=== PATIENT | male | born 1940 | race Caucasian/White ===

== ENCOUNTER 2016-07-08 08:55 | Inpatient (IN) | payer MEDICARE, OTHER ==
[~2016-07-08] VITALS: Ht 149.9 cm; Wt 46.2 kg
[2016-07-08] VITALS (24 sets, daily range): BP systolic 101–121; BP diastolic 67–80; PULSE 91–113; RESP 13–30; TEMP 98.9
[~2016-07-08 08:55] MED LIST: ALBU8.5H3 INH; BACL10TA PO; BUDE6HFA INHALATION; EPINEPHrine 0.1 MG/ML SYG ONE; FER325 PO; HYDR-906 PO; MEGE400O PO; MIRT15TA5 PO; NA BICARBONATE 8.4% 50 ML SYG ONE; ONDA4TAB95 PO; PANT40TA4 PO; TAMS0.4C2 PO; TRAM-40 PO
[2016-07-08] MEDS ORDERED: AZTREONAM 1 GM/NS (PMX) 50 ML IVPB STA (08:59)
[2016-07-08] MEDS ORDERED: SOD CHLORIDE 0.9% 1,000 ML IV STA ×2 (08:59)
--- NOTE | 2016-07-08 09:32 | RADRPT ---
PROCEDURE: XR Chest. CLINICAL INDICATION: Chest pain, sepsis TECHNIQUE: Single frontal view of the chest was obtained. COMPARISON: 06/06/16 FINDINGS: The heart is within normal limits. The thoracic aorta is calcified. There is right mid lung scarring with a staple line. There are surgical clips at the GE junction. There is no focal infiltrate. There is no pleural effusion or pneumothorax. RPTAT: AA IMPRESSION: Postsurgical changes of the right mid lung. No focal infiltrate. Calcified aorta consistent with atherosclerotic disease. .Jai Cordero MD, MD Date Time Electronically viewed and signed by .Jai Cordero MD, on 07/08/2016 09:32 .S/
[2016-07-08] MEDS ORDERED: ACETAMINOPHEN 325 MG TAB PO PRN (10:00)
[2016-07-08] MEDS ORDERED: ONDANSETRON 4 MG INJ IV PRN ×2 (10:00→13:30)
[2016-07-08 10:14] LABS: BASOPHIL # 0.1 10^3/ul (0.0-0.1); BASOPHILS % 0.6 % (0.0-2.0); EOSINOPHILS # 1.6 10^3/ul (0.0-0.5); EOSINOPHILS % 7.8 % (0.0-7.0); HEMATOCRIT 28.5 % (42.0-52.0); HEMOGLOBIN 9.4 g/dl (14.0-18.0); LYMPHOCYTES # 2.2 10^3/ul (0.8-2.9); LYMPHOCYTES % 10.4 % (15.0-51.0); MEAN CORPUSCULAR HEMOGLOBIN 28.6 pg (29.0-33.0); MEAN CORPUSCULAR HGB CONC 32.9 g/dl (32.0-37.0); MEAN CORPUSCULAR VOLUME 86.7 fl (82.0-101.0); MEAN PLATELET VOLUME 8.2 fl (7.4-10.4); MONOCYTES % 4.8 % (0.0-11.0); NEUTROPHIL # 16.2 10^3/ul (1.6-7.5); NEUTROPHILS % 76.4 % (39.0-77.0); PLATELET COUNT 451 10^3/UL (140-440); RED BLOOD COUNT 3.29 10^6/ul (4.70-6.10); RED CELL DISTRIBUTION WIDTH 18.6 % (11.5-14.5); UNCORRECTED WBC 21.2 10^3/ul (4.8-10.8); WHITE BLOOD COUNT 21.2 10^3/ul (4.8-10.8)
[2016-07-08 10:17] LABS: INR 1.05; PROTIME 13.7 Sec (12.2-14.2); PT RATIO 1.1
[2016-07-08 10:18] LABS: PARTIAL THROMBOPLASTIN TIME 29.4 Sec (25.0-35.0)
[2016-07-08 10:19] LABS: CONDITION 1; LH ANALYZER COMMENTS 1
[2016-07-08 10:20] LABS: ALBUMIN 3.1 g/dl (3.3-4.9); CHLORIDE 110 mmol/L (97-110); POTASSIUM 5.1 mmol/L (3.5-5.1); SODIUM 142 mmol/L (135-144)
[2016-07-08 10:22] LABS: CREATININE 1.71 mg/dl (0.61-1.24)
[2016-07-08 10:23] LABS: ALANINE AMINOTRANSFERASE 28 IU/L (13-69); ALBUMIN/GLOBULIN RATIO 0.83; ALKALINE PHOSPHATASE 123 IU/L (42-121); ANION GAP 21 (8-16); ASPARTATE AMINO TRANSFERASE 23 IU/L (15-46); BILIRUBIN,INDIRECT 0.1 mg/dl (0-1.1); BILIRUBIN,TOTAL 0.1 mg/dl (0.2-1.3); BLOOD UREA NITROGEN 33 mg/dl (7-20); CARBON DIOXIDE 16 mmol/L (21-31); GLUCOSE 103 mg/dl (70-220); TOTAL PROTEIN 6.8 g/dl (6.1-8.1)
[2016-07-08 10:24] LABS: CALCIUM 8.9 mg/dl (8.4-10.2)
--- NOTE | 2016-07-08 10:25 | RADRPT ---
PROCEDURE: CT Brain without contrast. CLINICAL INDICATION: Acute neurologic deficit TECHNIQUE: A CT of the brain was performed on multidetector high-resolution CT scanner utilizing a xial sections from the skull base through the vertex without contrast. DOSE: CTDI = 40 mGy and the DLP = 634 mGy-cm. COMPARISON: CT brain 06/04/2016 FINDINGS: No acute intracranial hemorrhage, significant mass effect or midline shift. Confluent hypoattenuatio n of the cerebral white matter is most consistent with severe chronic microvascular ischemic changes . Chronic bilateral basal ganglia lacunar infarcts. Atherosclerotic calcifications of the cavernous segments of the internal carotid arteries are seen. The ventricles are prominent but stable size. Diffuse volume loss.. No significant opacification of the visualized paranasal sinuses or mastoids. IMPRESSION: No significant interval change since 06/04/2016. No acute intracranial hemorrhage or significant mass effect. Severe chronic microvascular disease and chronic bilateral basal ganglia lacunar infarcts. RPTAT: AA .Melvin Fischer MD, MD Date Time Electronically viewed and signed by .Melvin Fischer MD, on 07/08/2016 10:24 .T/
[2016-07-08 10:43] LABS: TROPONIN-I < 0.012 ng/ml (0.00-0.12)
[2016-07-08] MEDS: VANCOMYCIN 1 GM (PMX) 250 ML IVPB ONE ×2 (10:43→11:30)
[2016-07-08] MEDS ORDERED: EPINEPHrine 0.1 MG/ML SYG ONE (12:35)
[2016-07-08] MEDS ORDERED: PROPOFOL 100 ML IV STA (12:51)
[2016-07-08] MEDS ORDERED: MIDAZOLAM 50 MG in DEXTROSE 5% 40 ML IV STA (12:58)
[2016-07-08] MEDS ORDERED: MIDAZOLAM 1 MG/ML 5 ML INJ IV ONE (13:00)
--- NOTE | 2016-07-08 13:03 | RADRPT ---
PROCEDURE: XR Chest. CLINICAL INDICATION: Status post intubation TECHNIQUE: Single portable view of the chest was obtained COMPARISON: Same Day FINDINGS: Limited study due to patient positioning. There is a new endotracheal tube 3.1 cm above the caterina. The heart is normal in size. There is no pleural effusion or pneumothorax. There is increased right paratracheal density which may be secondary to patient contraction. There are surgical clips in the right mid lung. There is a venous line in the right neck with air in the subcutaneous soft tissues. There is swelli ng in the right neck. RPTAT: AA IMPRESSION: New endotracheal tube in appropriate position. Increased soft tissue density in the right paratracheal region and in the base of the right neck, shafer spicious for a hematoma. Further evaluation with CT neck and chest is recommended. A call report was made and the findings discussed with Jax Mendez at 07/08/2016 12:59:59 PM. .Jai Cordero MD, MD Date Time Electronically viewed and signed by .Jai Cordero MD, on 07/08/2016 13:03 .S/
[2016-07-08 13:21] LABS: AADO2 Arterial 105.8 mmHg (7.0-24.0); Arterial Base Excess -19.4 mmol/L (-3.0-3); Arterial COHb 0.2 % (0.0-3.0); Arterial Fraction of Oxyhgb 98.4 % (93.0-99.0); Arterial HCO3 10.5 mmol/L (22.0-26.0); Arterial MetHb 0.5 % (0.0-1.5); Arterial Total Hemglobin 8.6 g/dl (12.0-18.0); MODE VENT - AC
[2016-07-08] MEDS ORDERED: ALBUTEROL 0.5% (NEB) 2.5 MG/0.5 ML AMP NEB PRN (13:30)
[2016-07-08] MEDS ORDERED: NORepinephrine 8MG/250 ML (PMX 250 ML IV SCH (13:30)
[2016-07-08] MEDS ORDERED: ACETAMINOPHEN 650MG/20.3ML CUP PO PRN (13:30)
[2016-07-08] MEDS ORDERED: MIDAZOLAM 1 MG/ML 2 ML INJ IV ONE (13:30)
[2016-07-08] MEDS ORDERED: IPRATROPIUM (NEB) 0.5 MG/2.5 ML AMP NEB PRN (13:30)
[2016-07-08] MEDS ORDERED: VANCOMYCIN IV PER PHARMACY XX SCH (13:30)
[2016-07-08] MEDS ORDERED: NORepinephrine 8MG/250 ML (PMX 250 ML ONE (13:42)
[2016-07-08 14:04] LABS: HEMATOCRIT 23.5 % (42.0-52.0); HEMOGLOBIN 7.6 g/dl (14.0-18.0); MEAN CORPUSCULAR HEMOGLOBIN 28.6 pg (29.0-33.0); MEAN CORPUSCULAR HGB CONC 32.5 g/dl (32.0-37.0); MEAN CORPUSCULAR VOLUME 87.9 fl (82.0-101.0); MEAN PLATELET VOLUME 7.4 fl (7.4-10.4); PLATELET COUNT 351 10^3/UL (140-440); RED BLOOD COUNT 2.67 10^6/ul (4.70-6.10); RED CELL DISTRIBUTION WIDTH 18.9 % (11.5-14.5); UNCORRECTED WBC 28.9 10^3/ul (4.8-10.8); WHITE BLOOD COUNT 28.9 10^3/ul (4.8-10.8)
[2016-07-08 14:07] LABS: CONDITION 1; LH ANALYZER COMMENTS 1; SUSPECT 1
[2016-07-08 14:13] LABS: INR 1.43; PROTIME 17.5 Sec (12.2-14.2); PT RATIO 1.4
[2016-07-08 14:14] LABS: ALBUMIN 2.6 g/dl (3.3-4.9)
[2016-07-08 14:15] LABS: POTASSIUM 4.6 mmol/L (3.5-5.1)
[2016-07-08 14:17] LABS: ALBUMIN/GLOBULIN RATIO 0.83; CREATININE 1.71 mg/dl (0.61-1.24); TOTAL PROTEIN 5.7 g/dl (6.1-8.1)
[2016-07-08] MEDS ORDERED: SOD CHLORIDE 0.9% 250 ML IV ONE (14:21)
--- NOTE | 2016-07-08 14:21 | ERA ---
ER Documentation Chief Complaint Date/Time DATE: 07/08/16 TIME: 14:15 Chief Complaint ALOC x this AM HPI Patient is a 75-year-old male with bladder cancer who presents altered. Please note the history and physical exam is limited secondary to the patient's altered mental status at this time. The patient was brought in by ambulance. He was seen normal last night. It is difficult to obtain history otherwise. Upon review of old medical records this is the patient's fifth visit to the ER since November 2015. The patient's primary doctor is Dr. Felder. ROS All systems reviewed and are negative except as per history of present illness. Medications Home Meds Active Scripts Megestrol Acetate* (Megace*) 400 Mg/10 Ml Oral.susp, 400 MG PO BID for 30 Days, ML Prov:JEREMIAS FELDER MD 07/04/16 Albuterol Sulfate* (Proair HFA*) 8.5 Gm Hfa.aer.ad, 2 PUFF INH Q4H Y for WHEEZING AND SOB, #1 INHALER Prov:JEREMIAS FELDER MD 06/10/16 Ferrous Sulfate* (Ferrous Sulfate*) 325 Mg Tabec, 325 MG PO DAILY, #30 TAB Prov:JEREMIAS FELDER MD 06/10/16 Reported Medications Budesonide-Formoterol Fumarate* (Symbicort*) 160-4.5 Hfa.aer.ad, 2 PUFF INHALATION BID, #1 EACH 06/04/16 Ondansetron Hcl* (Ondansetron Hcl*) 4 Mg Tablet, 4 MG PO Q6H Y for NAUSEA AND/ OR VOMITING, TAB 06/04/16 Mirtazapine* (Mirtazapine*) 15 Mg Tablet, 15 MG PO HS, TAB 06/04/16 Tamsulosin Hcl* (Tamsulosin Hcl*) 0.4 Mg Cap.er.24h, 0.4 MG PO DAILY, CAP 06/04/16 Tramadol Hcl* (Ultram*) 50 Mg Tablet, 50 MG PO Q6H Y for PAIN, TAB 06/04/16 Baclofen* (Baclofen*) 10 Mg Tablet, 10 MG PO BID, TAB 06/04/16 Hydrocodone/Acetaminophen ([place] 5-325 Tablet) 1 Each Tablet, 1 EACH PO Q8 Y for PRN, TAB 06/04/16 Pantoprazole* (Pantoprazole*) 40 Mg Tablet.dr, 40 MG PO DAILY, TAB 06/04/16 Discontinued Scripts Sulfamethoxazole-Trimethoprim* (Bactrim* DS) 800-160 Mg Tab, 1 TAB PO BID for 10 Days, #20 TAB Prov:JEREMIAS FELDER MD 06/10/16 Allergies Allergies: Coded Allergies: penicillin (Verified Allergy, Unknown, 07/08/16) PMhx/Soc History of Surgery: Yes (Bilat AKA, ELBOW SURGERY) Anesthesia Reaction: No Hx Neurological Disorder: No Hx Respiratory Disorders: Yes (RESPIRATORY FAILURE) Hx Cardiac Disorders: Yes (HYPOTENSION) Hx Psychiatric Problems: Yes (DEPRESSION) Hx Miscellaneous Medical Probl: Yes (HYPOXIA, HEAVY SMOKER, LIVER CA) Hx Alcohol Use: No Hx Substance Use: No Hx Tobacco Use: Yes (FORMER SMOKER) Smoking Status: Former smoker FmHx Unable to obtain Physical Exam Vitals Vital Signs Date Time Temp Pulse Resp B/P Pulse Ox O2 Delivery O2 Flow Rate FiO2 07/08/16 14:09 110 18 77/47 100 Mechanical Ventilator 07/08/16 13:38 114 18 65/49 100 Mechanical Ventilator 07/08/16 13:26 121 18 92/58 100 Mechanical Ventilator 07/08/16 13:01 132 18 87/58 100 Mechanical Ventilator 07/08/16 10:00 Nasal Cannula 2 07/08/16 09:37 98.9 124 17 100/53 97 Room Air 07/08/16 09:28 98.9 124 17 100/53 97 Physical Exam Const: Chronically ill Head: Atraumatic Eyes: Normal Conjunctiva ENT: Normal External Ears, Nose and Mouth. Neck: Full range of motion..~ No meningismus. Resp: Clear to auscultation bilaterally Cardio: Regular rate and rhythm, no murmurs Abd: Soft, non tender, non distended. Normal bowel sounds Skin: Pale Back: No midline or flank tenderness Ext: No cyanosis, or edema Neur: Awake but confused Result Diagram: 07/08/16 1350 07/08/16 1000 Results 24 hrs Laboratory Tests Test 07/08/16 10:00 07/08/16 12:28 07/08/16 12:51 07/08/16 13:50 Activated Partial Thromboplast Time 29.4Sec Alanine Aminotransferase (ALT/SGPT) 28IU/L Albumin 3.1g/dl Albumin/Globulin Ratio 0.83 Alkaline Phosphatase 123IU/L Anion Gap 21 Aspartate Amino Transf (AST/SGOT) 23IU/L Basophils # 0.110^3/ul Pending Basophils % 0.6% Pending Blood Morphology Comment Blood Urea Nitrogen 33mg/dl Calcium Level 8.9mg/dl Carbon Dioxide Level 16mmol/L Chloride Level 110mmol/L Creatinine 1.71mg/dl Direct Bilirubin 0.00mg/dl Eosinophils # 1.610^3/ul Pending Eosinophils % 7.8% Pending Globulin 3.70g/dl Glucose Level 103mg/dl Hematocrit 28.5% 23.5% Hemoglobin 9.4g/dl 7.6g/dl INR International Normalized Ratio 1.05 1.43 Indirect Bilirubin 0.1mg/dl Lactic Acid Level 1.7mmol/L Lymphocytes # 2.210^3/ul Pending Lymphocytes % 10.4% Pending Mean Corpuscular Hemoglobin 28.6pg 28.6pg Mean Corpuscular Hemoglobin Concent 32.9g/dl 32.5g/dl Mean Corpuscular Volume 86.7fl 87.9fl Mean Platelet Volume 8.2fl 7.4fl Monocytes # 1.010^3/ul Pending Monocytes % 4.8% Pending Neutrophils # 16.210^3/ul Pending Neutrophils % 76.4% Pending Nucleated Red Blood Cells # 0.010^3/ul Pending Nucleated Red Blood Cells % 0.0/100WBC Pending Platelet Count 82374^3/UL 60839^3/UL Potassium Level 5.1mmol/L Prothrombin Time 13.7Sec 17.5Sec Prothrombin Time Ratio 1.1 1.4 Red Blood Count 3.2910^6/ul 2.6710^6/ul Red Cell Distribution Width 18.6% 18.9% Sodium Level 142mmol/L Total Bilirubin 0.1mg/dl Total Protein 6.8g/dl Troponin I < 0.012ng/ml White Blood Count 21.210^3/ul 28.910^3/ul Bedside Glucose 90mg/dL Arterial Blood HCO3 10.5mmol/L Arterial Blood Base Excess -19.4mmol/L Arterial Blood Oxygen Saturation 99.1mmHG Kendrick Test N/A Arterial Blood Gas Puncture Site Right Brachial Arterial Blood Carboxyhemoglobin 0.2% Arterial Blood Date Drawn 07/08/2016 1:03:41 PM Arterial Blood Methemoglobin 0.5% Arterial Blood pCO2 (Temp correct) 42.5mmhg Arterial Blood pH (Temp corrected) 7.011 Arterial Blood pO2 (Temp corrected) 564.7mmHG Blood Gas A-a O2 Differential 105.8mmHg Blood Gas Actual Respiration Rate 18 Blood Gas Critical Value Read Back DR. HENRI NAVARRETE Blood Gas Low PEEP Setting 5.0cmH2O Blood Gas Modality VENT - AC Blood Gas Notified Time 07/08/2016 1:20:48 PM Blood Gas Notified Whom LILY RT Blood Gas Respiration Rate 18.0 Blood Gas Specimen Source Blood arterial Blood Gas Temperature 37.0C Blood Gas Tidal Volume 450.0mL FiO2 100.0% Oxyhemoglobin Percent 98.4% Total Hemoglobin 8.6g/dl Current Medications Medications (Trade) Dose Ordered Sig/Juliana Route PRN Reason Start Time Stop Time Status Last Admin Dose Admin Vancomycin HCl 250 ml @ 125 mls/hr ONCE ONCE IVPB 07/08/16 09:00 07/08/16 10:59 DC 07/08/16 11:30 Aztreonam 50 ml @ 100 mls/hr ONCE STAT IVPB 07/08/16 08:59 07/08/16 09:28 DC 07/08/16 11:00 Sodium Chloride 1,000 ml @ 1,000 mls/hr Q1H STAT IV 07/08/16 08:59 07/08/16 09:58 DC 07/08/16 10:42 Sodium Chloride (NS) 1,000 ml @ 1,000 mls/hr Q1H STAT IV 07/08/16 08:59 07/08/16 09:58 DC 07/08/16 11:52 Ondansetron HCl (Zofran Inj) 4 mg BRIDGE ORDER PRN IV NAUSEA AND/OR VOMITING 07/08/16 10:00 07/08/16 13:43 DC 07/08/16 10:43 Acetaminophen (Tylenol Tab) 650 mg ER BRIDGE PRN PO MILD PAIN/FEVER 07/08/16 10:00 07/08/16 13:43 DC 07/08/16 10:43 Epinephrine 1 mg 1 mg STK-MED ONCE .ROUTE 07/08/16 12:35 07/08/16 12:36 DC Propofol (Diprivan) 100 ml @ 1.5 mls/hr ONCE STAT IV 07/08/16 12:51 07/08/16 12:59 DC Midazolam HCl 5 mg 5 mg ONCE ONCE IV 07/08/16 13:00 07/08/16 13:01 DC Midazolam HCl/ Dextrose (Versed/D5W) 50 ml @ 3 mls/hr [id number] STAT IV 07/08/16 12:58 07/09/16 05:37 07/08/16 13:18 Midazolam HCl 5 mg 5 mg ONCE ONCE IV 07/08/16 13:30 07/08/16 13:31 DC 07/08/16 13:12 Sodium Chloride (NS) 1,000 ml @ 80 mls/hr [id number] IV 07/08/16 13:24 Ondansetron HCl (Zofran Inj) 4 mg Q6H PRN IV NAUSEA AND/OR VOMITING 07/08/16 13:30 Albuterol (Proventil 0.5% (Neb)) 2.5 mg Q4H RESP THERAPY NEB 07/08/16 17:00 Ipratropium [place] (Atrovent 0.02% (Neb)) 0.5 mg Q4H RESP THERAPY NEB 07/08/16 17:00 Albuterol (Proventil 0.5% (Neb)) 2.5 mg Q2H RESP THERAPY PRN NEB SHORTNESS OF BREATH 07/08/16 13:30 Ipratropium [place] (Atrovent 0.02% (Neb)) 0.5 mg Q2H RESP THERAPY PRN NEB SHORTNESS OF BREATH 07/08/16 13:30 Acetaminophen (Tylenol Liquid) 650 mg Q6H PRN PO PAIN LEVEL 1-3 OR FEVER 07/08/16 13:30 Morphine Sulfate (morphine) 2 mg Q2 PRN IV PAIN LEVEL 7-10 07/08/16 13:30 Pantoprazole (Protonix Iv) 40 mg DAILY@06 IV 07/09/16 06:00 Heparin Sodium (Porcine) (Heparin (5000 Units/0.5 ml)) 5,000 unit Q12 SC 07/08/16 21:00 Vancomycin HCl VANCOMYCIN PER PHARMACY PER PROTOCOL XX 07/08/16 13:30 UNV Imipenem/ Cilastatin Sodium 100 ml @ 100 mls/hr Q8 IVPB 07/08/16 14:00 UNV Norepinephrine 250 ml @ 1.875 mls/ hr TITRATE IV 07/08/16 13:30 07/08/16 13:50 Norepinephrine (Levophed) 250 ml @ STK-MED ONCE .ROUTE 07/08/16 13:42 07/08/16 13:43 DC Procedures/MDM EKG read by me: Rate/Rhythm: Sinus tachycardia Intervals: Normal Impression: Sinus tachycardia without evidence of ischemia Chest x-ray shows no pneumonia per radiology. Admit MDM: Patient's infectious symptoms have not stabilized and the patient is at risk of rapid decompensation. The patient will be admitted for careful hydration, antibiotic therapy, and infectious source control. Severe Sepsis criteria: Infectious source: Cystitis End organ damage indicated by: Hypertension Sepsis Management: Time of recognition of sepsis: 10:00 Within 3 hours of recognition: Blood cultures x 2 before broad-spectrum antibiotics: Yes 30 ml/kg NS bolus Completed Initial lactate 1.7 Repeat lactate 9.2 Time of recognition of septic shock: 12:30 Septic Shock Assessment: Any lactic acid > 4.0 No Persistent hypotension (SBP < 90 or 40 mmHg drop, MAP < 65) despite 30 mL/kg IV fluid bolus yes Volume Re-assessment for Septic Shock (post 30 ml/kg bolus): Temp 98.9, BP 77/47, HR 110, RR 18, Pox 100% Heart tachycardia Lungs decreased breath sounds bilaterally Skin pale Cap Refill Less than 2 seconds Peripheral pulses Radially present Persistent Hypotension Treatment: Comfort care No Central line left subclavian central line placed Vasopressor started Levophed started I considered further perfusion assessment with CVP measurement, SCVO2, bedside ultrasound volume assessment, passive leg raise, trial of further fluid bolus. And proceeded with 30 ml/kg fluid bolus of NSS, broad spectrum antibiotics, and admission. The patient had a cardiac arrest while in the emergency department and needed to be intubated and was given multiple doses of epinephrine. He did have return of spontaneous circulation. He was placed on a Versed drip. He was upgraded to the intensive care unit for admission. The family wants full care given. The patient has a repeat hemoglobin of 7.6 and will require transfusion. 2 units of packed red blood cells are ordered. Accepting Care Team Current data and ongoing care discussed. Admitting Physician: Dr. Felder Cinnamon Grinder(s): None Outstanding Data: Culture results Critical Care: Critical care time 55 minutes excluding all billable procedures Emergent fluid management while maintaining close respiratory support. Provision of immediate and broad-spectrum antibiotic therapy. Simultaneous assessment for possible sources in order to direct targeted therapy. Consideration for invasive and chemical support to prevent cardiopulmonary collapse. Central Line Placement by me: Patient consented, sterilely draped, full prep, gown, glove, mask, time out performed. Anesthesia: 1% lidocaine locally Location: Left subclavian Device: Multiple lumen Technique: Seldinger technique. Secured with suture. Results: Venous return from all ports with easy saline flush. No complications. Guide wire retrieved and disposed of. Chest X-ray 1V Interpreted by me: Central line in SVC, Normal soft tissue, No evidence of pneumothorax. Limited transthoracic echo performed by me Indication: Cardiac arrest Pericardium: No effusion Cardiac: Normal contraction Image archived in the medical record. Departure Diagnosis: Primary Impression: Septic shock Additional Impressions: Altered level of consciousness Cardiac arrest Sepsis Qualified Code: A41.9 - Sepsis, due to unspecified organism Condition: Critical HENRI NAVARRETE MD Jul 08, 2016 14:21
--- NOTE | 2016-07-08 14:22 | RADRPT ---
PROCEDURE: Chest Radiograph. CLINICAL INDICATION: Line placement TECHNIQUE: Single frontal chest radiograph. COMPARISON: Chest radiograph 07/08/2016 at 12:47 p.m. FINDINGS: An endotracheal tube remains in stable and radiographically appropriate position. There has been in terval placement of a left subclavian venous catheter with distal tip overlying the cavoatrial junct ion. There is no pneumothorax. Heart size remains within normal limits. Again seen is increased so ft tissue density in the right paratracheal region which may be related to tortuous vasculature. En larged thyroid, hematoma, or mass could also have this appearance. This finding was already reporte d to the ER physician on prior report. No infiltrate or effusion is seen The bones are intact. IMPRESSION: 1. Interval placement of left subclavian line. No pneumothorax. 2. Otherwise stable radiographic appearance of chest compared to 12:47 p.m. RPTAT: GG .Kemar Magallanes MD, MD Date Time Electronically viewed and signed by .Kemar Magallanes MD, on 07/08/2016 14:22 .B/
[2016-07-08] MEDS ORDERED: SOD CHLORIDE 0.9% 1,000 ML IV ONE (14:30)
[2016-07-08 14:42] LABS: TROPONIN-I 1.07 ng/ml (0.00-0.12)
[2016-07-08 14:43] LABS: ANISOCYTOSIS 2+; EOSINOPHILS # 1.2 10^3/ul (0.0-0.5); HYPOCHROMASIA 2+; MONOCYTE # 0.3 10^3/ul (0.3-0.9); NEUTROPHIL # 22.3 10^3/ul (1.6-7.5)
[2016-07-08 14:44] LABS: BURR CELLS FEW
[2016-07-08] MEDS ORDERED: ASPIRIN 300 MG SUPP PR ONE (15:00)
--- NOTE | 2016-07-08 15:10 | HP ---
DATE OF ADMISSION: 07/08/2016 REASON FOR ADMISSION: Encephalopathy, rule out sepsis. Now status post cardiac arrest. HISTORY OF PRESENT ILLNESS: The patient is a 75-year-old, very sick male, very well known to me. 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 The patient was seen previous ly by the urologist, Dr. Villarreal, by the radiation oncologist, Dr. Lan. It was felt that the p atient is not a candidate for bladder resection surgery and regarding radiation therapy, this may be just palliative in nature. The patient's prognosis has been very poor and family could not make a decision regarding code status or palliative care as they were more optimistic, especially the patie nt's daughter, despite me explaining to them that the patient's condition is not good. The patient was just discharged from [facility] under my care on 07/04/2016. He presented at that time with severe constipation and generalized debilitated state. I did offer the family to sen d the patient to a [facility] facility. We will place him under hospice care due. They do alr diego have care at home, home health, etc. They wanted still to pursue radiation therapy and hold fo r the best. The patient now returned to the hospital, as he was noted to be more lethargic. Septic workup was initiated as he was found to have a white count of 21,000. Lactic acid was normal at 1. 7. VITAL SIGNS: Initial vital signs showed a temperature of 98.9, pulse 124, respirations 17, blood pr essure 100/53, saturation 97%. The patient was started on antibiotics. A right IJ line was placed, but he was noted to be apneic and the patient coded. The patient was started on CPR and was perlita t back. Case discussed in detail with Dr. Martinez. I have spoken to Miesha, the patient's , and she is aware of patient's guarded condition. Also, I spoke at bedside with the daughter and told he r about patient's condition which is not good. The right IJ was removed during the CPR as they note d slight hematoma in the area. The patient now ventilated. He will be admitted to the intensive ca re unit in guarded condition. LABORATORY DATA: After intubation, and the ABG showed the following: pH of 7.30, pCO2 of 43, pO2 o f 565, bicarbonate of 10. Saturation is 99% on current settings: AC mode 18, tidal volume 450, PEE P of 5 and FIO2 100%. Again, the patient is admitted in critical condition to the intensive care un it. PAST MEDICAL HISTORY: Includes hypertension, dyslipidemia, depression, chronic anemia, chronic krystal k pain, gastroesophageal reflux disease, advanced COPD, chronic fracture of the left finger status p ost right lung decortication surgery, left AKA Cachexia stage IV, bladder cancer with mets to the li alem. SURGICAL HISTORY: Left AKA. FAMILY HISTORY: Unknown. 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 ALLERGIES: PENICILLIN. Recent pathology report from the bladder did show grade IV urothelial carcinoma, high grade extensiv sharan with focal glandular and squamous differentiation with invasion into the muscularis propria. Re cent CAT scan shows likely mets in the liver. The patient recent medications include the following; 1. Megace 400 b.i.d. 2. ProAir HFA 2 puffs q.4h. p.r.n. 3. Baclofen 10 mg b.i.d. 4. Flomax 0.4 daily. 5. daily. 6. [place] 5/325 q.8h. p.r.n. 7. Mirtazapine 50 mg at bedtime. 8. Ultram p.r.n. 9. Symbicort 2 puffs b.i.d. 19. Zofran. 11. Protonix 40 mg daily. REVIEW OF SYSTEMS: See HPI. PHYSICAL EXAMINATION: VITAL SIGNS: Temperature 98.9 earlier, heart rate 114, respirations 18, blood pressure went down to 65, but when I saw him it was in the 90s. Saturation was adequate at 100% on 100% FIO2 full ventil atory support. GENERAL: The patient is nonresponsive, off sedation. HEENT: Pupils are slightly dilated. CARDIOVASCULAR: S1, S2. Distant heart sounds. LUNGS: Decreased breath sounds on the left lung. There is some evidence of likely rib fractures in the anterior chest from the chest compressions. ABDOMEN: Soft, nontender. EXTREMITIES: Left AKA, right leg flexed at the knee. Multiple lesions in the right foot. Previous ly had unstageable sacral wound as well. The patient is mostly all bones, very cachectic and very s ick. LABORATORIES: White count is 21.2, hemoglobin 9.4, hematocrit 29, platelets 451, neutrophils 76%, l ymphocytes 10%. Chemistry: Sodium 142, potassium 5.1, chloride 110, bicarbonate 16, BUN is 33, cre atinine 0.71, glucose 103. AST 23, ALT 28, alkaline phosphatase 123. INR 1.05. ABG as above. Chest x-ray on admission prior to intubation shows post-surgical changes of the right mid lung. No focal infiltrate. There is calcified aorta consistent with atherosclerotic disease. Brain CT shows no significant interval change from 06/04/2016, no acute intracranial hemorrhage or s ignificant mass effect. There is severe chronic microvascular disease and chronic bilateral basal g anglia lacunar infarct. Chest x-ray: New endotracheal tube in appropriate position. There was increased soft tissue densit y in the right paratracheal region of the base of the right adnexa suspicious for hematoma. Further evaluation with CT of the neck and chest is recommended. Previous urine culture dated 07/02/2016 just showed an E. coli less than 10 to the fourth sensitive to cefotaxime, gentamicin, nitrofurantoin, tobramycin. EKG: I will follow with results. ASSESSMENT AND PLAN: This is a very unfortunate 75-year-old male, overall very sick with history of COPD, metastatic stage IV bladder cancer, severe cachexia, anemia, recurrent UTI may be r elated to his bladder malignancy, who presents encephalopathic, unfortunately, status post cardiac a rrest. 1. Respiratory. Continue vent support per utilization review coordinator for repeat ABG, further vent settings per pulmonology. 2. Cardiovascular IV fluid hydration will be provided with as needed pressors with Levophed to keep systolic blood pressure greater than 90. The patient will be placed on heparin for DVT prophylaxis . Followup EKG and troponin. 3. Sepsis may be UTI. The patient was empirically started on broad-spectrum antibiotics with imipenem and vancomycin. Follow up all cultures. 4. Renal insufficiency, slightly prerenal azotemia and dehydration. The patient again is very cach ectic, very difficult for him to eat in general, because of his medical condition. In the meantime, fluid hydration will be provided. 5. Neurologically, concerning for possible anoxic brain injury. The patient already has some form of vascular dementia, microinfarct on the CAT scan in the past. Condition is guarded. 6. Peripheral vascular disease, left AKA. Continue supportive care. 7. Right foot wound, sacral wound. Air mattress bed, vitamins and client renewal specialist consult will be provided. 8. Prognosis is poor as prognosis was poor before what happened. The family did not want to make a ny decisions regarding end of life care. Unfortunately, now he is ventilated. Consider palliative consult with Dr. Hassan. 9. Anemia. Monitor H and H, p.r.n. transfusion will be given. Again, the patient will be placed o n gastrointestinal prophylaxis with Protonix. 10. Prognosis is poor. Dictated By: JEREMIAS BELTRAN/LEISA Conf#: [id number] DID#: [id number]
[2016-07-08 15:15] LABS: AADO2 Arterial 126.9 mmHg (7.0-24.0); Allen Test ACCEPTAB; Arterial Base Excess -14.7 mmol/L (-3.0-3); Arterial COHb 0.3 % (0.0-3.0); Arterial Fraction of Oxyhgb 98.2 % (93.0-99.0); Arterial HCO3 9.9 mmol/L (22.0-26.0); Arterial MetHb 0.4 % (0.0-1.5); Arterial Total Hemglobin 8.2 g/dl (12.0-18.0); MODE VENT - AC
--- NOTE | 2016-07-08 15:35 | RADRPT ---
Echocardiogram Report Patient Name: BABITA HERRING Gender: Male Date: 1940 Study Date: 08-Jul-2016 Jalousies Installer: Miriam Ramos RDCS Location: Ref. Physician: JEREMIAS NAIK Quality: Limited Procedures: Transthoracic echocardiogram with complete 2D, M-Mode, and doppler examination. Indications: Cardiac Arrest. 2D/M Mode Doppler Measurement Value Normal Ranges Measurement Value Normal Ranges TR Peak Yassine 2.2 m/sec TR Peak PG 19.2 mmHg RVSP 22.0 mmHg Findings Left Ventricle: Normal left ventricular systolic function. Normal left ventricular cavity size. Ejection fraction is visually estimated at 65 %. Right Ventricle: Normal right ventricular size. Normal right ventricular systolic function. Left Atrium: The left atrium is normal in size. Right Atrium: The right atrium is normal in size. Mitral Valve: Normal appearance and function of the mitral valve with trace physiologic regurgitation. Aortic Valve: Normal appearance of the aortic valve. No significant aortic stenosis or insufficiency. Tricuspid Valve: Estimated peak PA systolic pressure 22 mmHg. There is mild to moderate tricuspid regurgitation. Pulmonic Valve: Normal pulmonic valve appearance. Pericardium: Normal pericardium with no significant pericardial effusion. Aorta: Normal aortic root. IVC: Normal size and normal respiratory collapse consistent with normal right atrial pressure. Pulmonary Artery: Normal pulmonary artery size. Conclusions 1.Normal left ventricular systolic function. Normal left ventricular cavity size. Ejection fraction is visually estimated at 65 %. 2.Normal appearance and function of the mitral valve with trace physiologic regurgitation. 3.Normal appearance of the aortic valve. No significant aortic stenosis or insufficiency. 4.Estimated peak PA systolic pressure 22 mmHg. There is mild to moderate tricuspid regurgitation. 5.SUBOPTIMAL STUDY. Electronically Signed By: Alek Noriega 08-Jul-2016 15:35:27 -0800 Patient Name: BABITA HERRING Study Date: 08-[id number]-[id number]
[2016-07-08] MEDS: IMIPENEM-CILAST 500MG IV (PMX) 100 ML IVPB SCH ×2 (16:01→22:24)
--- NOTE | 2016-07-08 16:40 | RADRPT ---
PROCEDURE: CT Chest without contrast. CLINICAL INDICATION: Right neck swelling. Hematoma. Pain. Status post cardiac arrest with chest compressions. TECHNIQUE: CT scan of the chest without contrast was performed on a multidetector high-resolution CT scanner. Coronal and sagittal reformatted images were obtained from the axial source images. The total exam CTDI equals 6.25 mGy and the total exam DLP equals 248.40 mGy-cm. One or more of the following dose reduction techniques were used: - Automated exposure control. - Adjustment of the mA and/or kV according to patient size. - Use of iterative reconstruction technique. COMPARISON: Chest x-ray dated 07/08/2016; chest CT scan dated 04/30/2016 FINDINGS: Advanced severe bullous emphysematous COPD changes are seen scattered throughout the lungs. Dense c onsolidation is seen within the posterior right lower lung consistent with pneumonia. Mild patchy i nflammatory bronchiolitis is seen in the posterolateral periphery of the right upper lung, and the p osterior left lower lung, likely related to pneumonia as well. Diffuse bronchiectasis is identified . Significant mucous debris seen layering within the main central trachea and right mainstem bronch us. Architectural distortion and scarring is seen scattered throughout the lungs. There is a small left basilar layering pleural effusion. Minimal sliver of fluid and dense pleural thickening is se en in the posterior right lung base. Surgical microstaple line is seen along the medial margin of t he right upper lung. No mass lesion is seen to indicate neoplasm. Endotracheal tube is in place wi thin the trachea above the caterina, in good location. Soft tissue infiltration is seen in the right superior mediastinum, possibly representing infiltrati ve hemorrhage. Small shoddy reactive nodes are seen scattered throughout the mediastinum, not enlar ged by size criteria. The vascular structures of the mediastinum are normal in course and caliber. Aortic vascular calcifications and coronary artery calcifications are present. The heart size is n ormal without evidence for pericardial thickening or effusion. Left-sided central line is seen in pl miguel with the tip in the superior vena cava. The axillary regions, subpectoral regions, and supraclavicular regions are all unremarkable. The shafer rrounding chest wall is unremarkable. Imaging obtained through the upper abdomen is remarkable for a small 2.1 cm hypodense nodule in the central right lobe of the liver. This is poorly evaluated on this current noncontrast study. Of note, this was seen previously and is slightly larger in the int erim since the prior scan. Numerous surgical clips are seen scattered around the region of the dista l gastroesophageal junction. Tiny punctate calcifications are seen within the pancreas, typical of c hronic recurrent pancreatitis. Severe infiltration and edema of the right anterior upper chest wall extending to the right neck. T his may be secondary to hemorrhage. Tiny gas bubbles are seen within the right lower anterior neck and right upper mediastinum and right thoracic inlet. Query recent previous procedure, possibly fro m previous line placement.. The surrounding osseous structures are remarkable for degenerative spondylosis of the spine. No ost eolytic or osteoblastic lesion is detected. On the lateral view, there is severe step-off of the yokasta rnum. This may represent an acute fracture. However, on the axial source images, this appears to be artifact related to patient breathing motion. Given the patient's history of chest compressions fr om cardiac arrest, the possibility of an acute fracture is considered highly suspect. Several subtle IMPRESSION: 1. No significant mucous debris within the main trachea and right mainstem bronchus. There is cons olidation the right lower lung. Aspiration pneumonia from recent cardiac arrest is most likely. 2. Mild additional areas of multifocal low grade inflammatory bronchiolitis and bronchopneumonia se en in the right middle lobe and left lower lobe. 3. Severe COPD changes seen scattered throughout the lungs. 4. Small left basilar layering pleural effusion with a tiny sliver of fluid in the right lung base. 5. Possible compression fracture of the anterior sternum. 6. Infiltration/hemorrhage in the right anterior chest wall, right neck region, and right superior mediastinum. Small gas bubbles are seen in this region as well and thus the possibility of aborted line placement during cardiac arrest should be considered. 7. Endotracheal tube in place in the trachea above the caterina, in good location. 8. Enlarging nodule in the central right lobe of the liver. Further evaluation is warranted to exc lude the possibility of enlarging neoplasm. Call report was made and findings discussed with Dr. Gupta at 4:20 p.m. on 07/08/2016. RPTAT: HMJB .Jozef Davenport MD, Date Time Electronically viewed and signed by .Jozef Davenport MD, MD on 07/08/2016 16:39 .B/
--- NOTE | 2016-07-08 16:45 | RADRPT ---
PROCEDURE: CT scan of the neck without contrast. CLINICAL INDICATION: Neck swelling. Evaluate for hematoma. TECHNIQUE: CT scan of the neck was performed on the [employer] volumetric 64-slice scanner . Contiguous ax ial images were obtained throughout the neck with coronal and sagittal reformatted images. No IV co ntrast was administered. The exam CTDI = 10.28 and the DLP equals 269.24 mGy-cm. COMPARISON: None available FINDINGS: There are multiple pockets of subcutaneous gas in the right supraclavicular fossa. There is indurat ion of the skin and subcutaneous fat of the right anterior lower neck. There is no discrete hyperde nse loculated fluid collection to suggest an hematoma. There is extensive retro pharyngeal edema. Edema is also seen in the deep facial planes of the neck . No soft tissue gas is seen. ET tube is in place. There is obliteration of the right vallecula wh ich could be secretions. Dense calcifications are seen at both carotid bulbs. A subclavian line is partially visualized. Paraseptal emphysema is noted. No mass is identified. The parotid glands, s ubmandibular glands, and thyroid gland are all normal. Imaging obtained through the lung apices rev ealed no acute abnormality. Normal size lymph nodes are seen within the typical kisha bearing stati ons of the neck bilaterally. No adenopathy is detected. No mass or fluid collection or other abnor mality is seen. The surrounding soft tissues and muscles are unremarkable as well. IMPRESSION: 1. Multiple small pockets of subcutaneous gas in the right supraclavicular fossa and the right lower neck. No loculated hyperdense fluid collection is seen to suggest hematoma. Significant induratio n of the skin and subcutaneous fat in this region which could represent infection. Correlate with p hysical exam. 2. Extensive retropharyngeal edema. No soft tissue gas is seen in the deep facial planes of the ne ck. 3. Paraseptal emphysema. No pneumothorax. RPTAT: BB .Etienne Kathleen MD, Date Time Electronically viewed and signed by .Etienne Kathleen MD, on 07/08/2016 16:45 .O/
[2016-07-08] MEDS ORDERED: IPRATROPIUM (NEB) 0.5 MG/2.5 ML AMP NEB SCH (17:00)
[2016-07-08] MEDS ORDERED: ALBUTEROL 0.5% (NEB) 2.5 MG/0.5 ML AMP NEB SCH (17:00)
--- NOTE | 2016-07-08 18:00 | CONS ---
DATE OF ADMISSION: 07/08/2016 DATE OF CONSULTATION: 07/08/2016 TYPE OF CONSULTATION: Infectious Disease. REASON FOR CONSULTATION: Antibiotic management. HISTORY OF PRESENT ILLNESS: Manav Goodrich is a 75-year-old male with a history of bladder cancer, who comes in with altered levels of consciousness. His past problems include: 1. Severe peripheral vascular disease. 2. Bilateral above-knee amputations. 3. History of elbow surgery. 4. Respiratory failure. 5. Hypertension. 6. Depression. 7. Hypoxia. 8. Liver cancer. 9. History of heavy smoking in the past. 10. ALLERGY TO PENICILLIN. On admission, his white count was 28.9, H and H of 7.6 and 23.5, platelet count 351,000. BUN and cr eatinine 33/1.71, glucose 103, CO2 of 16, a chest x-ray from today shows post-surgical changes of th e right middle lung, no focal infiltrates, and surgical chips clips at the GE junction, calcified ao rta consistent with ____ atherosclerotic cardiovascular disease. A CT scan of the brain shows no ac tonto apache intracranial hemorrhage, severe chronic microvascular disease and chronic bilateral basal gangli on lacunar infarcts. A repeat chest x-ray shows new endotracheal tube in position, increased soft t issue density in the right paratracheal region at the base of the neck, suspicious for hematoma. An other repeat chest x-ray shows interval placement of a left subclavian line, so the patient has an E T tube, he has a left subclavian, he has a right peritracheal probable hematoma. PAST MEDICAL HISTORY: Operations as outlined. FAMILY HISTORY: Noncontributory. SOCIAL HISTORY: He does not smoke, drink or abuse drugs. ALLERGIES: NONE TO PENICILLIN, SULFA OR FOODS. MEDICATIONS: Per chart. REVIEW OF SYSTEMS: Noncontributory. PHYSICAL EXAMINATION: GENERAL: The patient is intubated on a respirator. He has altered levels of consciousness, confuse d. SKIN: Without generalized rash. HEENT: Within normal limits. NECK: Supple. LYMPH NODES: None palpable. CHEST: Decreased breath sounds at the bases. HEART: Without murmur or gallop. ABDOMEN: Soft, nontender, without organosplenomegaly or masses. EXTREMITIES: Without cyanosis, clubbing, or edema. RECTAL AND GENITAL: Exams deferred. NEUROLOGIC: As noted, the patient is confused, able to move his extremities. IMPRESSION AND PLAN: As noted, the patient has an elevated white count to 28.9. He was started on imipenem and vancomycin. A CT scan of the cervical spine was ordered and cancelled. A CT chest wit h and without contrast is ordered. Blood cultures were done. Lactic acid was ordered. Urinalysis and culture was ordered. Patient received a dose of aztreonam as well, but is currently on vancomyc in and imipenem. We will continue him on this medication regimen. I will dictate my findings to [facility] hospitalist. Dictated By: EARNESTINE DUKE MD, JD/LEISA Conf#: [id number] DID#: [id number]
[2016-07-08] MEDS: SOD CHLORIDE 0.9% 1,000 ML IV SCH (18:51)
[2016-07-08] MEDS: HEPARIN 5,000 UNIT/0.5 ML SYG SC SCH (21:00)
[2016-07-08] MEDS: ALBUTEROL HFA 8 GM INHALER INH SCH (21:39)
[2016-07-08] MEDS: IPRATROPIUM (HFA) 12.9 GM INHALER INH SCH (21:39)
--- NOTE | 2016-07-08 22:31 | RADRPT ---
PROCEDURE: XR Chest. CLINICAL INDICATION: Shortness of breath. TECHNIQUE: Single frontal view. COMPARISON: 07/08/2016. 1359 hours. FINDINGS: The endotracheal tube and left subclavian vein catheter remain in satisfactory position. There is a new nasogastric tube with the tip in the stomach. Surgical clips are present in the epigastric region. The lungs are clear. The heart size is normal . There is no pleural effusion. There is no pneumothorax. IMPRESSION: 1. Nasogastric tube tip in the stomach. 2. No other change from the prior study done earlier the same day. RPTAT: QQ .Rell Rogers MD, MD Date Time Electronically viewed and signed by .Rell Rogers MD, MD on 07/08/2016 22:30 .R/
[2016-07-09] VITALS (95 sets, daily range): BP systolic 97–136; BP diastolic 57–80; PULSE 84–124; RESP 12–29
[2016-07-09] MEDS: ALBUTEROL HFA 8 GM INHALER INH SCH ×6 (01:08→21:09)
[2016-07-09] MEDS: IPRATROPIUM (HFA) 12.9 GM INHALER INH SCH ×6 (01:08→21:09)
[2016-07-09] MEDS ORDERED: COLLAGENASE 30 GM TUBE TOP PRN (01:30)
[2016-07-09] MEDS: MIDAZOLAM 50 MG in DEXTROSE 5% 40 ML IV SCH ×3 (02:48→22:02)
[2016-07-09 05:00] LABS: BASOPHILS % 0.1 % (0.0-2.0); EOSINOPHILS % 0.2 % (0.0-7.0); HEMATOCRIT 30.3 % (42.0-52.0); HEMOGLOBIN 10.1 g/dl (14.0-18.0); LYMPHOCYTES # 1.1 10^3/ul (0.8-2.9); LYMPHOCYTES % 5.6 % (15.0-51.0); MEAN CORPUSCULAR HEMOGLOBIN 29.3 pg (29.0-33.0); MEAN CORPUSCULAR HGB CONC 33.4 g/dl (32.0-37.0); MEAN CORPUSCULAR VOLUME 87.6 fl (82.0-101.0); MEAN PLATELET VOLUME 7.9 fl (7.4-10.4); MONOCYTE # 0.8 10^3/ul (0.3-0.9); NEUTROPHIL # 17.8 10^3/ul (1.6-7.5); NEUTROPHILS % 90.1 % (39.0-77.0); PLATELET COUNT 258 10^3/UL (140-440); RED BLOOD COUNT 3.46 10^6/ul (4.70-6.10); UNCORRECTED WBC 19.7 10^3/ul (4.8-10.8); WHITE BLOOD COUNT 19.7 10^3/ul (4.8-10.8)
[2016-07-09 05:06] LABS: CONDITION 1; LH ANALYZER COMMENTS 1; SUSPECT 1
[2016-07-09 05:07] LABS: POTASSIUM 4.2 mmol/L (3.5-5.1)
[2016-07-09 05:09] LABS: CREATININE 1.4 mg/dl (0.61-1.24)
[2016-07-09 05:10] LABS: CALCIUM 7.7 mg/dl (8.4-10.2); MAGNESIUM 1.9 mg/dl (1.7-2.5)
[2016-07-09] MEDS: PANTOPRAZOLE 40 MG INJ IV SCH (05:27)
[2016-07-09] MEDS: SOD CHLORIDE 0.9% 1,000 ML IV SCH ×2 (05:27→16:00)
[2016-07-09] MEDS: IMIPENEM-CILAST 500MG IV (PMX) 100 ML IVPB SCH ×2 (08:34→20:42)
[2016-07-09] MEDS: COLLAGENASE 30 GM TUBE TOP SCH (09:00)
[2016-07-09] MEDS: HEPARIN 5,000 UNIT/0.5 ML SYG SC SCH ×2 (09:00→20:54)
--- NOTE | 2016-07-09 12:09 | RADRPT ---
PROCEDURE: XR Abdomen. CLINICAL INDICATION: Check nasogastric tube position. TECHNIQUE: AP supine abdomen x-ray. COMPARISON: Chest x-ray dated 07/08/2016. FINDINGS: The prior chest x-ray demonstrated the nasogastric tube tip in the stomach. The current study does not demonstrate any nasogastric tube. The bowel gas pattern is normal with no evidence of obstruction. Surgical clips are present in the u pper abdomen. There are no abnormal calcifications overlying the urinary tracts. Vascular calcifications are present consistent with atherosclerosis. There is a Uriarte catheter in t he bladder. Vascular stents are present overlying the iliac regions bilaterally. There are degener ative changes of the spine. IMPRESSION: 1. No nasogastric tube is visualized anywhere on the image. 2. Prior upper abdomen surgery. 3. Iliac region stent. 4. Uriarte catheter in the bladder. RPTAT: QQ .Rell Rogers MD, Date Time Electronically viewed and signed by .Rell Rogers MD, on 07/09/2016 12:09 .R/
--- NOTE | 2016-07-09 13:36 | CONS ---
DATE OF ADMISSION: 07/08/2016 DATE OF CONSULTATION: 07/09/2016 TYPE OF CONSULTATION: Pulmonary. REASON FOR CONSULTATION: Shortness of breath, ventilator management. HISTORY OF PRESENT ILLNESS: This is an unfortunate 75-year-old gentleman with history of peripheral vascular disease, amputation, COPD, metastatic bladder cancer, severe malnutrition came in with sig nificant encephalopathy, hypotension and subsequent cardiopulmonary arrest requiring intubation and mechanical ventilation and initiation of vasopressor support. The patient now on mechanical ventila tion, unresponsive, initially was being evaluated for possible hospice per primary cares' chart. No w family wanting to continue all aggressive measures. PAST MEDICAL HISTORY: As above. MEDICATIONS: Per chart. ALLERGIES: NONE. SOCIAL HISTORY: Ex-smoker, no alcohol, no history of drug use. FAMILY HISTORY: Noncontributory. SYSTEMS REVIEW: A 12-point review of systems unable to perform. PHYSICAL EXAMINATION: GENERAL: Chronically ill appearing gentleman, intubated on mechanical ventilation. Pupils are mini eligio responsive. VITAL SIGNS: Temperature 98, pulse is 90, blood pressure 126/60, O2 saturation 96%, FIO2 of 30%, or ally intubated. HEENT: Dry mucous membranes. Pupils equal and reactive to light. CARDIAC: S1, S2, no added sounds or murmurs. CHEST: Diminished air entry bilaterally. ABDOMEN: Soft, nontender. No guarding or rebound. EXTREMITIES: No cyanosis, clubbing, edema. NEUROLOGIC: Unable to assess. LABORATORY DATA: White count 19.7, hemoglobin 10.1, platelets 258, BUN 35, creatinine 1.4. INR 1.4 3. Arterial blood gas pH 7.31, pCO2 of 20, PaO2 of 207. Bicarbonate was 9.9. IMPRESSION AND PLAN: 1. Septic shock. 2. Cardiopulmonary arrest. 3. Metastatic bladder cancer. 4. Peripheral vascular disease with amputation. 5. Significant deconditioning and malnutrition. 6. Severe metabolic acidosis. The patient will require: 1. Continued mechanical ventilation. 2. Vasopressor support. 3. Broad-spectrum antibiotic coverage. 4. I had an extensive discussion with the patient's family at bedside, explaining his critical cond ition and severely debilitated underlying health. At this point, they wish to continue all aggressi ve measures including CPR. Overall prognosis is very poor. Dictated By: YOGESH ADDISON MD SV/LEISA Conf#: [id number] [facility]#: [id number]
--- NOTE | 2016-07-09 14:26 | PN ---
DATE: 07/09/2016 SUBJECTIVE: Patient is intubated, lying comfortably in bed, pressors were turned off just now. No fevers. VITAL SIGNS: Temperature 98.2, pulse 90, respirations 25, blood pressure 126/64, saturation 130. LABORATORY: WBC 19.7, H and H 10.1 and 30.3, platelets 258, neutrophils 90.1, no bands. BUN 35, cr eatinine 1.40. MICROBIOLOGY: Blood culture growing gram-positive cocci in pairs and clusters. DIAGNOSTICS: CT of the chest revealed right lower lung consolidation, mild additional areas of mult ifocal low grade inflammatory bronchiolitis and bronchopneumonia in the right middle lobe and left l ower lobe, severe COPD, enlarging nodule in the center right lobe of the liver, questionable enlargi ng neoplasm. INDWELLINGS: Endotracheal tube, NG tube, left subclavian triple lumen catheter, Uriarte catheter. ANTIMICROBIALS: 1. Vancomycin. 2. Imipenem. ALLERGIES: PENICILLIN. PHYSICAL EXAMINATION: GENERAL: This is a fragile, chronically ill-appearing, cachectic elderly man who is lying comfortab ly in bed. HEENT: Head atraumatic, normocephalic. Sclerae anicteric. Buccal mucosa dry. NECK: Supple, trachea midline. CHEST: Rise symmetrical. Breath sounds diminished at the bases. HEART: S1, S2. ABDOMEN: Distended, soft. Bowel tones hypoactive. EXTREMITIES: Without cyanosis. SKIN: The patient has diffuse maculopapular rash as well as unstageable decubitus. ASSESSMENT: 1. Severe sepsis with shock. 2. Septicemia, possibly secondary to underlying pneumonia, possibly secondary to decubitus, rule ou t SBE. 3. Multiple unstageable decubitus. 4. Healthcare-associated pneumonia with possibility of aspiration component. 5. History of metastatic bladder cancer. 6. Skin rash. Rule out allergic reaction. Rule out scabies. 7. Acute renal failure. PLAN: We are going to order sputum and urine cultures if it has not been done yet. We will order w ound cultures. Give him empiric Elimite treatment tonight, start him on oral Claritin for possibili ty of allergic reaction. Await for final cultures and follow recommendations of consultants. Tali frias, prognosis poor. Dictated By: NALINI SHARP COMPUTER HARDWARE DEVELOPER for EARNESTINE DUKE MD NI/NTS Conf#: [id number] DID#: [id number]
--- NOTE | 2016-07-09 14:40 | CONS ---
DATE OF ADMISSION: 07/08/2016 DATE OF CONSULTATION: 07/09/2016 TYPE OF CONSULTATION: Palliative care. HISTORY OF PRESENT ILLNESS: The entire information has been taken from the chart from Dr. Felder. Ex tensive review of the patient's current and past medical history. Summarized, this gentleman presen ita to the emergency room cachectic, septic and coded, required intubation, developed cardiac arrest in the emergency room and needed to be intubated. Given multiple doses of epinephrine, returned to spontaneous circulation. In the intensive care unit now receiving aggressive intervention with broad spectrum IV antibiotic coverage. He is on Versed and Levophed, intubated. PAST MEDICAL HISTORY: Significant for history of COPD and metastatic stage IV bladder cancer. He h as been declining prior to this hospitalization. In the past prior to hospitalization, he has been s een by Dr. Villarreal and Dr. Lan. The patient is no longer a candidate for aggressive interventio n. There is one family member that is insistent that patient have aggressive intervention. I am as ked to speak to family members to assist in speaking with them about goals of care. MEDICATIONS: Please refer to reconciliation sheets. ALLERGIES: PENICILLIN. MAJOR MEDICAL PROBLEMS IN THE PAST: Extensive. Please refer to history of present illness. SOCIAL HISTORY: Former smoker, however, chart does not reference alcohol or drug history. FAMILY HISTORY: Unknown. REVIEW OF SYSTEMS: Unable to obtain. PHYSICAL EXAMINATION: GENERAL: Shows an emaciated appearing elderly gentleman who appears ashen on examination. VITAL SIGNS: Blood pressure 126/64, pulse 84 and regular, respirations of 12, 100% saturations on 3 0% FIO2. HEENT: He is normocephalic and atraumatic. Anicteric, acyanotic. CHEST: Shows bilateral inspiratory and expiratory rhonchi and popping throughout right lung field. Left inspiratory and expiratory rhonchi and wet rales. COR: S1, S2. Difficult to hear heart sounds without S3, S4, murmur, gallop, rub. ABDOMEN: Grossly benign. NEUROLOGICAL: Sedated. LABORATORIES: Have been reviewed. ASSESSMENT AND PLAN: This is an elderly gentleman with multiple major medical problems admitted to [facility] status post cardiac arrest in the emergency room. He has multiple r isk factors for mortality during this hospitalization including respiratory, on a vent at this time with a history of COPD and metastatic stage IV bladder cancer, sepsis, renal insufficiency the major risk factors, and minor risk factors are anemia, peripheral vascular disease some evidence of dementia. I have asked case management to contact family members today, 07/09/2016 instead of fami ly appointment as soon as possible. The patient is FULL CODE. Dictated By: LIZ SIERRA MD LP/LEISA Conf#: [id number] DID#: [id number]
--- NOTE | 2016-07-09 15:22 | RADRPT ---
PROCEDURE: XR Abdomen 1 View. CLINICAL INDICATION: Status post nasogastric tube placed TECHNIQUE: AP abdomen x-ray. COMPARISON: July 09, 2016 11:54 a.m. FINDINGS: Nasogastric tube has its distal end in the expected location of the stomach. Multiple air-filled, n ondilated loops of small bowel are identified in the abdomen. No dilated loops of small bowel are s een. No organomegaly is identified. Surgical clips are identified in the gastroesophageal region. Degenerative changes are seen in the spine. IMPRESSION: Nasogastric tube with its distal end in the expected location of the stomach. Nonspecific bowel gas pattern. RPTAT: AA .Liam Canela MD, MD Date Time Electronically viewed and signed by .Liam Canela MD, on 07/09/2016 15:21 .P/
[2016-07-09] MEDS: morphine 2 MG INJ IV PRN ×2 (16:40→23:08)
--- NOTE | 2016-07-09 17:36 | PN ---
DATE: 07/09/2016 SUBJECTIVE: The patient remains in the intensive care unit in critical condition on low dose versed, 5 mcg. The patient is nonresponsive. Noted positive blood cultures. I appreciate ID, pulmonary, and palliative care consults. PHYSICAL EXAMINATION: VITAL SIGNS: The patient is afebrile. Temperature 98.4, pulse 95, respirations 16, blood pressure 112/57, saturation is 100%. Current vent setting on AC mode 18, PEEP of 5, tidal volume 450, FiO2 of 30%. GENERAL: The patient is cachectic, pale. CARDIOVASCULAR: S1 and S2. LUNGS: Decreased bilaterally. ABDOMEN: Soft, nontender. EXTREMITIES: Left AKA. Multiple extensive wounds in the right lower extremity. Very debilitated and cachectic. LABORATORY DATA: White count is 19.7, hemoglobin 10.1, hematocrit 30, platelets 258, neutrophils 90%, lymphocytes 6%. Chemistry: Sodium 146, potassium 4.2, chloride 119, bicarbonate improved to 15, BUN 25, creatinine improved to 1.4, glucose 149. Blood gas dated yesterday reviewed. Blood cultures show gram-positive cocci in pairs and clusters. MEDICATIONS: Include: 1. Vancomycin IV dose per pharmacy. 2. Permethrin cream x1 prescribed by ID. 3. Imipenem 500 IV q.12h. 4. Santyl daily. 5. Protonix 40 IV daily. 6. Midazolam, titrate to mild sedation. 7. Levophed as directed. Currently off pressors. 8. Heparin 5000 subq q.12h. 9. Albuterol and Atrovent every 4 hours. 10. Zofran p.r.n. 11. Albuterol and Atrovent p.r.n. 12. Tylenol p.r.n. 13. Morphine p.r.n. 14. Normal saline at 80 mL an hour. IMAGING: A KUB done just now actually shows NG tube with its distal end at the expected location of the stomach, nonspecific bowel gas pattern. CT scan of the chest was done after the code. Did show no significant mucus debris within the main trachea and right main stem bronchus. There is consolidation of the right lower lung. Aspiration pneumonia from recent cardiac arrest is most likely. There is mild additional evidence of multifocal low-grade inflammatory bronchiolitis and bronchial pneumonia seen in the right middle lobe and left lower lobe. Severe COPD changes seen scattered throughout the lungs. There is small left basilar layering pleural effusion with a tiny sliver of fluid in the right lung base. Possible compression fracture of the anterior sternum. Infiltration, hemorrhage in the right anterior chest wall, right neck region, and the right superior mediastinum. Small gas bubbles are seen in this region as well as ____. The possibility of aborted line placement during the cardiac arrest should be considered. ET tube placed in the trachea above the caterina in good position. Enlarging nodule in the central right lower lobe of the liver. Further evaluation is warranted to exclude the possibility of enlarging neoplasm. ASSESSMENT AND PLAN: This is a very unfortunate 75-year-old male, overall very sick, with history of severe chronic obstructive pulmonary disease , metastatic bladder cancer stage IV to the liver, cachexia, malnutrition, left [id number] amputation, multiple wounds, has been declining over the past weeks to months. Unfortunately, we cannot improve his condition much. Now presented again to the ER with increased encephalopathy, and, unfortunately, status post cardiac arrest in the ER. 1. Respiratory: The patient wants everything done. Family wants everything done as we have for the patient. We will continue with current supportive care on the vent and treatment for pneumonia. 2. Cardiovascular. The patient is currently off pressors. Continue fluid hydration. Echocardiogram performed post-cardiac arrest showed actually preserved ejection fraction 65%. Continue deep venous thrombosis prophylaxis with heparin. 3. Acute renal failure, improving fluid hydration. 4. Urinary tract infection and pneumonia, also bacteremia with gram-positive cocci in pairs and clusters. Remains on broad-spectrum antibiotics per ID with vancomycin and imipenem. White count has improved. 5. Anemia, status post 2 units of packed red blood cells. H and H corrected appropriately. 6. Metastatic bladder cancer stage IV with gross hematuria noted in the Uriarte. Continue to monitor, supportive care. 7. Encephalopathy. High likelihood of anoxia status post cardiac arrest, currently on Levophed. 8. Multiple wounds in the right foot and leg. Wound care, air mattress bed, vitamins. 9. We initiated feeding via NG tube. 10. I asked Dr. Hassan, palliative care, to see the patient in consultation, as patient had a very poor prognosis prior to this cardiac arrest and now, of course, he appears to be encephalopathic with ongoing issues, not expected to improve significantly. On top of it, he already has stage IV bladder cancer with metastasis to the liver, he is severely debilitated and malnourished, and he has been hospitalized frequently in the past few weeks. I would definitely recommend comfort measures. The , Miesah, is overall in agreement. She knows his condition. Will have to talk further with the daughter, as it is quite difficult for her to handle this. Again, the social worker health services to follow and assist. Dictated By: JEREMIAS BELTRAN/LEISA Conf#: [id number] DID#: [id number] MTDD
[2016-07-09] MEDS ORDERED: PERMETHRIN 5% 60 GM CR TOP SCH (21:00)
[2016-07-09] MEDS ORDERED: VANCOMYCIN 500MG/NS (PMX) 100 ML IVPB SCH (23:00)
[2016-07-10] VITALS (100 sets, daily range): BP systolic 91–135; BP diastolic 53–81; PULSE 79–121; RESP 13–27; Ht 149.9 cm; Wt 46.2 kg
[2016-07-10] MEDS: IPRATROPIUM (HFA) 12.9 GM INHALER INH SCH ×6 (01:02→21:00)
[2016-07-10] MEDS: ALBUTEROL HFA 8 GM INHALER INH SCH ×6 (01:02→21:00)
[2016-07-10] MEDS: morphine 2 MG INJ IV PRN (01:36)
[2016-07-10] MEDS: MIDAZOLAM 50 MG in DEXTROSE 5% 40 ML IV SCH ×2 (03:48→09:31)
[2016-07-10 05:08] LABS: BASOPHILS % 0.1 % (0.0-2.0); EOSINOPHILS # 0.1 10^3/ul (0.0-0.5); EOSINOPHILS % 0.5 % (0.0-7.0); HEMATOCRIT 26.9 % (42.0-52.0); HEMOGLOBIN 8.8 g/dl (14.0-18.0); LYMPHOCYTES # 0.9 10^3/ul (0.8-2.9); LYMPHOCYTES % 6.7 % (15.0-51.0); MEAN CORPUSCULAR HEMOGLOBIN 28.7 pg (29.0-33.0); MEAN CORPUSCULAR HGB CONC 32.7 g/dl (32.0-37.0); MEAN CORPUSCULAR VOLUME 87.8 fl (82.0-101.0); MEAN PLATELET VOLUME 8.1 fl (7.4-10.4); MONOCYTE # 0.7 10^3/ul (0.3-0.9); MONOCYTES % 4.8 % (0.0-11.0); NEUTROPHIL # 12.3 10^3/ul (1.6-7.5); NEUTROPHILS % 87.9 % (39.0-77.0); PLATELET COUNT 196 10^3/UL (140-440); RED BLOOD COUNT 3.06 10^6/ul (4.70-6.10)
[2016-07-10 05:18] LABS: CONDITION 1; LH ANALYZER COMMENTS 1
[2016-07-10 05:46] LABS: POTASSIUM 3.4 mmol/L (3.5-5.1)
[2016-07-10 05:48] LABS: CREATININE 0.93 mg/dl (0.61-1.24)
[2016-07-10 05:49] LABS: MAGNESIUM 1.9 mg/dl (1.7-2.5); PHOSPHORUS 2.1 mg/dl (2.5-4.9)
[2016-07-10] MEDS: PANTOPRAZOLE 40 MG INJ IV SCH (06:20)
--- NOTE | 2016-07-10 07:03 | RADRPT ---
PROCEDURE: XR Chest. CLINICAL INDICATION: Respiratory failure TECHNIQUE: Portable single view of the chest COMPARISON: 07/08 FINDINGS: The endotracheal tube has been pulled back slightly and is in good position with tip at the level of the clavicles. Left central line and nasogastric tube remain in place. Increased interstitial mar kings of the lungs are again seen without focal infiltrate or pleural effusion. IMPRESSION: Repositioning of endotracheal tube which is in good position. Otherwise stable exam. RPTAT: [facility] Physician Iona Date Time Electronically viewed and signed by Sherri Alva Physician on 07/10/2016 07:02 LE/
[2016-07-10] MEDS ORDERED: POTASSIUM CHLORIDE (SR) 20 MEQ TAB PO STA (07:05)
[2016-07-10] MEDS ORDERED: POTASSIUM PHOSPHATE 20 MEQ in SOD CHLORIDE 0.9% 250 ML IVPB ONE (07:30)
[2016-07-10 07:43] LABS: Allen Test ACCEPTAB; Arterial Base Excess -7.5 mmol/L (-3.0-3); Arterial COHb 0.2 % (0.0-3.0); Arterial HCO3 14.9 mmol/L (22.0-26.0); Arterial MetHb 0.3 % (0.0-1.5); Arterial Total Hemglobin 10.1 g/dl (12.0-18.0); MODE VENT - AC
[2016-07-10] MEDS: IMIPENEM-CILAST 500MG IV (PMX) 100 ML IVPB SCH ×2 (09:07→21:55)
[2016-07-10] MEDS: HEPARIN 5,000 UNIT/0.5 ML SYG SC SCH ×2 (09:15→21:58)
[2016-07-10] MEDS: COLLAGENASE 30 GM TUBE TOP SCH (09:29)
[2016-07-10] MEDS: SOD CHLORIDE 0.9% 1,000 ML IV SCH (09:36)
--- NOTE | 2016-07-10 10:34 | CONS ---
Date/Time of Note Date/Time of Note DATE: 07/10/16 TIME: 10:32 Consult Date/Type/Reason Admit Date/Time Jul 08, 2016 at 09:32 Initial Consult Date Type of Consultation: Pulm Subjective Intubated, somnolent hemodynamically stable. Objective Vital Signs Date Time Temp Pulse Resp B/P Pulse Ox O2 Delivery O2 Flow Rate FiO2 07/10/16 07:55 112 24 100 30 07/10/16 05:45 115/64 Mechanical Ventilator 07/10/16 04:00 99.2 07/08/16 10:00 2 Intake and Output 07/09/16 07/09/16 07/10/16 15:00 23:00 07:00 Intake Total 732.50 ml 999 ml 1137 ml Output Total 265 ml 200 ml 215 ml Balance 467.50 ml 799 ml 922 ml PHYSICAL EXAMINATION: GENERAL: Chronically ill appearing gentleman, intubated on mechanical ventilation. Pupils are minimally responsive. VITAL SIGNS: as above HEENT: Dry mucous membranes. Pupils equal and reactive to light. CARDIAC: S1, S2, no added sounds or murmurs. CHEST: Diminished air entry bilaterally. ABDOMEN: Soft, nontender. No guarding or rebound. EXTREMITIES: No cyanosis, clubbing, edema. NEUROLOGIC: Unable to assess. Results/Medications Result Diagram: 07/10/16 0400 07/10/16 0400 Results 24 hrs Laboratory Tests Test 07/10/16 04:00 07/10/16 07:00 Anion Gap 13 Basophils # 0.0 Basophils % 0.1 Blood Morphology Comment Blood Urea Nitrogen 30 H Calcium Level 8.0 L Carbon Dioxide Level 15 L Chloride Level 122 H Creatinine 0.93 Eosinophils # 0.1 Eosinophils % 0.5 Glucose Level 129 Hematocrit 26.9 L Hemoglobin 8.8 L Lymphocytes # 0.9 Lymphocytes % 6.7 L Magnesium Level 1.9 Mean Corpuscular Hemoglobin 28.7 L Mean Corpuscular Hemoglobin Concent 32.7 Mean Corpuscular Volume 87.8 Mean Platelet Volume 8.1 Monocytes # 0.7 Monocytes % 4.8 Neutrophils # 12.3 H Neutrophils % 87.9 H Nucleated Red Blood Cells # 0.0 Nucleated Red Blood Cells % 0.0 Phosphorus Level 2.1 #L Platelet Count 196 # Potassium Level 3.4 L Red Blood Count 3.06 L Red Cell Distribution Width 19.0 H Sodium Level 147 H White Blood Count 14.0 #H Arterial Blood HCO3 14.9 L Arterial Blood Base Excess -7.5 L Arterial Blood Oxygen Saturation 98.5 Kendrick Test ACCEPTAB Arterial Blood Gas Puncture Site Right Radial Arterial Blood Carboxyhemoglobin 0.2 Arterial Blood Date Drawn 07/10/2016 7:10:52 AM Arterial Blood Methemoglobin 0.3 Arterial Blood pCO2 (Temp correct) 22.0 L Arterial Blood pH (Temp corrected) 7.450 Arterial Blood pO2 (Temp corrected) 152.1 H Blood Gas A-a O2 Differential 36.0 H Blood Gas Actual Respiration Rate 26 Blood Gas Low PEEP Setting 5.0 Blood Gas Modality VENT - AC Blood Gas Notified Time 07/10/2016 7:43:29 AM Blood Gas Notified Whom JLD Blood Gas Respiration Rate 18.0 Blood Gas Specimen Source Blood arterial Blood Gas Temperature 37.0 Blood Gas Tidal Volume 450.0 FiO2 30.0 Oxyhemoglobin Percent 98.0 Total Hemoglobin 10.1 L Medications Current Medications Sodium Chloride (NS) 1,000 ml @ 80 mls/hr [id number] IV Last administered on at 09:36; Admin Dose 80 MLS/HR; Start 07/08/16 at 13:24 Ondansetron HCl (Zofran Inj) 4 mg Q6H PRN IV NAUSEA AND/OR VOMITING; Start at 13:30 Acetaminophen (Tylenol Liquid) 650 mg Q6H PRN PO PAIN LEVEL 1-3 OR FEVER; Start 07/08/16 at 13:30 Morphine Sulfate (morphine) 2 mg Q2 PRN IV PAIN LEVEL 7-10 Last administered on 07/10/16at 01:36; Admin Dose 2 MG; Start 07/08/16 at 13:30 Pantoprazole (Protonix Iv) 40 mg DAILY@06 IV Last administered on 07/10/16at 06 :20; Admin Dose 40 MG; Start 07/09/16 at 06:00 Heparin Sodium (Porcine) (Heparin (5000 Units/0.5 ml)) 5,000 unit Q12 SC Last administered on 07/10/16 09:15; Admin Dose 5,000 UNIT; Start 07/08/16 at 21: 00 Ipratropium [place] 2 puff 2 puff Q4 INH Last administered on 12/15/16at 08:01 ; Admin Dose 2 PUFF; Start 07/08/16 at 21:00 Norepinephrine 16 mg/Dextrose 500 ml @ 0 mls/hr TITRATE IV Last administered on 07/08/16at 23:08; Admin Dose 26.25 MLS/HR; Start 07/08/16 at 21:30 Midazolam HCl 50 mg/Dextrose 50 ml @ 0 mls/hr TITRATE IV Last administered on 07/10/16at 09:31; Admin Dose 10 MLS/HR; Start 07/08/16 at 22:30 Vancomycin HCl 100 ml @ 100 mls/hr Q36H IVPB Last administered on 07/09/16at 22:42; Admin Dose 100 MLS/HR; Start 07/09/16 at 23:00 Imipenem/ Cilastatin Sodium (Primaxin 500 Mg/ 100 ml (Pmx)) 100 ml @ 100 mls/ hr Q12 IVPB Last administered on 07/10/16at 09:07; Admin Dose 100 MLS/HR; Start 07/09/16 at 09:00 Collagenase 1 applic 1 applic DAILY TOP Last administered on 07/10/16at 09:29; Admin Dose 1 APPLIC; Start 07/09/16 at 09:00 Potassium Phosphate/Sodium Chloride (K Phos (Meq)/NS) 254.5455 ml @ 63.636 m... ONCE ONCE IVPB Last administered on 07/10/16at 09:41; Admin Dose 63.636 MLS/HR; Start 07/10/16 at 07:30; Stop 07/10/16 at 11:29 Assessment/Plan Chief Complaint/Hosp Course IMPRESSION AND PLAN: 1. s/p Septic shock. 2. Cardiopulmonary arrest. 3. Metastatic bladder cancer. 4. Peripheral vascular disease with amputation. 5. Significant deconditioning and malnutrition. 6. Severe metabolic acidosis. The patient will require: 1. Continued mechanical ventilation. 2. Vasopressor support. 3. Broad-spectrum antibiotic coverage. 4. dvt/ gi prophylaxis consider palliative care consult, prognosis very poor, will not come off vent. Problems: YOGESH ADDISON MD, [facility] Jul 10, 2016 10:34
--- NOTE | 2016-07-10 13:59 | PN ---
DATE: 07/10/2016 SUBJECTIVE: The patient remains in critical condition in the intensive care unit. I appreciate inp ut from Dr. Guerin, Dr. Hassan, and Dr. Richardson. The patient is on Versed at 10 mcg to keep comfo rtable. Otherwise, no evidence that he is following commands of the nursing staff. The patient is afebrile. PHYSICAL EXAMINATION: VITAL SIGNS: Temperature is 97.9, pulse 99, respirations 18, blood pressure 119/61, saturation is 1 00%. ABG done this morning shows a pH of 7.45, pCO2 of 22, saturation 152, bicarbonate improved to 15, with an O2 saturation of 99% on current vent setting AC 18, tidal volume 450, PEEP of 5, FIO2 of 30%. GENERAL: The patient remains cachectic. Temporal wasting. CARDIOVASCULAR: S1, S2, tachycardic. LUNGS: Mild rhonchi bilaterally. ABDOMEN: Soft, nontender. EXTREMITIES: He has +2 edema of the bilateral hands. Lower extremity left AKA. Right +1 edema of the lower extremity, with multiple wounds. Penile edema noted. Uriarte to gravity. LABORATORY: White count is 14, improved today. Hemoglobin 8.8, hematocrit 27, platelet count is 19 6. Neutrophils 88%, lymphocytes 7%. Chemistry: Sodium 147, potassium 3.4, chloride 122, bicarbona te 15, BUN is 30, creatinine improved to 0.93, glucose of 129. Phosphorus is low at 2.1, magnesium 1.9. INR was 1.43 on the 13th. Microbiology shows positive blood cultures, staph species and Enter ococcus species. Follow up results. MRSA screening of the nares is positive. Urine culture negati ve. Chest x-ray done today shows moderate repositioning of the endotracheal tube, which is in good posit ion. Otherwise stable exam. Increased interstitial marking of the lungs are again seen, without fo jina infiltrate or pleural effusion. MEDICATIONS: Include: 1. K-Phos supplement. 2. Vancomycin, IV dose per pharmacy. 3. Imipenem 500 IV q.12. 4. Santyl daily. 5. Protonix 40 IV daily. 6. Santyl applied as directed. 7. Midazolam as directed. 8. Levophed as directed. 9. Heparin 5000 subcutaneous q.12. 10. Albuterol and Atrovent every 4 hours. 11. Zofran p.r.n. 12. Albuterol and Atrovent p.r.n. 13. Tylenol p.r.n. 14. Morphine p.r.n. 15. Vancomycin, dose per pharmacy. 16. Normal saline at 80 mL an hour. ASSESSMENT AND PLAN: This is a 75-year-old male who is overall very sick with severe COPD , metastatic bladder cancer stage IV to the liver, with severe cachexia and malnutrition, left AKA, multiple right foot and leg decubitus wounds, who overall has been declining over the past 3 weeks a nd months, with multiple hospitalizations, who now presents again with sepsis and cardiac arrest in the emergency department. 1. Respiratory. Continue full ventilatory support. As per his mental condition, likely not weanab le. The patient may have had anoxic brain injury. In the meantime, continue supportive care, and ve nt management per Dr. Guerin. Currently being treated for possible underlying pneumonia and possib le aspiration. 2. Cardiovascular. The patient is currently off pressors. Noted normal ejection fraction. Contin ue deep venous thrombosis prophylaxis with heparin. 3. Infectious disease. The patient with bacteremia. Source may be UTI, may be pneumonia. The pat ient is on broad-spectrum antibiotic with vancomycin and imipenem, responding to it. His white coun t is improving. I appreciate ID involvement. The patient does have MRSA of the nares. Bactroban ointment to do provided to the nares. 4. Multiple wounds. Wound care consult obtained. Continue wound care, air mattress bed, offloadin g. We have started him on nutritional support. Noted dietitian recommendations. 5. Anemia. Status post 2 units of packed red blood cells. Continue to monitor. May need more tra nsfusion if the patient continues to drop his hemoglobin as he is being hemo-dilated with fluids. 6. Noted the patient to be hypernatremic. Hold of normal saline. Will place him on D5 half normal saline at 50 mL an hour. 7. Peripheral edema. May consider low dose diuretic therapy as needed. 8. Metastatic bladder cancer, stage IV, to the liver. With recurrent UTI, may be associated with b ladder cancer. Not a candidate for any treatment. 9. Encephalopathy. 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 Will mon itor. Off Versed briefly 10. Continue gastrointestinal prophylaxis with Protonix. 11. The patient's prognosis is poor with underlying terminal illness and now cardiac arrest. Recom mend comfort measures. I appreciate Dr. Hassan's assistance. Will continue to discuss with the family and social work therapist t he patient's condition. We will follow. Dictated By: JEREMIAS BELTRAN/LEISA Conf#: [id number] DID#: [id number]
[2016-07-10] MEDS: MUPIROCIN 2% 22 GM OINT TOP SCH ×2 (14:03→21:55)
[2016-07-10] MEDS: D5W-0.45 NACL + KCL 20 MEQ 1,000 ML IV SCH (14:04)
--- NOTE | 2016-07-10 17:01 | PN ---
DATE: 07/10/2016 SUBJECTIVE: No acute changes overnight. The patient is off pressors since this morning, lying comf ortably in bed. No fevers. VITAL SIGNS: Temperature 97.9, pulse 99, respirations 18, blood pressure 119/61, saturation 100 on vent. LABORATORY: WBC 14, H and H 8.8 and 26.9, platelets 196, neutrophils 87.9. No bands. BUN 30, crea tinine 0.93. MICROBIOLOGY: Blood culture growing Staph and Enterococcus species. Nares swab came back positive for MRSA. Urine culture pending. Wound culture is pending. DIAGNOSTICS: Chest x-ray this morning revealed stable exam. INDWELLINGS: Endotracheal tube, NG tube, left subclavian triple lumen catheter, Uriarte catheter. ANTIMICROBIALS: 1. Vancomycin. 2. Imipenem. 3. Topical Bactroban to nares. PHYSICAL EXAMINATION: GENERAL: This is a fragile, elderly man who is lying comfortably in bed. HEENT: Head atraumatic, normocephalic. Sclerae anicteric. Buccal mucosa dry. NECK: Supple, trachea midline. CHEST: Rise symmetrical. Breath sounds diminished at the bases. HEART: S1, S2. ABDOMEN: Soft, bowel tones present. EXTREMITIES: Without cyanosis. ASSESSMENT: 1. Severe sepsis with shock, now off pressors. 2. 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 3. Multiple nonstageable decubitus. 4. Multifocal pneumonia, possibly aspiration type. 5. Acute respiratory failure. 6. Skin rash status post empiric Elimite. 7. Acute renal failure. 8. Metastatic bladder cancer. PLAN: The patient remains hemodynamically stable off pressors. Final cultures are pending. We dedrick l continue him on current antimicrobials. Continue Bactroban to nares, local wound care and repeat blood cultures, follow recommendations of consultants. The patient is a FULL CODE. Dictated By: NALINI SHARP WHOLESALE ACCOUNT EXECUTIVE for EARNESTINE OCHOA/LEISA Conf#: [id number] DID#: [id number]
[2016-07-10] MEDS ORDERED: VANCOMYCIN 750 MG in SOD CHLORIDE 0.9% 150 ML IVPB SCH (23:00)
[2016-07-11] VITALS (58 sets, daily range): BP systolic 98–152; BP diastolic 57–75; PULSE 79–95; RESP 13–32
[2016-07-11] MEDS: ALBUTEROL HFA 8 GM INHALER INH SCH ×6 (01:17→21:01)
[2016-07-11] MEDS: IPRATROPIUM (HFA) 12.9 GM INHALER INH SCH ×6 (01:17→21:02)
[2016-07-11 05:13] LABS: BASOPHIL # 0.1 10^3/ul (0.0-0.1); BASOPHILS % 0.9 % (0.0-2.0); EOSINOPHILS # 0.5 10^3/ul (0.0-0.5); EOSINOPHILS % 4.5 % (0.0-7.0); HEMATOCRIT 25.9 % (42.0-52.0); HEMOGLOBIN 8.5 g/dl (14.0-18.0); LYMPHOCYTES # 1.1 10^3/ul (0.8-2.9); LYMPHOCYTES % 10.2 % (15.0-51.0); MEAN CORPUSCULAR HEMOGLOBIN 29.1 pg (29.0-33.0); MEAN CORPUSCULAR HGB CONC 32.9 g/dl (32.0-37.0); MEAN CORPUSCULAR VOLUME 88.4 fl (82.0-101.0); MEAN PLATELET VOLUME 8.4 fl (7.4-10.4); MONOCYTE # 0.7 10^3/ul (0.3-0.9); MONOCYTES % 6.4 % (0.0-11.0); NEUTROPHIL # 8.2 10^3/ul (1.6-7.5); PLATELET COUNT 192 10^3/UL (140-440); RED BLOOD COUNT 2.93 10^6/ul (4.70-6.10); RED CELL DISTRIBUTION WIDTH 18.9 % (11.5-14.5); UNCORRECTED WBC 10.6 10^3/ul (4.8-10.8); WHITE BLOOD COUNT 10.6 10^3/ul (4.8-10.8)
[2016-07-11 05:17] LABS: ALBUMIN 1.8 g/dl (3.3-4.9)
[2016-07-11 05:19] LABS: CONDITION 1; LH ANALYZER COMMENTS 1
[2016-07-11 05:20] LABS: ALBUMIN/GLOBULIN RATIO 0.72; BILIRUBIN,INDIRECT 0.2 mg/dl (0-1.1); BILIRUBIN,TOTAL 0.2 mg/dl (0.2-1.3); CREATININE 0.63 mg/dl (0.61-1.24); TOTAL PROTEIN 4.3 g/dl (6.1-8.1)
[2016-07-11 05:21] LABS: CALCIUM 7.7 mg/dl (8.4-10.2)
[2016-07-11 05:25] LABS: MAGNESIUM 1.8 mg/dl (1.7-2.5); PHOSPHORUS 1.9 mg/dl (2.5-4.9)
[2016-07-11] MEDS: PANTOPRAZOLE 40 MG INJ IV SCH (06:27)
[2016-07-11] MEDS: D5W-0.45 NACL + KCL 20 MEQ 1,000 ML IV SCH (07:49)
[2016-07-11] MEDS: IMIPENEM-CILAST 500MG IV (PMX) 100 ML IVPB SCH ×2 (09:06→20:00)
[2016-07-11] MEDS: MUPIROCIN 2% 22 GM OINT TOP SCH ×2 (09:07→20:01)
[2016-07-11] MEDS: COLLAGENASE 30 GM TUBE TOP SCH (09:07)
[2016-07-11] MEDS: HEPARIN 5,000 UNIT/0.5 ML SYG SC SCH ×2 (09:08→20:09)
--- NOTE | 2016-07-11 10:37 | CONS ---
Date/Time of Note Date/Time of Note DATE: 07/11/16 TIME: 10:34 Consult Date/Type/Reason Admit Date/Time Jul 08, 2016 at 09:32 Type of Consultation: Pulm Subjective Intubated, minimal sedation. Non responsive. No vasopressors Objective Vital Signs Date Time Temp Pulse Resp B/P Pulse Ox O2 Delivery O2 Flow Rate FiO2 07/11/16 10:00 89 24 135/72 98 Mechanical Ventilator 07/11/16 08:46 30 07/11/16 08:00 99.2 07/08/16 10:00 2 Intake and Output 07/10/16 07/10/16 07/11/16 15:00 23:00 07:00 Intake Total 490 ml 920 ml 910 ml Output Total 260 ml 370 ml 399 ml Balance 230 ml 550 ml 511 ml PHYSICAL EXAMINATION: GENERAL: Chronically ill appearing gentleman, intubated on mechanical ventilation. Pupils are minimally responsive. VITAL SIGNS: as above HEENT: Dry mucous membranes. Pupils equal and reactive to light. CARDIAC: S1, S2, no added sounds or murmurs. CHEST: Diminished air entry bilaterally. ABDOMEN: Soft, nontender. No guarding or rebound. EXTREMITIES: No cyanosis, clubbing, edema. NEUROLOGIC: Unable to assess. Results/Medications Result Diagram: 07/11/16 0400 07/11/16 0400 Results 24 hrs Laboratory Tests Test 07/11/16 04:00 Alanine Aminotransferase (ALT/SGPT) 43 Albumin 1.8 L Albumin/Globulin Ratio 0.72 Alkaline Phosphatase 86 Anion Gap 10 Aspartate Amino Transf (AST/SGOT) 47 H Basophils # 0.1 Basophils % 0.9 Blood Morphology Comment Blood Urea Nitrogen 22 H Calcium Level 7.7 L Carbon Dioxide Level 16 L Chloride Level 120 H Creatinine 0.63 Direct Bilirubin 0.00 Eosinophils # 0.5 Eosinophils % 4.5 Globulin 2.50 Glucose Level 104 Hematocrit 25.9 L Hemoglobin 8.5 L Indirect Bilirubin 0.2 Lactic Acid Level 1.0 Lymphocytes # 1.1 Lymphocytes % 10.2 L Magnesium Level 1.8 Mean Corpuscular Hemoglobin 29.1 Mean Corpuscular Hemoglobin Concent 32.9 Mean Corpuscular Volume 88.4 Mean Platelet Volume 8.4 Monocytes # 0.7 Monocytes % 6.4 Neutrophils # 8.2 H Neutrophils % 78.0 H Nucleated Red Blood Cells # 0.0 Nucleated Red Blood Cells % 0.0 Phosphorus Level 1.9 L Platelet Count 192 Potassium Level 4.0 Red Blood Count 2.93 L Red Cell Distribution Width 18.9 H Sodium Level 142 Total Bilirubin 0.2 Total Protein 4.3 L White Blood Count 10.6 # Medications Current Medications Ondansetron HCl (Zofran Inj) 4 mg Q6H PRN IV NAUSEA AND/OR VOMITING; Start at 13:30 Acetaminophen (Tylenol Liquid) 650 mg Q6H PRN PO PAIN LEVEL 1-3 OR FEVER; Start 07/08/16 at 13:30 Morphine Sulfate (morphine) 2 mg Q2 PRN IV PAIN LEVEL 7-10 Last administered on 07/10/16 01:36; Admin Dose 2 MG; Start 07/08/16 at 13:30 Pantoprazole (Protonix Iv) 40 mg DAILY@06 IV Last administered on 07/11/16 06 :27; Admin Dose 40 MG; Start 07/09/16 at 06:00 Heparin Sodium (Porcine) (Heparin (5000 Units/0.5 ml)) 5,000 unit Q12 SC Last administered on 07/11/16 09:08; Admin Dose 5,000 UNIT; Start 07/08/16 at 21: 00 Ipratropium [place] 2 puff 2 puff Q4 INH Last administered on 07/11/16 08:46 ; Admin Dose 2 PUFF; Start 07/08/16 at 21:00 Norepinephrine 16 mg/Dextrose 500 ml @ 0 mls/hr TITRATE IV Last administered on 07/08/16 23:08; Admin Dose 26.25 MLS/HR; Start 07/08/16 at 21:30 Midazolam HCl 50 mg/Dextrose 50 ml @ 0 mls/hr TITRATE IV Last administered on 07/10/16 09:31; Admin Dose 10 MLS/HR; Start 07/08/16 at 22:30 Imipenem/ Cilastatin Sodium (Primaxin 500 Mg/ 100 ml (Pmx)) 100 ml @ 100 mls/ hr Q12 IVPB Last administered on 07/11/16 09:06; Admin Dose 100 MLS/HR; Start 07/09/16 at 09:00 Collagenase 1 applic 1 applic DAILY TOP Last administered on 07/11/16 09:07; Admin Dose 1 APPLIC; Start 07/09/16 at 09:00 Potassium Chloride/Dextrose/ Sod Cl (D5-1/2ns + KCl 20 Meq) 1,000 ml @ 50 mls/ hr Q20H IV Last administered on 07/11/16at 07:49; Admin Dose 50 MLS/HR; Start 07/10/16 at 11:30 Mupirocin 1 applic 1 applic BID TOP Last administered on 07/11/16at 09:07; Admin Dose 1 APPLIC; Start 07/10/16 at 12:30 Linezolid (Zyvox 600mg/D5W (Pmx)) 300 ml @ 300 mls/hr Q12 IVPB ; Start at 11:30 Assessment/Plan Chief Complaint/Hosp Course IMPRESSION AND PLAN: 1. s/p Septic shock. 2. Cardiopulmonary arrest. Likely anoxic encephalopathy 3. Metastatic bladder cancer. 4. Peripheral vascular disease with amputation. 5. Significant deconditioning and malnutrition. 6. Severe metabolic acidosis. The patient will require: 1. Continued mechanical ventilation. 2. Vasopressor support as needed 3. Broad-spectrum antibiotic coverage. 4. dvt/ gi prophylaxis 5. Sedation vacation assess neurological status Very unlikely that this patient will come off mechanical ventilation given neurological status. Consider family conference to discuss prognosis and goals of care. Problems: YOGESH ADDISON MD, [facility] Jul 11, 2016 10:37
--- NOTE | 2016-07-11 10:59 | PN ---
DATE: 07/10/2016 I have spoken to case management today. Patient's family was not able to show up for conference on the . That meeting is rescheduled for the . Followup note will be done. I will contact Dr. Felder about the followup family conference. Dictated By: LIZ SIERRA MD LP/NTS Conf#: [id number] DID#: [id number]
[2016-07-11] MEDS: LINEZOLID 600 MG/D5W (PMX) 300 ML IVPB SCH ×2 (12:47→20:00)
[2016-07-11] MEDS ORDERED: FUROSEMIDE 20 MG INJ IV ONE (15:00)
--- NOTE | 2016-07-11 15:43 | PN ---
DATE: 07/11/2016 SUBJECTIVE: The patient remains in the intensive care unit in critical condition, remains unrespons yadi off sedation. I appreciate Dr. Guerin, Dr. Richardson, and Dr. Hassan's clinical impression. Th e patient was found to have bacteremia. Antibiotics were changed from vancomycin to Zyvox. Case di scussed as well with the wound specialists who are currently at bedside. Again, the patient is off pressors. PHYSICAL EXAMINATION: VITAL SIGNS: T-max 99.5 at 4 in the morning. Most recent vital signs, temperature 99.2, pulse 82, respirations 18, blood pressure 135/72, saturation 98% on 30% FIO2. GENERAL: The patient is in no acute distress. HEENT: Intubated, ventilated, nonresponsive. CARDIOVASCULAR: Positive S1 and S2, regular rate and rhythm. LUNGS: Decreased bilaterally, mild rhonchi. ABDOMEN: Soft, thin. EXTREMITIES: Left AKA, positive edema the right lower extremity, +1, and bilateral upper extremity, +1 to 2. He has also multiple wounds on the right lower extremity, more notably on the feet. GENITOURINARY: Uriarte to gravity. LABORATORY DATA: White count improved to 10.6, hemoglobin 8.5, hematocrit 26, platelet count 192, n eutrophils 78%, lymphocytes 10%. Chemistry: Sodium 142, potassium 4.0, chloride 120, bicarbonate 1 6, BUN is 22, creatinine 0.63, and glucose of 104. Phosphorus was low at 1.9, magnesium 1.8. Lacti c acid is normal at 1.0. No blood gas today. Again, blood cultures, 1 bottle shows coagulase negat yadi staph, vancomycin-resistant Enterococcus. The second culture shows coagulase negative staph x2. Wound culture shows coagulase negative staph. MRSA screening is positive. Urine culture negative . MEDICATIONS: Include 1. Linezolid IV q. 12. 2. Bactroban b.i.d. 3. D5 half normal saline at 50 mL an hour. 4. Imipenem 500 mg. 5. Santyl daily. 6. Protonix 40 IV daily. 7. Midazolam as directed, currently off. 8. Norepinephrine, currently off. 9. Heparin 5000 units subq Q. 12. 10. Albuterol/Atrovent every 4 hours. 11. Zofran p.r.n. 12. Albuterol and Atrovent p.r.n. 13. Tylenol p.r.n. 14. Morphine p.r.n. IMAGING: Chest x-ray done yesterday shows position of the endotracheal tube which is in good positi on. Otherwise clear. ASSESSMENT AND PLAN: This is a 75-year-old male who overall is very sick with severe COPD , metastatic bladder cancer, stage IV, to the liver with severe cachexia, malnutrition, left AKA, mu ltiple wounds, overall been declining for the past few weeks to months with multiple hospitalization s. He now presented with sepsis status post cardiac arrest in the emergency department. 1. Respiratory. Continue full ventilatory support. The patient will likely not be weanable as the patient is unresponsive and altered mental state. Continue management per Dr. Guerin. Chest x-ra y did not show any evidence of pneumonia. 2. Cardiovascular. Remains off pressors. Continue deep venous thrombosis prophylaxis with heparin . 3. Infectious disease. The patient with bacteremia. Source may be pulmonary, wound, or UTI. Curr ently, chest x-ray negative and cultures negative. Continue broad spectrum antibiotics per Dr. Candelaria er. The patient is currently on a linezolid, imipenem. White count is improving, and the patient i s off pressors. 4. Neurologic. Again, possible anoxic injury. Would recommend comfort measures. 5. Peripheral edema. May consider low dose diuretics. 6. Metastatic bladder cancer, stage IV. Not a candidate for any treatment. 7. Cachexia. NG tube as tolerated. Titrate it up per dietitian. 8. Continue gastrointestinal prophylaxis with Protonix. 9. Renal. Kidney function improved. Monitor electrolytes. We are planning conference with the family with Dr. Hassan, the palliative physician, and , t he perinatal social worker, to discuss the patient's ongoing medical condition and poor prognosis. We would a dvise comfort measures only as prognosis is grim. We will follow. Dictated By: JEREMIAS BELTRAN/LEISA Conf#: [id number] DID#: [id number]
--- NOTE | 2016-07-11 16:28 | PN ---
DATE: 07/11/2016 INFECTIOUS DISEASE PROGRESS NOTE SUBJECTIVE: No acute changes overnight. The patient is obtunded, noncommunicative, lying comfortab ly in bed. Temperature 98.5, pulse 91, respirations 26, blood pressure 152/71, saturations 100 on 30 FIO2. WBC 10.6, H and H 8.5 and 25.9, platelets 192, neutrophils 78, BUN 22, creatinine 0.63. MICROBIOLOGY: Blood cultures since admission grew VRE, coag-negative staph species. Nares swab cam e back positive for MRSA. Wound culture preliminary growing coag-negative staph species. Urine cul ture negative. INDWELLINGS: Endotracheal tube, NG tube, left subclavian triple lumen catheter, Uriarte. ANTIMICROBIALS: 1. Zyvox. 2. Imipenem. 3. Topical Bactroban to the nares. PHYSICAL EXAMINATION: GENERAL: Cachectic, chronically ill-appearing, elderly man, who is in no distress. HEENT: Head atraumatic, normocephalic. Sclerae anicteric. Buccal mucosa dry. NECK: Supple, trachea midline. CHEST: Chest rise is symmetrical. Breath sounds diminished to the bases. HEART: S1, S2. ABDOMEN: Soft, bowel tones present. EXTREMITIES: Without cyanosis. ASSESSMENT: 1. Severe sepsis, status post septic shock. 2. Polymicrobial septicemia. 3. Healthcare-associated pneumonia. Rule out aspiration. 4. Multiple non-stageable wounds. 5. Respiratory failure. 6. Metastatic bladder cancer. 7. Rash. Status post Elimite cream. 8. Anemia. PLAN: The patient remains stable. Off pressors. Covered with appropriate antimicrobials, pending final wound cultures, pending repeat blood cultures. Dictated By: NALINI SHARP PUMP PRESS OPERATOR for EARNESTINE DUKE MD NI/NTS Conf#: [id number] DID#: [id number]
--- NOTE | 2016-07-11 18:03 | PN ---
DATE: 07/11/2016 PALLIATIVE CARE FOLLOWUP NOTE Family conference was done today. Mr. Goodrich remains critically ill on the ventilator; however, he is off pressors, and he is off sed ation. I have read notes from Dr. Guerin who feels that the patient has very little chance of comi ng off the ventilator secondary to his end-stage COPD and his neurological condition. We went over all of his medical problems at this time and his pre-hospitalization level of care and quality of li fe. The family feels that he had a decent quality of life; although he was still bedridden, his cog nitive abilities were intact. They felt that he would want to live and have a prolonged period of t mikhail giving him a chance to recover from this. However, they did not want him to suffer any pain in the event that he would have another catastrophic event while in the hospital. We talked about that for a prolonged period of time. The patient's daughter had a lot of questions, appropriately quest ions, with the level of her father's critical condition. At the end of the conversation, both daugh ter and have agreed not to do cardiopulmonary resuscitation but to continue with this level of care. In the probable event that he does not significantly improve in another 2 to 3 days or if he deteriorates further between now and then, I will sit down and talk with family members once again a bout comfort measures. I do not believe they are at the point right now to address comfort measures , especially the patient's daughter. Dictated By: LIZ SIERRA MD, LP/LEISA Conf#: [id number] DID#: [id number]
[2016-07-12] VITALS (83 sets, daily range): BP systolic 118–174; BP diastolic 59–95; PULSE 74–110; RESP 13–28
[2016-07-12 04:48] LABS: POTASSIUM 3.6 mmol/L (3.5-5.1)
[2016-07-12 04:51] LABS: CREATININE 0.63 mg/dl (0.61-1.24)
[2016-07-12 04:52] LABS: CALCIUM 7.6 mg/dl (8.4-10.2); MAGNESIUM 1.6 mg/dl (1.7-2.5); PHOSPHORUS 2.2 mg/dl (2.5-4.9)
[2016-07-12] MEDS: PANTOPRAZOLE 40 MG INJ IV SCH (05:00)
[2016-07-12 05:01] LABS: BASOPHILS % 0.4 % (0.0-2.0); EOSINOPHILS % 9.5 % (0.0-7.0); HEMATOCRIT 27.3 % (42.0-52.0); LYMPHOCYTES # 1.1 10^3/ul (0.8-2.9); LYMPHOCYTES % 10.9 % (15.0-51.0); MEAN CORPUSCULAR HEMOGLOBIN 29.1 pg (29.0-33.0); MEAN CORPUSCULAR VOLUME 88.2 fl (82.0-101.0); MEAN PLATELET VOLUME 8.9 fl (7.4-10.4); MONOCYTE # 0.7 10^3/ul (0.3-0.9); MONOCYTES % 6.5 % (0.0-11.0); NEUTROPHIL # 7.5 10^3/ul (1.6-7.5); NEUTROPHILS % 72.7 % (39.0-77.0); PLATELET COUNT 189 10^3/UL (140-440); RED BLOOD COUNT 3.09 10^6/ul (4.70-6.10); RED CELL DISTRIBUTION WIDTH 18.8 % (11.5-14.5); UNCORRECTED WBC 10.3 10^3/ul (4.8-10.8); WHITE BLOOD COUNT 10.3 10^3/ul (4.8-10.8)
[2016-07-12 05:05] LABS: CONDITION 1; LH ANALYZER COMMENTS 1
[2016-07-12] MEDS: ALBUTEROL HFA 8 GM INHALER INH SCH ×5 (05:18→21:22)
[2016-07-12] MEDS: IPRATROPIUM (HFA) 12.9 GM INHALER INH SCH ×5 (05:18→21:22)
--- NOTE | 2016-07-12 08:44 | RADRPT ---
PROCEDURE: XR Chest. CLINICAL INDICATION: Pneumonia. CHF. TECHNIQUE: AP view of the chest was performed. COMPARISON: 07/10/16 FINDINGS: The lungs are hyperinflated consistent with COPD. Endotracheal tube and feeding tube are again demonstrated. Left central line with the tip terminating in the proximal SVC is again demonstrated. There are chronic increased interstitial markings with no evidence for infiltrate, pleural effusion or pneumothorax. IMPRESSION: 1. Overall no significant interval change from 07/10/2016. 2. Hyperinflated lungs with no focal infiltrate pleural effusion or pneumothorax. Findings consist ent with COPD. RPTAT: QQ .Jacobo Santos MD, MD Date Time Electronically viewed and signed by .Jacobo Santos MD, on 07/12/2016 08:44 .M/
[2016-07-12] MEDS: LINEZOLID 600 MG/D5W (PMX) 300 ML IVPB SCH ×2 (09:31→21:36)
[2016-07-12] MEDS: IMIPENEM-CILAST 500MG IV (PMX) 100 ML IVPB SCH ×2 (09:31→21:36)
[2016-07-12] MEDS: MUPIROCIN 2% 22 GM OINT TOP SCH ×2 (09:33→21:38)
[2016-07-12] MEDS: HEPARIN 5,000 UNIT/0.5 ML SYG SC SCH ×2 (09:33→21:42)
[2016-07-12] MEDS: COLLAGENASE 30 GM TUBE TOP SCH (09:40)
--- NOTE | 2016-07-12 10:08 | CONS ---
Date/Time of Note Date/Time of Note DATE: 07/12/16 TIME: 10:06 Consult Date/Type/Reason Admit Date/Time Jul 08, 2016 at 09:32 Type of Consultation: Pulm Subjective Patient grimaces to painful stimuli not following commands currently not requiring vasopressor support Moderate oral secretions Continues nasogastric tube feeding Objective Vital Signs Date Time Temp Pulse Resp B/P Pulse Ox O2 Delivery O2 Flow Rate FiO2 07/12/16 08:00 80 07/12/16 06:00 16 135/71 100 07/12/16 05:20 30 07/12/16 04:00 98.0 Mechanical Ventilator 07/08/16 10:00 2 Intake and Output 07/11/16 07/11/16 07/12/16 15:00 23:00 07:00 Intake Total 820 ml 640 ml 510 ml Output Total 590 ml 765 ml 505 ml Balance 230 ml -125 ml 5 ml PHYSICAL EXAMINATION: GENERAL: Chronically ill appearing gentleman, intubated on mechanical ventilation, grimaces to painful stimuli VITAL SIGNS: as above HEENT: Dry mucous membranes. Pupils equal and reactive to light. CARDIAC: S1, S2, no added sounds or murmurs. CHEST: Diminished air entry bilaterally. ABDOMEN: Soft, nontender. No guarding or rebound. EXTREMITIES: No cyanosis, clubbing, edema +1 NEUROLOGIC: Unable to assess. Results/Medications Result Diagram: 07/12/16 0400 07/12/16 0400 Results 24 hrs Laboratory Tests Test 07/12/16 04:00 Anion Gap 10 Basophils # 0.0 Basophils % 0.4 Blood Morphology Comment Blood Urea Nitrogen 18 Calcium Level 7.6 L Carbon Dioxide Level 20 L Chloride Level 110 # Creatinine 0.63 Eosinophils # 1.0 H Eosinophils % 9.5 H Glucose Level 101 Hematocrit 27.3 L Hemoglobin 9.0 L Lymphocytes # 1.1 Lymphocytes % 10.9 L Magnesium Level 1.6 L Mean Corpuscular Hemoglobin 29.1 Mean Corpuscular Hemoglobin Concent 33.0 Mean Corpuscular Volume 88.2 Mean Platelet Volume 8.9 Monocytes # 0.7 Monocytes % 6.5 Neutrophils # 7.5 Neutrophils % 72.7 Nucleated Red Blood Cells # 0.0 Nucleated Red Blood Cells % 0.0 Phosphorus Level 2.2 L Platelet Count 189 Potassium Level 3.6 Red Blood Count 3.09 L Red Cell Distribution Width 18.8 H Sodium Level 136 White Blood Count 10.3 Medications Current Medications Ondansetron HCl (Zofran Inj) 4 mg Q6H PRN IV NAUSEA AND/OR VOMITING; Start at 13:30 Acetaminophen (Tylenol Liquid) 650 mg Q6H PRN PO PAIN LEVEL 1-3 OR FEVER; Start 07/08/16 at 13:30 Morphine Sulfate (morphine) 2 mg Q2 PRN IV PAIN LEVEL 7-10 Last administered on 07/10/16at 01:36; Admin Dose 2 MG; Start 07/08/16 at 13:30 Pantoprazole (Protonix Iv) 40 mg DAILY@06 IV Last administered on 07/12/16at 05 :00; Admin Dose 40 MG; Start 07/09/16 at 06:00 Heparin Sodium (Porcine) (Heparin (5000 Units/0.5 ml)) 5,000 unit Q12 SC Last administered on 07/12/16at 09:33; Admin Dose 5,000 UNIT; Start 07/08/16 at 21: 00 Ipratropium [place] 2 puff 2 puff Q4 INH Last administered on 07/12/16at 08:04 ; Admin Dose 2 PUFF; Start 07/08/16 at 21:00 Norepinephrine 16 mg/Dextrose 500 ml @ 0 mls/hr TITRATE IV Last administered on 07/08/16at 23:08; Admin Dose 26.25 MLS/HR; Start 07/08/16 at 21:30 Midazolam HCl 50 mg/Dextrose 50 ml @ 0 mls/hr TITRATE IV Last administered on 07/10/16at 09:31; Admin Dose 10 MLS/HR; Start 07/08/16 at 22:30 Imipenem/ Cilastatin Sodium (Primaxin 500 Mg/ 100 ml (Pmx)) 100 ml @ 100 mls/ hr Q12 IVPB Last administered on 07/12/16 09:31; Admin Dose 100 MLS/HR; Start 07/09/16 at 09:00 Collagenase (Santyl) 1 applic DAILY TOP Last administered on 07/12/16at 09:40; Admin Dose 1 APPLIC; Start 07/09/16 at 09:00 Mupirocin 1 applic 1 applic BID TOP Last administered on 07/12/16 09:33; Admin Dose 1 APPLIC; Start 07/10/16 at 12:30 Linezolid (Zyvox 600mg/D5W (Pmx)) 300 ml @ 300 mls/hr Q12 IVPB Last administered on 07/12/16at 09:31; Admin Dose 300 MLS/HR; Start 07/11/16 at 11: 30 Assessment/Plan Chief Complaint/Hosp Course IMPRESSION AND PLAN: 1. s/p Septic shock. 2. Cardiopulmonary arrest. Likely anoxic encephalopathy 3. Metastatic bladder cancer. 4. Peripheral vascular disease with amputation. 5. Significant deconditioning and malnutrition. 6. Severe metabolic acidosis. Clinically improving The patient will require: 1. Continued mechanical ventilation. 2. Vasopressor support as needed 3. Broad-spectrum antibiotic coverage. 4. dvt/ gi prophylaxis 5. Sedation vacation assess neurological status 6. Nasogastric tube feeding as tolerated Very unlikely that this patient will come off mechanical ventilation given neurological status. Consider family conference to discuss prognosis and goals of care. If family wish to continue aggressive measures I would consider early tracheostomy and G- tube placement Problems: YOGESH ADDISON MD, [facility] Jul 12, 2016 10:08
--- NOTE | 2016-07-12 11:03 | CONS ---
Date/Time of Note Date/Time of Note DATE: 07/12/16 TIME: 10:51 Assessment/Plan Assessment/Plan Chief Complaint/Hosp Course INFECTIOUS DISEASE PROGRESS NOTE 24H INTERVAL SUMMARY * Noncommunicative, ETT-=> secure to Vent, VSS, no fevers * MICROBIOLOGY: Repeat BCx(-), Sacral Wound (-) day #3 * INDWELLINGS: Endotracheal tube, NG tube, left subclavian triple lumen catheter, Uriarte. * ANTIMICROBIALS: 1. Zyvox.2. Imipenem.3. Topical Bactroban to the nares. * CXR: Hyperinflated lungs with no focal infiltrate pleural effusion or pneumothorax. Findings consistent with COPD. PHYSICAL EXAMINATION: GENERAL: Cachectic, chronically ill-appearing, elderly man respiratory failure- > orally intubated/vented HEENT: ETT-> Secure NECK: Supple, trachea midline. CHEST: Chest rise is symmetrical, course BS HEART: NSR on tele ABDOMEN: Soft EXTREMITIES: Without cyanosis. SKIN: See photos (+)decubs, wounds ID ASSESSMENT: 1. Severe sepsis, status post septic shock. 2. Polymicrobial septicemia-> BCx on admission (+)VRE/(+)S-CoNS #1/(+)S-CoNS # 2 3. Acute hypoxic respiratory failure-> VDRF 4. Acute COPD exacerbation: Emphysema dominant = CXR w/ Hyperinflated lungs with no focal infiltrate pleural effusion or pneumothorax. 5. Aspiration Pneumonitis 6. Multiple non-stageable wounds. * 07/09/16 R-Foot Wound Cx (+)S-CoNS 7. Metastatic bladder cancer. 8. Anemia. 9. Rash. Status post Elimite cream. (+)MRSA Nares -> Bactroban INVASIVES: L-SC TLC, ETT, NGT, FC CURRENT ABX: Zyvox + Primaxin ID PLAN: Covered with appropriate antimicrobials->continue supportive care, await clinical response . Problems: Consultation Date/Type/Reason Admit Date/Time Jul 08, 2016 at 09:32 Initial Consult Date Type of Consultation: ID Exam/Review of Systems Vital Signs Vitals Vital Signs Date Time Temp Pulse Resp B/P Pulse Ox O2 Delivery O2 Flow Rate FiO2 07/12/16 10:00 85 07/12/16 06:00 16 135/71 100 07/12/16 05:20 30 07/12/16 04:00 98.0 Mechanical Ventilator 07/08/16 10:00 2 Intake and Output 07/11/16 07/11/16 07/12/16 15:00 23:00 07:00 Intake Total 820 ml 640 ml 510 ml Output Total 590 ml 765 ml 505 ml Balance 230 ml -125 ml 5 ml Results Result Diagram: 07/12/16 0400 07/12/16 0400 Results 24 hrs Laboratory Tests Test 07/12/16 04:00 Anion Gap 10 Basophils # 0.0 Basophils % 0.4 Blood Morphology Comment Blood Urea Nitrogen 18 Calcium Level 7.6 L Carbon Dioxide Level 20 L Chloride Level 110 # Creatinine 0.63 Eosinophils # 1.0 H Eosinophils % 9.5 H Glucose Level 101 Hematocrit 27.3 L Hemoglobin 9.0 L Lymphocytes # 1.1 Lymphocytes % 10.9 L Magnesium Level 1.6 L Mean Corpuscular Hemoglobin 29.1 Mean Corpuscular Hemoglobin Concent 33.0 Mean Corpuscular Volume 88.2 Mean Platelet Volume 8.9 Monocytes # 0.7 Monocytes % 6.5 Neutrophils # 7.5 Neutrophils % 72.7 Nucleated Red Blood Cells # 0.0 Nucleated Red Blood Cells % 0.0 Phosphorus Level 2.2 L Platelet Count 189 Potassium Level 3.6 Red Blood Count 3.09 L Red Cell Distribution Width 18.8 H Sodium Level 136 White Blood Count 10.3 Medications Medications Current Medications Ondansetron HCl (Zofran Inj) 4 mg Q6H PRN IV NAUSEA AND/OR VOMITING; Start at 13:30 Acetaminophen (Tylenol Liquid) 650 mg Q6H PRN PO PAIN LEVEL 1-3 OR FEVER; Start 07/08/16 at 13:30 Morphine Sulfate (morphine) 2 mg Q2 PRN IV PAIN LEVEL 7-10 Last administered on 07/10/16at 01:36; Admin Dose 2 MG; Start 07/08/16 at 13:30 Pantoprazole (Protonix Iv) 40 mg DAILY@06 IV Last administered on 07/12/16at 05 :00; Admin Dose 40 MG; Start 07/09/16 at 06:00 Heparin Sodium (Porcine) (Heparin (5000 Units/0.5 ml)) 5,000 unit Q12 SC Last administered on 07/12/16at 09:33; Admin Dose 5,000 UNIT; Start 07/08/16 at 21: 00 Ipratropium [place] 2 puff 2 puff Q4 INH Last administered on 07/12/16 08:04 ; Admin Dose 2 PUFF; Start 07/08/16 at 21:00 Norepinephrine 16 mg/Dextrose 500 ml @ 0 mls/hr TITRATE IV Last administered on 07/08/16 23:08; Admin Dose 26.25 MLS/HR; Start 07/08/16 at 21:30 Midazolam HCl 50 mg/Dextrose 50 ml @ 0 mls/hr TITRATE IV Last administered on 07/10/16 09:31; Admin Dose 10 MLS/HR; Start 07/08/16 at 22:30 Imipenem/ Cilastatin Sodium (Primaxin 500 Mg/ 100 ml (Pmx)) 100 ml @ 100 mls/ hr Q12 IVPB Last administered on 07/12/16 09:31; Admin Dose 100 MLS/HR; Start 07/09/16 at 09:00 Collagenase (Santyl) 1 applic DAILY TOP Last administered on 07/12/16at 09:40; Admin Dose 1 APPLIC; Start 07/09/16 at 09:00 Mupirocin 1 applic 1 applic BID TOP Last administered on 07/12/16at 09:33; Admin Dose 1 APPLIC; Start 07/10/16 at 12:30 Linezolid (Zyvox 600mg/D5W (Pmx)) 300 ml @ 300 mls/hr Q12 IVPB Last administered on 07/12/16 09:31; Admin Dose 300 MLS/HR; Start 07/11/16 at 11: 30 SUSHANT INTERIANO NP Jul 12, 2016 11:03
--- NOTE | 2016-07-12 16:07 | CONS ---
Date/Time of Note Date/Time of Note DATE: 07/12/16 TIME: 15:54 Assessment/Plan Assessment/Plan Chief Complaint/Hosp Course Cardiorespiratory arrest and comatose Problems: Additional Assessment/Plan The patient is a 75-year-old with history of COPD, metastatic stage IV bladder cancer to the liver, severe malnutrition, left AKA, multiple wounds in the right foot, who has been declining over the course of weeks to months and other medical history includes hypertension, dyslipidemia, depression, anemia, chronic back pain, gastroesophageal reflux disease, peripheral vascular disease. The patient was seen previously by the urologist, Dr. Villarreal, by the radiation oncologist, Dr. Lan. It was felt that the patient is not a candidate for bladder resection surgery and regarding radiation therapy, this may be just palliative in nature. The patient was recently discharged from on 07/04/2016. He presented at that time with severe constipation and generalized debilitated state. The patient now returned to the hospital, as he was noted to be more lethargic. Septic workup was initiated as he was found to have a white count of 21,000. Lactic acid was normal at 1.7. CT scan of brain was done which showed severe chronic microvascular disease and chronic bilateral basal ganglia lacunar infarcts, nothing acute. He has been off sedation and has been unresponsive. Examination showed him to be un responsive, positive Gaga reflex and corneal reflexes, partially withdraws to noxious stimuli. He is severely encephalopathic likely secondary to anoxic/ hypoxic event. PLAN 1. MRI of brain 2 EEG 3 Avoid any sedation 4 prognosis poor 5 will follow Consultation Date/Type/Reason Admit Date/Time Jul 08, 2016 at 09:32 Date of Consultation: Jul 12, 2016 Type of Consultation: Neurology Reason for Consultation Altered mental state after cardiorespiratory arrest Hx of Present Illness The patient is a 75-year-old with history of COPD, metastatic stage IV bladder cancer to the liver, severe malnutrition, left AKA, multiple wounds in the right foot, who has been declining over the course of weeks to months and other medical history includes hypertension, dyslipidemia, depression, anemia, chronic back pain, gastroesophageal reflux disease, peripheral vascular disease. The patient was seen previously by the urologist, Dr. Villarreal, by the radiation oncologist, Dr. Lan. It was felt that the patient is not a candidate for bladder resection surgery and regarding radiation therapy, this may be just palliative in nature. The patient was recently discharged from on 07/04/2016. He presented at that time with severe constipation and generalized debilitated state. The patient now returned to the hospital, as he was noted to be more lethargic. Septic workup was initiated as he was found to have a white count of 21,000. Lactic acid was normal at 1.7. CT scan of brain was done which showed severe chronic microvascular disease and chronic bilateral basal ganglia lacunar infarcts, nothing acute. He has been off sedation and has been unresponsive. Constitutional: other (comatose) Eyes: other (limited exam) ENT: no complaints Respiratory: other (intubated and ventilated) Cardiovascular: no complaints Gastrointestinal: no complaints Genitourinary: no complaints Musculoskeletal: other (limited ) Skin: no complaints Neurologic: other (comatose) Endocrine: no complaints Lymphatic: no complaints Immunologic: no complaints Past Medical History Medical History: other (Bladder cancer with metastasis) Past Surgical History Past Surgical Hx: no surgical history, other Family History Significant Family History: no pertinent family hx Social History Smoking Status: Former smoker Exam/Review of Systems Vital Signs Vitals Vital Signs Date Time Temp Pulse Resp B/P Pulse Ox O2 Delivery O2 Flow Rate FiO2 07/12/16 14:00 82 16 121/61 100 Mechanical Ventilator 07/12/16 12:00 98.5 07/12/16 11:20 30 07/08/16 10:00 2 Intake and Output 07/11/16 07/11/16 07/12/16 15:00 23:00 07:00 Intake Total 820 ml 640 ml 540 ml Output Total 590 ml 765 ml 575 ml Balance 230 ml -125 ml -35 ml Exam Head: atraumatic, normocephalic Eyes: EOMI, nl conjunctiva, nl lids, nl sclera ENMT: mucosa pink and moist, nl external ears & nose, nl lips & teeth, nl nasal mucosa & septum Neck: non-tender, supple Respiratory: other (Intubated, ventilated) Cardiovascular: nl pulses, regular rate and rhythm Gastrointestinal: nl liver, spleen, non-tender, soft Musculoskeletal: other (could not be tested) Extremities: normal pulses Neurological: other (Comatose, intubated, ventilated, limited cranial nerves exam, corneals and gag are present, partly withdrwl to noxious stimuli) Skin: nl turgor Lymph: nl lymph nodes Results Result Diagram: 07/12/16 0400 07/12/16 0400 Results 24 hrs Laboratory Tests Test 07/12/16 04:00 Anion Gap 10 Basophils # 0.0 Basophils % 0.4 Blood Morphology Comment Blood Urea Nitrogen 18 Calcium Level 7.6 L Carbon Dioxide Level 20 L Chloride Level 110 # Creatinine 0.63 Eosinophils # 1.0 H Eosinophils % 9.5 H Glucose Level 101 Hematocrit 27.3 L Hemoglobin 9.0 L Lymphocytes # 1.1 Lymphocytes % 10.9 L Magnesium Level 1.6 L Mean Corpuscular Hemoglobin 29.1 Mean Corpuscular Hemoglobin Concent 33.0 Mean Corpuscular Volume 88.2 Mean Platelet Volume 8.9 Monocytes # 0.7 Monocytes % 6.5 Neutrophils # 7.5 Neutrophils % 72.7 Nucleated Red Blood Cells # 0.0 Nucleated Red Blood Cells % 0.0 Phosphorus Level 2.2 L Platelet Count 189 Potassium Level 3.6 Red Blood Count 3.09 L Red Cell Distribution Width 18.8 H Sodium Level 136 White Blood Count 10.3 Medications Medications Current Medications Ondansetron HCl (Zofran Inj) 4 mg Q6H PRN IV NAUSEA AND/OR VOMITING; Start at 13:30 Acetaminophen (Tylenol Liquid) 650 mg Q6H PRN PO PAIN LEVEL 1-3 OR FEVER; Start 07/08/16 at 13:30 Morphine Sulfate (morphine) 2 mg Q2 PRN IV PAIN LEVEL 7-10 Last administered on 07/10/16at 01:36; Admin Dose 2 MG; Start 07/08/16 at 13:30 Pantoprazole (Protonix Iv) 40 mg DAILY@06 IV Last administered on 07/12/16at 05 :00; Admin Dose 40 MG; Start 07/09/16 at 06:00 Heparin Sodium (Porcine) (Heparin (5000 Units/0.5 ml)) 5,000 unit Q12 SC Last administered on 07/12/16at 09:33; Admin Dose 5,000 UNIT; Start 07/08/16 at 21: 00 Ipratropium [place] 2 puff 2 puff Q4 INH Last administered on 07/12/16at 13:58 ; Admin Dose 2 PUFF; Start 07/08/16 at 21:00 Norepinephrine 16 mg/Dextrose 500 ml @ 0 mls/hr TITRATE IV Last administered on 07/08/16at 23:08; Admin Dose 26.25 MLS/HR; Start 07/08/16 at 21:30 Midazolam HCl 50 mg/Dextrose 50 ml @ 0 mls/hr TITRATE IV Last administered on 07/10/16at 09:31; Admin Dose 10 MLS/HR; Start 07/08/16 at 22:30 Imipenem/ Cilastatin Sodium (Primaxin 500 Mg/ 100 ml (Pmx)) 100 ml @ 100 mls/ hr Q12 IVPB Last administered on 07/12/16at 09:31; Admin Dose 100 MLS/HR; Start 07/09/16 at 09:00 Collagenase (Santyl) 1 applic DAILY TOP Last administered on 07/12/16at 09:40; Admin Dose 1 APPLIC; Start 07/09/16 at 09:00 Mupirocin 1 applic 1 applic BID TOP Last administered on 07/12/16at 09:33; Admin Dose 1 APPLIC; Start 07/10/16 at 12:30 Linezolid (Zyvox 600mg/D5W (Pmx)) 300 ml @ 300 mls/hr Q12 IVPB Last administered on 07/12/16at 09:31; Admin Dose 300 MLS/HR; Start 07/11/16 at 11: 30 Procedures Procedures 07/08/16 CT brain IMPRESSION: No significant interval change since 06/04/2016. No acute intracranial hemorrhage or significant mass effect. Severe chronic microvascular disease and chronic bilateral basal ganglia lacunar infarcts. RPTAT: AA .Melvin Fischer MD, MD Date Time Electronically viewed and signed by .Melvin Fischer MD, MD on 07/08/2016 10:24 GENO CORONEL MD Jul 12, 2016 16:06
--- NOTE | 2016-07-12 16:28 | PN ---
DATE: 07/12/2016 SUBJECTIVE: The patient remains in critical condition in the intensive care unit. Yesterday, famil y conference was made with Dr. Hassan. The family decided on DNR status. Daughter not ready for comfort measures yet. The patient is off pressors, off sedation, not responding to verbal stimuli. Eyes are closed. PHYSICAL EXAMINATION: VITAL SIGNS: The patient is afebrile. Temperature 98, pulse 85, respirations 16, blood pressure 13 5/71, saturation is 100% on 30% FIO2. GENERAL: The patient is frail, pale, cachectic. CARDIOVASCULAR: S1 and S2. LUNGS: Decreased bilaterally. Mild rhonchi bilaterally. ABDOMEN: Soft, nontender. EXTREMITIES: Left AKA. Right leg +1 edema at the foot with multiple wounds. Upper extremities +1 to 2 edema of the hands, left greater than right. He has a left upper chest line noted. LABORATORY DATA: White count 10.3, hemoglobin 9, hematocrit 27, platelet count 189, neutrophils 73% , lymphocytes 11%, monocytes 7%. Chemistry: Sodium 136, potassium 3.6, chloride 110, bicarbonate 2 0, BUN 18, creatinine 0.63, glucose of 101, calcium 7.6, low. Phosphorus is low at 2.2. Magnesium is low at 1.6. The patient's cultures again on admission, he had various positive blood cultures fo r coagulase-negative staph, VLE, as well as the wound culture showed coagulase-negative staph, so hi s bacteremia may be from the wound. Repeat blood cultures are negative both on 07/10/2016 and 07/11. IMAGING: Chest x-ray done today shows overall no significant interval change from 07/10/2016, hyper inflated lungs with no focal infiltrate, pleural effusion or pneumothorax. Findings consistent with COPD. MEDICATIONS: 1. Linezolid IV dose per pharmacy. 2. Bactroban b.i.d. to the nares. 3. Imipenem 500 IV q.12h. 4. Santyl daily. 5. Protonix 40 daily. 6. Midazolam as directed 7. Levophed as directed. 8. Heparin 5000 subcutaneous q.12h. 9. Albuterol and Atrovent every 4 hours. 10. Zofran p.r.n. 11. Tylenol p.r.n. 12. Morphine p.r.n. ASSESSMENT AND PLAN: This is a 75-year-old male overall very sick and debilitated with s evere chronic obstructive pulmonary disease, stage IV metastatic bladder cancer to the liver, severe cachexia and malnutrition, left AKA, multiple hospitalizations, multiple wounds, has been declining tremendously over the past weeks to months. I informed the family about the patient's poor outlook a while back, but they were more optimistic especially the daughter. Now unfortunately presents to the hospital more encephalopathic. Unfortunately had a cardiac arrest in the ER, where the patient was resuscitated, now on ventilatory support. 1. Respiratory: The patient full ventilatory support because of his mental condition and possible anoxic brain injury. The patient likely will not be weanable at this time. His family wants every thing done. Trachea is an option Cardiovascular, currently off pressors. Continue deep venous thr ombosis prophylaxis with heparin. Vitals are stable. 2. Infectious disease: Bacteremia and also wound infection. The patient is on broad-spectrum anti biotics with Zyvox and Merrem. White count is normal. The patient is afebrile. Again, patient was overall hemodynamically stabilized. I appreciate Dr. Richardson's input. 3. Neurological: Questionable anoxic injury. We will ask neurology to see the patient for further recommendations. 4. Metastatic bladder cancer stage IV to the liver, not a candidate for any treatment. 5. Cachexia, on nasogastric tube feeding. Titrate it up per dietitian. 6. Continue gastrointestinal prophylaxis with Protonix. 7. Renal. Replace potassium, phosphorus and monitor electrolytes closely. The patient with good u rine output. In was 2020, output was 1860, so he is positive 160 mL. 8. Anemia. Monitor H and Hr. No need for transfusion as overall the patient is hemodynamically st able. He is on 30% FIO2. We will continue to discuss this with family and Dr. Hassan as I would not recommend trach and PEG in a patient with metastatic cancer, advanced COPD, multiple wounds and now encephalopathic. We wi ll continue to follow. Dictated By: JEREMIAS BELTRAN/LEISA Conf#: [id number] DID#: [id number]
[2016-07-13] VITALS (66 sets, daily range): BP systolic 114–142; BP diastolic 54–77; PULSE 73–111; RESP 13–29
[2016-07-13] MEDS: ALBUTEROL HFA 8 GM INHALER INH SCH ×6 (01:12→20:23)
[2016-07-13] MEDS: IPRATROPIUM (HFA) 12.9 GM INHALER INH SCH ×6 (01:12→20:23)
[2016-07-13 04:57] LABS: BASOPHIL # 0.1 10^3/ul (0.0-0.1); BASOPHILS % 0.6 % (0.0-2.0); EOSINOPHILS % 11.2 % (0.0-7.0); HEMATOCRIT 27.3 % (42.0-52.0); HEMOGLOBIN 9.1 g/dl (14.0-18.0); LYMPHOCYTES # 0.9 10^3/ul (0.8-2.9); LYMPHOCYTES % 10.9 % (15.0-51.0); MEAN CORPUSCULAR HGB CONC 33.3 g/dl (32.0-37.0); MEAN CORPUSCULAR VOLUME 87.2 fl (82.0-101.0); MEAN PLATELET VOLUME 9.4 fl (7.4-10.4); MONOCYTE # 0.5 10^3/ul (0.3-0.9); MONOCYTES % 5.9 % (0.0-11.0); NEUTROPHIL # 6.2 10^3/ul (1.6-7.5); NEUTROPHILS % 71.4 % (39.0-77.0); PLATELET COUNT 206 10^3/UL (140-440); RED BLOOD COUNT 3.13 10^6/ul (4.70-6.10); RED CELL DISTRIBUTION WIDTH 19.1 % (11.5-14.5); UNCORRECTED WBC 8.6 10^3/ul (4.8-10.8); WHITE BLOOD COUNT 8.6 10^3/ul (4.8-10.8)
[2016-07-13] MEDS: PANTOPRAZOLE 40 MG INJ IV SCH (05:04)
[2016-07-13 05:09] LABS: CONDITION 1; LH ANALYZER COMMENTS 1
[2016-07-13 05:11] LABS: CREATININE 0.55 mg/dl (0.61-1.24)
[2016-07-13 05:12] LABS: PHOSPHORUS 2.2 mg/dl (2.5-4.9)
[2016-07-13 05:13] LABS: CALCIUM 7.7 mg/dl (8.4-10.2); MAGNESIUM 1.6 mg/dl (1.7-2.5)
[2016-07-13] MEDS ORDERED: POTASSIUM CHLORIDE (SR) 20 MEQ TAB PO STA (06:18)
[2016-07-13] MEDS ORDERED: MAGNESIUM SULFATE 2 GM/50 ML 50 ML IVPB ONE (06:30)
[2016-07-13] MEDS ORDERED: POTASSIUM CHLORIDE 20 MEQ POWDER FOR ORAL SOLN NGT ONE (06:30)
[2016-07-13] MEDS: POTASSIUM CHLORIDE 50 ML IVPB SCH ×2 (06:40→08:46)
[2016-07-13] MEDS: IMIPENEM-CILAST 500MG IV (PMX) 100 ML IVPB SCH ×2 (08:47→20:13)
[2016-07-13] MEDS: LINEZOLID 600 MG/D5W (PMX) 300 ML IVPB SCH ×2 (08:47→20:13)
[2016-07-13] MEDS: HEPARIN 5,000 UNIT/0.5 ML SYG SC SCH ×2 (08:48→20:22)
[2016-07-13] MEDS: COLLAGENASE 30 GM TUBE TOP SCH (08:49)
--- NOTE | 2016-07-13 12:34 | CONS ---
Date/Time of Note Date/Time of Note DATE: 07/13/16 TIME: 12:33 Consult Date/Type/Reason Admit Date/Time Jul 08, 2016 at 09:32 Type of Consultation: pulmonary Subjective Patient remains intubated on mechanical ventilation somnolent no vasopressors Significant secretions Objective Vital Signs Date Time Temp Pulse Resp B/P Pulse Ox O2 Delivery O2 Flow Rate FiO2 07/13/16 12:00 98.7 77 13 120/56 100 Mechanical Ventilator 07/13/16 11:20 30 Intake and Output 07/12/16 07/12/16 07/13/16 15:00 23:00 07:00 Intake Total 120 ml 670 ml 385 ml Output Total 200 ml 850 ml 240 ml Balance -80 ml -180 ml 145 ml PHYSICAL EXAMINATION: GENERAL: Chronically ill appearing gentleman, intubated on mechanical ventilation, grimaces to painful stimuli VITAL SIGNS: as above HEENT: Dry mucous membranes. Pupils equal and reactive to light. CARDIAC: S1, S2, no added sounds or murmurs. CHEST: Diminished air entry bilaterally. ABDOMEN: Soft, nontender. No guarding or rebound. EXTREMITIES: No cyanosis, clubbing, edema +1 NEUROLOGIC: Unable to assess. Results/Medications Result Diagram: 07/13/16 0400 07/13/16 0400 Results 24 hrs Laboratory Tests Test 07/13/16 04:00 Anion Gap 8 Basophils # 0.1 Basophils % 0.6 Blood Morphology Comment Blood Urea Nitrogen 14 Calcium Level 7.7 L Carbon Dioxide Level 22 Chloride Level 106 Creatinine 0.55 L Eosinophils # 1.0 H Eosinophils % 11.2 H Glucose Level 109 Hematocrit 27.3 L Hemoglobin 9.1 L Lymphocytes # 0.9 Lymphocytes % 10.9 L Magnesium Level 1.6 L Mean Corpuscular Hemoglobin 29.0 Mean Corpuscular Hemoglobin Concent 33.3 Mean Corpuscular Volume 87.2 Mean Platelet Volume 9.4 Monocytes # 0.5 Monocytes % 5.9 Neutrophils # 6.2 Neutrophils % 71.4 Nucleated Red Blood Cells # 0.0 Nucleated Red Blood Cells % 0.0 Phosphorus Level 2.2 L Platelet Count 206 Potassium Level 3.0 L Red Blood Count 3.13 L Red Cell Distribution Width 19.1 H Sodium Level 133 L White Blood Count 8.6 Medications Current Medications Ondansetron HCl (Zofran Inj) 4 mg Q6H PRN IV NAUSEA AND/OR VOMITING; Start at 13:30 Acetaminophen (Tylenol Liquid) 650 mg Q6H PRN PO PAIN LEVEL 1-3 OR FEVER; Start 07/08/16 at 13:30 Morphine Sulfate (morphine) 2 mg Q2 PRN IV PAIN LEVEL 7-10 Last administered on 07/10/16 01:36; Admin Dose 2 MG; Start 07/08/16 at 13:30 Pantoprazole (Protonix Iv) 40 mg DAILY@06 IV Last administered on 07/13/16 05 :04; Admin Dose 40 MG; Start 07/09/16 at 06:00 Heparin Sodium (Porcine) (Heparin (5000 Units/0.5 ml)) 5,000 unit Q12 SC Last administered on 07/13/16 08:48; Admin Dose 5,000 UNIT; Start 07/08/16 at 21: 00 Ipratropium [place] 2 puff 2 puff Q4 INH Last administered on 07/13/16 09:56 ; Admin Dose 2 PUFF; Start 07/08/16 at 21:00 Norepinephrine 16 mg/Dextrose 500 ml @ 0 mls/hr TITRATE IV Last administered on 07/08/16 23:08; Admin Dose 26.25 MLS/HR; Start 07/08/16 at 21:30 Midazolam HCl 50 mg/Dextrose 50 ml @ 0 mls/hr TITRATE IV Last administered on 07/10/16 09:31; Admin Dose 10 MLS/HR; Start 07/08/16 at 22:30 Imipenem/ Cilastatin Sodium (Primaxin 500 Mg/ 100 ml (Pmx)) 100 ml @ 100 mls/ hr Q12 IVPB Last administered on 07/13/16 08:47; Admin Dose 100 MLS/HR; Start 07/09/16 at 09:00 Collagenase (Santyl) 1 applic DAILY TOP Last administered on 07/13/16 08:49; Admin Dose 1 APPLIC; Start 07/09/16 at 09:00 Mupirocin 1 applic 1 applic BID TOP Last administered on 07/12/16 21:38; Admin Dose 1 APPLIC; Start 07/10/16 at 12:30 Linezolid (Zyvox 600mg/D5W (Pmx)) 300 ml @ 300 mls/hr Q12 IVPB Last administered on 12/18/16at 08:47; Admin Dose 300 MLS/HR; Start 07/11/16 at 11: 30 Assessment/Plan Chief Complaint/Hosp Course IMPRESSION AND PLAN: 1. s/p Septic shock. 2. Cardiopulmonary arrest. Likely anoxic encephalopathy 3. Metastatic bladder cancer. 4. Peripheral vascular disease with amputation. 5. Significant deconditioning and malnutrition. 6. Severe metabolic acidosis. Clinically improving The patient will require: 1. Continued mechanical ventilation. 2. Vasopressor support as needed 3. Broad-spectrum antibiotic coverage. 4. dvt/ gi prophylaxis 5. Sedation vacation assess neurological status 6. Nasogastric tube feeding as tolerated Very unlikely that this patient will come off mechanical ventilation given neurological status. Palliative care recommendations Problems: YOGESH ADDISON MD, [facility] Jul 13, 2016 12:34
--- NOTE | 2016-07-13 14:08 | CONS ---
Date/Time of Note Date/Time of Note DATE: 07/13/16 TIME: 14:03 Assessment/Plan Assessment/Plan Chief Complaint/Hosp Course Cardiorespiratory arrest and comatose Problems: Additional Assessment/Plan The patient is a 75-year-old with history of COPD, metastatic stage IV bladder cancer to the liver, severe malnutrition, left AKA, multiple wounds in the right foot, who has been declining over the course of weeks to months and other medical history includes hypertension, dyslipidemia, depression, anemia, chronic back pain, gastroesophageal reflux disease, peripheral vascular disease. The patient was seen previously by the urologist, Dr. Villarreal, by the radiation oncologist, Dr. Lan. It was felt that the patient is not a candidate for bladder resection surgery and regarding radiation therapy, this may be just palliative in nature. The patient was recently discharged from [facility] on 07/04/2016. He presented at that time with severe constipation and generalized debilitated state. The patient now returned to the hospital, as he was noted to be more lethargic. Septic workup was initiated as he was found to have a white count of 21,000. Lactic acid was normal at 1.7. CT scan of brain was done which showed severe chronic microvascular disease and chronic bilateral basal ganglia lacunar infarcts, nothing acute. He has been off sedation and has been unresponsive. Examination showed him to be un responsive, positive Gaga reflex and corneal reflexes, partially withdraws to noxious stimuli. He is severely encephalopathic likely secondary to anoxic/ hypoxic event. EEG is abnormal showing generalized bi hemispheric background slowing with seizure activity consistent with encephalopathy. MRI of brain is pending. PLAN: 1. awaits MRI of brain 2 Prognosis poor 3 will follow Consultation Date/Type/Reason Admit Date/Time Jul 08, 2016 at 09:32 Initial Consult Date 07/12/16 Type of Consultation: pulmonary Reason for Consultation Cardiorespiratory arrest 24 HR Interval Summary Free Text/Dictation Clinically unchanged. Still intubated and unresponsive. EEG is abnormal showing generalized bi hemispheric background slowing with seizure activity consistent with encephalopathy. MRI of brain is pending. Subjective hx not possible: pt non-verbal, pt critical Exam/Review of Systems Vital Signs Vitals Vital Signs Date Time Temp Pulse Resp B/P Pulse Ox O2 Delivery O2 Flow Rate FiO2 07/13/16 12:00 73 07/13/16 12:00 98.7 13 120/56 100 Mechanical Ventilator 07/13/16 11:20 30 Intake and Output 07/12/16 07/12/16 07/13/16 15:00 23:00 07:00 Intake Total 120 ml 670 ml 385 ml Output Total 200 ml 850 ml 240 ml Balance -80 ml -180 ml 145 ml Exam Constitutional: non-verbal, other (intubated, ventilated) Head: atraumatic, normocephalic Eyes: EOMI, nl conjunctiva, nl lids, nl sclera ENMT: mucosa pink and moist, nl external ears & nose, nl lips & teeth, nl nasal mucosa & septum Neck: non-tender, supple Respiratory: other (intubated, ventilated) Cardiovascular: nl pulses, regular rate and rhythm Gastrointestinal: nl liver, spleen, non-tender, soft Musculoskeletal: nl extremities to inspection Extremities: normal pulses Neurological: other (Intubated, ventilated, corneal and gag are present, no withdrwl to noxious stimuli), unresponsive Results Result Diagram: 07/13/16 0400 07/13/16 0400 Results 24 hrs Laboratory Tests Test 07/13/16 04:00 Anion Gap 8 Basophils # 0.1 Basophils % 0.6 Blood Morphology Comment Blood Urea Nitrogen 14 Calcium Level 7.7 L Carbon Dioxide Level 22 Chloride Level 106 Creatinine 0.55 L Eosinophils # 1.0 H Eosinophils % 11.2 H Glucose Level 109 Hematocrit 27.3 L Hemoglobin 9.1 L Lymphocytes # 0.9 Lymphocytes % 10.9 L Magnesium Level 1.6 L Mean Corpuscular Hemoglobin 29.0 Mean Corpuscular Hemoglobin Concent 33.3 Mean Corpuscular Volume 87.2 Mean Platelet Volume 9.4 Monocytes # 0.5 Monocytes % 5.9 Neutrophils # 6.2 Neutrophils % 71.4 Nucleated Red Blood Cells # 0.0 Nucleated Red Blood Cells % 0.0 Phosphorus Level 2.2 L Platelet Count 206 Potassium Level 3.0 L Red Blood Count 3.13 L Red Cell Distribution Width 19.1 H Sodium Level 133 L White Blood Count 8.6 Medications Medications Current Medications Ondansetron HCl (Zofran Inj) 4 mg Q6H PRN IV NAUSEA AND/OR VOMITING; Start at 13:30 Acetaminophen (Tylenol Liquid) 650 mg Q6H PRN PO PAIN LEVEL 1-3 OR FEVER; Start 07/08/16 at 13:30 Morphine Sulfate (morphine) 2 mg Q2 PRN IV PAIN LEVEL 7-10 Last administered on 07/10/16 01:36; Admin Dose 2 MG; Start 07/08/16 at 13:30 Pantoprazole (Protonix Iv) 40 mg DAILY@06 IV Last administered on 07/13/16 05 :04; Admin Dose 40 MG; Start 07/09/16 at 06:00 Heparin Sodium (Porcine) (Heparin (5000 Units/0.5 ml)) 5,000 unit Q12 SC Last administered on 07/13/16 08:48; Admin Dose 5,000 UNIT; Start 07/08/16 at 21: 00 Ipratropium [place] 2 puff 2 puff Q4 INH Last administered on 07/13/16 13:24 ; Admin Dose 2 PUFF; Start 07/08/16 at 21:00 Norepinephrine 16 mg/Dextrose 500 ml @ 0 mls/hr TITRATE IV Last administered on 07/08/16 23:08; Admin Dose 26.25 MLS/HR; Start 07/08/16 at 21:30 Midazolam HCl 50 mg/Dextrose 50 ml @ 0 mls/hr TITRATE IV Last administered on 07/10/16 09:31; Admin Dose 10 MLS/HR; Start 07/08/16 at 22:30 Imipenem/ Cilastatin Sodium (Primaxin 500 Mg/ 100 ml (Pmx)) 100 ml @ 100 mls/ hr Q12 IVPB Last administered on 07/13/16 08:47; Admin Dose 100 MLS/HR; Start 07/09/16 at 09:00 Collagenase (Santyl) 1 applic DAILY TOP Last administered on 07/13/16 08:49; Admin Dose 1 APPLIC; Start 07/09/16 at 09:00 Mupirocin 1 applic 1 applic BID TOP Last administered on 07/12/16 21:38; Admin Dose 1 APPLIC; Start 07/10/16 at 12:30 Linezolid (Zyvox 600mg/D5W (Pmx)) 300 ml @ 300 mls/hr Q12 IVPB Last administered on 07/13/16 08:47; Admin Dose 300 MLS/HR; Start 07/11/16 at 11: 30 GENO CORONLE MD Jul 13, 2016 14:08
[2016-07-13] MEDS: MUPIROCIN 2% 22 GM OINT TOP SCH ×2 (14:22→20:14)
--- NOTE | 2016-07-13 16:38 | CONS ---
Date/Time of Note Date/Time of Note DATE: 07/13/16 TIME: 16:36 Assessment/Plan Assessment/Plan Chief Complaint/Hosp Course INFECTIOUS DISEASE PROGRESS NOTE 24H INTERVAL SUMMARY * CHART REVIEWED: Family opted for DNR status - not ready for "comfort care" * Noncommunicative, ETT-=> secure to Vent, VSS, no fevers * MICROBIOLOGY: Repeat BCx(-), Sacral Wound (-) day #3 * INDWELLINGS: Endotracheal tube, NG tube, left subclavian triple lumen catheter, Uriarte. * ANTIMICROBIALS: 1. Zyvox.2. Imipenem.3. Topical Bactroban to the nares. * CXR: Hyperinflated lungs with no focal infiltrate pleural effusion or pneumothorax. Findings consistent with COPD. PHYSICAL EXAMINATION: GENERAL: Cachectic, chronically ill-appearing, elderly man respiratory failure- > orally intubated/vented HEENT: ETT-> Secure NECK: Supple, trachea midline. CHEST: Chest rise is symmetrical, course BS HEART: NSR on tele ABDOMEN: Soft EXTREMITIES: Without cyanosis. SKIN: See photos (+)decubs, wounds ID ASSESSMENT: 1. Severe sepsis, status post septic shock. 2. Polymicrobial septicemia-> BCx on admission (+)VRE/(+)S-CoNS #1/(+)S-CoNS # 2 3. Acute hypoxic respiratory failure-> VDRF 4. Acute COPD exacerbation: Emphysema dominant = CXR w/ Hyperinflated lungs with no focal infiltrate pleural effusion or pneumothorax. 5. Aspiration Pneumonitis 6. Multiple non-stageable wounds. * 07/09/16 R-Foot Wound Cx (+)S-CoNS 7. Metastatic bladder cancer. 8. Anemia. 9. Rash. Status post Elimite cream. (+)MRSA Nares -> Bactroban INVASIVES: L-SC TLC, ETT, NGT, FC CURRENT ABX: Zyvox + Primaxin ID PLAN: Covered with appropriate antimicrobials->Poor candidate for peg, trach in setting metastatic cancer CHART REVIEWED: Family opted for DNR status - not ready for "comfort care" . Problems: Consultation Date/Type/Reason Admit Date/Time Jul 08, 2016 at 09:32 Type of Consultation: ID Exam/Review of Systems Vital Signs Vitals Vital Signs Date Time Temp Pulse Resp B/P Pulse Ox O2 Delivery O2 Flow Rate FiO2 07/13/16 15:20 79 24 100 30 07/13/16 12:00 98.7 120/56 Mechanical Ventilator Intake and Output 07/12/16 07/12/16 07/13/16 15:00 23:00 07:00 Intake Total 120 ml 670 ml 385 ml Output Total 200 ml 850 ml 240 ml Balance -80 ml -180 ml 145 ml Results Result Diagram: 07/13/16 0400 07/13/16 0400 Results 24 hrs Laboratory Tests Test 07/13/16 04:00 Anion Gap 8 Basophils # 0.1 Basophils % 0.6 Blood Morphology Comment Blood Urea Nitrogen 14 Calcium Level 7.7 L Carbon Dioxide Level 22 Chloride Level 106 Creatinine 0.55 L Eosinophils # 1.0 H Eosinophils % 11.2 H Glucose Level 109 Hematocrit 27.3 L Hemoglobin 9.1 L Lymphocytes # 0.9 Lymphocytes % 10.9 L Magnesium Level 1.6 L Mean Corpuscular Hemoglobin 29.0 Mean Corpuscular Hemoglobin Concent 33.3 Mean Corpuscular Volume 87.2 Mean Platelet Volume 9.4 Monocytes # 0.5 Monocytes % 5.9 Neutrophils # 6.2 Neutrophils % 71.4 Nucleated Red Blood Cells # 0.0 Nucleated Red Blood Cells % 0.0 Phosphorus Level 2.2 L Platelet Count 206 Potassium Level 3.0 L Red Blood Count 3.13 L Red Cell Distribution Width 19.1 H Sodium Level 133 L White Blood Count 8.6 Medications Medications Current Medications Ondansetron HCl (Zofran Inj) 4 mg Q6H PRN IV NAUSEA AND/OR VOMITING; Start at 13:30 Acetaminophen (Tylenol Liquid) 650 mg Q6H PRN PO PAIN LEVEL 1-3 OR FEVER; Start 07/08/16 at 13:30 Morphine Sulfate (morphine) 2 mg Q2 PRN IV PAIN LEVEL 7-10 Last administered on 07/10/16at 01:36; Admin Dose 2 MG; Start 07/08/16 at 13:30 Pantoprazole (Protonix Iv) 40 mg DAILY@06 IV Last administered on 07/13/16at 05 :04; Admin Dose 40 MG; Start 07/09/16 at 06:00 Heparin Sodium (Porcine) (Heparin (5000 Units/0.5 ml)) 5,000 unit Q12 SC Last administered on 07/13/16at 08:48; Admin Dose 5,000 UNIT; Start 07/08/16 at 21: 00 Ipratropium [place] 2 puff 2 puff Q4 INH Last administered on 07/13/16 13:24 ; Admin Dose 2 PUFF; Start 07/08/16 at 21:00 Norepinephrine 16 mg/Dextrose 500 ml @ 0 mls/hr TITRATE IV Last administered on 07/08/16 23:08; Admin Dose 26.25 MLS/HR; Start 07/08/16 at 21:30 Midazolam HCl 50 mg/Dextrose 50 ml @ 0 mls/hr TITRATE IV Last administered on 07/10/16 09:31; Admin Dose 10 MLS/HR; Start 07/08/16 at 22:30 Imipenem/ Cilastatin Sodium (Primaxin 500 Mg/ 100 ml (Pmx)) 100 ml @ 100 mls/ hr Q12 IVPB Last administered on 07/13/16 08:47; Admin Dose 100 MLS/HR; Start 07/09/16 at 09:00 Collagenase (Santyl) 1 applic DAILY TOP Last administered on 07/13/16 08:49; Admin Dose 1 APPLIC; Start 07/09/16 at 09:00 Mupirocin 1 applic 1 applic BID TOP Last administered on 07/13/16 14:22; Admin Dose 1 APPLIC; Start 07/10/16 at 12:30 Linezolid (Zyvox 600mg/D5W (Pmx)) 300 ml @ 300 mls/hr Q12 IVPB Last administered on 07/13/16 08:47; Admin Dose 300 MLS/HR; Start 07/11/16 at 11: 30 SUSHANT INTERIANO NP Jul 13, 2016 16:38
--- NOTE | 2016-07-13 17:47 | SP ---
DATE OF PROCEDURE: 07/12/2016 HISTORY: This is a 75-year-old male with history of COPD, metastatic stage IV bladder cancer to the liver, who was admitted following cardiorespiratory arrest and is currently comatose. EEG is to ru le out seizure activity. CURRENT MEDICATIONS: 1. Imipenem. 2. Pantoprazole. 3. Midazolam. PROCEDURE: Utilizing a 16-channel EEG machine, cap scalp electrodes were applied in accordance with International system. [id number] and ear-to-ear montages were displayed. Electrical impedances were measured and recorded less than 5 kilo-ohms. DESCRIPTION: During the resting state, posterior dominant rhythm of about 6 to 7 Hz were seen bihem ispherically. Photic stimulation and hyperventilation were not performed. There was no focal later alizing or epileptiform discharge identified. INTERPRETATION: This is an abnormal EEG because of presence of generalized bihemispheric background slowing consistent with bihemispheric subcortical dysfunction consistent with encephalopathy withou t any epileptiform activity. Please correlate these findings with the patient's clinical picture. Dictated By: GENO MONROY/LEISA Conf#: [id number] DID#: [id number]
--- NOTE | 2016-07-13 18:46 | PN ---
DATE: 07/13/2016 SUBJECTIVE: Patient seen. I noted neurology input. I appreciate their recommendations. The patie nt remains in critical condition in the intensive care unit, currently off pressors, off sedation. The case is discussed with nursing staff in detail. PHYSICAL EXAMINATION: VITAL SIGNS: Temperature is 98.6, pulse is 83, respirations 18, blood pressure 121/60, saturation 1 00% on 30% FIO2. GENERAL: The patient responds to verbal stimuli, opening his eyes, but does not follow commands, re gaurav ventilated. Slight movement of his extremities were noted with resistance when the lines are being moved. Otherwise, remains very encephalopathic. Again, the patient is pale. CARDIOVASCULAR: S1 and S2. Regular rate and rhythm. LUNGS: Mild rhonchi at the bases. ABDOMEN: Soft, nontender. Left AKA. Right foot has trace edema. Multiple wounds, upper extremity +1 to 2 edema, especially of the hands. The patient with limited mobility, does not follow command s. LABORATORY DATA: White count is 8.6, hemoglobin 9.1, hematocrit 27, platelet count 206, neutrophils 71%, lymphocytes 11%, monocytes 6%, eosinophils 11%. Chemistry: Sodium 133, potassium 3.0, chlori de 106, bicarbonate 22, BUN is 14, creatinine 0.55, glucose 109, calcium 7.7, phosphorus 2.2, magnes ium 1.6. Blood cultures on 07/10/2016 are negative. Chest x-ray dated yesterday shows overall no s ignificant interval change from 07/10/2016. lungs with no focal infiltrate, pleural effusion, no pneumothorax. Findings consistent with COPD. Blood cultures on admission showed coagulase negative staph . MEDICATIONS: 1. Linezolid IV dose per pharmacy. 2. Bactroban b.i.d. 3. Imipenem 500 IV q.12h. 4. Santyl daily. 5. Protonix 40 mg daily. 6. Midazolam as directed. 7. Levophed as directed. 8. Heparin 5000 q.12h. 9. Albuterol and Atrovent every 4 hours. 10. Zofran p.r.n. 11. Albuterol and Atrovent every 2 hours. 12. Tylenol and morphine p.r.n. ASSESSMENT AND PLAN: This is an unfortunate 75-year-old male overall very sick with debil itated severe COPD, stage IV metastatic bladder cancer to the liver, severe cachexia, malnutrition, left AKA, multiple decubitus wounds who has been declining tremendously over the past weeks to month s. Family difficult has difficulty to accept it and now presents with encephalopathy, was found to be septic, status post cardiopulmonary arrest. 1. Respiratory. Continue full ventilatory support. Chest x-ray was overall unremarkable, just dann dence of COPD. He likely has sternal fracture status post chest compressions in the ER. Not a grea t candidate for weaning as patient remains encephalopathic. Pulmonary is following. 2. Cardiovascular, off pressors. Vital signs are stable. The patient is on heparin for DVT prophy laxis. 3. Infectious disease. The patient with bacteremia, source is likely these wounds. Other possibil ity may include pulmonary source versus other. Continue broad spectrum antibiotics as he responded to it very well, as the patient is now afebrile, normal white count and repeat cultures are negative . Continue Zyvox. Continue . ID to follow. 4. Neurologically, likely anoxic injury status post cardiopulmonary arrest in a patient who is over all extremely debilitated. The patient seen by the neurologist. Follow up with EEG and MRI per rec ommendations. 5. Metastatic bladder cancer to the liver, was not a great candidate for any treatment. May be pal liative radiation, but overall he was quite debilitated. Case discussed multiple times with Dr. Candido goodman when she saw him. 6. Severe protein malnutrition, cachexia, debilitated state, NG tube feeding for now. 7. Continue gastrointestinal prophylaxis with Protonix. 8. Multiple wounds. Continue clinical exercise specialist consult for recommendations. Santyl. 9. Renal. Replace magnesium and potassium. Wanted to continue to monitor electrolytes closely. 10. Anemia. Monitor H and H, may consider transfusion if further drop in his hemoglobin, but overa ll currently hemoglobin stable around 9. 12. The patient was made DNR/DNI. I appreciate palliative care input and follow up. Pending furth er neurological workup, would recommend keeping him in comfort care only, as his overall prognosis e gilma if he did not have this event would be extremely poor. We will continue to follow. Dictated By: JEREMIAS BELTRAN/LEISA Conf#: [id number] DID#: [id number]
[2016-07-14] VITALS (59 sets, daily range): BP systolic 119–151; BP diastolic 60–94; PULSE 76–98; RESP 14–29
[2016-07-14] MEDS: ALBUTEROL HFA 8 GM INHALER INH SCH ×6 (00:05→22:15)
[2016-07-14] MEDS: IPRATROPIUM (HFA) 12.9 GM INHALER INH SCH ×6 (00:05→22:15)
[2016-07-14] MEDS: PANTOPRAZOLE 40 MG INJ IV SCH (05:09)
[2016-07-14 05:15] LABS: BASOPHILS % 0.2 % (0.0-2.0); EOSINOPHILS # 1.1 10^3/ul (0.0-0.5); EOSINOPHILS % 12.3 % (0.0-7.0); HEMATOCRIT 27.1 % (42.0-52.0); HEMOGLOBIN 9.1 g/dl (14.0-18.0); LYMPHOCYTES % 11.4 % (15.0-51.0); MEAN CORPUSCULAR HEMOGLOBIN 29.4 pg (29.0-33.0); MEAN CORPUSCULAR HGB CONC 33.5 g/dl (32.0-37.0); MEAN CORPUSCULAR VOLUME 87.9 fl (82.0-101.0); MEAN PLATELET VOLUME 8.7 fl (7.4-10.4); MONOCYTE # 0.6 10^3/ul (0.3-0.9); MONOCYTES % 6.5 % (0.0-11.0); NEUTROPHIL # 6.3 10^3/ul (1.6-7.5); NEUTROPHILS % 69.6 % (39.0-77.0); PLATELET COUNT 237 10^3/UL (140-440); RED BLOOD COUNT 3.08 10^6/ul (4.70-6.10); RED CELL DISTRIBUTION WIDTH 18.6 % (11.5-14.5)
[2016-07-14 05:17] LABS: POTASSIUM 3.8 mmol/L (3.5-5.1)
[2016-07-14 05:19] LABS: CREATININE 0.58 mg/dl (0.61-1.24)
[2016-07-14 05:20] LABS: CALCIUM 7.7 mg/dl (8.4-10.2)
[2016-07-14 05:27] LABS: CONDITION 1; LH ANALYZER COMMENTS 1
[2016-07-14 05:55] LABS: MAGNESIUM 1.9 mg/dl (1.7-2.5)
[2016-07-14] MEDS: IMIPENEM-CILAST 500MG IV (PMX) 100 ML IVPB SCH ×2 (08:37→21:58)
[2016-07-14] MEDS: COLLAGENASE 30 GM TUBE TOP SCH (08:38)
[2016-07-14] MEDS: MUPIROCIN 2% 22 GM OINT TOP SCH ×2 (08:38→21:58)
[2016-07-14] MEDS: LINEZOLID 600 MG/D5W (PMX) 300 ML IVPB SCH ×2 (08:38→21:58)
[2016-07-14] MEDS: HEPARIN 5,000 UNIT/0.5 ML SYG SC SCH ×2 (08:40→21:59)
--- NOTE | 2016-07-14 10:00 | PN ---
DATE: 07/14/2016 PALLIATIVE CARE PROGRESS NOTE SUBJECTIVE: There has been no change in his clinical course over the weekend. I had a long convers ation with the patient's daughter and on the and changed the gentleman's code status to do not resuscitate; however, to continue with all current level of care. He has not improved since , and I will address his code status once again with patient's daughter and . OBJECTIVE: VITAL SIGNS: Blood pressure 133/68, pulse of 84 and regular, respirations of 17, temperature 98.9 d egrees, 99% saturation on 30% FIO2. CHEST: Inspiratory and expiratory rhonchi on examination. CORONARY: S1, S2, without S3, S4, murmur, gallop, rub. Normal rate, normal rhythm. NEUROLOGICAL: He is obtunded, does not respond to any simple commands. There are no spontaneous mo vements. LABORATORY TESTS: White blood cell count of 9.0, hemoglobin 9.1, hematocrit of 27.1, MCV of 87.1, p latelet count is 237,000. Chemistry: Serum sodium 132, potassium 3.8, chloride 104, bicarbonate 22 , BUN of 13, creatinine 0.58. ASSESSMENT AND PLAN: From a palliative care standpoint, there has been no significant clinical impr ovement in this gentleman's quality of life over the weekend. I will speak to family members once a gain, address his ongoing level of care. He remains intubated, obtunded, and extremely poor quality of life in the intensive care unit. Other medical problems include cardiovascular, currently off p ressors, metastatic bladder cancer, malnutrition. Follow up plan as above. Dictated By: LIZ SIERRA MD, LP/LEISA Conf#: [id number] DID#: [id number]
--- NOTE | 2016-07-14 10:23 | CONS ---
Date/Time of Note Date/Time of Note DATE: 07/14/16 TIME: 10:22 Consult Date/Type/Reason Admit Date/Time Jul 08, 2016 at 09:32 Type of Consultation: Pulmonary Subjective Remains somnolent on mechanical ventilation Moderate secretions from endotracheal tube Remains hemodynamically stable Objective Vital Signs Date Time Temp Pulse Resp B/P Pulse Ox O2 Delivery O2 Flow Rate FiO2 07/14/16 08:00 91 07/14/16 05:45 24 100 30 07/14/16 04:00 98.9 133/68 Mechanical Ventilator Intake and Output 07/13/16 07/13/16 07/14/16 15:00 23:00 07:00 Intake Total 475 ml 1210 ml 450 ml Output Total 885 ml 435 ml Balance 475 ml 325 ml 15 ml PHYSICAL EXAMINATION: GENERAL: Chronically ill appearing gentleman, intubated on mechanical ventilation, grimaces to painful stimuli VITAL SIGNS: as above HEENT: Dry mucous membranes. Pupils equal and reactive to light. CARDIAC: S1, S2, no added sounds or murmurs. CHEST: Diminished air entry bilaterally. ABDOMEN: Soft, nontender. No guarding or rebound. EXTREMITIES: No cyanosis, clubbing, edema +1 NEUROLOGIC: Unable to assess. Results/Medications Result Diagram: 07/14/16 0400 07/14/16 0400 Results 24 hrs Laboratory Tests Test 07/14/16 04:00 07/14/16 05:00 Anion Gap 10 Basophils # 0.0 Basophils % 0.2 Blood Morphology Comment Blood Urea Nitrogen 13 Calcium Level 7.7 L Carbon Dioxide Level 22 Chloride Level 104 Creatinine 0.58 L Eosinophils # 1.1 H Eosinophils % 12.3 H Glucose Level 101 Hematocrit 27.1 L Hemoglobin 9.1 L Lymphocytes # 1.0 Lymphocytes % 11.4 L Mean Corpuscular Hemoglobin 29.4 Mean Corpuscular Hemoglobin Concent 33.5 Mean Corpuscular Volume 87.9 Mean Platelet Volume 8.7 Monocytes # 0.6 Monocytes % 6.5 Neutrophils # 6.3 Neutrophils % 69.6 Nucleated Red Blood Cells # 0.0 Nucleated Red Blood Cells % 0.0 Platelet Count 237 Potassium Level 3.8 Red Blood Count 3.08 L Red Cell Distribution Width 18.6 H Sodium Level 132 L White Blood Count 9.0 Magnesium Level 1.9 Phosphorus Level 2.0 L Medications Current Medications Ondansetron HCl (Zofran Inj) 4 mg Q6H PRN IV NAUSEA AND/OR VOMITING; Start at 13:30 Acetaminophen (Tylenol Liquid) 650 mg Q6H PRN PO PAIN LEVEL 1-3 OR FEVER; Start 07/08/16 at 13:30 Morphine Sulfate (morphine) 2 mg Q2 PRN IV PAIN LEVEL 7-10 Last administered on 07/10/16 01:36; Admin Dose 2 MG; Start 07/08/16 at 13:30 Pantoprazole (Protonix Iv) 40 mg DAILY@06 IV Last administered on 07/14/16 05 :09; Admin Dose 40 MG; Start 07/09/16 at 06:00 Heparin Sodium (Porcine) (Heparin (5000 Units/0.5 ml)) 5,000 unit Q12 SC Last administered on 07/14/16 08:40; Admin Dose 5,000 UNIT; Start 07/08/16 at 21: 00 Ipratropium [place] 2 puff 2 puff Q4 INH Last administered on 07/14/16 09:27 ; Admin Dose 2 PUFF; Start 07/08/16 at 21:00 Norepinephrine 16 mg/Dextrose 500 ml @ 0 mls/hr TITRATE IV Last administered on 07/08/16 23:08; Admin Dose 26.25 MLS/HR; Start 07/08/16 at 21:30 Midazolam HCl 50 mg/Dextrose 50 ml @ 0 mls/hr TITRATE IV Last administered on 07/10/16 09:31; Admin Dose 10 MLS/HR; Start 07/08/16 at 22:30 Imipenem/ Cilastatin Sodium (Primaxin 500 Mg/ 100 ml (Pmx)) 100 ml @ 100 mls/ hr Q12 IVPB Last administered on 07/14/16 08:37; Admin Dose 100 MLS/HR; Start 07/09/16 at 09:00 Collagenase (Santyl) 1 applic DAILY TOP Last administered on 07/14/16 08:38; Admin Dose 1 APPLIC; Start 07/09/16 at 09:00 Mupirocin 1 applic 1 applic BID TOP Last administered on 07/14/16 08:38; Admin Dose 1 APPLIC; Start 07/10/16 at 12:30 Linezolid (Zyvox 600mg/D5W (Pmx)) 300 ml @ 300 mls/hr Q12 IVPB Last administered on 07/14/16at 08:38; Admin Dose 300 MLS/HR; Start 07/11/16 at 11: 30 Assessment/Plan Chief Complaint/Hosp Course IMPRESSION AND PLAN: 1. s/p Septic shock. 2. Cardiopulmonary arrest. Likely anoxic encephalopathy 3. Metastatic bladder cancer. 4. Peripheral vascular disease with amputation. 5. Significant deconditioning and malnutrition. 6. Severe metabolic acidosis. Clinically improving The patient will require: 1. Continued mechanical ventilation. Not amenable to mechanical ventilation secondary to altered mental status 2. Vasopressor support as needed 3. Broad-spectrum antibiotic coverage. 4. dvt/ gi prophylaxis 5. Sedation vacation assess neurological status 6. Nasogastric tube feeding as tolerated Very unlikely that this patient will come off mechanical ventilation given neurological status. Palliative care recommendations Problems: YOGESH ADDISON MD, [facility] [place] Jul 14, 2016 10:23
[2016-07-14] MEDS: FUROSEMIDE 20 MG INJ IV SCH ×2 (13:27→18:29)
[2016-07-14] MEDS: POTASSIUM CHLORIDE (SR) 20 MEQ TAB PO SCH ×2 (13:28→21:58)
--- NOTE | 2016-07-14 15:20 | PN ---
DATE: 07/14/2016 SUBJECTIVE: Patient seen and examined. Family at bedside, both the daughter and the patient's . I told them that it is not looking good even though despite patient clinically overall better lyubov ecially, the infection is under control and no significant improvement in his neurological status an d he has so many medical issues including status post cardiac arrest and metastatic bladder cancer, peripheral vascular disease, COPD and multiple wounds. The prognosis is not good. In addition, mos t likely, he will need to have a trach and PEG done as patient is currently unlikely to be off the v ent per Dr. Guerin. Again, given his neurological status, I appreciate Dr. Hassan's involvement. I did try to be honest with the family and it was quite difficult. PHYSICAL EXAMINATION: VITAL SIGNS: Temperature is 98.9, pulse is 90, respirations 24, blood pressure ____, saturation 100 % on 30% FIO2. GENERAL: The patient is frail, ventilated and pale. Upon standing, there is some eye movements. S ome response to verbal stimuli. Again, the patient is pale. CARDIOVASCULAR: S1 and S2. LUNGS: Decreased breath sounds bilaterally. ABDOMEN: Soft, nontender. EXTREMITIES: Left AKA. Right lower extremity wounds all bandaged up, no edema lower extremities. Upper extremity +2 edema especially of the hands. Currently with NG tube feeding. LABORATORY DATA: White count 9, hemoglobin 9.1, hematocrit 27, platelets 237, neutrophils 70%, lymp hocytes 11%. Chemistry: Sodium is 132, potassium 3.8, chloride 104, bicarbonate 22, BUN is 13, cre atinine 0.58, glucose of 101. Blood cultures repeat are negative on 07/10/2016 and 07/11/2016. Uri ne culture on 07/09/2016 negative. Blood culture did show coagulase negative staph, VRE and coagula se negative staph. MRSA screening was positive as well. CURRENT MEDICATIONS: 1. Including Nasalide q.12h. 2. Bactroban b.i.d. 3. Imipenem IV q.12h. 4. Santyl daily. 5. Protonix 40 mg daily. 6. Santyl as directed. 7. Midazolam currently off. 8. Norepinephrine currently off. 7. Heparin 5000 q.12h. 8. Ventolin with albuterol and Atrovent, 24 hours. 8. Zofran p.r.n. 9. Tylenol p.r.n. 10. Morphine p.r.n. Patient's INTAKE AND OUTPUT: In 2210. Out 1320. Positive 890 mL. ASSESSMENT AND PLAN: This is a 75-year-old male overall very sick and debilitated with se flores chronic obstructive pulmonary disease, stage IV metastatic breast cancer to the liver and sever e cachexia, malnutrition, left above knee amputation, multiple decubitus wounds and who has been dec lining over the past few weeks to months. Status post cardiac arrest and sepsis secondary to bacter emia and wound infection. 1. Respiratory. Continue full ventilatory support. No ABG today. Patient likely will need trach and PEG as his neurological condition will make him very difficult to be weaned off the e vent. 2. Cardiovascular. Off pressors. Continue heparin for DVT prophylaxis. Vitals are stable. 3. Infectious disease. The patient with bacteremia. Continue with broad spectrum antibiotics with Zyvox and imipenem. White count is normal. The patient is afebrile. 4. Peripheral edema, most notably of the upper extremity. We will give him a dose of Lasix with po tassium supplements. 5. Severe protein malnutrition and cachexia. Continue NG tube feeding at 50 mL an hour, tolerating it well. Continue Protonix for gastrointestinal prophylaxis. 5. Multiple wounds. Appreciate data warehouse specialist's recommendation. Continue Santyl, wound care and antibiotics. 6. Renal. Replace electrolytes. Monitor daily. 7. Anemia. Hemoglobin and hematocrit remain stable. No need for blood products. 8. Neurologically remains obtunded, somewhat responsive to verbal stimuli. The patient remains off sedation. Will continue to monitor mental status. 9. Continue Protonix for gastrointestinal prophylaxis. 10. Case discussed with the daughter and at bedside. This is quite difficult as overall her p rognosis is not good. I informed that to the family. The daughter is having difficulties. I apprec hellen Hassan's assistance. We will follow. 11. Again, the patient is DO NOT RESUSCITATE. Dictated By: JEREMIAS BELTRAN/LEISA Conf#: [id number] DID#: [id number]
--- NOTE | 2016-07-14 15:34 | PN ---
DATE: 07/14/2016 SUBJECTIVE: No acute events overnight. The patient remains intubated. No fevers. He is lying com fortably in bed. WBC today 9, H and H 9.1 and 27.1, platelets 237, no shift, no bands. BUN 13, creatinine 0.58. MICROBIOLOGY: Repeat blood cultures and urine culture negative. INDWELLINGS: The patient has left subclavian triple lumen catheter, endotracheal tube, NG tube, Fol ey catheter. ANTIMICROBIALS: 1. Zyvox. 2. Imipenem. PHYSICAL EXAMINATION: GENERAL: This is a chronically ill-appearing, elderly man who is lying comfortably in bed. HEENT: Head atraumatic, normocephalic. Sclerae anicteric. Buccal mucosa dry. NECK: Supple. CHEST: Rise symmetrical. Breath sounds diminished to bases. HEART: S1, S2. ABDOMEN: Soft. Bowel tones hypoactive. EXTREMITIES: Without cyanosis. ASSESSMENT: 1. Status post septic shock. 2. Polymicrobial septicemia with blood cultures on admission grew VRE, coagulase-negative Staph spe cies with repeat blood cultures negative. 3. Multiple chronic wounds, possibly infected. 4. Methicillin-resistant Staphylococcus aureus nares colonization. 5. Pneumonia. 6. Metastatic bladder carcinoma. 7. Skin rash status post empiric Elimite. PLAN: The patient remains unchanged. Covered with appropriate antimicrobials. Repeat blood cultur es negative. He is a DNR status, palliative care on case. Dictated By: NALINI SHARP [employer] for EARNESTINE OCHOA/LEISA Conf#: [id number] DID#: [id number]
--- NOTE | 2016-07-14 17:06 | CONS ---
Date/Time of Note Date/Time of Note DATE: 07/14/16 TIME: 17:02 Consult Date/Type/Reason Admit Date/Time Jul 08, 2016 at 09:32 Initial Consult Date 07/12/16 Type of Consultation: Neurology Reason for Consultation evaluation for anoxic injury post cardiac arrest Subjective no overnight events. awaiting MRI Brain. EEG done yesterday: generalized bihemispheric background slowing consistent with bihemispheric subcortical dysfunction c/w encephalopathy. Objective Vital Signs Date Time Temp Pulse Resp B/P Pulse Ox O2 Delivery O2 Flow Rate FiO2 07/14/16 16:00 96 18 131/94 99 Mechanical Ventilator 07/14/16 12:00 98.6 07/14/16 11:40 30 Intake and Output 07/13/16 07/13/16 07/14/16 15:00 23:00 07:00 Intake Total 475 ml 1210 ml 450 ml Output Total 885 ml 435 ml Balance 475 ml 325 ml 15 ml Exam Constitutional: non-verbal, other (intubated, ventilated) Head: atraumatic, normocephalic Eyes: EOMI, nl conjunctiva, nl lids, nl sclera ENMT: mucosa pink and moist, nl external ears & nose, nl lips & teeth, nl nasal mucosa & septum Neck: non-tender, supple Respiratory: other (intubated, ventilated) Cardiovascular: nl pulses, regular rate and rhythm Gastrointestinal: nl liver, spleen, non-tender, soft Musculoskeletal: nl extremities to inspection Extremities: normal pulses Neurological: other (Intubated, ventilated, corneal and gag are present, no withdrawal to noxious stimuli), unresponsive Results/Medications Result Diagram: 07/14/16 0400 07/14/16 0400 Results 24 hrs Laboratory Tests Test 07/14/16 04:00 07/14/16 05:00 Anion Gap 10 Basophils # 0.0 Basophils % 0.2 Blood Morphology Comment Blood Urea Nitrogen 13 Calcium Level 7.7 L Carbon Dioxide Level 22 Chloride Level 104 Creatinine 0.58 L Eosinophils # 1.1 H Eosinophils % 12.3 H Glucose Level 101 Hematocrit 27.1 L Hemoglobin 9.1 L Lymphocytes # 1.0 Lymphocytes % 11.4 L Mean Corpuscular Hemoglobin 29.4 Mean Corpuscular Hemoglobin Concent 33.5 Mean Corpuscular Volume 87.9 Mean Platelet Volume 8.7 Monocytes # 0.6 Monocytes % 6.5 Neutrophils # 6.3 Neutrophils % 69.6 Nucleated Red Blood Cells # 0.0 Nucleated Red Blood Cells % 0.0 Platelet Count 237 Potassium Level 3.8 Red Blood Count 3.08 L Red Cell Distribution Width 18.6 H Sodium Level 132 L White Blood Count 9.0 Magnesium Level 1.9 Phosphorus Level 2.0 L Medications Current Medications Ondansetron HCl (Zofran Inj) 4 mg Q6H PRN IV NAUSEA AND/OR VOMITING; Start at 13:30 Acetaminophen (Tylenol Liquid) 650 mg Q6H PRN PO PAIN LEVEL 1-3 OR FEVER; Start 07/08/16 at 13:30 Morphine Sulfate (morphine) 2 mg Q2 PRN IV PAIN LEVEL 7-10 Last administered on 07/10/16at 01:36; Admin Dose 2 MG; Start 07/08/16 at 13:30 Pantoprazole (Protonix Iv) 40 mg DAILY@06 IV Last administered on 07/14/16 05 :09; Admin Dose 40 MG; Start 07/09/16 at 06:00 Heparin Sodium (Porcine) (Heparin (5000 Units/0.5 ml)) 5,000 unit Q12 SC Last administered on 07/14/16 08:40; Admin Dose 5,000 UNIT; Start 07/08/16 at 21: 00 Ipratropium [place] 2 puff 2 puff Q4 INH Last administered on 07/14/16at 13:29 ; Admin Dose 2 PUFF; Start 07/08/16 at 21:00 Norepinephrine 16 mg/Dextrose 500 ml @ 0 mls/hr TITRATE IV Last administered on 07/08/16at 23:08; Admin Dose 26.25 MLS/HR; Start 07/08/16 at 21:30 Midazolam HCl 50 mg/Dextrose 50 ml @ 0 mls/hr TITRATE IV Last administered on 07/10/16 09:31; Admin Dose 10 MLS/HR; Start 07/08/16 at 22:30 Imipenem/ Cilastatin Sodium (Primaxin 500 Mg/ 100 ml (Pmx)) 100 ml @ 100 mls/ hr Q12 IVPB Last administered on 07/14/16 08:37; Admin Dose 100 MLS/HR; Start 07/09/16 at 09:00 Collagenase (Santyl) 1 applic DAILY TOP Last administered on 12/19/16at 08:38; Admin Dose 1 APPLIC; Start 07/09/16 at 09:00 Mupirocin 1 applic 1 applic BID TOP Last administered on 07/14/16at 08:38; Admin Dose 1 APPLIC; Start 07/10/16 at 12:30 Linezolid (Zyvox 600mg/D5W (Pmx)) 300 ml @ 300 mls/hr Q12 IVPB Last administered on 07/14/16at 08:38; Admin Dose 300 MLS/HR; Start 07/11/16 at 11: 30 Potassium Chloride (Klor-Con 20) 20 meq BID PO Last administered on 07/14/16at 13:28; Admin Dose 20 MEQ; Start 07/14/16 at 12:30 Assessment/Plan Chief Complaint/Hosp Course 75 year old history of COPD, metastatic IV bladder CA, malnutrition, Left AKA, multiple wounds declining over weeks to months admitted for sepsis work up and severe encephalopathy likely secondary to hypoxia. EEG shows bihemispheric background slowing c/w encephalopathy. MRI Brain without contrast pending continue neurologic exams off sedation I will continue to follow Problems: KEYLA MERRITT MD Jul 14, 2016 17:06
[2016-07-15] VITALS (54 sets, daily range): BP systolic 108–156; BP diastolic 53–77; PULSE 79–105; RESP 13–27
[2016-07-15] MEDS: IPRATROPIUM (HFA) 12.9 GM INHALER INH SCH ×6 (01:32→21:00)
[2016-07-15] MEDS: ALBUTEROL HFA 8 GM INHALER INH SCH ×6 (01:32→21:00)
[2016-07-15 05:32] LABS: CALCIUM 7.7 mg/dl (8.4-10.2); CREATININE 0.64 mg/dl (0.61-1.24); MAGNESIUM 1.8 mg/dl (1.7-2.5); POTASSIUM 3.8 mmol/L (3.5-5.1)
[2016-07-15 05:44] LABS: BASOPHILS % 0.2 % (0.0-2.0); EOSINOPHILS # 1.2 10^3/ul (0.0-0.5); EOSINOPHILS % 10.5 % (0.0-7.0); HEMATOCRIT 28.3 % (42.0-52.0); HEMOGLOBIN 9.5 g/dl (14.0-18.0); LYMPHOCYTES # 1.2 10^3/ul (0.8-2.9); LYMPHOCYTES % 11.2 % (15.0-51.0); MEAN CORPUSCULAR HEMOGLOBIN 29.5 pg (29.0-33.0); MEAN CORPUSCULAR HGB CONC 33.5 g/dl (32.0-37.0); MEAN CORPUSCULAR VOLUME 88.2 fl (82.0-101.0); MEAN PLATELET VOLUME 8.9 fl (7.4-10.4); MONOCYTE # 0.6 10^3/ul (0.3-0.9); MONOCYTES % 5.3 % (0.0-11.0); NEUTROPHILS % 72.8 % (39.0-77.0); PLATELET COUNT 276 10^3/UL (140-440); RED BLOOD COUNT 3.22 10^6/ul (4.70-6.10); RED CELL DISTRIBUTION WIDTH 18.8 % (11.5-14.5)
[2016-07-15 05:58] LABS: CONDITION 1; LH ANALYZER COMMENTS 1
[2016-07-15] MEDS: PANTOPRAZOLE 40 MG INJ IV SCH (06:09)
[2016-07-15] MEDS: FUROSEMIDE 20 MG INJ IV SCH (06:09)
[2016-07-15] MEDS: LINEZOLID 600 MG/D5W (PMX) 300 ML IVPB SCH ×2 (08:56→21:25)
[2016-07-15] MEDS: IMIPENEM-CILAST 500MG IV (PMX) 100 ML IVPB SCH ×2 (08:56→20:20)
[2016-07-15] MEDS: COLLAGENASE 30 GM TUBE TOP SCH (08:57)
[2016-07-15] MEDS: POTASSIUM CHLORIDE (SR) 20 MEQ TAB PO SCH ×2 (08:57→20:20)
[2016-07-15] MEDS: MUPIROCIN 2% 22 GM OINT TOP SCH ×2 (08:57→20:20)
[2016-07-15] MEDS: HEPARIN 5,000 UNIT/0.5 ML SYG SC SCH ×2 (08:58→20:24)
--- NOTE | 2016-07-15 11:55 | CONS ---
Date/Time of Note Date/Time of Note DATE: 07/15/16 TIME: 11:54 Consult Date/Type/Reason Admit Date/Time Jul 08, 2016 at 09:32 Type of Consultation: pulmonary Subjective Patient is somnolent on mechanical ventilation Not opening eyes or following commands Objective Vital Signs Date Time Temp Pulse Resp B/P Pulse Ox O2 Delivery O2 Flow Rate FiO2 07/15/16 11:00 105 22 153/75 99 Mechanical Ventilator 07/15/16 08:00 99.5 07/15/16 04:59 30 Intake and Output 07/14/16 07/14/16 07/15/16 15:00 23:00 07:00 Intake Total 1300 ml 700 ml Output Total 3150 ml 660 ml Balance -1850 ml 40 ml PHYSICAL EXAMINATION: GENERAL: Chronically ill appearing gentleman, intubated on mechanical ventilation, grimaces to painful stimuli VITAL SIGNS: as above HEENT: Dry mucous membranes. Pupils equal and reactive to light. CARDIAC: S1, S2, no added sounds or murmurs. CHEST: Diminished air entry bilaterally. ABDOMEN: Soft, nontender. No guarding or rebound. EXTREMITIES: No cyanosis, clubbing, edema +1 NEUROLOGIC: Unable to assess. Results/Medications Result Diagram: 07/15/16 0400 07/15/16 0400 Results 24 hrs Laboratory Tests Test 07/15/16 04:00 Anion Gap 10 Basophils # 0.0 Basophils % 0.2 Blood Morphology Comment Blood Urea Nitrogen 16 Calcium Level 7.7 L Carbon Dioxide Level 25 Chloride Level 98 Creatinine 0.64 Eosinophils # 1.2 H Eosinophils % 10.5 H Glucose Level 118 Hematocrit 28.3 L Hemoglobin 9.5 L Lymphocytes # 1.2 Lymphocytes % 11.2 L Magnesium Level 1.8 Mean Corpuscular Hemoglobin 29.5 Mean Corpuscular Hemoglobin Concent 33.5 Mean Corpuscular Volume 88.2 Mean Platelet Volume 8.9 Monocytes # 0.6 Monocytes % 5.3 Neutrophils # 8.0 H Neutrophils % 72.8 Nucleated Red Blood Cells # 0.0 Nucleated Red Blood Cells % 0.0 Phosphorus Level 2.0 L Platelet Count 276 Potassium Level 3.8 Red Blood Count 3.22 L Red Cell Distribution Width 18.8 H Sodium Level 129 L White Blood Count 11.0 #H Medications Current Medications Ondansetron HCl (Zofran Inj) 4 mg Q6H PRN IV NAUSEA AND/OR VOMITING; Start at 13:30 Acetaminophen (Tylenol Liquid) 650 mg Q6H PRN PO PAIN LEVEL 1-3 OR FEVER; Start 07/08/16 at 13:30 Morphine Sulfate (morphine) 2 mg Q2 PRN IV PAIN LEVEL 7-10 Last administered on 07/10/16 01:36; Admin Dose 2 MG; Start 07/08/16 at 13:30 Pantoprazole (Protonix Iv) 40 mg DAILY@06 IV Last administered on 07/15/16 06 :09; Admin Dose 40 MG; Start 07/09/16 at 06:00 Heparin Sodium (Porcine) (Heparin (5000 Units/0.5 ml)) 5,000 unit Q12 SC Last administered on 07/15/16 08:58; Admin Dose 5,000 UNIT; Start 07/08/16 at 21: 00 Ipratropium [place] 2 puff 2 puff Q4 INH Last administered on 07/15/16 04:58 ; Admin Dose 2 PUFF; Start 07/08/16 at 21:00 Norepinephrine 16 mg/Dextrose 500 ml @ 0 mls/hr TITRATE IV Last administered on 07/08/16 23:08; Admin Dose 26.25 MLS/HR; Start 07/08/16 at 21:30 Midazolam HCl 50 mg/Dextrose 50 ml @ 0 mls/hr TITRATE IV Last administered on 07/10/16 09:31; Admin Dose 10 MLS/HR; Start 07/08/16 at 22:30 Imipenem/ Cilastatin Sodium (Primaxin 500 Mg/ 100 ml (Pmx)) 100 ml @ 100 mls/ hr Q12 IVPB Last administered on 07/15/16 08:56; Admin Dose 100 MLS/HR; Start 07/09/16 at 09:00 Collagenase (Santyl) 1 applic DAILY TOP Last administered on 07/15/16 08:57; Admin Dose 1 APPLIC; Start 07/09/16 at 09:00 Mupirocin 1 applic 1 applic BID TOP Last administered on 07/15/16 08:57; Admin Dose 1 APPLIC; Start 07/10/16 at 12:30 Linezolid (Zyvox 600mg/D5W (Pmx)) 300 ml @ 300 mls/hr Q12 IVPB Last administered on 12/20/16at 08:56; Admin Dose 300 MLS/HR; Start 07/11/16 at 11: 30 Potassium Chloride (Klor-Con 20) 20 meq BID PO Last administered on 07/15/16at 08:57; Admin Dose 20 MEQ; Start 07/14/16 at 12:30 Assessment/Plan Chief Complaint/Hosp Course IMPRESSION AND PLAN: 1. s/p Septic shock. 2. Cardiopulmonary arrest. Likely anoxic encephalopathy 3. Metastatic bladder cancer. 4. Peripheral vascular disease with amputation. 5. Significant deconditioning and malnutrition. 6. Severe metabolic acidosis. Clinically improving The patient will require: 1. Continued mechanical ventilation. Not weanable on mechanical ventilation secondary to altered mental status 2. Vasopressor support as needed 3. Broad-spectrum antibiotic coverage. 4. dvt/ gi prophylaxis 5. Sedation vacation assess neurological status 6. Nasogastric tube feeding as tolerated Very unlikely that this patient will come off mechanical ventilation given neurological status. Palliative care recommendations Problems: YOGESH ADDISON MD, [facility] Jul 15, 2016 11:55
--- NOTE | 2016-07-15 12:26 | PN ---
DATE: 07/15/2016 PALLIATIVE: I have spoken with family members on one occasion and they have given a do not resuscit ation order. However, since he is not significantly improving, I will set up another appointment on 07/17/2016 and bring family members up to date of his current clinical condition, essentially that there has been no change in his cognitive status or his overall physiologic condition. Followup no te will be done at that time. Meeting scheduled 07/17/2016 at 1100 hours. Dictated By: LIZ SIERRA MD LP/LEISA Conf#: [id number] DID#: [id number]
--- NOTE | 2016-07-15 14:24 | PN ---
DATE: 07/15/2016 INFECTIOUS DISEASE PROGRESS NOTE SUBJECTIVE: No acute events overnight. The patient is lying comfortably in bed. VITAL SIGNS: He has low grade fever of T-max 99.8, current temperature 99, pulse 95, respirations 1 8, blood pressure 122/61, saturation 100 on 30 FIO2. LABORATORY DATA: WBC 11, H and H 9.5 and 28.3, platelets 276, neutrophils 72.8, BUN 16, creatinine 0.64. INDWELLINGS: Endotracheal tube, NG tube, left subclavian triple lumen catheter, Uriarte. ANTIMICROBIALS: 1. Zyvox. 2. imipenem. 3. Topical Bactroban to nares. PHYSICAL EXAMINATION: GENERAL: Chronically ill-appearing, fragile, elderly man who is lying comfortably in bed. HEENT: Head atraumatic, normocephalic. Sclerae anicteric. Buccal mucosa dry. NECK: Supple, trachea midline. CHEST: Rise symmetrical. Breath sounds diminished to bases. HEART: S1, S2. ABDOMEN: Soft. Bowel sounds hypoactive. EXTREMITIES: Contractures, multiple decubitus. SKIN: No jaundice, no cyanosis. ASSESSMENT: 1. Severe sepsis with shock, now off pressors. 2. Polymicrobial septicemia on admission, blood culture grew coagulase-negative staph vancomycin-re sistant Enterococci, repeat blood cultures negative. 3. Multifocal pneumonia. 4. Acute respiratory failure. 5. Multiple chronic wounds. 6. Methicillin-resistant Staphylococcus aureus nares colonization. 7. Encephalopathy. 8. ALLERGY TO PENICILLIN. PLAN: The patient remains hemodynamically stable. He is being followed by multiple consultants. H e is a DNR status. Palliative care follows. Dictated By: NALINI SHARP [employer] for EARNESTINE DUKE MD NI/NTS Conf#: [id number] DID#: [id number]
--- NOTE | 2016-07-15 18:09 | PN ---
DATE: 07/15/2016 SUBJECTIVE: The patient remains off pressors, off sedation. Remains encephalopathic. There are de finitely spontaneous movements. Remains ventilated in critical condition. I appreciate Dr. Vandana ramsays, Dr. Holley's, and Dr. Guerin's input. I appreciate neurology input as well. His MRI of the br ain without contrast is pending. PHYSICAL EXAMINATION: VITAL SIGNS: Temperature is 100.1, pulse ____, respirations 18, blood pressure 129/75, saturation 9 7% on 30% FIO2. No ABG today. GENERAL: The patient is frail. Eyes are closed. HEENT: Temporal wasting. CARDIOVASCULAR: S1, S2. LUNGS: Decreased bilaterally. ABDOMEN: Soft, nontender. EXTREMITIES: Upper extremity +1 to 2 edema, especially of the hands. Left AKA. Right foot multipl e wounds. No significant edema. LABORATORY DATA: White count is 11, hemoglobin 9.5, hematocrit 28, platelets 276, neutrophils 73%, lymphocytes 11%. Chemistry: Sodium 129, potassium 3.8, chloride 98, bicarbonate 25, BUN 16, creati nine 0.64, glucose of 118, phosphorus is 2.0. Cultures: Blood cultures on admission shows coagulas e negative staph, VRE. Wound cultures also show coagulase negative staph. No chest x-ray today. MEDICATIONS: Include: 1. KCl 20 mEq b.i.d. 2. Linezolid IV, dose per pharmacy. 3. Bactroban ointment b.i.d. to affected area. 4. Imipenem 500 IV q.12h. 5. Santyl daily. 6. Protonix 40 IV daily. 7. Midazolam as directed, currently off. 8. Also on Levophed as directed, currently, off. 9. Heparin 5000 subcutaneous q.12h. 10. Albuterol and Atrovent 2 puffs every 4 hours. 11. Zofran p.r.n. 12. Albuterol p.r.n. 13. Ipratropium p.r.n. 14. Tylenol p.r.n. 15. Morphine p.r.n. ASSESSMENT AND PLAN: This is a very unfortunate 75-year-old male, very sick, who is debil itated, who is overall bedridden, left hzndy-ozh-vlon amputation, chronic obstructive pulmonary dise ase, metastatic bladder cancer to the liver, right decubitus wounds, who presented with bacteremia, sepsis, status post unfortunate cardiac arrest in the ER. 1. Respiratory. Remains on full ventilatory support. Not a good candidate for weaning, as patient remains encephalopathic. 2. Cardiovascular. Stable. Continue heparin for deep venous thrombosis prophylaxis. 3. Infectious disease. The patient with low-grade fevers, observe. Continue above antibiotics. W narendra count is slightly higher. ID is following. The patient with bacteremia and wound infection. 4. Severe protein malnutrition and cachexia. Currently tolerating feeding well. 5. Gastrointestinal. The patient is on Protonix for gastrointestinal prophylaxis. H and H stable, p.r.n. transfusion. 6. Renal. Continue to monitor electrolytes. Replace potassium, phosphorus, and magnesium as neede d. 7. Neurologic. Remains obtunded. Awaiting MRI. I appreciate neurology input and followup. 8. Case discussed with Dr. Hassan. Another meeting was arranged for to discuss further ongoing care. 9. The patient is DNR. We will continue with supportive care, wound care, air mattress bed. The p atient does have p.r.n. morphine for pain. We will follow. Dictated By: JEREMIAS BELTRAN/LEISA Conf#: [id number] DID#: [id number]
[2016-07-16] VITALS (39 sets, daily range): BP systolic 107–173; BP diastolic 50–84; PULSE 78–90; RESP 15–27
[2016-07-16] MEDS: IPRATROPIUM (HFA) 12.9 GM INHALER INH SCH ×6 (00:50→21:17)
[2016-07-16] MEDS: ALBUTEROL HFA 8 GM INHALER INH SCH ×6 (00:50→21:17)
[2016-07-16 04:54] LABS: BASOPHILS % 0.5 % (0.0-2.0); EOSINOPHILS # 1.1 10^3/ul (0.0-0.5); EOSINOPHILS % 12.2 % (0.0-7.0); HEMATOCRIT 26.3 % (42.0-52.0); HEMOGLOBIN 8.7 g/dl (14.0-18.0); LYMPHOCYTES # 0.9 10^3/ul (0.8-2.9); LYMPHOCYTES % 9.4 % (15.0-51.0); MEAN CORPUSCULAR HEMOGLOBIN 29.4 pg (29.0-33.0); MEAN CORPUSCULAR HGB CONC 33.3 g/dl (32.0-37.0); MEAN CORPUSCULAR VOLUME 88.3 fl (82.0-101.0); MEAN PLATELET VOLUME 8.6 fl (7.4-10.4); MONOCYTE # 0.7 10^3/ul (0.3-0.9); MONOCYTES % 7.4 % (0.0-11.0); NEUTROPHIL # 6.5 10^3/ul (1.6-7.5); NEUTROPHILS % 70.5 % (39.0-77.0); PLATELET COUNT 251 10^3/UL (140-440); RED BLOOD COUNT 2.97 10^6/ul (4.70-6.10); RED CELL DISTRIBUTION WIDTH 18.9 % (11.5-14.5); UNCORRECTED WBC 9.3 10^3/ul (4.8-10.8); WHITE BLOOD COUNT 9.3 10^3/ul (4.8-10.8)
[2016-07-16 05:04] LABS: MAGNESIUM 1.8 mg/dl (1.7-2.5); PHOSPHORUS 2.2 mg/dl (2.5-4.9); POTASSIUM 3.6 mmol/L (3.5-5.1)
[2016-07-16 05:06] LABS: CREATININE 0.62 mg/dl (0.61-1.24)
[2016-07-16 05:07] LABS: CALCIUM 7.7 mg/dl (8.4-10.2)
[2016-07-16 05:10] LABS: CONDITION 1; LH ANALYZER COMMENTS 1
[2016-07-16] MEDS: PANTOPRAZOLE 40 MG INJ IV SCH (05:31)
[2016-07-16] MEDS: IMIPENEM-CILAST 500MG IV (PMX) 100 ML IVPB SCH ×2 (08:04→20:42)
[2016-07-16] MEDS: LINEZOLID 600 MG/D5W (PMX) 300 ML IVPB SCH ×2 (08:04→20:43)
[2016-07-16] MEDS: POTASSIUM CHLORIDE (SR) 20 MEQ TAB PO SCH ×2 (08:05→20:43)
[2016-07-16] MEDS: COLLAGENASE 30 GM TUBE TOP SCH (08:06)
[2016-07-16] MEDS: MUPIROCIN 2% 22 GM OINT TOP SCH ×2 (08:09→20:43)
[2016-07-16] MEDS: HEPARIN 5,000 UNIT/0.5 ML SYG SC SCH ×2 (08:52→20:45)
--- NOTE | 2016-07-16 09:55 | CONS ---
Date/Time of Note Date/Time of Note DATE: 07/16/16 TIME: 09:54 Consult Date/Type/Reason Admit Date/Time Jul 08, 2016 at 09:32 Type of Consultation: pulmonary Subjective Patient remains somnolent on mechanical ventilation Not opening eyes or following commands Continues mechanical ventilation Objective Vital Signs Date Time Temp Pulse Resp B/P Pulse Ox O2 Delivery O2 Flow Rate FiO2 07/16/16 09:00 78 18 117/61 100 Mechanical Ventilator 07/16/16 08:00 98.5 07/16/16 04:43 30 Intake and Output 07/15/16 07/15/16 07/16/16 15:00 23:00 07:00 Intake Total 950 ml 1030 ml 700 ml Output Total 1350 ml 420 ml 380 ml Balance -400 ml 610 ml 320 ml PHYSICAL EXAMINATION: GENERAL: Chronically ill appearing gentleman, intubated on mechanical ventilation, grimaces to painful stimuli VITAL SIGNS: as above HEENT: Dry mucous membranes. Pupils equal and reactive to light. CARDIAC: S1, S2, no added sounds or murmurs. CHEST: Diminished air entry bilaterally. ABDOMEN: Soft, nontender. No guarding or rebound. EXTREMITIES: No cyanosis, clubbing, edema +1 NEUROLOGIC: Unable to assess. Results/Medications Result Diagram: 07/16/16 0409 07/16/16 0409 Results 24 hrs Laboratory Tests Test 07/16/16 04:09 Anion Gap 9 Basophils # 0.0 Basophils % 0.5 Blood Morphology Comment Blood Urea Nitrogen 17 Calcium Level 7.7 L Carbon Dioxide Level 26 Chloride Level 98 Creatinine 0.62 Eosinophils # 1.1 H Eosinophils % 12.2 H Glucose Level 113 Hematocrit 26.3 L Hemoglobin 8.7 L Lymphocytes # 0.9 Lymphocytes % 9.4 L Magnesium Level 1.8 Mean Corpuscular Hemoglobin 29.4 Mean Corpuscular Hemoglobin Concent 33.3 Mean Corpuscular Volume 88.3 Mean Platelet Volume 8.6 Monocytes # 0.7 Monocytes % 7.4 Neutrophils # 6.5 Neutrophils % 70.5 Nucleated Red Blood Cells # 0.0 Nucleated Red Blood Cells % 0.0 Phosphorus Level 2.2 L Platelet Count 251 Potassium Level 3.6 Red Blood Count 2.97 L Red Cell Distribution Width 18.9 H Sodium Level 129 L White Blood Count 9.3 Medications Current Medications Ondansetron HCl (Zofran Inj) 4 mg Q6H PRN IV NAUSEA AND/OR VOMITING; Start at 13:30 Acetaminophen (Tylenol Liquid) 650 mg Q6H PRN PO PAIN LEVEL 1-3 OR FEVER Last administered on 07/15/16 15:49; Admin Dose 650 MG; Start 07/08/16 at 13:30 Morphine Sulfate (morphine) 2 mg Q2 PRN IV PAIN LEVEL 7-10 Last administered on 07/10/16 01:36; Admin Dose 2 MG; Start 07/08/16 at 13:30 Pantoprazole (Protonix Iv) 40 mg DAILY@06 IV Last administered on 07/16/16 05 :31; Admin Dose 40 MG; Start 07/09/16 at 06:00 Heparin Sodium (Porcine) (Heparin (5000 Units/0.5 ml)) 5,000 unit Q12 SC Last administered on 07/16/16 08:52; Admin Dose 5,000 UNIT; Start 07/08/16 at 21: 00 Ipratropium [place] 2 puff 2 puff Q4 INH Last administered on 07/16/16 09:14 ; Admin Dose 2 PUFF; Start 07/08/16 at 21:00 Norepinephrine 16 mg/Dextrose 500 ml @ 0 mls/hr TITRATE IV Last administered on 07/08/16 23:08; Admin Dose 26.25 MLS/HR; Start 07/08/16 at 21:30 Midazolam HCl 50 mg/Dextrose 50 ml @ 0 mls/hr TITRATE IV Last administered on 07/10/16 09:31; Admin Dose 10 MLS/HR; Start 07/08/16 at 22:30 Imipenem/ Cilastatin Sodium (Primaxin 500 Mg/ 100 ml (Pmx)) 100 ml @ 100 mls/ hr Q12 IVPB Last administered on 07/16/16 08:04; Admin Dose 100 MLS/HR; Start 07/09/16 at 09:00 Collagenase (Santyl) 1 applic DAILY TOP Last administered on 07/16/16 08:06; Admin Dose 1 APPLIC; Start 07/09/16 at 09:00 Mupirocin 1 applic 1 applic BID TOP Last administered on 07/16/16 08:09; Admin Dose 1 APPLIC; Start 07/10/16 at 12:30 Linezolid (Zyvox 600mg/D5W (Pmx)) 300 ml @ 300 mls/hr Q12 IVPB Last administered on 07/16/16at 08:04; Admin Dose 300 MLS/HR; Start 07/11/16 at 11: 30 Potassium Chloride (Klor-Con 20) 20 meq BID PO Last administered on 07/16/16at 08:05; Admin Dose 20 MEQ; Start 07/14/16 at 12:30 Assessment/Plan Chief Complaint/Hosp Course IMPRESSION AND PLAN: 1. s/p Septic shock. 2. Cardiopulmonary arrest. Likely anoxic encephalopathy 3. Metastatic bladder cancer. 4. Peripheral vascular disease with amputation. 5. Significant deconditioning and malnutrition. 6. Severe metabolic acidosis. Clinically improving The patient will require: 1. Continued mechanical ventilation. Not weanable on mechanical ventilation secondary to altered mental status 2. Vasopressor support as needed 3. Broad-spectrum antibiotic coverage. 4. dvt/ gi prophylaxis 5. Sedation vacation assess neurological status 6. Nasogastric tube feeding as tolerated Family conference scheduled for tomorrow Problems: YOGESH ADDISON MD, [facility] Jul 16, 2016 09:55
--- NOTE | 2016-07-16 11:30 | CONS ---
Date/Time of Note Date/Time of Note DATE: 07/16/16 TIME: 11:29 Consult Date/Type/Reason Admit Date/Time Jul 08, 2016 at 09:32 Initial Consult Date 07/12/16 Type of Consultation: ID Subjective no events per report, looks comfortable, no fevers Objective Vital Signs Date Time Temp Pulse Resp B/P Pulse Ox O2 Delivery O2 Flow Rate FiO2 07/16/16 09:00 78 18 117/61 100 Mechanical Ventilator 07/16/16 08:00 98.5 07/16/16 04:43 30 Intake and Output 07/15/16 07/15/16 07/16/16 15:00 23:00 07:00 Intake Total 950 ml 1030 ml 700 ml Output Total 1350 ml 420 ml 380 ml Balance -400 ml 610 ml 320 ml Results/Medications Result Diagram: 07/16/16 0409 07/16/16 0409 Results 24 hrs Laboratory Tests Test 07/16/16 04:09 Anion Gap 9 Basophils # 0.0 Basophils % 0.5 Blood Morphology Comment Blood Urea Nitrogen 17 Calcium Level 7.7 L Carbon Dioxide Level 26 Chloride Level 98 Creatinine 0.62 Eosinophils # 1.1 H Eosinophils % 12.2 H Glucose Level 113 Hematocrit 26.3 L Hemoglobin 8.7 L Lymphocytes # 0.9 Lymphocytes % 9.4 L Magnesium Level 1.8 Mean Corpuscular Hemoglobin 29.4 Mean Corpuscular Hemoglobin Concent 33.3 Mean Corpuscular Volume 88.3 Mean Platelet Volume 8.6 Monocytes # 0.7 Monocytes % 7.4 Neutrophils # 6.5 Neutrophils % 70.5 Nucleated Red Blood Cells # 0.0 Nucleated Red Blood Cells % 0.0 Phosphorus Level 2.2 L Platelet Count 251 Potassium Level 3.6 Red Blood Count 2.97 L Red Cell Distribution Width 18.9 H Sodium Level 129 L White Blood Count 9.3 Medications Current Medications Ondansetron HCl (Zofran Inj) 4 mg Q6H PRN IV NAUSEA AND/OR VOMITING; Start at 13:30 Acetaminophen (Tylenol Liquid) 650 mg Q6H PRN PO PAIN LEVEL 1-3 OR FEVER Last administered on 07/15/16at 15:49; Admin Dose 650 MG; Start 07/08/16 at 13:30 Morphine Sulfate (morphine) 2 mg Q2 PRN IV PAIN LEVEL 7-10 Last administered on 07/10/16 01:36; Admin Dose 2 MG; Start 07/08/16 at 13:30 Pantoprazole (Protonix Iv) 40 mg DAILY@06 IV Last administered on 07/16/16 05 :31; Admin Dose 40 MG; Start 07/09/16 at 06:00 Heparin Sodium (Porcine) (Heparin (5000 Units/0.5 ml)) 5,000 unit Q12 SC Last administered on 07/16/16 08:52; Admin Dose 5,000 UNIT; Start 07/08/16 at 21: 00 Ipratropium [place] 2 puff 2 puff Q4 INH Last administered on 07/16/16 09:14 ; Admin Dose 2 PUFF; Start 07/08/16 at 21:00 Norepinephrine 16 mg/Dextrose 500 ml @ 0 mls/hr TITRATE IV Last administered on 07/08/16 23:08; Admin Dose 26.25 MLS/HR; Start 07/08/16 at 21:30 Midazolam HCl 50 mg/Dextrose 50 ml @ 0 mls/hr TITRATE IV Last administered on 07/10/16 09:31; Admin Dose 10 MLS/HR; Start 07/08/16 at 22:30 Imipenem/ Cilastatin Sodium (Primaxin 500 Mg/ 100 ml (Pmx)) 100 ml @ 100 mls/ hr Q12 IVPB Last administered on 07/16/16 08:04; Admin Dose 100 MLS/HR; Start 07/09/16 at 09:00 Collagenase (Santyl) 1 applic DAILY TOP Last administered on 07/16/16 08:06; Admin Dose 1 APPLIC; Start 07/09/16 at 09:00 Mupirocin 1 applic 1 applic BID TOP Last administered on 07/16/16 08:09; Admin Dose 1 APPLIC; Start 07/10/16 at 12:30 Linezolid (Zyvox 600mg/D5W (Pmx)) 300 ml @ 300 mls/hr Q12 IVPB Last administered on 07/16/16 08:04; Admin Dose 300 MLS/HR; Start 07/11/16 at 11: 30 Potassium Chloride (Klor-Con 20) 20 meq BID PO Last administered on 07/16/16 08:05; Admin Dose 20 MEQ; Start 07/14/16 at 12:30 Assessment/Plan Chief Complaint/Hosp Course INDWELLINGS: Endotracheal tube, NG tube, left subclavian triple lumen catheter , Uriarte. ANTIMICROBIALS: 1. Zyvox. 2. imipenem. 3. Topical Bactroban to nares. PHYSICAL EXAMINATION: GENERAL: Chronically ill-appearing, fragile, elderly man who is lying comfortably in bed. HEENT: Head atraumatic, normocephalic. Sclerae anicteric. Buccal mucosa dry. NECK: Supple, trachea midline. CHEST: Rise symmetrical. Breath sounds diminished to bases. HEART: S1, S2. ABDOMEN: Soft. Bowel sounds hypoactive. EXTREMITIES: Contractures, multiple decubitus. SKIN: No jaundice, no cyanosis. ASSESSMENT: 1. Severe sepsis s/p shock, off pressors. 2. Polymicrobial septicemia on admission, blood culture grew coagulase- negative staph vancomycin-resistant Enterococci==> repeat blood cultures negative. 3. Multifocal pneumonia. 4. Acute respiratory failure. 5. Multiple chronic wounds. 6. Methicillin-resistant Staphylococcus aureus nares colonization. 7. Encephalopathy. 8. ALLERGY TO PENICILLIN. PLAN: The patient remains unchanged, hemodynamically stable. He is being followed by multiple consultants. He is a DNR status. Palliative care follows. MAJOR staff Problems: NALINI SHARP NP Jul 16, 2016 11:30
--- NOTE | 2016-07-16 11:47 | CONS ---
Date/Time of Note Date/Time of Note DATE: 07/16/16 TIME: 11:45 Consult Date/Type/Reason Admit Date/Time Jul 08, 2016 at 09:32 Initial Consult Date 07/12/16 Type of Consultation: Neuro Reason for Consultation evaluate neurologic status Subjective remains intubated off sedation no improvement in exam Objective Vital Signs Date Time Temp Pulse Resp B/P Pulse Ox O2 Delivery O2 Flow Rate FiO2 07/16/16 10:55 75 22 82 30 07/16/16 09:00 117/61 Mechanical Ventilator 07/16/16 08:00 98.5 Intake and Output 07/15/16 07/15/16 07/16/16 15:00 23:00 07:00 Intake Total 950 ml 1030 ml 700 ml Output Total 1350 ml 420 ml 380 ml Balance -400 ml 610 ml 320 ml General: intubated not overbreathing ventilator unable to open his eyes to command grimaces to noxious CN: sluggish reactive, corneals present, weak gag reflex Motor: minimal withdrawal in the plane of the bed Sensory: grimaces Results/Medications Result Diagram: 07/16/16 0409 07/16/16 0409 Results 24 hrs Laboratory Tests Test 07/16/16 04:09 Anion Gap 9 Basophils # 0.0 Basophils % 0.5 Blood Morphology Comment Blood Urea Nitrogen 17 Calcium Level 7.7 L Carbon Dioxide Level 26 Chloride Level 98 Creatinine 0.62 Eosinophils # 1.1 H Eosinophils % 12.2 H Glucose Level 113 Hematocrit 26.3 L Hemoglobin 8.7 L Lymphocytes # 0.9 Lymphocytes % 9.4 L Magnesium Level 1.8 Mean Corpuscular Hemoglobin 29.4 Mean Corpuscular Hemoglobin Concent 33.3 Mean Corpuscular Volume 88.3 Mean Platelet Volume 8.6 Monocytes # 0.7 Monocytes % 7.4 Neutrophils # 6.5 Neutrophils % 70.5 Nucleated Red Blood Cells # 0.0 Nucleated Red Blood Cells % 0.0 Phosphorus Level 2.2 L Platelet Count 251 Potassium Level 3.6 Red Blood Count 2.97 L Red Cell Distribution Width 18.9 H Sodium Level 129 L White Blood Count 9.3 Medications Current Medications Ondansetron HCl (Zofran Inj) 4 mg Q6H PRN IV NAUSEA AND/OR VOMITING; Start at 13:30 Acetaminophen (Tylenol Liquid) 650 mg Q6H PRN PO PAIN LEVEL 1-3 OR FEVER Last administered on 07/15/16 15:49; Admin Dose 650 MG; Start 07/08/16 at 13:30 Morphine Sulfate (morphine) 2 mg Q2 PRN IV PAIN LEVEL 7-10 Last administered on 07/10/16 01:36; Admin Dose 2 MG; Start 07/08/16 at 13:30 Pantoprazole (Protonix Iv) 40 mg DAILY@06 IV Last administered on 07/16/16 05 :31; Admin Dose 40 MG; Start 07/09/16 at 06:00 Heparin Sodium (Porcine) (Heparin (5000 Units/0.5 ml)) 5,000 unit Q12 SC Last administered on 07/16/16 08:52; Admin Dose 5,000 UNIT; Start 07/08/16 at 21: 00 Ipratropium [place] 2 puff 2 puff Q4 INH Last administered on 07/16/16 09:14 ; Admin Dose 2 PUFF; Start 07/08/16 at 21:00 Norepinephrine 16 mg/Dextrose 500 ml @ 0 mls/hr TITRATE IV Last administered on 07/08/16 23:08; Admin Dose 26.25 MLS/HR; Start 07/08/16 at 21:30 Midazolam HCl 50 mg/Dextrose 50 ml @ 0 mls/hr TITRATE IV Last administered on 07/10/16 09:31; Admin Dose 10 MLS/HR; Start 07/08/16 at 22:30 Imipenem/ Cilastatin Sodium (Primaxin 500 Mg/ 100 ml (Pmx)) 100 ml @ 100 mls/ hr Q12 IVPB Last administered on 07/16/16 08:04; Admin Dose 100 MLS/HR; Start 07/09/16 at 09:00 Collagenase (Santyl) 1 applic DAILY TOP Last administered on 07/16/16 08:06; Admin Dose 1 APPLIC; Start 07/09/16 at 09:00 Mupirocin 1 applic 1 applic BID TOP Last administered on 07/16/16 08:09; Admin Dose 1 APPLIC; Start 07/10/16 at 12:30 Linezolid (Zyvox 600mg/D5W (Pmx)) 300 ml @ 300 mls/hr Q12 IVPB Last administered on 07/16/16 08:04; Admin Dose 300 MLS/HR; Start 07/11/16 at 11: 30 Potassium Chloride (Klor-Con 20) 20 meq BID PO Last administered on 07/16/16at 08:05; Admin Dose 20 MEQ; Start 07/14/16 at 12:30 Assessment/Plan Chief Complaint/Hosp Course 75 year old history of COPD, metastatic IV bladder CA, malnutrition, Left AKA, multiple wounds declining over weeks to months admitted for sepsis work up and severe encephalopathy likely secondary to hypoxia. EEG shows bihemispheric background slowing c/w encephalopathy. -no improvement in neurologic exam since over the weekend may consider MRI Brain without contrast if within goals of care Problems: KEYLA MERRITT MD Jul 16, 2016 11:46
[2016-07-16] MEDS ORDERED: POTASSIUM PHOSPHATE 20 MEQ in SOD CHLORIDE 0.9% 250 ML IVPB SCH (16:30)
--- NOTE | 2016-07-16 16:42 | PN ---
DATE: 07/16/2016 SUBJECTIVE: The patient remains in the intensive care unit, ventilated. Appreciate neurology input . The patient remains unresponsive off sedation. PHYSICAL EXAMINATION: VITAL SIGNS: Temperature 98.2, pulse 85, respirations 18, blood pressure 118/50, saturation is 100% on 30% FIO2. GENERAL: Patient is with eyes closed, not responding to verbal stimuli. CARDIOVASCULAR: S1 and S2, regular rate. LUNGS: Clear. ABDOMEN: Soft, nontender. EXTREMITIES: Left AKA, right multiple wounds in the right foot, banded upper extremities, hands, +2 edema. LABORATORY DATA: White count is 9.3, hemoglobin 8.7, hematocrit 26, platelet count 251, neutrophils 71%, lymphocytes 9%. Chemistry: Sodium is 129, potassium 3.6, chloride 98, bicarbonate 26, BUN is 17, creatinine 0.62, glucose 113. Phosphorus slightly low at 2.2. No chest x-ray. MEDICATIONS INCLUDE: 1. KCl 20 mEq b.i.d. 2. Nasalide IV dose per pharmacy. 3. Bactroban ointment b.i.d. 4. Imipenem 500 IV q.12h. 5. Santyl daily. 6. Protonix 40 IV daily. 7. Midazolam as directed. 8. Currently off norepinephrine. 9. Off Heparin 5000 q.12h. 10. Albuterol and Atrovent inhaler every 4 hours. 11. Zofran p.r.n. 12. Albuterol p.r.n. 13. Tylenol p.r.n. 14. Morphine p.r.n. ASSESSMENT AND PLAN: This is an unfortunate 75-year-old male, very sick, debilitated with history of metastatic bladder cancer, left tcsaa-zne-nzxo amputation, COPD and right leg decubitus wounds, who presented with bacteremia, sepsis. [facility] 1. Respiratory. Continue full ventilatory support. Likely will need trach if further care needs t o be given. This patient is encephalopathic. 2. Cardiovascular. Continue deep venous thrombosis prophylaxis with heparin. 3. Infectious disease. Continue broad-spectrum antibiotics with Imipenem. 4. Zyvox. Infectious disease is following. Patient's white count is normal. Patient is currently afebrile. Continue wound care. 5. Gastrointestinal. Continue Protonix for gastrointestinal prophylaxis, H and H is low. P.r.n. t ransfusion. 6. Renal. Replace potassium and phosphorus. Continue to monitor electrolytes. 7. Neurological: Remains obtunded. 8. Palliative care meeting tomorrow with family with Dr. Hassan. 9. The patient is DNR. Prognosis remains guarded. We will follow. 10. Dysphagia. Continue NG tube feeding at 60 mL an hour. We will follow. Dictated By: JEREMIAS BELTRAN/LEISA Conf#: [id number] DID#: [id number]
[2016-07-17] VITALS (38 sets, daily range): BP systolic 108–184; BP diastolic 40–122; PULSE 84–104; RESP 12–28
[2016-07-17] MEDS: IPRATROPIUM (HFA) 12.9 GM INHALER INH SCH ×6 (01:12→20:56)
[2016-07-17] MEDS: ALBUTEROL HFA 8 GM INHALER INH SCH ×6 (01:12→20:56)
[2016-07-17] MEDS: PANTOPRAZOLE 40 MG INJ IV SCH (05:39)
[2016-07-17 06:14] LABS: BASOPHILS % 0.1 % (0.0-2.0); EOSINOPHILS # 1.3 10^3/ul (0.0-0.5); EOSINOPHILS % 14.7 % (0.0-7.0); HEMATOCRIT 26.6 % (42.0-52.0); HEMOGLOBIN 8.9 g/dl (14.0-18.0); LYMPHOCYTES # 1.1 10^3/ul (0.8-2.9); LYMPHOCYTES % 11.7 % (15.0-51.0); MEAN CORPUSCULAR HEMOGLOBIN 29.5 pg (29.0-33.0); MEAN CORPUSCULAR HGB CONC 33.6 g/dl (32.0-37.0); MEAN CORPUSCULAR VOLUME 87.9 fl (82.0-101.0); MEAN PLATELET VOLUME 8.7 fl (7.4-10.4); MONOCYTE # 0.7 10^3/ul (0.3-0.9); MONOCYTES % 8.2 % (0.0-11.0); NEUTROPHILS % 65.3 % (39.0-77.0); PLATELET COUNT 270 10^3/UL (140-440); RED BLOOD COUNT 3.03 10^6/ul (4.70-6.10); RED CELL DISTRIBUTION WIDTH 19.2 % (11.5-14.5); UNCORRECTED WBC 9.1 10^3/ul (4.8-10.8); WHITE BLOOD COUNT 9.1 10^3/ul (4.8-10.8)
[2016-07-17 06:32] LABS: CONDITION 1; LH ANALYZER COMMENTS 1
[2016-07-17 06:39] LABS: MAGNESIUM 1.8 mg/dl (1.7-2.5)
[2016-07-17 06:43] LABS: POTASSIUM 3.9 mmol/L (3.5-5.1)
[2016-07-17 06:46] LABS: CREATININE 0.59 mg/dl (0.61-1.24)
[2016-07-17 06:47] LABS: CALCIUM 7.7 mg/dl (8.4-10.2)
[2016-07-17] MEDS: LINEZOLID 600 MG/D5W (PMX) 300 ML IVPB SCH ×2 (08:55→20:47)
[2016-07-17] MEDS: POTASSIUM CHLORIDE (SR) 20 MEQ TAB PO SCH ×2 (08:55→20:47)
[2016-07-17] MEDS: IMIPENEM-CILAST 500MG IV (PMX) 100 ML IVPB SCH ×2 (08:55→20:46)
[2016-07-17] MEDS: HEPARIN 5,000 UNIT/0.5 ML SYG SC SCH ×2 (08:58→20:50)
[2016-07-17] MEDS: MUPIROCIN 2% 22 GM OINT TOP SCH ×2 (09:59→20:50)
[2016-07-17] MEDS: COLLAGENASE 30 GM TUBE TOP SCH (11:00)
--- NOTE | 2016-07-17 13:01 | PN ---
DATE: 07/17/2016 SUBJECTIVE: Case discussed with social media manager, Rima, and with nursing staff. Family had meeting w adrian Hassan, still thinking about the options. The patient overall remained hemodynamically st able off pressors, off sedation. PHYSICAL EXAMINATION: VITAL SIGNS: Patient is afebrile. Temperature is 98.3, pulse 80s to low 100s, respiration is 18 to 25, blood pressure 145/70, saturation 99% on current full ventilatory support, AC mode with 30% FIO 2. GENERAL: The patient keeps his eyes closed, frail. Temporal wasting. CARDIOVASCULAR: S1 and S2, regular rate. LUNGS: Decreased bilaterally. ABDOMEN: Soft, nontender. EXTREMITIES: Left AKA. Multiple wounds on the right foot and contracted at the knee. Upper extrem ities: +1 to 2 edema of the hands; also contractures of the upper extremities are noted. LABORATORY DATA: White count is 9.1, hemoglobin 8.9, hematocrit 27, platelet count 270, neutrophils 65%, lymphocytes 12%, monocytes 8%, eosinophils 14%. Chemistry: Sodium 129, potassium 3.9, chlori de 99, bicarbonate 24, BUN is 16, creatinine 0.59, glucose of 92. Magnesium 1.8. Phosphorus is nor mal at 3.0. MEDICATIONS: All reviewed and include: 1. KCl 20 mEq b.i.d. 2. Linezolid IV q.12. 3. Bacitracin b.i.d. 4. Imipenem 500 IV q.12. 5. Santyl daily. 6. Protonix 40 IV daily. 7. Midazolam as directed--is currently off. 8. Norepinephrine as directed, but currently off. 9. Heparin 5000 subcu q.12. 10. Albuterol and Atrovent every 4 hours. 11. Zofran p.r.n. 12. Albuterol and Atrovent p.r.n. 13. Tylenol p.r.n. 14. Morphine p.r.n. No imaging tests. ASSESSMENT AND PLAN: This is a 75-year-old male with history of metastatic bladder cancer , left ljoap-tfo-eaki amputation, malnutrition, chronic obstructive pulmonary disease, and leg contr actures, who presented with bacteremia, was found in the ER, unfortunately, status post cardiac arre st. 1. Respiratory: Continue full ventilatory support. Further decision regarding trach will be made by family. I appreciate pulmonary followup. 2. Cardiovascular: Remains on heparin for deep vein thrombosis prophylaxis. The patient is off pr essors. 3. Infectious disease: Remains on broad-spectrum antibiotics with Zyvox and imipenem. White count is normal. The patient is afebrile. Continue wound care. 4. Gastrointestinal: Continue Protonix for gastrointestinal prophylaxis. Monitor H and H. No nee d for transfusion today. 5. Renal: Monitor potassium and phosphorus. Continue with potassium supplements. 6. Neurological: Remains obtunded, nonresponsive to verbal stimuli; concerning for anoxia. 7. Follow up with Dr. Hassan and family decision. 8. The patient remains DNR; prognosis is guarded. 9. Dysphagia: Continue NG tube feeding. He is tolerating it well. Continue supportive care. Barry g-term prognosis is very poor. We will follow. Dictated By: JEREMIAS BELTRAN/LEISA Conf#: [id number] DID#: [id number] CC: JEREMIAS NAIK MD;*EndCC*
--- NOTE | 2016-07-17 17:52 | CONS ---
Date/Time of Note Date/Time of Note DATE: 07/17/16 TIME: 17:50 Consult Date/Type/Reason Admit Date/Time Jul 08, 2016 at 09:32 Initial Consult Date 07/12/16 Type of Consultation: id Subjective no acute changes, looks comfortable, no fevers Objective Vital Signs Date Time Temp Pulse Resp B/P Pulse Ox O2 Delivery O2 Flow Rate FiO2 07/17/16 17:08 22 140/76 100 Mechanical Ventilator 07/17/16 16:42 97 30 07/17/16 16:00 98.9 Intake and Output 07/16/16 07/16/16 07/17/16 15:00 23:00 07:00 Intake Total 1350 ml 1254.5455 ml 500 ml Output Total 500 ml 390 ml 280 ml Balance 850 ml 864.5455 ml 220 ml Results/Medications Result Diagram: 07/17/16 0430 07/17/16 0430 Results 24 hrs Laboratory Tests Test 07/16/16 20:51 07/17/16 04:30 Lab Scanned Report BLOOD TRANSFUSION Anion Gap 10 Basophils # 0.0 Basophils % 0.1 Blood Morphology Comment Blood Urea Nitrogen 16 Calcium Level 7.7 L Carbon Dioxide Level 24 Chloride Level 99 Creatinine 0.59 L Eosinophils # 1.3 H Eosinophils % 14.7 H Glucose Level 92 Hematocrit 26.6 L Hemoglobin 8.9 L Lymphocytes # 1.1 Lymphocytes % 11.7 L Magnesium Level 1.8 Mean Corpuscular Hemoglobin 29.5 Mean Corpuscular Hemoglobin Concent 33.6 Mean Corpuscular Volume 87.9 Mean Platelet Volume 8.7 Monocytes # 0.7 Monocytes % 8.2 Neutrophils # 6.0 Neutrophils % 65.3 Nucleated Red Blood Cells # 0.0 Nucleated Red Blood Cells % 0.0 Phosphorus Level 3.0 Platelet Count 270 Potassium Level 3.9 Red Blood Count 3.03 L Red Cell Distribution Width 19.2 H Sodium Level 129 L White Blood Count 9.1 Medications Current Medications Ondansetron HCl (Zofran Inj) 4 mg Q6H PRN IV NAUSEA AND/OR VOMITING; Start at 13:30 Acetaminophen (Tylenol Liquid) 650 mg Q6H PRN PO PAIN LEVEL 1-3 OR FEVER Last administered on 07/15/16at 15:49; Admin Dose 650 MG; Start 07/08/16 at 13:30 Morphine Sulfate (morphine) 2 mg Q2 PRN IV PAIN LEVEL 7-10 Last administered on 07/10/16at 01:36; Admin Dose 2 MG; Start 07/08/16 at 13:30 Pantoprazole (Protonix Iv) 40 mg DAILY@06 IV Last administered on 07/17/16 05 :39; Admin Dose 40 MG; Start 07/09/16 at 06:00 Heparin Sodium (Porcine) (Heparin (5000 Units/0.5 ml)) 5,000 unit Q12 SC Last administered on 07/17/16 08:58; Admin Dose 5,000 UNIT; Start 07/08/16 at 21: 00 Ipratropium [place] 2 puff 2 puff Q4 INH Last administered on 07/17/16 16:38 ; Admin Dose 2 PUFF; Start 07/08/16 at 21:00 Imipenem/ Cilastatin Sodium (Primaxin 500 Mg/ 100 ml (Pmx)) 100 ml @ 100 mls/ hr Q12 IVPB Last administered on 07/17/16 08:55; Admin Dose 100 MLS/HR; Start 07/09/16 at 09:00 Collagenase (Santyl) 1 applic DAILY TOP Last administered on 07/17/16at 11:00; Admin Dose 1 APPLIC; Start 07/09/16 at 09:00 Mupirocin 1 applic 1 applic BID TOP Last administered on 07/17/16at 09:59; Admin Dose 1 APPLIC; Start 07/10/16 at 12:30 Linezolid (Zyvox 600mg/D5W (Pmx)) 300 ml @ 300 mls/hr Q12 IVPB Last administered on 07/17/16at 08:55; Admin Dose 300 MLS/HR; Start 07/11/16 at 11: 30 Potassium Chloride (Klor-Con 20) 20 meq BID PO Last administered on 07/17/16 08:55; Admin Dose 20 MEQ; Start 07/14/16 at 12:30 Hydralazine HCl (Apresoline) 25 mg Q4 PRN GTB sbp>165; Start 07/17/16 at 16:30 Amlodipine Besylate (Norvasc) 5 mg BID NGT ; Start 07/17/16 at 21:00 Assessment/Plan Chief Complaint/Hosp Course INDWELLINGS: Endotracheal tube, NG tube, left subclavian triple lumen catheter , Uriarte. ANTIMICROBIALS: 1. Zyvox. 2. Imipenem. 3. Topical Bactroban to nares. PHYSICAL EXAMINATION: GENERAL: Chronically ill-appearing, fragile, elderly man who is lying comfortably in bed. HEENT: Head atraumatic, normocephalic. Sclerae anicteric. Buccal mucosa dry. NECK: Supple, trachea midline. CHEST: Rise symmetrical. Breath sounds diminished to bases. HEART: S1, S2. ABDOMEN: Soft. Bowel sounds hypoactive. EXTREMITIES: Contractures, multiple decubitus. SKIN: No jaundice, no cyanosis. ASSESSMENT: 1. Severe sepsis s/p shock, off pressors. 2. Polymicrobial septicemia on admission, blood culture grew coagulase- negative staph vancomycin-resistant Enterococci==> repeat blood cultures negative. 3. Multifocal pneumonia. 4. Acute respiratory failure. 5. Multiple chronic wounds. 6. Methicillin-resistant Staphylococcus aureus nares colonization. 7. Encephalopathy. 8. ALLERGY TO PENICILLIN. PLAN: The patient remains hemodynamically stable, completing abx for septicemia. He is being followed by multiple consultants. He is a DNR status. Palliative care follows. MAJOR staff Problems: NALINI SHARP NP Jul 17, 2016 17:52
[2016-07-17] MEDS: AMLODIPINE 5 MG TAB NGT SCH (20:47)
[2016-07-18] VITALS (33 sets, daily range): BP systolic 116–172; BP diastolic 60–111; PULSE 89–111; RESP 0–30
[2016-07-18] MEDS: IPRATROPIUM (HFA) 12.9 GM INHALER INH SCH ×6 (02:00→20:53)
[2016-07-18] MEDS: ALBUTEROL HFA 8 GM INHALER INH SCH ×6 (02:01→20:53)
[2016-07-18 05:30] LABS: POTASSIUM 4.7 mmol/L (3.5-5.1)
[2016-07-18] MEDS: PANTOPRAZOLE 40 MG INJ IV SCH (05:31)
[2016-07-18 05:32] LABS: CREATININE 0.58 mg/dl (0.61-1.24)
[2016-07-18 05:33] LABS: CALCIUM 8.2 mg/dl (8.4-10.2)
[2016-07-18 05:37] LABS: BASOPHIL # 0.1 10^3/ul (0.0-0.1); BASOPHILS % 0.5 % (0.0-2.0); EOSINOPHILS # 1.4 10^3/ul (0.0-0.5); EOSINOPHILS % 13.2 % (0.0-7.0); HEMATOCRIT 28.6 % (42.0-52.0); HEMOGLOBIN 9.6 g/dl (14.0-18.0); LYMPHOCYTES # 1.1 10^3/ul (0.8-2.9); MEAN CORPUSCULAR HEMOGLOBIN 29.8 pg (29.0-33.0); MEAN CORPUSCULAR HGB CONC 33.4 g/dl (32.0-37.0); MEAN CORPUSCULAR VOLUME 89.1 fl (82.0-101.0); MEAN PLATELET VOLUME 8.7 fl (7.4-10.4); MONOCYTE # 0.9 10^3/ul (0.3-0.9); MONOCYTES % 8.3 % (0.0-11.0); NEUTROPHIL # 6.9 10^3/ul (1.6-7.5); PLATELET COUNT 291 10^3/UL (140-440); RED BLOOD COUNT 3.21 10^6/ul (4.70-6.10); RED CELL DISTRIBUTION WIDTH 19.2 % (11.5-14.5); UNCORRECTED WBC 10.3 10^3/ul (4.8-10.8); WHITE BLOOD COUNT 10.3 10^3/ul (4.8-10.8)
[2016-07-18 05:52] LABS: CONDITION 1; LH ANALYZER COMMENTS 1
[2016-07-18 08:07] LABS: MAGNESIUM 1.8 mg/dl (1.7-2.5); PHOSPHORUS 2.4 mg/dl (2.5-4.9)
--- NOTE | 2016-07-18 09:02 | PN ---
DATE: 07/17/2016 FAMILY CONFERENCE Family conference was done 07/17/2016 at 1530 hours. A long conversation with patient's and zahraa morgan. Reviewed the patient's current medical condition, the fact he is still intubated and has no t had any significant improvement in his overall neurological condition, he remains encephalopathic and does not respond to any simple commands or tactile commands. He does not open his eyes. He manzanares s not do any purposeful activity, reviewed laboratory tests, x-ray findings, answered all family mem bers' questions. The conversation then progressed on to the patient's ongoing level of care. Optio ns were given to family members including the fact that consent for a trach will be addressed very s oon and I explained the necessity of family members making that decision. At the time of this dicta tion, family members have not contacted me yet. We have told them that they should contact us withi n the next 2 to 3 days. At this time, I feel family members are seriously considering discontinuing this level of care, but because there is some disagreement amongst daughter, and patient's , th ey may change decision to continue with this level of care. Dictated By: LIZ SIERRA MD, LP/LEISA Conf#: [id number] DID#: [id number]
[2016-07-18] MEDS: POTASSIUM CHLORIDE (SR) 20 MEQ TAB PO SCH (09:50)
[2016-07-18] MEDS: AMLODIPINE 5 MG TAB NGT SCH ×2 (09:50→21:06)
[2016-07-18] MEDS: IMIPENEM-CILAST 500MG IV (PMX) 100 ML IVPB SCH ×2 (09:51→21:06)
[2016-07-18] MEDS: LINEZOLID 600 MG/D5W (PMX) 300 ML IVPB SCH ×2 (09:51→21:06)
[2016-07-18] MEDS: COLLAGENASE 30 GM TUBE TOP SCH (09:52)
[2016-07-18] MEDS: MUPIROCIN 2% 22 GM OINT TOP SCH ×2 (09:52→21:07)
[2016-07-18] MEDS: HEPARIN 5,000 UNIT/0.5 ML SYG SC SCH ×2 (09:54→21:15)
[2016-07-18] MEDS: morphine 2 MG INJ IV PRN (12:51)
[2016-07-18] MEDS ORDERED: HYDROmorphONE 1 MG/ML SYG IV PRN (13:30)
--- NOTE | 2016-07-18 15:15 | CONS ---
Date/Time of Note Date/Time of Note DATE: 07/18/16 TIME: 15:14 Consult Date/Type/Reason Admit Date/Time Jul 08, 2016 at 09:32 Initial Consult Date 07/12/16 Type of Consultation: id Subjective no events, looks comfortable, no fevers Objective Vital Signs Date Time Temp Pulse Resp B/P Pulse Ox O2 Delivery O2 Flow Rate FiO2 07/18/16 13:21 107 29 100 30 07/18/16 07:00 137/64 07/18/16 06:00 Mechanical Ventilator 07/18/16 04:00 98.5 Intake and Output 07/17/16 07/17/16 07/18/16 15:00 23:00 07:00 Intake Total 950 ml 800 ml 700 ml Output Total 700 ml 390 ml 370 ml Balance 250 ml 410 ml 330 ml Results/Medications Result Diagram: 07/18/16 0415 07/18/16 0415 Results 24 hrs Laboratory Tests Test 07/18/16 04:15 Anion Gap 13 Basophils # 0.1 Basophils % 0.5 Blood Morphology Comment Blood Urea Nitrogen 16 Calcium Level 8.2 L Carbon Dioxide Level 26 Chloride Level 97 Creatinine 0.58 L Eosinophils # 1.4 H Eosinophils % 13.2 H Glucose Level 119 Hematocrit 28.6 L Hemoglobin 9.6 L Lymphocytes # 1.1 Lymphocytes % 11.0 L Magnesium Level 1.8 Mean Corpuscular Hemoglobin 29.8 Mean Corpuscular Hemoglobin Concent 33.4 Mean Corpuscular Volume 89.1 Mean Platelet Volume 8.7 Monocytes # 0.9 Monocytes % 8.3 Neutrophils # 6.9 Neutrophils % 67.0 Nucleated Red Blood Cells # 0.0 Nucleated Red Blood Cells % 0.0 Phosphorus Level 2.4 L Platelet Count 291 Potassium Level 4.7 Prealbumin 12.4 L Red Blood Count 3.21 L Red Cell Distribution Width 19.2 H Sodium Level 131 L White Blood Count 10.3 Medications Current Medications Ondansetron HCl (Zofran Inj) 4 mg Q6H PRN IV NAUSEA AND/OR VOMITING; Start at 13:30 Acetaminophen (Tylenol Liquid) 650 mg Q6H PRN PO PAIN LEVEL 1-3 OR FEVER Last administered on 07/15/16at 15:49; Admin Dose 650 MG; Start 07/08/16 at 13:30 Pantoprazole (Protonix Iv) 40 mg DAILY@06 IV Last administered on 07/18/16 05 :31; Admin Dose 40 MG; Start 07/09/16 at 06:00 Heparin Sodium (Porcine) (Heparin (5000 Units/0.5 ml)) 5,000 unit Q12 SC Last administered on 07/18/16 09:54; Admin Dose 5,000 UNIT; Start 07/08/16 at 21: 00 Ipratropium [place] 2 puff 2 puff Q4 INH Last administered on 07/18/16 13:19 ; Admin Dose 2 PUFF; Start 07/08/16 at 21:00 Imipenem/ Cilastatin Sodium (Primaxin 500 Mg/ 100 ml (Pmx)) 100 ml @ 100 mls/ hr Q12 IVPB Last administered on 07/18/16 09:51; Admin Dose 100 MLS/HR; Start 07/09/16 at 09:00 Collagenase (Santyl) 1 applic DAILY TOP Last administered on 07/18/16 09:52; Admin Dose 1 APPLIC; Start 07/09/16 at 09:00 Mupirocin 1 applic 1 applic BID TOP Last administered on 07/18/16 09:52; Admin Dose 1 APPLIC; Start 07/10/16 at 12:30 Linezolid (Zyvox 600mg/D5W (Pmx)) 300 ml @ 300 mls/hr Q12 IVPB Last administered on 07/18/16 09:51; Admin Dose 300 MLS/HR; Start 07/11/16 at 11: 30 Hydralazine HCl (Apresoline) 25 mg Q4 PRN GTB sbp>165; Start 07/17/16 at 16:30 Amlodipine Besylate (Norvasc) 5 mg BID NGT Last administered on 07/18/16 09: 50; Admin Dose 5 MG; Start 07/17/16 at 21:00 Morphine Sulfate (morphine) 4 mg Q2 PRN IV PAIN LEVEL 7-10; Start 07/18/16 at 13:30 Hydromorphone HCl (Dilaudid) 0.5 mg Q4H PRN IV PAIN; Start 07/18/16 at 13:30 Baclofen (Lioresal) 10 mg TID NGT ; Start 07/18/16 at 21:00 Assessment/Plan Chief Complaint/Hosp Course INDWELLINGS: Endotracheal tube, NG tube, left subclavian triple lumen catheter , Uriarte. ANTIMICROBIALS: 1. Zyvox. 2. Imipenem. 3. Topical Bactroban to nares. PHYSICAL EXAMINATION: GENERAL: Chronically ill-appearing, fragile, elderly man who is lying comfortably in bed. HEENT: Head atraumatic, normocephalic. Sclerae anicteric. Buccal mucosa dry. NECK: Supple, trachea midline. CHEST: Rise symmetrical. Breath sounds diminished to bases. HEART: S1, S2. ABDOMEN: Soft. Bowel sounds hypoactive. EXTREMITIES: Contractures, multiple decubitus. SKIN: No jaundice, no cyanosis. ASSESSMENT: 1. Severe sepsis s/p shock, off pressors. 2. Polymicrobial septicemia on admission, blood culture grew coagulase- negative staph vancomycin-resistant Enterococci==> repeat blood cultures negative. 3. Multifocal pneumonia. 4. Acute respiratory failure. 5. Multiple chronic wounds. 6. Methicillin-resistant Staphylococcus aureus nares colonization. 7. Encephalopathy. 8. ALLERGY TO PENICILLIN. PLAN: The patient remains hemodynamically stable, completing abx for septicemia. Family to decide re plans of care. MAJOR staff Problems: NALINI SHARP NP Jul 18, 2016 15:14
--- NOTE | 2016-07-18 15:43 | PN ---
DATE: 07/18/2016 The patient was examined extensively and the family was at the bedside. Case discussed. The daught er wanted to know how long he had a cardiac arrest. I explained to her the patient's condition and multiple medical problems. She said she cannot make a decision about life and situations. Radha grullon is having a hard time with this. Case was discussed with the nursing staff. The patient was note d to be tensing his upper extremity, as we worried about his pain, and morphine was just given as we ll. In addition, the patient opening is eyes, but no evidence of any meaningful response. PHYSICAL EXAMINATION: VITAL SIGNS: Temperature 98.5, pulse 95, respirations 25, blood pressure 137/64, saturations 98% on 30% FIO2. GENERAL: The patient is frail, pale, cachectic, intubated. CARDIOVASCULAR: S1 and S2. Tachycardic. LUNGS: Decreased bilaterally. ABDOMEN: Soft, nontender. EXTREMITIES: Left AKA. Right foot is bandaged. Upper extremity edema of +1 at the hands. The patie nt is contracted in his upper extremities. LABORATORY: White count is 10.3, hemoglobin 9.6, hematocrit 29, platelet count 291, neutrophils 67% , lymphocytes 11%, monocytes 8%, eosinophils 13%. Chemistry: Sodium is 131, potassium 4.7, chlorid e 97, bicarbonate 26, BUN is 16, creatinine , glucose of 119. Phosphorus is low at 2.4. Preal bumin is low at 12.4. Blood cultures on 07/10/2016 are normal. Urine culture on 07/09/2016 are neg ative. Blood cultures on admission were positive for coagulase negative staph VRE. MEDICATIONS: Include: 1. Norvasc 5 mg b.i.d. 2. Hydralazine 25 q.4 p.r.n. for a systolic greater than 165. 3. KCl 20 mEq b.i.d. 4. Linezolid IV q.12. 5. Bactroban b.i.d. 6. Imipenem 500 IV q.12. 7. Santyl daily. 8. Protonix 40 IV daily. 9. Heparin 5000 subcutaneous q.12. 10. Albuterol and Atrovent q.4h. 11. Zofran p.r.n. 12. Breathing treatments p.r.n. 13. Tylenol p.r.n. 14. Morphine p.r.n. No radiographic imaging today. ASSESSMENT AND PLAN: This is a 75-year-old male with a history of metastatic bladder canc er, left ckpfi-yps-mudc amputation, malnutrition, chronic obstructive pulmonary disease, and leg con tractures, who presented with bacteremia and unfortunately in the ER he underwent cardiac arrest. 1. Respiratory: Continue full ventilatory support. Not a candidate for further weaning secondary t o his neurological condition. Continue supportive care. 2. Cardiovascular: Continue above blood pressure medications. Continue deep venous thrombosis pro phylaxis with heparin. Pain may contribute to increased blood pressure and tachycardia. 3. Infectious disease: Continue Zyvox and imipenem. White count has been normal. The patient is a febrile. Continue wound care. 4. Gastrointestinal: The patient's H and H is stable. P.r.n. transfusion. 5. Renal: Decrease potassium supplements. Continue to monitor kidney function and electrolytes. 6. Neurological: Remains quite obtunded and nonresponsive, not much improvement neurologically. Ap preciate neurology's input regarding the patient's condition. May consider MRI as well, as recommen ded by the neurologist. 7. I appreciate Dr. Hassan, palliative consultation and recommendations. 8. The patient is DNR. Prognosis is guarded. I do not believe is a probability of meaningful woody very, as the patient has quite a lot of medical issues. 9. Metastatic bladder cancer: Supportive care. 10. Malnutrition and cachexia: Continue NG tube feedings. Continue to monitor in the intensive car e unit. The case discussed with the family regarding trach and PEG. The family will have to make a decision soon. Most likely ongoing care to continue, as the daughter does not feel comfortable making signi ficant decisions such as terminal extubation. We will follow. Dictated By: JEREMIAS BELTRAN/LEISA Conf#: [id number] DID#: [id number]
[2016-07-18] MEDS: BACLOFEN 10 MG TAB NGT SCH (21:06)
[2016-07-19] VITALS (30 sets, daily range): BP systolic 84–126; BP diastolic 59–97; PULSE 85–102; RESP 14–27
[2016-07-19] MEDS: IPRATROPIUM (HFA) 12.9 GM INHALER INH SCH ×6 (00:47→20:07)
[2016-07-19] MEDS: ALBUTEROL HFA 8 GM INHALER INH SCH ×6 (00:48→20:07)
[2016-07-19] MEDS: PANTOPRAZOLE 40 MG INJ IV SCH (06:41)
[2016-07-19] MEDS: AMLODIPINE 5 MG TAB NGT SCH ×2 (09:13→21:00)
[2016-07-19] MEDS: IMIPENEM-CILAST 500MG IV (PMX) 100 ML IVPB SCH ×2 (09:13→20:05)
[2016-07-19] MEDS: BACLOFEN 10 MG TAB NGT SCH ×3 (09:13→20:05)
[2016-07-19] MEDS: HEPARIN 5,000 UNIT/0.5 ML SYG SC SCH ×2 (09:17→20:08)
[2016-07-19] MEDS: COLLAGENASE 30 GM TUBE TOP SCH (09:21)
[2016-07-19] MEDS: MUPIROCIN 2% 22 GM OINT TOP SCH ×2 (09:21→20:06)
[2016-07-19] MEDS: morphine 2 MG INJ IV PRN (10:19)
[2016-07-19] MEDS: LINEZOLID 600 MG/D5W (PMX) 300 ML IVPB SCH ×2 (10:24→21:08)
[2016-07-19] MEDS ORDERED: LORAZEPAM 2 MG INJ IV PRN (11:00)
--- NOTE | 2016-07-19 12:47 | PN ---
DATE: 07/19/2016 SUBJECTIVE: The patient is seen at bedside. Case discussed with family, we discussed the patient's current condition and plan of care. Case discussed with nursing staff in detail. The patient remai ns in guarded condition in the intensive care unit on the ventilator. PHYSICAL EXAMINATION: VITAL SIGNS: The patient with low grade fevers, T-max 99.7, pulse 98, respiration 19, blood pressure 102/73, saturation is 98% to 100% on 30% FIO2. GENERAL: The patient's an eyes are closed. The patient is frail, ventilated. CARDIOVASCULAR: S1 and S2. LUNGS: Decreased heart sounds bilaterally. Lungs otherwise clear. ABDOMEN: Soft, nontender. EXTREMITIES: Left AKA. Right lower extremity contracted at the knee with right foot is banded. The patient has multiple wounds. Upper extremities are flexed and spasmodic with trace to +1 edema to t he hands as patient may not be comfortable. Currently is receiving morphine as discussed with family and nursing staff. LABORATORY DATA: No new labs today. Labs from yesterday were reviewed. White count was 10.3, hemo globin 9.6. No new cultures. CURRENT MEDICATIONS: Include: 1. Baclofen 10 mg t.i.d. 2. Morphine 4 mg IV q.2h. p.r.n. to keep comfortable. 3. Dilaudid 0.5 IV q.4h. p.r.n. 4. Norvasc 5 mg b.i.d. 5. Hydralazine 25 q.4h. p.r.n. 6. Linezolid IV q.12h, dose per pharmacy. 7. Bactroban b.i.d. 8. Imipenem 500 IV q.12h. 9. Santyl daily. 10. Protonix 40 IV daily. 11. Heparin 5000 subq q.12h. 12. Albuterol and Atrovent every 4 hours. 13. Zofran p.r.n. 14. Breathing treatments p.r.n. 15. Tylenol p.r.n. IMAGING: No new radiographic imaging. 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 Left the knee amputation, malnutrition, left AKA, COPD, who presented with bacteremia, unfortunately status post cardiac arrest in the emergency department. 1. Respiratory. The patient remains on full ventilatory support. Pulmonary is following, they not planning to wean him off because of his neurological condition. Continue supportive care. 2. Cardiovascular: Continue blood pressure medications. Vitals are stable. The patient is on hep wanda for DVT prophylaxis. 3. Infectious disease. The patient is on broad spectrum antibiotics for bacteremia wound infection on Zyvox and imipenem. White count is normal. The patient with low grade fever. Will observe. 4. Gastrointestinal. Hemoglobin and hematocrit stable, p.r.n. transfusion. Follow up a.m. CBC. 5. Renal: Monitor electrolytes closely. The patient's urine output, in was 1950 out 1000, will giv e him 20 mg of Lasix x1. 6. Neurologically, remains still not responsive, keep patient comfortable. recommendations. 7. I appreciate Dr. Hassan's palliative consultation and recommendations and followup. 8. The patient is DNR. Prognosis guarded. 9. Metastatic bladder cancer. Continue supportive care. 10. Malnutrition, Cachexia currently on NG tube feeding, tolerating it well, dietitian recommendati ons is to keep his feeding at 50 mL an hour which he is currently 11. We will continue wound care per account specialist. 12. Prognosis is guarded. Try to keep the patient comfortable as that's was also the family's wish es. I did start him on Baclofen for his spasms and he has on p.r.n. meds as well, also add Ativan p .r.n. for anxiety. We will follow. Dictated By: JEREMIAS BELTRAN/LEISA Conf#: [id number] DID#: [id number]
--- NOTE | 2016-07-19 12:58 | CONS ---
Date/Time of Note Date/Time of Note DATE: 07/19/16 TIME: 12:57 Consult Date/Type/Reason Admit Date/Time Jul 08, 2016 at 09:32 Initial Consult Date 07/12/16 Type of Consultation: id Subjective no events, looks comfortable, no fevers Objective Vital Signs Date Time Temp Pulse Resp B/P Pulse Ox O2 Delivery O2 Flow Rate FiO2 07/19/16 12:00 89 07/19/16 11:00 14 118/65 98 07/19/16 10:00 Mechanical Ventilator 07/19/16 08:00 98.8 07/19/16 05:34 30 Intake and Output 07/18/16 07/18/16 07/19/16 15:00 23:00 07:00 Intake Total 400 ml 450 ml 900 ml Output Total 50 ml 900 ml Balance 400 ml 400 ml 0 ml Results/Medications Result Diagram: 07/18/16 0415 07/18/16 0415 Medications Current Medications Ondansetron HCl (Zofran Inj) 4 mg Q6H PRN IV NAUSEA AND/OR VOMITING; Start at 13:30 Acetaminophen (Tylenol Liquid) 650 mg Q6H PRN PO PAIN LEVEL 1-3 OR FEVER Last administered on 07/15/16at 15:49; Admin Dose 650 MG; Start 07/08/16 at 13:30 Pantoprazole (Protonix Iv) 40 mg DAILY@06 IV Last administered on 07/19/16at 06 :41; Admin Dose 40 MG; Start 07/09/16 at 06:00 Heparin Sodium (Porcine) (Heparin (5000 Units/0.5 ml)) 5,000 unit Q12 SC Last administered on 07/19/16at 09:17; Admin Dose 5,000 UNIT; Start 07/08/16 at 21: 00 Ipratropium [place] 2 puff 2 puff Q4 INH Last administered on 07/19/16at 08:18 ; Admin Dose 2 PUFF; Start 07/08/16 at 21:00 Imipenem/ Cilastatin Sodium (Primaxin 500 Mg/ 100 ml (Pmx)) 100 ml @ 100 mls/ hr Q12 IVPB Last administered on 07/19/16at 09:13; Admin Dose 100 MLS/HR; Start 07/09/16 at 09:00 Collagenase (Santyl) 1 applic DAILY TOP Last administered on 07/19/16 09:21; Admin Dose 1 APPLIC; Start 07/09/16 at 09:00 Mupirocin 1 applic 1 applic BID TOP Last administered on 07/19/16 09:21; Admin Dose 1 APPLIC; Start 07/10/16 at 12:30 Linezolid (Zyvox 600mg/D5W (Pmx)) 300 ml @ 300 mls/hr Q12 IVPB Last administered on 07/19/16 10:24; Admin Dose 300 MLS/HR; Start 07/11/16 at 11: 30 Hydralazine HCl (Apresoline) 25 mg Q4 PRN GTB sbp>165; Start 07/17/16 at 16:30 Amlodipine Besylate (Norvasc) 5 mg BID NGT Last administered on 07/19/16 09: 13; Admin Dose 5 MG; Start 07/17/16 at 21:00 Morphine Sulfate (morphine) 4 mg Q2 PRN IV PAIN LEVEL 7-10 Last administered on 07/19/16 10:19; Admin Dose 4 MG; Start 07/18/16 at 13:30 Hydromorphone HCl (Dilaudid) 0.5 mg Q4H PRN IV PAIN; Start 07/18/16 at 13:30 Baclofen (Lioresal) 10 mg TID NGT Last administered on 07/19/16 09:13; Admin Dose 10 MG; Start 07/18/16 at 21:00 Lorazepam (Ativan) 0.5 mg Q2H PRN IV anxiety; Start 07/19/16 at 11:00 Assessment/Plan Chief Complaint/Hosp Course INDWELLINGS: Endotracheal tube, NG tube, left subclavian triple lumen catheter , Uriarte. ANTIMICROBIALS: 1. Zyvox. 2. Imipenem. 3. Topical Bactroban to nares. PHYSICAL EXAMINATION: GENERAL: Chronically ill-appearing, fragile, elderly man who is lying comfortably in bed. HEENT: Head atraumatic, normocephalic. Sclerae anicteric. Buccal mucosa dry. NECK: Supple, trachea midline. CHEST: Rise symmetrical. Breath sounds diminished to bases. HEART: S1, S2. ABDOMEN: Soft. Bowel sounds hypoactive. EXTREMITIES: Contractures, multiple decubitus. SKIN: No jaundice, no cyanosis. ASSESSMENT: 1. Resolving sepsis s/p shock, off pressors. 2. Polymicrobial septicemia on admission, blood culture grew coagulase- negative staph vancomycin-resistant Enterococci==> repeat blood cultures negative. 3. Multifocal pneumonia. 4. Acute respiratory failure. 5. Multiple chronic wounds. 6. Methicillin-resistant Staphylococcus aureus nares colonization. 7. Encephalopathy. 8. ALLERGY TO PENICILLIN. PLAN: The patient remains hemodynamically stable, completing abx for septicemia. Pending trach/PEG. MAJOR staff Problems: NALINI SHARP NP Jul 19, 2016 12:58
[2016-07-20] VITALS (38 sets, daily range): BP systolic 91–124; BP diastolic 50–104; PULSE 76–94; RESP 15–24
[2016-07-20] MEDS: IPRATROPIUM (HFA) 12.9 GM INHALER INH SCH ×6 (00:46→21:00)
[2016-07-20] MEDS: ALBUTEROL HFA 8 GM INHALER INH SCH ×6 (00:46→21:00)
[2016-07-20] MEDS: PANTOPRAZOLE 40 MG INJ IV SCH (05:38)
[2016-07-20 05:44] LABS: BASOPHILS % 0.4 % (0.0-2.0); EOSINOPHILS # 1.1 10^3/ul (0.0-0.5); EOSINOPHILS % 15.7 % (0.0-7.0); HEMATOCRIT 24.3 % (42.0-52.0); HEMOGLOBIN 8.4 g/dl (14.0-18.0); MEAN CORPUSCULAR HEMOGLOBIN 30.2 pg (29.0-33.0); MEAN CORPUSCULAR HGB CONC 34.4 g/dl (32.0-37.0); MEAN CORPUSCULAR VOLUME 87.9 fl (82.0-101.0); MEAN PLATELET VOLUME 8.6 fl (7.4-10.4); MONOCYTE # 0.6 10^3/ul (0.3-0.9); MONOCYTES % 8.7 % (0.0-11.0); NEUTROPHIL # 4.5 10^3/ul (1.6-7.5); NEUTROPHILS % 61.2 % (39.0-77.0); PLATELET COUNT 242 10^3/UL (140-440); POTASSIUM 4.4 mmol/L (3.5-5.1); RED BLOOD COUNT 2.77 10^6/ul (4.70-6.10); RED CELL DISTRIBUTION WIDTH 19.4 % (11.5-14.5); UNCORRECTED WBC 7.3 10^3/ul (4.8-10.8); WHITE BLOOD COUNT 7.3 10^3/ul (4.8-10.8)
[2016-07-20 05:46] LABS: CREATININE 0.6 mg/dl (0.61-1.24)
[2016-07-20 05:48] LABS: MAGNESIUM 1.7 mg/dl (1.7-2.5); PHOSPHORUS 2.9 mg/dl (2.5-4.9)
[2016-07-20 05:54] LABS: CONDITION 1; LH ANALYZER COMMENTS 1
[2016-07-20] MEDS: LINEZOLID 600 MG/D5W (PMX) 300 ML IVPB SCH ×2 (09:28→22:47)
[2016-07-20] MEDS: MUPIROCIN 2% 22 GM OINT TOP SCH ×2 (09:29→22:48)
[2016-07-20] MEDS: AMLODIPINE 5 MG TAB NGT SCH ×2 (09:40→22:47)
[2016-07-20] MEDS: IMIPENEM-CILAST 500MG IV (PMX) 100 ML IVPB SCH ×2 (09:40→22:47)
[2016-07-20] MEDS: BACLOFEN 10 MG TAB NGT SCH ×3 (09:40→22:47)
[2016-07-20] MEDS: HEPARIN 5,000 UNIT/0.5 ML SYG SC SCH ×2 (09:42→22:49)
[2016-07-20] MEDS: morphine 2 MG INJ IV PRN (12:36)
[2016-07-20] MEDS: COLLAGENASE 30 GM TUBE TOP SCH (17:27)
--- NOTE | 2016-07-20 17:57 | PN ---
DATE: 07/20/2016 INFECTIOUS DISEASE PROGRESS NOTE SUBJECTIVE: No acute events overnight. The patient remains intubated, lying comfortably in bed, fa jaylyn at bedside. No fevers. T-max 99.7 last night. VITAL SIGNS: WBC today 7.3 with platelets 242, no shift, no bands. BUN 18, creatinine 0.60. ANTIMICROBIALS: The patient remains on Zyvox and imipenem. He is also getting topical Bactroban to nares. MICROBIOLOGY: Blood culture on admission grew VRE, coagulase-negative Staph species. Repeat blood cultures since June 2015 negative. INDWELLINGS: Endotracheal tube, NG tube, Uriarte catheter, and left subclavian triple-lumen catheter. PHYSICAL EXAMINATION: GENERAL: This is a chronically ill-appearing, elderly man who is lying comfortably in bed. HEENT: Head atraumatic, normocephalic. Sclerae anicteric. Buccal mucosa dry. NECK: Supple, trachea midline. CHEST: Rise symmetrical. Breath sounds diminished to bases. HEART: S1, S2. ABDOMEN: Soft. Bowel tones present. EXTREMITIES: With trace edema. ASSESSMENT: 1. Resolving sepsis status post shock. 2. Status post VRE, coagulase-negative Staph septicemia on admission. 3. Multiple chronic wounds. 4. Methicillin-resistant Staphylococcus aureus nares colonization. 5. Acute respiratory failure. 6. Resolving pneumonia. 7. ALLERGY TO PENICILLIN. PLAN: The patient remains hemodynamically stable. We will complete antibiotics for 3 more days pen ding family decision regarding further plan of care. Palliative team on case. Dictated By: NALINI SHARP [employer] WRITER for EARNESTINE OCHOA/LEISA Conf#: [id number] DID#: [id number]
--- NOTE | 2016-07-20 18:52 | PN ---
DATE: 07/20/2016 SUBJECTIVE: The patient seen at bedside. Upon saying his name, he did open his eyes, but does not appear to follow me with his eyes or be aware of his surroundings. The patient is kept comfortable with p.r.n. pain medications. PHYSICAL EXAMINATION: VITAL SIGNS: Temperature is 98.5, T-max 99.7, pulse 93, respirations 17, blood pressure 113/57, sat uration 100% on 30% FIO2. GENERAL: The patient is frail, pale. HEENT: Temporal wasting. CARDIOVASCULAR: S1, S2. LUNGS: Decreased bilaterally. ABDOMEN: Soft, nontender. EXTREMITIES: Left AKA. Right contracted at the knee with bandages of the right foot. Upper extrem ity: He is in less spasms noted with decreased edema of the hands. Overall, very debilitated, cach ectic, weak looking. LABORATORY DATA: White count is 7.3, hemoglobin 8.4, hematocrit 24, platelet count of 242, neutroph ils 61%, lymphocytes 14%. Chemistry: Sodium is 127, potassium 4.4, chloride 94, bicarbonate 26, BU N is 18, creatinine 0.6, glucose of 85. MEDICATIONS: Include: 1. Ativan 0.5 IV q.2h. p.r.n. 2. Baclofen 10 mg t.i.d. 3. Morphine sulfate 4 mg IV q.2h. p.r.n. 4. Dilaudid p.r.n. 5. Norvasc 5 mg b.i.d. 6. Hydralazine p.r.n. 7. Linezolid IV q.12h. 8. Bactroban ointment b.i.d. 9. Imipenem 500 IV q.12h. 10. Santyl daily. 11. Protonix 40 mg daily. 12. Heparin 5000 subq q.12h. 13. Albuterol/Atrovent every 4 hours. 14. Zofran p.r.n. 15. Tylenol p.r.n. IMAGING: No radiographic imaging today. ASSESSMENT AND PLAN: This is a 75-year-old male with history of metastatic bladder cancer to the liver, left [id number] amputation, malnutrition, chronic obstructive pulmonary disease w ho presented with bacteremia, sepsis, status post unfortunate cardiac arrest in the emergency depart ment. 1. Respiratory. Continue full ventilatory support and no plan for weaning. Awaiting family decisi on regarding further care, which may include a trach and percutaneous endoscopic gastrostomy versus terminal extubation. We will follow up a.m. chest x-ray. 2. Cardiovascular. Remains stable. Continue heparin for deep venous thrombosis prophylaxis. 3. Infectious disease. On broad-spectrum antibiotics with Zyvox and imipenem. Currently being liya ated for bacteremia. Repeat cultures are negative. I appreciate ID involvement. Continue wound ca re to the right foot. 4. Neurologically, opening his eyes, but no meaningful response otherwise. Continue to monitor. W e are giving him p.r.n. medications to keep him comfortable. Appreciate Dr. Hassan for palliative consult recommendations. 5. The patient is DNR. 6. Metastatic bladder cancer. Continue supportive care. 7. Malnutrition and cachexia. Continue NG tube feeding. He is tolerating it well. 8. Hyponatremia. Free water will be held. Observe. 9. Anemia. Continue to monitor H and H. PRN transfusion will be given. 10. Continue Baclofen for muscle spasms. 11. Long-term prognosis is guarded. We will follow. Dictated By: JEREMIAS BELTRAN/LEISA Conf#: [id number] DID#: [id number]
[2016-07-21] VITALS (35 sets, daily range): BP systolic 103–141; BP diastolic 52–99; PULSE 79–101; RESP 14–22
[2016-07-21] MEDS: ALBUTEROL HFA 8 GM INHALER INH SCH ×6 (01:18→20:05)
[2016-07-21] MEDS: IPRATROPIUM (HFA) 12.9 GM INHALER INH SCH ×6 (01:18→20:05)
[2016-07-21 05:19] LABS: BASOPHILS % 0.2 % (0.0-2.0); EOSINOPHILS % 15.9 % (0.0-7.0); HEMATOCRIT 24.5 % (42.0-52.0); HEMOGLOBIN 8.2 g/dl (14.0-18.0); LYMPHOCYTES # 1.1 10^3/ul (0.8-2.9); LYMPHOCYTES % 17.4 % (15.0-51.0); MEAN CORPUSCULAR HEMOGLOBIN 29.7 pg (29.0-33.0); MEAN CORPUSCULAR HGB CONC 33.6 g/dl (32.0-37.0); MEAN CORPUSCULAR VOLUME 88.4 fl (82.0-101.0); MEAN PLATELET VOLUME 7.4 fl (7.4-10.4); MONOCYTE # 0.6 10^3/ul (0.3-0.9); NEUTROPHIL # 3.6 10^3/ul (1.6-7.5); NEUTROPHILS % 56.5 % (39.0-77.0); PLATELET COUNT 247 10^3/UL (140-440); RED BLOOD COUNT 2.78 10^6/ul (4.70-6.10); RED CELL DISTRIBUTION WIDTH 18.5 % (11.5-14.5); UNCORRECTED WBC 6.4 10^3/ul (4.8-10.8); WHITE BLOOD COUNT 6.4 10^3/ul (4.8-10.8)
[2016-07-21 05:21] LABS: CONDITION 1; LH ANALYZER COMMENTS 1
[2016-07-21 05:28] LABS: POTASSIUM 4.4 mmol/L (3.5-5.1)
[2016-07-21 05:30] LABS: CREATININE 0.59 mg/dl (0.61-1.24); MAGNESIUM 1.8 mg/dl (1.7-2.5); PHOSPHORUS 2.7 mg/dl (2.5-4.9)
[2016-07-21 05:31] LABS: CALCIUM 8.2 mg/dl (8.4-10.2)
[2016-07-21] MEDS: PANTOPRAZOLE 40 MG INJ IV SCH (06:45)
--- NOTE | 2016-07-21 07:29 | RADRPT ---
PROCEDURE: XR Chest. CLINICAL INDICATION: Respiratory failure TECHNIQUE: Portable single view of the chest COMPARISON: 07/12 FINDINGS: Since the prior study, there has been no significant interval change in the appearance of the heart or lungs or position of tubes and lines allowing for slight differences in technique and positioning . A loop of tubing overlying the neck most likely represents a loop of nasogastric tube in the oroph arynx. Slightly coarse lung markings without focal infiltrate. IMPRESSION: No significant interval change. Probable loop of nasogastric tubing in the oropharynx. Results were called to the patient's ICU nurse, Dori, at 07/21/2016 7:27:50 AM RPTAT: [facility] Physician Iona Date Time Electronically viewed and signed by Sherri Alva Physician on 07/21/2016 07:28 EFFIE/
[2016-07-21] MEDS: IMIPENEM-CILAST 500MG IV (PMX) 100 ML IVPB SCH ×2 (08:31→21:50)
[2016-07-21] MEDS: AMLODIPINE 5 MG TAB NGT SCH ×2 (08:32→20:22)
[2016-07-21] MEDS: BACLOFEN 10 MG TAB NGT SCH ×3 (08:32→20:21)
[2016-07-21] MEDS: MUPIROCIN 2% 22 GM OINT TOP SCH ×2 (08:34→20:22)
[2016-07-21] MEDS: HEPARIN 5,000 UNIT/0.5 ML SYG SC SCH ×2 (08:34→20:28)
[2016-07-21] MEDS: COLLAGENASE 30 GM TUBE TOP SCH (08:35)
[2016-07-21] MEDS: LINEZOLID 600 MG/D5W (PMX) 300 ML IVPB SCH ×2 (10:00→20:21)
--- NOTE | 2016-07-21 15:17 | RADRPT ---
PROCEDURE: CHEST 1VW CLINICAL INDICATION: Nasogastric tube placement TECHNIQUE: Single frontal view of the chest was obtained COMPARISON: 07/21/2016 FINDINGS: Stable endotracheal tube, left central venous catheter, and nasogastric tube. The cardiac size is normal. Aortic vascular calcifications are demonstrated. There is no pulmonary vascular congestion. The lungs are clear. No consolidation, effusion, or pneumothorax. Mild degenerative changes of the visualized osseous structures are visualized. IMPRESSION: 1. Taking slight technique differences into account, there is no significant change from prior stud y. 2. Stable lines and tubes. 3. Nasogastric tube does have a loop of in stable position, however, it is possible that the loop i s outside the patients body. Consider straightening and retraction of the nasogastric tube and re-i maging. RPTAT:PP .Dwaine Stewart MD, Date Time Electronically viewed and signed by .Dwaine Stewart MD, on 07/21/2016 15:16 .V/
--- NOTE | 2016-07-21 15:32 | CONS ---
Date/Time of Note Date/Time of Note DATE: 07/21/16 TIME: 15:31 Consult Date/Type/Reason Admit Date/Time Jul 08, 2016 at 09:32 Initial Consult Date 07/12/16 Type of Consultation: id Subjective no events, looks comfortable, no fevers Objective Vital Signs Date Time Temp Pulse Resp B/P Pulse Ox O2 Delivery O2 Flow Rate FiO2 07/21/16 13:18 93 22 100 30 07/21/16 11:00 125/99 Mechanical Ventilator 07/20/16 20:00 98.2 Intake and Output 07/20/16 07/20/16 07/21/16 15:00 23:00 07:00 Intake Total 920 ml 250 ml 250 ml Output Total 665 ml 575 ml 490 ml Balance 255 ml -325 ml -240 ml Results/Medications Result Diagram: 07/21/16 0505 07/21/16 0505 Results 24 hrs Laboratory Tests Test 07/21/16 05:05 Anion Gap 11 Basophils # 0.0 Basophils % 0.2 Blood Morphology Comment Blood Urea Nitrogen 21 H Calcium Level 8.2 L Carbon Dioxide Level 27 Chloride Level 96 L Creatinine 0.59 L Eosinophils # 1.0 H Eosinophils % 15.9 H Glucose Level 101 Hematocrit 24.5 L Hemoglobin 8.2 L Lymphocytes # 1.1 Lymphocytes % 17.4 Magnesium Level 1.8 Mean Corpuscular Hemoglobin 29.7 Mean Corpuscular Hemoglobin Concent 33.6 Mean Corpuscular Volume 88.4 Mean Platelet Volume 7.4 Monocytes # 0.6 Monocytes % 10.0 Neutrophils # 3.6 Neutrophils % 56.5 Nucleated Red Blood Cells # 0.0 Nucleated Red Blood Cells % 0.0 Phosphorus Level 2.7 Platelet Count 247 Potassium Level 4.4 Red Blood Count 2.78 L Red Cell Distribution Width 18.5 H Sodium Level 130 L White Blood Count 6.4 Medications Current Medications Ondansetron HCl (Zofran Inj) 4 mg Q6H PRN IV NAUSEA AND/OR VOMITING; Start at 13:30 Acetaminophen (Tylenol Liquid) 650 mg Q6H PRN PO PAIN LEVEL 1-3 OR FEVER Last administered on 07/15/16at 15:49; Admin Dose 650 MG; Start 07/08/16 at 13:30 Pantoprazole (Protonix Iv) 40 mg DAILY@06 IV Last administered on 07/21/16 06 :45; Admin Dose 40 MG; Start 07/09/16 at 06:00 Heparin Sodium (Porcine) (Heparin (5000 Units/0.5 ml)) 5,000 unit Q12 SC Last administered on 07/21/16 08:34; Admin Dose 5,000 UNIT; Start 07/08/16 at 21: 00 Ipratropium [place] 2 puff 2 puff Q4 INH Last administered on 07/21/16 13:17 ; Admin Dose 2 PUFF; Start 07/08/16 at 21:00 Imipenem/ Cilastatin Sodium (Primaxin 500 Mg/ 100 ml (Pmx)) 100 ml @ 100 mls/ hr Q12 IVPB Last administered on 07/21/16 08:31; Admin Dose 100 MLS/HR; Start 07/09/16 at 09:00 Collagenase (Santyl) 1 applic DAILY TOP Last administered on 07/21/16 08:35; Admin Dose 1 APPLIC; Start 07/09/16 at 09:00 Mupirocin 1 applic 1 applic BID TOP Last administered on 07/21/16 08:34; Admin Dose 1 APPLIC; Start 07/10/16 at 12:30 Linezolid (Zyvox 600mg/D5W (Pmx)) 300 ml @ 300 mls/hr Q12 IVPB Last administered on 07/21/16 10:00; Admin Dose 300 MLS/HR; Start 07/11/16 at 11: 30 Hydralazine HCl (Apresoline) 25 mg Q4 PRN GTB sbp>165; Start 07/17/16 at 16:30 Amlodipine Besylate (Norvasc) 5 mg BID NGT Last administered on 07/21/16 08: 32; Admin Dose 5 MG; Start 07/17/16 at 21:00 Morphine Sulfate (morphine) 4 mg Q2 PRN IV PAIN LEVEL 7-10 Last administered on 07/20/16 12:36; Admin Dose 4 MG; Start 07/18/16 at 13:30 Hydromorphone HCl (Dilaudid) 0.5 mg Q4H PRN IV PAIN; Start 07/18/16 at 13:30 Baclofen (Lioresal) 10 mg TID NGT Last administered on 07/21/16 13:09; Admin Dose 10 MG; Start 07/18/16 at 21:00 Lorazepam (Ativan) 0.5 mg Q2H PRN IV anxiety; Start 07/19/16 at 11:00 Assessment/Plan Chief Complaint/Hosp Course INDWELLINGS: Endotracheal tube, NG tube, left subclavian triple lumen catheter , Uriarte. ANTIMICROBIALS: 1. Zyvox. 2. Imipenem. 3. Topical Bactroban to nares. PHYSICAL EXAMINATION: GENERAL: Chronically ill-appearing, fragile, elderly man who is lying comfortably in bed. HEENT: Head atraumatic, normocephalic. Sclerae anicteric. Buccal mucosa dry. NECK: Supple, trachea midline. CHEST: Rise symmetrical. Breath sounds diminished to bases. HEART: S1, S2. ABDOMEN: Soft. Bowel sounds hypoactive. EXTREMITIES: Contractures, multiple decubitus. SKIN: No jaundice, no cyanosis. ASSESSMENT: 1. Resolving sepsis s/p shock, off pressors. 2. Polymicrobial septicemia on admission, blood culture grew coagulase- negative staph vancomycin-resistant Enterococci==> repeat blood cultures negative. 3. Multifocal pneumonia. 4. Acute respiratory failure. 5. Multiple chronic wounds. 6. Methicillin-resistant Staphylococcus aureus nares colonization. 7. Encephalopathy. 8. ALLERGY TO PENICILLIN. PLAN: The patient remains hemodynamically stable, completing abx for septicemia. Pending family decision re future plans. DW staff Problems: NALINI SHARP NP Jul 21, 2016 15:32
--- NOTE | 2016-07-21 17:30 | PN ---
DATE: 07/21/2016 SUBJECTIVE: The patient seen. Case was discussed with Jodie, patient's daughter, regarding [facility] care. She stated that she would go for the trach for now as she wants him to continue living srikanth n though she is having difficulty making a decision. Case discussed with nursing staff. Will proce ed with trach and PEG placement. PHYSICAL EXAMINATION: VITAL SIGNS: Temperature is 98.2, pulse is 93, respirations 22, blood pressure 125/99, saturation 1 00% on 30% FIO2. GENERAL: The patient is frail, pale. Upon saying his name, he opened his eyes but no evidence of u nderstanding or that he is following my eyes. The patient remains encephalopathic. CARDIOVASCULAR: Positive S1 and S2. LUNGS: Mild rhonchi bilaterally. ABDOMEN: Soft. EXTREMITIES: Trace edema throughout. Left AKA and right foot is banded. The patient's right lower extremity is severely contracted at the knees. The patient's left upper extremity, trace to +1 francine ma. LABORATORY DATA: White count 6.4, hemoglobin 8.2, hematocrit 25, platelet count 246, neutrophils 57 %, lymphocytes 17%, monocytes 10%. Chemistry: Sodium is 130, potassium 4.4, chloride 96, bicarbona te 27, BUN is 21, creatinine 0.59, glucose of 101. Chest x-ray dated today shows no significant interval change, probable loop of nasogastric tubing in the oropharynx. MEDICATIONS: Include the followin. Ativan 0.5 IV q.2 p.r.n. 2. Baclofen 10 t.i.d. 3. Morphine p.r.n. 4. Dilaudid p.r.n. 5. Norvasc 5 mg b.i.d. 6. Hydralazine p.r.n. 7. Linezolid IV dose per pharmacy. 8. Bactroban b.i.d. 9. Imipenem 500 IV q.12. 10. Santyl daily. 11. Protonix 40 mg daily. 12. Heparin 5000 q.12. 13. Albuterol and Atrovent every 4 hours. 14. Zofran p.r.n. 15. Albuterol and Atrovent p.r.n. 16. Tylenol p.r.n. ASSESSMENT AND PLAN: This is a 75-year-old male with metastatic bladder cancer to the [facility], left [id number] amputation, malnutrition, chronic obstructive pulmonary disease who presente d with bacteremia, sepsis, status post unfortunate cardiac arrest in the emergency department. 1. Respiratory. Not a candidate for weaning secondary to patient's neurological condition. Will p roceed with trach placement as discussed with the patient's daughter. Repeat chest x-ray to evaluat e nasogastric tube. 2. Cardiovascular. Remains stable. Continue deep venous thrombosis prophylaxis. 3. Infectious disease. Remains on broad spectrum antibiotic, on Zyvox and imipenem. The patient i s afebrile with normal white count. The patient is currently being treated for bacteremia and ____ wound infection. 4. Neurologically remains encephalopathic, likely anoxic injury. Family not ready to keep him comf ortable. Will proceed with G-tube placement and trach placement. 5. THE PATIENT IS DNR. 6. Metastatic bladder cancer. Continue supportive care. 7. Malnutrition, cachexia. Currently tolerating NG tube feeding well. Will proceed with G-tube pl acement. 8. Hyponatremia, slightly improved. 9. Anemia. Hemoglobin and hematocrit low. P.r.n. transfusion will be given. 10. Continue baclofen for muscle spasms. 11. Long prognosis is guarded. Likely prolong his life, but I don't think there will be a signific ant meaningful recovery overall as patient with just too many medical issues. Dictated By: JEREMIAS BELTRAN/LEISA Conf#: [id number] DID#: [id number]
--- NOTE | 2016-07-21 17:49 | CONS ---
DATE OF ADMISSION: 07/08/2016 DATE OF CONSULTATION: TYPE OF CONSULTATION: Gastroenterology. HISTORY OF PRESENT ILLNESS: The patient is a 75-year-old male with a history of bladder cancer, sta tus post anoxic encephalopathy, UTI, COPD, peripheral vascular disease, admitted to the hospital for change in mental status. The patient also had a cardiac arrest and intubated. GI consult was call ed in for replacement of G-tube, and the patient will also undergo placement of tracheostomy. PAST MEDICAL HISTORY: Bladder CA with metastases to the liver, anemia, chronic kidney disease. ALLERGIES: PENICILLIN. SOCIAL HISTORY: Used to be heavy smoker. FAMILY HISTORY: Nothing contributory. SURGICAL HISTORY: Left above-knee amputation. PHYSICAL EXAMINATION: GENERAL: The patient is intubated, on vent. CARDIOVASCULAR: No murmur, gallop or click. LUNGS: Air entry diminished at both bases. ABDOMEN: Benign. Has got NG tube. EXTREMITIES: No edema. Left above-knee amputation. CENTRAL NERVOUS SYSTEM: The patient is nonverbal. IMPRESSION: 1. Anoxic encephalopathy. 2. Respiratory failure. 3. Dysphagia. 4. 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 5. Sepsis. 6. Renal insufficiency. 7. Anemia. 8. History of nicotine addiction. 9. Right foot wound and sacral wound. 10. Left above-knee amputation. PLAN: Continue all the supportive care. Will respect family's decision regarding the trach and G-t ube. Once they are ____, will proceed with the placement of G-tube and trach once family is in agre ement. The patient's prognosis remains poor. Dictated By: FRANKY ELIZONDO/LEISA Conf#: [id number] DID#: [id number]
--- NOTE | 2016-07-21 18:04 | CONS ---
DATE OF ADMISSION: 07/08/2016 DATE OF CONSULTATION: REASON FOR CONSULTATION: Evaluation for tracheostomy. HISTORY OF PRESENT ILLNESS: This is a 75-year-old male with history of peripheral vascular disease, COPD, amputation, metastatic bladder cancer, severe malnutrition, was admitted with encephalopathy, respiratory failure, had to be intubated, currently unable to come off the ventilator secondary to multiple other medical problems. PAST MEDICAL HISTORY: Significant for hypertension, hyperlipidemia, bladder cancer, COPD, periphera l vascular disease, metastatic bladder cancer, malnutrition. PAST SURGICAL HISTORY: Amputation. ALLERGIES: NONE. MEDICATIONS: List reviewed. REVIEW OF SYSTEMS: Unable to be obtained. The patient is intubated, nonverbal. PHYSICAL EXAMINATION: VITAL SIGNS: Blood pressure is 105/73, pulse is 86, respirations 16, saturations 100% on 30% FIO2. HEENT: Normocephalic, atraumatic. GENERAL: The patient appears to be cachectic. CARDIOVASCULAR: Regular rate and rhythm. GASTROINTESTINAL: Soft. EXTREMITIES: Warm. LABORATORY VALUES: Hemoglobin 8.2, white count 6.4, platelet count 47. INR 1.4. IMPRESSION: Respiratory failure. RECOMMENDATIONS: We will proceed with the tracheostomy as soon as consent is available. Discussed with the nursing staff. Dictated By: ELEANOR HAYDEN MD FM/NTS Conf#: [id number] DID#: [id number] CC: JEREMIAS NAIK MD;*EndCC*
[2016-07-22] VITALS (36 sets, daily range): BP systolic 105–132; BP diastolic 59–76; PULSE 84–100; RESP 14–26
[2016-07-22] MEDS: IPRATROPIUM (HFA) 12.9 GM INHALER INH SCH ×6 (01:15→21:30)
[2016-07-22] MEDS: ALBUTEROL HFA 8 GM INHALER INH SCH ×6 (01:15→21:30)
[2016-07-22] MEDS: PANTOPRAZOLE 40 MG INJ IV SCH (06:00)
[2016-07-22] MEDS: AMLODIPINE 5 MG TAB NGT SCH ×2 (08:30→20:46)
[2016-07-22] MEDS: IMIPENEM-CILAST 500MG IV (PMX) 100 ML IVPB SCH (08:30)
[2016-07-22] MEDS: BACLOFEN 10 MG TAB NGT SCH ×3 (08:30→20:46)
[2016-07-22] MEDS: LINEZOLID 600 MG/D5W (PMX) 300 ML IVPB SCH (08:31)
[2016-07-22] MEDS: MUPIROCIN 2% 22 GM OINT TOP SCH ×2 (08:31→20:45)
[2016-07-22] MEDS: COLLAGENASE 30 GM TUBE TOP SCH (08:31)
[2016-07-22] MEDS: HEPARIN 5,000 UNIT/0.5 ML SYG SC SCH ×2 (08:44→20:49)
--- NOTE | 2016-07-22 08:44 | RADRPT ---
PROCEDURE: XR Chest. CLINICAL INDICATION: Nasogastric tube placement, shortness of breath TECHNIQUE: Single frontal view of the chest. COMPARISON: 07/21/2016 chest radiograph. FINDINGS: Endotracheal tube, left-sided central line, nasogastric tube in satisfactory position. Mild chronic-appearing reticular interstitial opacities are unchanged. Unchanged right apical conso lidation. No new focal consolidation is seen. Moderate emphysematous changes again evident. No pleural effusion or pneumothorax. The cardiomediastinal silhouette is unremarkable. No acute osseous abnormalities. Surgical clips again seen overlying the right mid lung. IMPRESSION: Support devices are in satisfactory position. Emphysematous changes and chronic right apical consolidation are unchanged. No new acute air space infiltrates. RPTAT: AADD .Ten Mcgowan MD, MD Date Time Electronically viewed and signed by .Ten Mcgowan MD, on 07/22/2016 08:44 .B/
--- NOTE | 2016-07-22 10:00 | PN ---
DATE: 07/22/2016 PALLIATIVE CARE FOLLOWUP NOTE There has been no significant change in Mr. Goodrich over the weekend. He remains intubated, encepha lopathic, and he has not made any overall clinical improvement. Last week I spoke to family members , gave them options at that time. Told them we are approaching a time that he would need to have a trach. Family members requested to have a couple of days to decide amongst themselves. Over the we ekend, they refused to sign consent for trach. OBJECTIVE: VITAL SIGNS: Blood pressure 117/59, pulse of 85 and regular, respirations are 20, temperature 98.4 degrees, 100% saturation on 30% FIO2. CHEST: Clear. COR: S1, S2, without S3, S4, murmur, gallop, rub. Normal rate, normal rhythm. ABDOMEN: Grossly benign. NEUROLOGICAL EXAM: He does not respond to any verbal or tactile stimulation. There is no purposefu l movement. There is no spontaneous movement whatsoever. Cranial nerves cannot be assessed. LABORATORY TESTS: Today, white blood cell count of 6.4, hemoglobin of 8.2, hematocrit of 24.5, MCV of 88.4, platelet count of 247,000. Chemistry: Serum sodium 130, potassium 4.4, chloride 96, bicar bonate 27, BUN of 29, creatinine 0.59, calcium 8.2. ASSESSMENT AND PLAN: I will contact family members once again. Unfortunately, they need to make a decision at this time whether or not they want to pursue trach or continue with this level of care. The patient remains DO NOT RESUSCITATE. I clarified the CODE STATUS with them last week, and once again, will follow up today. Dictated By: LIZ SIERRA MD LP/NTS Conf#: [id number] DID#: [id number] CC: JEREMIAS NAIK MD;*End*
--- NOTE | 2016-07-22 10:07 | CONS ---
Date/Time of Note Date/Time of Note DATE: 07/22/16 TIME: 10:06 Assessment/Plan Assessment/Plan Additional Assessment/Plan IMPRESSION: 1. Anoxic encephalopathy. 2. Respiratory failure. 3. Dysphagia. 4. 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 5. Sepsis. 6. Renal insufficiency. 7. Anemia. 8. History of nicotine addiction. 9. Right foot wound and sacral wound. 10. Left above-knee amputation. Plan continue present care PEG and trach. if family agrees. Consultation Date/Type/Reason Admit Date/Time Jul 08, 2016 at 09:32 Initial Consult Date 07/12/16 Type of Consultation: id 24 HR Interval Summary Subjective hx not possible: pt non-verbal, pt critical Exam/Review of Systems Vital Signs Vitals Vital Signs Date Time Temp Pulse Resp B/P Pulse Ox O2 Delivery O2 Flow Rate FiO2 07/22/16 10:00 92 17 116/61 100 Mechanical Ventilator 07/22/16 07:00 98.4 07/22/16 05:33 30 Intake and Output 07/21/16 07/21/16 07/22/16 14:59 22:59 06:59 Intake Total 900 ml 450 ml 700 ml Output Total 375 ml 405 ml 210 ml Balance 525 ml 45 ml 490 ml Exam Constitutional: alert, oriented, well developed Psych: nl mood/affect, no complaints Head: atraumatic, normocephalic Eyes: EOMI, PERRL, nl conjunctiva, nl lids, nl sclera ENMT: nl external ears & nose, nl lips & teeth, nl nasal mucosa & septum Neck: non-tender, supple Respiratory: clear to auscultation, normal air movement Cardiovascular: nl pulses, regular rate and rhythm Gastrointestinal: nl liver, spleen, non-tender, soft Musculoskeletal: nl extremities to inspection, nl gait and stance Extremities: normal pulses Neurological: RETURN CHECKER II-XII intact, nl mental status, nl speech, nl strength Skin: nl turgor, No rash or lesions Lymph: nl lymph nodes Results Result Diagram: 07/21/16 0505 07/21/16 0505 Medications Medications Current Medications Ondansetron HCl (Zofran Inj) 4 mg Q6H PRN IV NAUSEA AND/OR VOMITING; Start at 13:30 Acetaminophen (Tylenol Liquid) 650 mg Q6H PRN PO PAIN LEVEL 1-3 OR FEVER Last administered on 07/15/16 15:49; Admin Dose 650 MG; Start 07/08/16 at 13:30 Pantoprazole (Protonix Iv) 40 mg DAILY@06 IV Last administered on 07/21/16 06 :45; Admin Dose 40 MG; Start 07/09/16 at 06:00 Heparin Sodium (Porcine) (Heparin (5000 Units/0.5 ml)) 5,000 unit Q12 SC Last administered on 07/22/16 08:44; Admin Dose 5,000 UNIT; Start 07/08/16 at 21: 00 Ipratropium [place] 2 puff 2 puff Q4 INH Last administered on 07/22/16 09:09 ; Admin Dose 2 PUFF; Start 07/08/16 at 21:00 Imipenem/ Cilastatin Sodium (Primaxin 500 Mg/ 100 ml (Pmx)) 100 ml @ 100 mls/ hr Q12 IVPB Last administered on 07/22/16 08:30; Admin Dose 100 MLS/HR; Start 07/09/16 at 09:00 Collagenase (Santyl) 1 applic DAILY TOP Last administered on 07/22/16 08:31; Admin Dose 1 APPLIC; Start 07/09/16 at 09:00 Mupirocin 1 applic 1 applic BID TOP Last administered on 07/22/16 08:31; Admin Dose 1 APPLIC; Start 07/10/16 at 12:30 Linezolid (Zyvox 600mg/D5W (Pmx)) 300 ml @ 300 mls/hr Q12 IVPB Last administered on 07/22/16 08:31; Admin Dose 300 MLS/HR; Start 07/11/16 at 11: 30 Hydralazine HCl (Apresoline) 25 mg Q4 PRN GTB sbp>165; Start 07/17/16 at 16:30 Amlodipine Besylate (Norvasc) 5 mg BID NGT Last administered on 07/22/16 08: 30; Admin Dose 5 MG; Start 07/17/16 at 21:00 Morphine Sulfate (morphine) 4 mg Q2 PRN IV PAIN LEVEL 7-10 Last administered on 07/20/16 12:36; Admin Dose 4 MG; Start 07/18/16 at 13:30 Hydromorphone HCl (Dilaudid) 0.5 mg Q4H PRN IV PAIN; Start 07/18/16 at 13:30 Baclofen (Lioresal) 10 mg TID NGT Last administered on 07/22/16at 08:30; Admin Dose 10 MG; Start 07/18/16 at 21:00 Lorazepam (Ativan) 0.5 mg Q2H PRN IV anxiety; Start 07/19/16 at 11:00 FRANKY BROWNING MD Jul 22, 2016 10:07
--- NOTE | 2016-07-22 13:37 | PN ---
DATE: 07/22/2016 SUBJECTIVE: The patient seen, case was discussed with Samreen reinforcing iron worker helper. I appreciate Dr. Arturo solis and Dr. Dixon's input. We are awaiting consent from family for her to proceed with trach pl acement and G-tube placement. The family is having slight difficulty deciding, but overall it sound s like they would like those procedures done. The patient remains in stable condition, but overall remains encephalopathic, unfortunately. PHYSICAL EXAMINATION: VITAL SIGNS: Temperature 98.4, pulse 86, respirations 15, blood pressure 118/63. Saturation is 100 % on 30% FIO2. GENERAL: The patient is frail. Upon saying his name, he opens his eyes, but does not follow with his eyes, does not seem to understand his surroundings. CARDIOVASCULAR: S1 and S2. LUNGS: Mild rhonchi at the bases. ABDOMEN: Soft, nontender. EXTREMITIES: Left AKA, right severe contraction at the knee, right foot is banded. Upper extremity trace edema at the hands bilaterally, appears more comfortable, less contractures ____. LABORATORY DATA: No new labs today. Chest x-ray done shows support devices are in satisfactory po sition. There are emphysematous changes and chronic right apical consolidation, unchanged. No new acute airspace infiltrates. MEDICATIONS: 1. Accutane 0.5 IV q.2h. p.r.n. 2. Baclofen 10 t.i.d. 3. Morphine 4 IV q.2h. p.r.n. 4. Dilaudid 0.5 IV q.4h. p.r.n. 5. Norvasc 5 mg b.i.d. 6. Hydralazine 25 q.4h. p.r.n. 7. Linezolid IV dose per pharmacy. 8. Bactroban b.i.d. 9. Imipenem 500 IV q.12h. 10. Santyl daily. 11. Protonix 40 IV daily. 12. Heparin 5000 subcu q.12h. 13. Albuterol and Atrovent every 4 hours. 14. Zofran p.r.n. 15. Breathing treatments p.r.n. 16. Tylenol p.r.n. ASSESSMENT AND PLAN: This is a 75-year-old male with metastatic bladder cancer to the [facility] er, left [id number] MP amputation, malnutrition, chronic obstructive pulmonary disease who prese nted with bacteremia, sepsis, status post cardiac arrest in the ER. 1. Respiratory, awaiting family decision regarding further care. Likely will proceed with trach pl acement. Noted chest x-ray. 2. Cardiovascular. Remains on heparin for DVT prophylaxis. Vitals are stable. Blood pressure is controlled with the above medications. 3. Infectious disease. The patient remains on broad spectrum antibiotics on Zyvox and imipenem. 4. Wound infection and bacteremia. 5. Remains encephalopathic, likely anoxic injury status post cardiac arrest. 6. Patient is DNR/DNI and already intubated. 7. Metastatic bladder cancer. Continue supportive care. 8. Malnutrition. Tolerating NG tube feeding well. 9. Hyponatremia. Follow up a.m. labs. 10. Anemia. Hemoglobin and hematocrit have been stable. Follow up a.m. labs. 11. Continue Baclofen for muscle spasms, p.r.n. pain medications or anxiolytics to try to keep him comfortable. 12. Long-term prognosis is guarded. I appreciate Dr. Hassan's followup. I spoke with the daught er yesterday, awaiting consent for G-tube placement and tach. We will follow. Dictated By: JEREMIAS BELTRAN/LEISA Conf#: [id number] DID#: [id number]
--- NOTE | 2016-07-22 14:26 | CONS ---
Date/Time of Note Date/Time of Note DATE: 07/22/16 TIME: 14:25 Consult Date/Type/Reason Admit Date/Time Jul 08, 2016 at 09:32 Initial Consult Date 07/12/16 Type of Consultation: id Subjective no acute events, comfortable on vent, no fevers Objective Vital Signs Date Time Temp Pulse Resp B/P Pulse Ox O2 Delivery O2 Flow Rate FiO2 07/22/16 14:00 98.6 97 18 125/67 100 Mechanical Ventilator 07/22/16 11:40 30 Intake and Output 07/21/16 07/21/16 07/22/16 15:00 23:00 07:00 Intake Total 900 ml 450 ml 700 ml Output Total 410 ml 370 ml 205 ml Balance 490 ml 80 ml 495 ml Results/Medications Result Diagram: 07/21/16 0505 07/21/16 0505 Medications Current Medications Ondansetron HCl (Zofran Inj) 4 mg Q6H PRN IV NAUSEA AND/OR VOMITING; Start at 13:30 Acetaminophen (Tylenol Liquid) 650 mg Q6H PRN PO PAIN LEVEL 1-3 OR FEVER Last administered on 07/15/16at 15:49; Admin Dose 650 MG; Start 07/08/16 at 13:30 Pantoprazole (Protonix Iv) 40 mg DAILY@06 IV Last administered on 07/21/16at 06 :45; Admin Dose 40 MG; Start 07/09/16 at 06:00 Heparin Sodium (Porcine) (Heparin (5000 Units/0.5 ml)) 5,000 unit Q12 SC Last administered on 07/22/16at 08:44; Admin Dose 5,000 UNIT; Start 07/08/16 at 21: 00 Ipratropium [place] 2 puff 2 puff Q4 INH Last administered on 07/22/16at 09:09 ; Admin Dose 2 PUFF; Start 07/08/16 at 21:00 Imipenem/ Cilastatin Sodium (Primaxin 500 Mg/ 100 ml (Pmx)) 100 ml @ 100 mls/ hr Q12 IVPB Last administered on 07/22/16at 08:30; Admin Dose 100 MLS/HR; Start 07/09/16 at 09:00 Collagenase (Santyl) 1 applic DAILY TOP Last administered on 07/22/16at 08:31; Admin Dose 1 APPLIC; Start 07/09/16 at 09:00 Mupirocin 1 applic 1 applic BID TOP Last administered on 07/22/16at 08:31; Admin Dose 1 APPLIC; Start 07/10/16 at 12:30 Linezolid (Zyvox 600mg/D5W (Pmx)) 300 ml @ 300 mls/hr Q12 IVPB Last administered on 07/22/16at 08:31; Admin Dose 300 MLS/HR; Start 07/11/16 at 11: 30 Hydralazine HCl (Apresoline) 25 mg Q4 PRN GTB sbp>165; Start 07/17/16 at 16:30 Amlodipine Besylate (Norvasc) 5 mg BID NGT Last administered on 07/22/16at 08: 30; Admin Dose 5 MG; Start 07/17/16 at 21:00 Morphine Sulfate (morphine) 4 mg Q2 PRN IV PAIN LEVEL 7-10 Last administered on 07/20/16at 12:36; Admin Dose 4 MG; Start 07/18/16 at 13:30 Hydromorphone HCl (Dilaudid) 0.5 mg Q4H PRN IV PAIN; Start 07/18/16 at 13:30 Baclofen (Lioresal) 10 mg TID NGT Last administered on 07/22/16at 13:26; Admin Dose 10 MG; Start 07/18/16 at 21:00 Lorazepam (Ativan) 0.5 mg Q2H PRN IV anxiety; Start 07/19/16 at 11:00 Assessment/Plan Chief Complaint/Hosp Course INDWELLINGS: Endotracheal tube, NG tube, left subclavian triple lumen catheter , Uriarte. ANTIMICROBIALS: 1. Zyvox. 2. Imipenem. 3. Topical Bactroban to nares. PHYSICAL EXAMINATION: GENERAL: Chronically ill-appearing, fragile, elderly man who is lying comfortably in bed. HEENT: Head atraumatic, normocephalic. Sclerae anicteric. Buccal mucosa dry. NECK: Supple, trachea midline. CHEST: Rise symmetrical. Breath sounds diminished to bases. HEART: S1, S2. ABDOMEN: Soft. Bowel sounds hypoactive. EXTREMITIES: Contractures, multiple decubitus. SKIN: No jaundice, no cyanosis. ASSESSMENT: 1. Resolving sepsis s/p shock. 2. S/p polymicrobial septicemia on admission, blood culture grew coagulase- negative staph vancomycin-resistant Enterococci==> repeat blood cultures negative. 3. Multifocal pneumonia. 4. Acute respiratory failure. 5. Multiple chronic wounds. 6. Methicillin-resistant Staphylococcus aureus nares colonization. 7. Encephalopathy. 8. ALLERGY TO PENICILLIN. PLAN: The patient remains stable, will dc abx and observe. Pending family decision re future plans. DW staff Problems: NALINI SHARP NP Jul 22, 2016 14:26
[2016-07-23] VITALS (35 sets, daily range): BP systolic 103–133; BP diastolic 58–79; PULSE 84–99; RESP 15–25
[2016-07-23] MEDS: IPRATROPIUM (HFA) 12.9 GM INHALER INH SCH ×6 (01:47→20:43)
[2016-07-23] MEDS: ALBUTEROL HFA 8 GM INHALER INH SCH ×6 (01:47→20:43)
[2016-07-23 06:20] LABS: BASOPHILS % 0.3 % (0.0-2.0); EOSINOPHILS # 1.4 10^3/ul (0.0-0.5); EOSINOPHILS % 17.9 % (0.0-7.0); HEMATOCRIT 26.2 % (42.0-52.0); HEMOGLOBIN 8.8 g/dl (14.0-18.0); LYMPHOCYTES # 1.4 10^3/ul (0.8-2.9); LYMPHOCYTES % 17.6 % (15.0-51.0); MEAN CORPUSCULAR HEMOGLOBIN 29.8 pg (29.0-33.0); MEAN CORPUSCULAR HGB CONC 33.7 g/dl (32.0-37.0); MEAN CORPUSCULAR VOLUME 88.4 fl (82.0-101.0); MEAN PLATELET VOLUME 8.5 fl (7.4-10.4); MONOCYTE # 0.8 10^3/ul (0.3-0.9); MONOCYTES % 9.9 % (0.0-11.0); NEUTROPHIL # 4.3 10^3/ul (1.6-7.5); NEUTROPHILS % 54.3 % (39.0-77.0); PLATELET COUNT 268 10^3/UL (140-440); RED BLOOD COUNT 2.96 10^6/ul (4.70-6.10); RED CELL DISTRIBUTION WIDTH 19.3 % (11.5-14.5); UNCORRECTED WBC 7.9 10^3/ul (4.8-10.8); WHITE BLOOD COUNT 7.9 10^3/ul (4.8-10.8)
[2016-07-23 06:25] LABS: CONDITION 1; LH ANALYZER COMMENTS 1; MAGNESIUM 1.9 mg/dl (1.7-2.5); PHOSPHORUS 2.6 mg/dl (2.5-4.9)
[2016-07-23 06:26] LABS: POTASSIUM 4.4 mmol/L (3.5-5.1)
[2016-07-23 06:29] LABS: CREATININE 0.59 mg/dl (0.61-1.24)
[2016-07-23 06:30] LABS: CALCIUM 8.5 mg/dl (8.4-10.2)
[2016-07-23] MEDS: PANTOPRAZOLE 40 MG INJ IV SCH (06:48)
[2016-07-23] MEDS: BACLOFEN 10 MG TAB NGT SCH ×3 (08:28→21:02)
[2016-07-23] MEDS: AMLODIPINE 5 MG TAB NGT SCH ×2 (08:28→21:06)
[2016-07-23] MEDS: HEPARIN 5,000 UNIT/0.5 ML SYG SC SCH ×2 (08:31→21:16)
[2016-07-23] MEDS: COLLAGENASE 30 GM TUBE TOP SCH (08:41)
[2016-07-23] MEDS: MUPIROCIN 2% 22 GM OINT TOP SCH ×2 (08:42→21:02)
--- NOTE | 2016-07-23 11:10 | CONS ---
Date/Time of Note Date/Time of Note DATE: 07/23/16 TIME: 11:08 Consult Date/Type/Reason Admit Date/Time Jul 08, 2016 at 09:32 Type of Consultation: pulmonary Subjective Continues mechanical ventilation remains hemodynamically stable Objective Vital Signs Date Time Temp Pulse Resp B/P Pulse Ox O2 Delivery O2 Flow Rate FiO2 07/23/16 10:59 99 21 100 30 07/23/16 10:00 129/76 Mechanical Ventilator 07/23/16 08:00 98.9 Intake and Output 07/22/16 07/22/16 07/23/16 15:00 23:00 07:00 Intake Total 850 ml 400 ml 465 ml Output Total 360 ml 360 ml 380 ml Balance 490 ml 40 ml 85 ml PHYSICAL EXAMINATION GENERAL: Elderly gentleman, intubated on mechanical ventilation, opens eyes and appears somewhat agitated. Orally intubated. VITAL SIGNS: see below. HEENT: Pupils equal, round, and reactive to light. CARDIAC: S1, S2, tachycardia. CHEST: Diminished air entry bilaterally. ABDOMEN: Mildly distended. Diminished bowel sounds EXTREMITIES: No cyanosis, clubbing edema +1 NEUROLOGIC: Unable to assess Results/Medications Result Diagram: 07/23/16 0415 07/23/16 0415 Results 24 hrs Laboratory Tests Test 07/23/16 04:15 Anion Gap 12 Basophils # 0.0 Basophils % 0.3 Blood Morphology Comment Blood Urea Nitrogen 20 Calcium Level 8.5 Carbon Dioxide Level 27 Chloride Level 97 Creatinine 0.59 L Eosinophils # 1.4 H Eosinophils % 17.9 H Glucose Level 94 Hematocrit 26.2 L Hemoglobin 8.8 L Lymphocytes # 1.4 Lymphocytes % 17.6 Magnesium Level 1.9 Mean Corpuscular Hemoglobin 29.8 Mean Corpuscular Hemoglobin Concent 33.7 Mean Corpuscular Volume 88.4 Mean Platelet Volume 8.5 Monocytes # 0.8 Monocytes % 9.9 Neutrophils # 4.3 Neutrophils % 54.3 Nucleated Red Blood Cells # 0.0 Nucleated Red Blood Cells % 0.0 Phosphorus Level 2.6 Platelet Count 268 Potassium Level 4.4 Red Blood Count 2.96 L Red Cell Distribution Width 19.3 H Sodium Level 132 L White Blood Count 7.9 # Medications Current Medications Ondansetron HCl (Zofran Inj) 4 mg Q6H PRN IV NAUSEA AND/OR VOMITING; Start at 13:30 Acetaminophen (Tylenol Liquid) 650 mg Q6H PRN PO PAIN LEVEL 1-3 OR FEVER Last administered on 07/15/16at 15:49; Admin Dose 650 MG; Start 07/08/16 at 13:30 Pantoprazole (Protonix Iv) 40 mg DAILY@06 IV Last administered on 07/23/16 06 :48; Admin Dose 40 MG; Start 07/09/16 at 06:00 Heparin Sodium (Porcine) (Heparin (5000 Units/0.5 ml)) 5,000 unit Q12 SC Last administered on 07/23/16 08:31; Admin Dose 5,000 UNIT; Start 07/08/16 at 21: 00 Ipratropium [place] (Atrovent Hfa) 2 puff Q4 INH Last administered on 08:36; Admin Dose 2 PUFF; Start 07/08/16 at 21:00 Collagenase (Santyl) 1 applic DAILY TOP Last administered on 07/23/16 08:41; Admin Dose 1 APPLIC; Start 07/09/16 at 09:00 Mupirocin (Bactroban) 1 applic BID TOP Last administered on 07/23/16 08:42; Admin Dose 1 APPLIC; Start 07/10/16 at 12:30 Hydralazine HCl (Apresoline) 25 mg Q4 PRN GTB sbp>165; Start 07/17/16 at 16:30 Amlodipine Besylate (Norvasc) 5 mg BID NGT Last administered on 07/23/16 08: 28; Admin Dose 5 MG; Start 07/17/16 at 21:00 Morphine Sulfate (morphine) 4 mg Q2 PRN IV PAIN LEVEL 7-10 Last administered on 07/20/16at 12:36; Admin Dose 4 MG; Start 07/18/16 at 13:30 Hydromorphone HCl (Dilaudid) 0.5 mg Q4H PRN IV PAIN; Start 07/18/16 at 13:30 Baclofen (Lioresal) 10 mg TID NGT Last administered on 07/23/16 08:28; Admin Dose 10 MG; Start 07/18/16 at 21:00 Lorazepam (Ativan) 0.5 mg Q2H PRN IV anxiety; Start 07/19/16 at 11:00 Assessment/Plan Chief Complaint/Hosp Course IMPRESSION AND PLAN: 1. s/p Septic shock. 2. Cardiopulmonary arrest. Likely anoxic encephalopathy 3. Metastatic bladder cancer. 4. Peripheral vascular disease with amputation. 5. Significant deconditioning and malnutrition. 6. Severe metabolic acidosis. Clinically improving The patient will require: 1. Continued mechanical ventilation. Not weanable on mechanical ventilation secondary to altered mental status 2. Vasopressor support as needed 3. Broad-spectrum antibiotic coverage. 4. dvt/ gi prophylaxis 5. Sedation vacation assess neurological status 6. Nasogastric tube feeding as tolerated With family decision regarding tracheostomy Problems: YOGESH ADDISON MD, [facility] Jul 23, 2016 11:09
--- NOTE | 2016-07-23 14:08 | CONS ---
Date/Time of Note Date/Time of Note DATE: 07/23/16 TIME: 14:07 Consult Date/Type/Reason Admit Date/Time Jul 08, 2016 at 09:32 Initial Consult Date 07/12/16 Type of Consultation: ID Subjective events noted, no fevers, nad Objective Vital Signs Date Time Temp Pulse Resp B/P Pulse Ox O2 Delivery O2 Flow Rate FiO2 07/23/16 13:00 91 18 132/74 100 Mechanical Ventilator 07/23/16 12:52 30 07/23/16 12:00 99.0 Intake and Output 07/22/16 07/22/16 07/23/16 14:59 22:59 06:59 Intake Total 850 ml 400 ml 465 ml Output Total 350 ml 345 ml 350 ml Balance 500 ml 55 ml 115 ml Results/Medications Result Diagram: 07/23/16 0415 07/23/16 0415 Results 24 hrs Laboratory Tests Test 07/23/16 04:15 Anion Gap 12 Basophils # 0.0 Basophils % 0.3 Blood Morphology Comment Blood Urea Nitrogen 20 Calcium Level 8.5 Carbon Dioxide Level 27 Chloride Level 97 Creatinine 0.59 L Eosinophils # 1.4 H Eosinophils % 17.9 H Glucose Level 94 Hematocrit 26.2 L Hemoglobin 8.8 L Lymphocytes # 1.4 Lymphocytes % 17.6 Magnesium Level 1.9 Mean Corpuscular Hemoglobin 29.8 Mean Corpuscular Hemoglobin Concent 33.7 Mean Corpuscular Volume 88.4 Mean Platelet Volume 8.5 Monocytes # 0.8 Monocytes % 9.9 Neutrophils # 4.3 Neutrophils % 54.3 Nucleated Red Blood Cells # 0.0 Nucleated Red Blood Cells % 0.0 Phosphorus Level 2.6 Platelet Count 268 Potassium Level 4.4 Red Blood Count 2.96 L Red Cell Distribution Width 19.3 H Sodium Level 132 L White Blood Count 7.9 # Medications Current Medications Ondansetron HCl (Zofran Inj) 4 mg Q6H PRN IV NAUSEA AND/OR VOMITING; Start at 13:30 Acetaminophen (Tylenol Liquid) 650 mg Q6H PRN PO PAIN LEVEL 1-3 OR FEVER Last administered on 07/15/16at 15:49; Admin Dose 650 MG; Start 07/08/16 at 13:30 Pantoprazole (Protonix Iv) 40 mg DAILY@06 IV Last administered on 07/23/16at 06 :48; Admin Dose 40 MG; Start 07/09/16 at 06:00 Heparin Sodium (Porcine) (Heparin (5000 Units/0.5 ml)) 5,000 unit Q12 SC Last administered on 07/23/16at 08:31; Admin Dose 5,000 UNIT; Start 07/08/16 at 21: 00 Ipratropium [place] (Atrovent Hfa) 2 puff Q4 INH Last administered on 12:53; Admin Dose 2 PUFF; Start 07/08/16 at 21:00 Collagenase (Santyl) 1 applic DAILY TOP Last administered on 07/23/16 08:41; Admin Dose 1 APPLIC; Start 07/09/16 at 09:00 Mupirocin (Bactroban) 1 applic BID TOP Last administered on 07/23/16 08:42; Admin Dose 1 APPLIC; Start 07/10/16 at 12:30 Hydralazine HCl (Apresoline) 25 mg Q4 PRN GTB sbp>165; Start 07/17/16 at 16:30 Amlodipine Besylate (Norvasc) 5 mg BID NGT Last administered on 07/23/16at 08: 28; Admin Dose 5 MG; Start 07/17/16 at 21:00 Morphine Sulfate (morphine) 4 mg Q2 PRN IV PAIN LEVEL 7-10 Last administered on 07/20/16 12:36; Admin Dose 4 MG; Start 07/18/16 at 13:30 Hydromorphone HCl (Dilaudid) 0.5 mg Q4H PRN IV PAIN; Start 07/18/16 at 13:30 Baclofen (Lioresal) 10 mg TID NGT Last administered on 07/23/16at 13:00; Admin Dose 10 MG; Start 07/18/16 at 21:00 Lorazepam (Ativan) 0.5 mg Q2H PRN IV anxiety; Start 07/19/16 at 11:00 Assessment/Plan Chief Complaint/Hosp Course INDWELLINGS: Endotracheal tube, NG tube, left subclavian triple lumen catheter , Uriarte. PHYSICAL EXAMINATION: GENERAL: Chronically ill-appearing, fragile, elderly man who is lying comfortably in bed. HEENT: Head atraumatic, normocephalic. Sclerae anicteric. Buccal mucosa dry. NECK: Supple, trachea midline. CHEST: Rise symmetrical. Breath sounds diminished to bases. HEART: S1, S2. ABDOMEN: Soft. Bowel sounds hypoactive. EXTREMITIES: Contractures, multiple decubitus. SKIN: No jaundice, no cyanosis. ASSESSMENT: 1. Resolving sepsis s/p shock. 2. S/p polymicrobial septicemia on admission, blood culture grew coagulase- negative staph vancomycin-resistant Enterococci==> repeat blood cultures negative. 3. Multifocal pneumonia==> treated. 4. Acute respiratory failure. 5. Multiple chronic wounds. 6. Methicillin-resistant Staphylococcus aureus nares colonization. 7. Encephalopathy. 8. ALLERGY TO PENICILLIN. PLAN: The patient remains stable, off abx. Pending trach. MAJOR staff Problems: NALINI SHARP NP Jul 23, 2016 14:08
--- NOTE | 2016-07-23 15:16 | PN ---
DATE: 07/23/2016 SUBJECTIVE: The patient seen and responds to voice as he opens his eyes, but no meaningful response otherwise. Daughter Jodie is at bedside. Case discussed. In the meantime, she would like us to proceed with G-tube placement, trach placement, but she asked about option about terminal extubatio n if the patient continues to decline and no significant recovery is noted. Case discussed with the daughter in detail. I appreciate ongoing followup with Dr. Guerin, Dr. Richardson, Dr. Dixon, Dr. Robert zuñiga, and Dr. Valencia. PHYSICAL EXAMINATION: VITAL SIGNS: Temperature is 99, T-max 99.4, pulse 91, respirations 18, blood pressure 132/74, satur ation is 100% on 30% FIO2. GENERAL: The patient is frail, pale, opens his eyes to verbal stimuli. NG tube in place, ventilate d. CARDIOVASCULAR: S1, S2. LUNGS: Decreased bilaterally. ABDOMEN: Soft, nontender. EXTREMITIES: Trace edema of the hands. The patient is pepito at the right knee. Left AKA. LABORATORY DATA: White count is 7.9, hemoglobin 8.8, hematocrit 26, platelets 268, neutrophils 54%, lymphocytes 18%, monocytes 10%, eosinophils 18%. Chemistry: Sodium 132, potassium 4.4, chloride 9 7, bicarbonate 27, BUN is 20, creatinine 0.59, glucose of 94. No ABG today. Repeat blood cultures were negative. MEDICATIONS: All reviewed and include: 1. Ativan 0.5 IV q. 2 p.r.n. 2. Baclofen 10 t.i.d. 3. Morphine p.r.n. 4. Dilaudid p.r.n. 5. Norvasc 5 mg b.i.d. 6. Hydralazine p.r.n. 7. Bactroban b.i.d. 8. Santyl daily. 9. Protonix 40 IV daily. 10. Heparin 5000 subQ q. 12. 11. Albuterol and Atrovent every 4 hours. 12. Zofran p.r.n. 13. Breathing treatments p.r.n. 14. Tylenol p.r.n. ASSESSMENT AND PLAN: This is a 75-year-old male with metastatic bladder cancer to the [facility] er, left [id number] amputation, malnutrition, chronic obstructive pulmonary disease, who present ed with bacteremia, sepsis status post cardiac arrest in the emergency department. 1. Respiratory. Plan to proceed with trach placement. Currently being treated for bacteremia, wou nd infection and possible pulmonary infection. The patient does have chronic obstructive pulmonary disease. 2. Cardiovascular. Continue DVT prophylaxis with heparin. Vitals are otherwise stable. 3. Infectious disease. Continue broad spectrum antibiotics. The patient is status post treatment for urinary tract infection Status post treatment for septicemia bacteremia and wound infect ion. Finished antibiotic therapy actually as noted by the infectious disease physician. Continue t o monitor for fevers and WBC. Repeat blood cultures are negative. 4. Dysphagia. Continue NG tube feeding, tolerating it well, will proceed with G-tube placement nacho n. 5. The patient is do not resuscitate. 6. Metastatic bladder cancer. Continue supportive care. 7. Hyponatremia, improved. 8. Continue comfort measures otherwise. Continue Baclofen for muscle spasms, p.r.n. Ativan and mor phine. 9. Case discussed with family. I appreciate Dr. Hassan from palliative care followup. Condition remains guarded. 10. Continue wound care to the right foot wound. Continue supportive ICU care. Dictated By: JEREMIAS BELTRAN/LEISA Conf#: [id number] DID#: [id number]
--- NOTE | 2016-07-23 17:18 | CONS ---
Date/Time of Note Date/Time of Note DATE: 07/23/16 TIME: 17:17 Assessment/Plan Assessment/Plan Additional Assessment/Plan Assessment/Plan Additional Assessment/Plan IMPRESSION: 1. Anoxic encephalopathy. 2. Respiratory failure. 3. Dysphagia. 4. 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 5. Sepsis. 6. Renal insufficiency. 7. Anemia. 8. History of nicotine addiction. 9. Right foot wound and sacral wound. 10. Left above-knee amputation. Plan continue present care PEG in am .Family agreed. Consultation Date/Type/Reason Admit Date/Time Jul 08, 2016 at 09:32 Initial Consult Date 07/12/16 Type of Consultation: ID [id number] HR Interval Summary Subjective hx not possible: pt non-verbal, pt critical Constitutional: no complaints Exam/Review of Systems Vital Signs Vitals Vital Signs Date Time Temp Pulse Resp B/P Pulse Ox O2 Delivery O2 Flow Rate FiO2 07/23/16 16:54 97 20 100 30 07/23/16 14:00 111/58 Mechanical Ventilator 07/23/16 12:00 99.0 Intake and Output 07/22/16 07/22/16 07/23/16 15:00 23:00 07:00 Intake Total 850 ml 400 ml 465 ml Output Total 360 ml 360 ml 380 ml Balance 490 ml 40 ml 85 ml Exam Constitutional: alert, oriented, well developed Psych: nl mood/affect, no complaints Head: atraumatic, normocephalic Eyes: EOMI, PERRL, nl conjunctiva, nl lids, nl sclera ENMT: nl external ears & nose, nl lips & teeth, nl nasal mucosa & septum Neck: non-tender, supple Respiratory: clear to auscultation, normal air movement Cardiovascular: nl pulses, regular rate and rhythm Gastrointestinal: nl liver, spleen, non-tender, soft Musculoskeletal: nl extremities to inspection, nl gait and stance Extremities: normal pulses Neurological: 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, nl mental status, nl speech, nl strength Skin: nl turgor, No rash or lesions Lymph: nl lymph nodes Results Result Diagram: 07/23/16 0415 07/23/16 0415 Results 24 hrs Laboratory Tests Test 07/23/16 04:15 Anion Gap 12 Basophils # 0.0 Basophils % 0.3 Blood Morphology Comment Blood Urea Nitrogen 20 Calcium Level 8.5 Carbon Dioxide Level 27 Chloride Level 97 Creatinine 0.59 L Eosinophils # 1.4 H Eosinophils % 17.9 H Glucose Level 94 Hematocrit 26.2 L Hemoglobin 8.8 L Lymphocytes # 1.4 Lymphocytes % 17.6 Magnesium Level 1.9 Mean Corpuscular Hemoglobin 29.8 Mean Corpuscular Hemoglobin Concent 33.7 Mean Corpuscular Volume 88.4 Mean Platelet Volume 8.5 Monocytes # 0.8 Monocytes % 9.9 Neutrophils # 4.3 Neutrophils % 54.3 Nucleated Red Blood Cells # 0.0 Nucleated Red Blood Cells % 0.0 Phosphorus Level 2.6 Platelet Count 268 Potassium Level 4.4 Red Blood Count 2.96 L Red Cell Distribution Width 19.3 H Sodium Level 132 L White Blood Count 7.9 # Medications Medications Current Medications Ondansetron HCl (Zofran Inj) 4 mg Q6H PRN IV NAUSEA AND/OR VOMITING; Start at 13:30 Acetaminophen (Tylenol Liquid) 650 mg Q6H PRN PO PAIN LEVEL 1-3 OR FEVER Last administered on 07/15/16at 15:49; Admin Dose 650 MG; Start 07/08/16 at 13:30 Pantoprazole (Protonix Iv) 40 mg DAILY@06 IV Last administered on 07/23/16 06 :48; Admin Dose 40 MG; Start 07/09/16 at 06:00 Heparin Sodium (Porcine) (Heparin (5000 Units/0.5 ml)) 5,000 unit Q12 SC Last administered on 07/23/16 08:31; Admin Dose 5,000 UNIT; Start 07/08/16 at 21: 00 Ipratropium [place] (Atrovent Hfa) 2 puff Q4 INH Last administered on 12:53; Admin Dose 2 PUFF; Start 07/08/16 at 21:00 Collagenase (Santyl) 1 applic DAILY TOP Last administered on 07/23/16 08:41; Admin Dose 1 APPLIC; Start 07/09/16 at 09:00 Mupirocin (Bactroban) 1 applic BID TOP Last administered on 07/23/16 08:42; Admin Dose 1 APPLIC; Start 07/10/16 at 12:30 Hydralazine HCl (Apresoline) 25 mg Q4 PRN GTB sbp>165; Start 07/17/16 at 16:30 Amlodipine Besylate (Norvasc) 5 mg BID NGT Last administered on 07/23/16at 08: 28; Admin Dose 5 MG; Start 07/17/16 at 21:00 Morphine Sulfate (morphine) 4 mg Q2 PRN IV PAIN LEVEL 7-10 Last administered on 07/20/16at 12:36; Admin Dose 4 MG; Start 07/18/16 at 13:30 Hydromorphone HCl (Dilaudid) 0.5 mg Q4H PRN IV PAIN; Start 07/18/16 at 13:30 Baclofen (Lioresal) 10 mg TID NGT Last administered on 07/23/16at 13:00; Admin Dose 10 MG; Start 07/18/16 at 21:00 Lorazepam (Ativan) 0.5 mg Q2H PRN IV anxiety; Start 07/19/16 at 11:00 FRANKY BROWNING MD Jul 23, 2016 17:18
--- NOTE | 2016-07-23 19:28 | PN ---
Date/Time of Note Date/Time of Note DATE: 07/23/16 TIME: 19:27 Assessment/Plan Lines/Catheters IV Catheter Type (from Nrsg): Central Line Uriarte in Place (from Nrsg): Yes Assessment/Plan Chief Complaint/Hosp Course Resp failure plan for tracheostomy Problems: Subjective 24 Hr Interval Summary Constitutional: improved Pain Control: mild Exam/Review of Systems Vital Signs Vitals Vital Signs Date Time Temp Pulse Resp B/P Pulse Ox O2 Delivery O2 Flow Rate FiO2 07/23/16 19:00 89 16 110/66 100 Mechanical Ventilator 07/23/16 16:54 30 07/23/16 12:00 99.0 Intake and Output 07/22/16 07/22/16 07/23/16 15:00 23:00 07:00 Intake Total 850 ml 400 ml 465 ml Output Total 360 ml 360 ml 380 ml Balance 490 ml 40 ml 85 ml Exam Neck: non-tender, supple Respiratory: clear to auscultation, normal air movement Cardiovascular: nl pulses, regular rate and rhythm Gastrointestinal: nl liver, spleen, non-tender, soft Results Result Diagram: 07/23/16 0415 07/23/16 0415 ELEANOR HAYDEN MD Jul 23, 2016 19:28
[2016-07-24] VITALS (37 sets, daily range): BP systolic 78–129; BP diastolic 50–79; PULSE 80–102; RESP 13–21
[2016-07-24] MEDS: IPRATROPIUM (HFA) 12.9 GM INHALER INH SCH ×6 (00:02→20:19)
[2016-07-24] MEDS: ALBUTEROL HFA 8 GM INHALER INH SCH ×6 (00:02→20:19)
[2016-07-24] MEDS: PANTOPRAZOLE 40 MG INJ IV SCH (05:13)
[2016-07-24] MEDS: BACLOFEN 10 MG TAB NGT SCH ×3 (08:06→20:46)
[2016-07-24] MEDS: AMLODIPINE 5 MG TAB NGT SCH ×2 (08:06→20:46)
[2016-07-24] MEDS: MUPIROCIN 2% 22 GM OINT TOP SCH ×2 (08:07→20:47)
[2016-07-24] MEDS: COLLAGENASE 30 GM TUBE TOP SCH (08:08)
[2016-07-24] MEDS: HEPARIN 5,000 UNIT/0.5 ML SYG SC SCH ×2 (08:10→20:49)
[2016-07-24] MEDS ORDERED: ALTEPLASE (CATHFLO) 2 MG INJ CATHETER ONE (10:30)
[2016-07-24] MEDS: DEXTROSE 5%-0.45% NACL 1,000 ML IV SCH (11:15)
--- NOTE | 2016-07-24 11:37 | CONS ---
Date/Time of Note Date/Time of Note DATE: 07/24/16 TIME: 11:35 Consult Date/Type/Reason Admit Date/Time Jul 08, 2016 at 09:32 Type of Consultation: pulmonary Subjective Patient continues mechanical ventilation Family agree to tracheostomy and G-tube Objective Vital Signs Date Time Temp Pulse Resp B/P Pulse Ox O2 Delivery O2 Flow Rate FiO2 07/24/16 11:00 101 18 123/70 98 Mechanical Ventilator 07/24/16 08:00 30 07/24/16 07:00 98.3 Intake and Output 07/23/16 07/23/16 07/24/16 15:00 23:00 07:00 Intake Total 525 ml 400 ml 100 ml Output Total 535 ml 290 ml 285 ml Balance -10 ml 110 ml -185 ml PHYSICAL EXAMINATION GENERAL: Elderly gentleman, intubated on mechanical ventilation, VITAL SIGNS: see below. HEENT: Pupils equal, round, and reactive to light. CARDIAC: S1, S2, tachycardia. CHEST: Diminished air entry bilaterally. ABDOMEN: Mildly distended. Diminished bowel sounds EXTREMITIES: No cyanosis, clubbing edema +1 NEUROLOGIC: Unable to assess Results/Medications Result Diagram: 07/23/16 0415 07/23/16 0415 Medications Current Medications Ondansetron HCl (Zofran Inj) 4 mg Q6H PRN IV NAUSEA AND/OR VOMITING; Start at 13:30 Acetaminophen (Tylenol Liquid) 650 mg Q6H PRN PO PAIN LEVEL 1-3 OR FEVER Last administered on 07/15/16at 15:49; Admin Dose 650 MG; Start 07/08/16 at 13:30 Pantoprazole (Protonix Iv) 40 mg DAILY@06 IV Last administered on 07/24/16at 05 :13; Admin Dose 40 MG; Start 07/09/16 at 06:00 Heparin Sodium (Porcine) (Heparin (5000 Units/0.5 ml)) 5,000 unit Q12 SC Last administered on 07/23/16at 21:16; Admin Dose 5,000 UNIT; Start 07/08/16 at 21: 00 Ipratropium [place] (Atrovent Hfa) 2 puff Q4 INH Last administered on at 04:35; Admin Dose 2 PUFF; Start 07/08/16 at 21:00 Collagenase (Santyl) 1 applic DAILY TOP Last administered on 07/24/16 08:08; Admin Dose 1 APPLIC; Start 07/09/16 at 09:00 Mupirocin (Bactroban) 1 applic BID TOP Last administered on 07/24/16 08:07; Admin Dose 1 APPLIC; Start 07/10/16 at 12:30 Hydralazine HCl (Apresoline) 25 mg Q4 PRN GTB sbp>165; Start 07/17/16 at 16:30 Amlodipine Besylate (Norvasc) 5 mg BID NGT Last administered on 07/24/16 08: 06; Admin Dose 5 MG; Start 07/17/16 at 21:00 Morphine Sulfate (morphine) 4 mg Q2 PRN IV PAIN LEVEL 7-10 Last administered on 07/20/16 12:36; Admin Dose 4 MG; Start 07/18/16 at 13:30 Hydromorphone HCl (Dilaudid) 0.5 mg Q4H PRN IV PAIN Last administered on 11:14; Admin Dose 0.5 MG; Start 07/18/16 at 13:30 Baclofen (Lioresal) 10 mg TID NGT Last administered on 07/24/16 08:06; Admin Dose 10 MG; Start 07/18/16 at 21:00 Lorazepam 0.5 mg 0.5 mg Q2H PRN IV anxiety; Start 07/19/16 at 11:00 Dextrose/Sodium Chloride (D5-1/2ns) 1,000 ml @ 50 mls/hr Q20H IV Last administered on 07/24/16 11:15; Admin Dose 50 MLS/HR; Start 07/24/16 at 10:30 Assessment/Plan Chief Complaint/Hosp Course IMPRESSION AND PLAN: 1. s/p Septic shock. 2. Cardiopulmonary arrest. Likely anoxic encephalopathy 3. Metastatic bladder cancer. 4. Peripheral vascular disease with amputation. 5. Significant deconditioning and malnutrition. 6. Severe metabolic acidosis. Clinically improving 7. Hypoxemic respiratory failure unable to wean off mechanical ventilation secondary to above The patient will require: 1. Continued mechanical ventilation. To be scheduled for tracheostomy and G- tube 2. Vasopressor support as needed 3. Broad-spectrum antibiotic coverage. 4. dvt/ gi prophylaxis 5. Sedation vacation assess neurological status 6. Nasogastric tube feeding as tolerated Overall prognosis very poor Problems: YOGESH ADDISON MD, [facility] Jul 24, 2016 11:36
--- NOTE | 2016-07-24 12:53 | PN ---
DATE: 07/24/2016 SUBJECTIVE: The patient remains encephalopathic, lethargic, off sedation, off pressors. There is a plan for G-tube placement today and we are also awaiting trach placement. The family wants to see if he improves and give them more time to make further decisions. PHYSICAL EXAMINATION: VITAL SIGNS: Temperature is 98.3, pulse 101, respirations 18, blood pressure 122/70, saturation 98% on 30% FIO2. GENERAL: The patient remains frail. Eyes are closed. Less responsive today, but appears to be com fortable. CARDIOVASCULAR: S1 and S2, tachycardic. LUNGS: Decreased bilaterally. ABDOMEN: Soft, nontender. EXTREMITIES: Right lower extremity very contracted to the knee. Bandages on the right foot. The brianne herrera has a left AKA. Upper extremity is contracted, semi-flexed, with slight redness and swelling of the hands. LABORATORY: White count is 7.9, hemoglobin 8.8, hematocrit 26. These are from yesterday. Otherwis e no new labs today. CURRENT MEDICATIONS: Reviewed and include D5 half normal saline at 50 mL an hour. The patient is c urrently n.p.o. for above procedures. On: 1. Ativan 0.5 IV q.2 p.r.n. 2. Baclofen 10 mg t.i.d. 3. Morphine p.r.n. 4. Dilaudid p.r.n. 5. Norvasc 5 mg b.i.d. 6. Hydralazine 25 q.4 p.r.n. 7. Bactroban b.i.d. 8. Santyl daily. 9. Protonix 40 IV daily. 10. Heparin 5000 units subcutaneous q.12. 11. Albuterol and Atrovent every 4 hours. 12. Zofran p.r.n. 13. p.r.n. 14. Tylenol p.r.n. ASSESSMENT AND PLAN: This is a very unfortunate, very sick, 75-year-old male with metasta tic bladder cancer to the liver, left [id number] amputation, malnutrition, chronic obstructive p ulmonary disease, who initially presented with bacteremia and cardiac arrest. 1. Respiratory. Awaiting trach placement. Now off antibiotics. Continue pulmonary care. Not a candidate for weaning because of his encephalopathy. 2. Cardiovascular. Remains on deep venous thrombosis prophylaxis with heparin. Continue the above blood pressure medications. 3. Infectious disease. Status post treatment for bacteremia. Wound infection, ID is following. C urrently afebrile. Follow up a CBC. 4. Dysphagia. NG tube feeding on hold, as the patient will undergo G-tube placement. Right now on D5 half normal saline. 5. Metastatic bladder cancer stage IV to the liver. Poor prognosis, with multiple other comorbidit ies and now with possible anoxic brain injury. Overall, prognosis is poor. 6. Hyponatremia. Monitor electrolytes. 7. Encephalopathy, likely multifactorial. Status post cardiopulmonary arrest. No clear evidence o f response to us upon verbal stimuli. I appreciate Dr. Hassan in palliative care followup. Try to keep the patient comfortable with p.r.n. anxiolytics and opioids for pain. Remains on Baclof en for muscle spasms. Continue aggressive wound care. Prognosis overall poor. We will follow. Dictated By: JEREMIAS BELTRAN/LEISA Conf#: [id number] DID#: [id number]
[2016-07-24] MEDS ORDERED: PROPOFOL 40 ML ONE (15:50)
[2016-07-24] MEDS ORDERED: LIDOCAINE 2% (SDV) 5 ML INJ ONE (15:51)
[2016-07-24] MEDS ORDERED: CIPROFLOXACIN 400MG/D5W 200 ML ONE (15:59)
[2016-07-24] MEDS ORDERED: CEFAZOLIN 1 GM/50 ML (PMX) 0 ML IVPB ONE (15:59)
[2016-07-24] MEDS ORDERED: LABETALOL HCL 20MG INJ IV PRN (16:30)
[2016-07-24] MEDS ORDERED: ATROPINE 1 MG/10 ML SYRINGE IV PRN (16:30)
[2016-07-24] MEDS ORDERED: FENTAnyl 50 MCG/ML VIAL IV PRN ×2 (16:30)
[2016-07-24] MEDS ORDERED: EPHEDrine SULFATE 50 MG/5 ML SYG IV PRN (16:30)
[2016-07-24] MEDS ORDERED: morphine 4 MG/ML VIAL IV PRN (16:30)
[2016-07-24] MEDS ORDERED: morphine 2 MG INJ IV PRN (16:30)
--- NOTE | 2016-07-24 16:58 | CONS ---
Date/Time of Note Date/Time of Note DATE: 07/24/16 TIME: 16:57 Consult Date/Type/Reason Admit Date/Time Jul 08, 2016 at 09:32 Initial Consult Date 07/12/16 Type of Consultation: ID Subjective no events, getting PEG at bedside, no fevers, nad Objective Vital Signs Date Time Temp Pulse Resp B/P Pulse Ox O2 Delivery O2 Flow Rate FiO2 07/24/16 16:00 91 07/24/16 15:00 18 108/63 100 Mechanical Ventilator 07/24/16 12:00 98.4 07/24/16 08:00 30 Intake and Output 07/23/16 07/23/16 07/24/16 15:00 23:00 07:00 Intake Total 525 ml 400 ml 100 ml Output Total 535 ml 290 ml 285 ml Balance -10 ml 110 ml -185 ml Results/Medications Result Diagram: 07/23/16 0415 07/23/16 0415 Medications Current Medications Ondansetron HCl (Zofran Inj) 4 mg Q6H PRN IV NAUSEA AND/OR VOMITING; Start at 13:30 Acetaminophen (Tylenol Liquid) 650 mg Q6H PRN PO PAIN LEVEL 1-3 OR FEVER Last administered on 07/15/16at 15:49; Admin Dose 650 MG; Start 07/08/16 at 13:30 Pantoprazole (Protonix Iv) 40 mg DAILY@06 IV Last administered on 07/24/16at 05 :13; Admin Dose 40 MG; Start 07/09/16 at 06:00 Heparin Sodium (Porcine) (Heparin (5000 Units/0.5 ml)) 5,000 unit Q12 SC Last administered on 07/23/16at 21:16; Admin Dose 5,000 UNIT; Start 07/08/16 at 21: 00 Ipratropium [place] (Atrovent Hfa) 2 puff Q4 INH Last administered on at 13:40; Admin Dose 2 PUFF; Start 07/08/16 at 21:00 Collagenase (Santyl) 1 applic DAILY TOP Last administered on 07/24/16at 08:08; Admin Dose 1 APPLIC; Start 07/09/16 at 09:00 Mupirocin (Bactroban) 1 applic BID TOP Last administered on 07/24/16at 08:07; Admin Dose 1 APPLIC; Start 07/10/16 at 12:30 Hydralazine HCl (Apresoline) 25 mg Q4 PRN GTB sbp>165; Start 07/17/16 at 16:30 Amlodipine Besylate (Norvasc) 5 mg BID NGT Last administered on 07/24/16at 08: 06; Admin Dose 5 MG; Start 07/17/16 at 21:00 Morphine Sulfate (morphine) 4 mg Q2 PRN IV PAIN LEVEL 7-10 Last administered on 07/20/16at 12:36; Admin Dose 4 MG; Start 07/18/16 at 13:30 Hydromorphone HCl (Dilaudid) 0.5 mg Q4H PRN IV PAIN Last administered on at 11:14; Admin Dose 0.5 MG; Start 07/18/16 at 13:30 Baclofen (Lioresal) 10 mg TID NGT Last administered on 07/24/16at 12:37; Admin Dose 10 MG; Start 07/18/16 at 21:00 Lorazepam 0.5 mg 0.5 mg Q2H PRN IV anxiety; Start 07/19/16 at 11:00 Dextrose/Sodium Chloride (D5-1/2ns) 1,000 ml @ 50 mls/hr Q20H IV Last administered on 07/24/16at 11:15; Admin Dose 50 MLS/HR; Start 07/24/16 at 10:30 Assessment/Plan Chief Complaint/Hosp Course INDWELLINGS: Endotracheal tube, NG tube, left subclavian triple lumen catheter , Uriarte. PHYSICAL EXAMINATION: GENERAL: Chronically ill-appearing, fragile, elderly man who is lying comfortably in bed. HEENT: Head atraumatic, normocephalic. Sclerae anicteric. Buccal mucosa dry. NECK: Supple, trachea midline. CHEST: Rise symmetrical. Breath sounds diminished to bases. HEART: S1, S2. ABDOMEN: Soft. Bowel sounds hypoactive. EXTREMITIES: Contractures, multiple decubitus. SKIN: No jaundice, no cyanosis. ASSESSMENT: 1. Resolving sepsis s/p shock. 2. S/p polymicrobial septicemia on admission, blood culture grew coagulase- negative staph vancomycin-resistant Enterococci==> repeat blood cultures negative. 3. Multifocal pneumonia==> treated. 4. Acute respiratory failure. 5. Multiple chronic wounds. 6. Methicillin-resistant Staphylococcus aureus nares colonization. 7. Encephalopathy. 8. ALLERGY TO PENICILLIN. PLAN: The patient remains stable, off abx. Pending PEG/ trach. DW staff Problems: NALINI SHARP NP Jul 24, 2016 16:58
--- NOTE | 2016-07-24 20:24 | GILP ---
DATE OF PROCEDURE: PROCEDURE: Percutaneous endoscopic gastrostomy. INDICATION: The patient is a 75-year-old male with anoxic encephalopathy, metastatic bladder cancer stage IV. Undergoing this procedure for placement of G-tube directly into the stomach for shelter enteral nutrition. The risk of the procedure, related and unrelated complications, anesthetic risk s, alternatives were thoroughly explained to the and daughter and informed consent was obtained . The procedure was done bedside. DESCRIPTION OF PROCEDURE: The patient was placed in the supine position, sedated by the anesthesiol ogist, Dr. Carter. The patient was given antibiotics, Cipro, prior to the procedure. After optimum s edation, scope was passed with much ease into esophagus, advanced further down into stomach and duod enum. There was no evidence of obstruction. By transillumination and digital palpation technique, appropriate site was chosen on anterior abdominal wall. Site was sterilized with chlorhexidine solu tion, 2% Xylocaine instilled by safe method. A small incision was made. Through that incision, tro car stylus passed into the stomach. Stylet was removed from over the tip of the catheter. Insertio n wire was passed and the entire procedure was completed by modified Ponsky technique. The patient was rescoped. The position of the internal bumper confirmed. External bumper secured. The patient tolerated the procedure very well. IMPRESSION: Successful placement of G-tube done. PLAN: Resume feeding at 10:00 tonight, 20 mL per hour. All the medication at 6:00 p.m. Abdominal binder all the time. Will increase the feeding in a.m. Dictated By: FRANKY ELIZONOD/LEISA Conf#: [id number] DID#: [id number] CC: FRANKY BROWNING MD; JEREMIAS NAIK MD;*EndCC*
--- NOTE | 2016-07-24 22:32 | PN ---
Date/Time of Note Date/Time of Note DATE: 07/24/16 TIME: 22:31 Assessment/Plan Lines/Catheters IV Catheter Type (from Nrsg): Central Line Uriarte in Place (from Nrsg): Yes Assessment/Plan Chief Complaint/Hosp Course Resp failure plan for tracheostomy tomorrow Problems: Subjective 24 Hr Interval Summary Constitutional: improved Pain Control: mild Exam/Review of Systems Vital Signs Vitals Vital Signs Date Time Temp Pulse Resp B/P Pulse Ox O2 Delivery O2 Flow Rate FiO2 07/24/16 20:00 82 18 108/70 100 Mechanical Ventilator 07/24/16 17:45 30 07/24/16 16:15 98.3 Intake and Output 07/23/16 07/23/16 07/24/16 15:00 23:00 07:00 Intake Total 525 ml 400 ml 100 ml Output Total 535 ml 290 ml 285 ml Balance -10 ml 110 ml -185 ml Exam ENMT: mucosa pink and moist, nl external ears & nose, nl lips & teeth, nl nasal mucosa & septum Neck: non-tender, supple Respiratory: clear to auscultation, normal air movement Cardiovascular: nl pulses, regular rate and rhythm Results Result Diagram: 07/23/16 0415 07/23/16 0415 ELEANOR HAYDEN MD Jul 24, 2016 22:32
[2016-07-25] VITALS (39 sets, daily range): BP systolic 96–127; BP diastolic 51–86; PULSE 78–103; RESP 14–22
[2016-07-25] MEDS: IPRATROPIUM (HFA) 12.9 GM INHALER INH SCH ×6 (01:41→21:04)
[2016-07-25] MEDS: ALBUTEROL HFA 8 GM INHALER INH SCH ×6 (01:42→21:03)
[2016-07-25 05:10] LABS: BASOPHILS % 0.4 % (0.0-2.0); HEMATOCRIT 26.1 % (42.0-52.0); HEMOGLOBIN 8.8 g/dl (14.0-18.0); LYMPHOCYTES # 1.4 10^3/ul (0.8-2.9); LYMPHOCYTES % 17.6 % (15.0-51.0); MEAN CORPUSCULAR HEMOGLOBIN 29.8 pg (29.0-33.0); MEAN CORPUSCULAR HGB CONC 33.6 g/dl (32.0-37.0); MEAN CORPUSCULAR VOLUME 88.6 fl (82.0-101.0); MEAN PLATELET VOLUME 7.2 fl (7.4-10.4); MONOCYTE # 0.9 10^3/ul (0.3-0.9); MONOCYTES % 11.1 % (0.0-11.0); NEUTROPHIL # 4.6 10^3/ul (1.6-7.5); NEUTROPHILS % 57.9 % (39.0-77.0); PLATELET COUNT 260 10^3/UL (140-440); RED BLOOD COUNT 2.94 10^6/ul (4.70-6.10); RED CELL DISTRIBUTION WIDTH 19.2 % (11.5-14.5); UNCORRECTED WBC 7.9 10^3/ul (4.8-10.8); WHITE BLOOD COUNT 7.9 10^3/ul (4.8-10.8)
[2016-07-25 05:18] LABS: POTASSIUM 4.1 mmol/L (3.5-5.1)
[2016-07-25 05:21] LABS: CREATININE 0.64 mg/dl (0.61-1.24)
[2016-07-25 05:22] LABS: MAGNESIUM 1.8 mg/dl (1.7-2.5); PHOSPHORUS 3.4 mg/dl (2.5-4.9)
[2016-07-25 05:22] LABS: CALCIUM 8.4 mg/dl (8.4-10.2)
[2016-07-25 05:28] LABS: CONDITION 1; LH ANALYZER COMMENTS 1
[2016-07-25] MEDS: PANTOPRAZOLE 40 MG INJ IV SCH (05:29)
[2016-07-25] MEDS: DEXTROSE 5%-0.45% NACL 1,000 ML IV SCH (05:30)
[2016-07-25] MEDS: HEPARIN 5,000 UNIT/0.5 ML SYG SC SCH ×2 (09:00→18:48)
[2016-07-25] MEDS: BACLOFEN 10 MG TAB NGT SCH ×3 (09:00→21:27)
[2016-07-25 09:09] LABS: INR 1.06; PROTIME 13.8 Sec (12.2-14.2); PT RATIO 1.1
[2016-07-25 09:10] LABS: PARTIAL THROMBOPLASTIN TIME 33.2 Sec (25.0-35.0)
[2016-07-25] MEDS: MUPIROCIN 2% 22 GM OINT TOP SCH ×2 (09:43→21:27)
[2016-07-25] MEDS: COLLAGENASE 30 GM TUBE TOP SCH (09:45)
--- NOTE | 2016-07-25 10:18 | CONS ---
Date/Time of Note Date/Time of Note DATE: 07/25/16 TIME: 10:17 Consult Date/Type/Reason Admit Date/Time Jul 08, 2016 at 09:32 Type of Consultation: pulmonary Subjective Remains somnolent on mechanical ventilation no significant changes. No hemodynamic support Objective Vital Signs Date Time Temp Pulse Resp B/P Pulse Ox O2 Delivery O2 Flow Rate FiO2 07/25/16 06:00 90 20 117/70 100 Mechanical Ventilator 07/25/16 05:35 30 07/25/16 04:00 98.4 Intake and Output 07/24/16 07/24/16 07/25/16 15:00 23:00 07:00 Intake Total 200 ml 400 ml 450 ml Output Total 320 ml 405 ml 420 ml Balance -120 ml -5 ml 30 ml PHYSICAL EXAMINATION GENERAL: Elderly gentleman, intubated on mechanical ventilation, VITAL SIGNS: see below. HEENT: Pupils equal, round, and reactive to light. CARDIAC: S1, S2, tachycardia. CHEST: Diminished air entry bilaterally. ABDOMEN: Mildly distended. Diminished bowel sounds EXTREMITIES: No cyanosis, clubbing edema +1 NEUROLOGIC: Unable to assess Results/Medications Result Diagram: 07/25/16 0450 07/25/16 0430 Results 24 hrs Laboratory Tests Test 07/25/16 04:30 07/25/16 04:40 07/25/16 04:50 07/25/16 08:45 Anion Gap 14 Blood Urea Nitrogen 20 Calcium Level 8.4 Carbon Dioxide Level 24 Chloride Level 99 Creatinine 0.64 Glucose Level 105 Potassium Level 4.1 Sodium Level 133 L Magnesium Level 1.8 Phosphorus Level 3.4 Basophils # 0.0 Basophils % 0.4 Blood Morphology Comment Eosinophils # 1.0 H Eosinophils % 13.0 H Hematocrit 26.1 L Hemoglobin 8.8 L Lymphocytes # 1.4 Lymphocytes % 17.6 Mean Corpuscular Hemoglobin 29.8 Mean Corpuscular Hemoglobin Concent 33.6 Mean Corpuscular Volume 88.6 Mean Platelet Volume 7.2 L Monocytes # 0.9 Monocytes % 11.1 H Neutrophils # 4.6 Neutrophils % 57.9 Nucleated Red Blood Cells # 0.0 Nucleated Red Blood Cells % 0.0 Platelet Count 260 Red Blood Count 2.94 L Red Cell Distribution Width 19.2 H White Blood Count 7.9 Activated Partial Thromboplast Time 33.2 INR International Normalized Ratio 1.06 Prothrombin Time 13.8 # Prothrombin Time Ratio 1.1 Medications Current Medications Ondansetron HCl (Zofran Inj) 4 mg Q6H PRN IV NAUSEA AND/OR VOMITING; Start at 13:30 Acetaminophen (Tylenol Liquid) 650 mg Q6H PRN PO PAIN LEVEL 1-3 OR FEVER Last administered on 07/15/16 15:49; Admin Dose 650 MG; Start 07/08/16 at 13:30 Pantoprazole (Protonix Iv) 40 mg DAILY@06 IV Last administered on 07/25/16 05 :29; Admin Dose 40 MG; Start 07/09/16 at 06:00 Heparin Sodium (Porcine) (Heparin (5000 Units/0.5 ml)) 5,000 unit Q12 SC Last administered on 07/24/16 20:49; Admin Dose 5,000 UNIT; Start 07/08/16 at 21: 00 Ipratropium [place] (Atrovent Hfa) 2 puff Q4 INH Last administered on 08:12; Admin Dose 2 PUFF; Start 07/08/16 at 21:00 Collagenase (Santyl) 1 applic DAILY TOP Last administered on 07/25/16 09:45; Admin Dose 1 APPLIC; Start 07/09/16 at 09:00 Mupirocin (Bactroban) 1 applic BID TOP Last administered on 07/25/16 09:43; Admin Dose 1 APPLIC; Start 07/10/16 at 12:30 Hydralazine HCl (Apresoline) 25 mg Q4 PRN GTB sbp>165; Start 07/17/16 at 16:30 Amlodipine Besylate (Norvasc) 5 mg BID NGT Last administered on 07/24/16 20: 46; Admin Dose 5 MG; Start 07/17/16 at 21:00 Morphine Sulfate (morphine) 4 mg Q2 PRN IV PAIN LEVEL 7-10 Last administered on 07/20/16 12:36; Admin Dose 4 MG; Start 07/18/16 at 13:30 Hydromorphone HCl (Dilaudid) 0.5 mg Q4H PRN IV PAIN Last administered on 11:14; Admin Dose 0.5 MG; Start 07/18/16 at 13:30 Baclofen (Lioresal) 10 mg TID NGT Last administered on 07/24/16at 20:46; Admin Dose 10 MG; Start 07/18/16 at 21:00 Lorazepam 0.5 mg 0.5 mg Q2H PRN IV anxiety; Start 07/19/16 at 11:00 Dextrose/Sodium Chloride (D5-1/2ns) 1,000 ml @ 50 mls/hr Q20H IV Last administered on 07/25/16at 05:30; Admin Dose 50 MLS/HR; Start 07/24/16 at 10:30 Assessment/Plan Chief Complaint/Hosp Course IMPRESSION AND PLAN: 1. s/p Septic shock. 2. Cardiopulmonary arrest. Likely anoxic encephalopathy 3. Metastatic bladder cancer. 4. Peripheral vascular disease with amputation. 5. Significant deconditioning and malnutrition. 6. Severe metabolic acidosis. Clinically improving 7. Hypoxemic respiratory failure unable to wean off mechanical ventilation secondary to above The patient will require: 1. Continued mechanical ventilation. To be scheduled for tracheostomy and G- tube 2. Vasopressor support as needed 3. Broad-spectrum antibiotic coverage. 4. dvt/ gi prophylaxis 5. Sedation vacation assess neurological status 6. Nasogastric tube feeding as tolerated Overall prognosis very poor Problems: YOGESH ADDISON MD, [facility] Jul 25, 2016 10:18
[2016-07-25] MEDS: DEXTROSE 5%-0.9% NACL 1,000 ML IV SCH (10:50)
[2016-07-25] MEDS: AMLODIPINE 5 MG TAB NGT SCH ×2 (10:54→21:27)
--- NOTE | 2016-07-25 12:43 | CONS ---
Date/Time of Note Date/Time of Note DATE: 07/25/16 TIME: 12:42 Assessment/Plan Assessment/Plan Additional Assessment/Plan IMPRESSION: 1. Anoxic encephalopathy. 2. Respiratory failure. 3. Dysphagia. 4. 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 5. Sepsis. 6. Renal insufficiency. 7. Anemia. 8. History of nicotine addiction. 9. Right foot wound and sacral wound. 10. Left above-knee amputation. 11.s/p PEG,tolerating feeding. Plan continue present care continue present care Consultation Date/Type/Reason Admit Date/Time Jul 08, 2016 at 09:32 Initial Consult Date 07/12/16 Type of Consultation: pulmonary 24 HR Interval Summary Subjective hx not possible: pt non-verbal, pt critical Constitutional: improved Exam/Review of Systems Vital Signs Vitals Vital Signs Date Time Temp Pulse Resp B/P Pulse Ox O2 Delivery O2 Flow Rate FiO2 07/25/16 12:00 79 07/25/16 10:00 14 112/86 100 Mechanical Ventilator 07/25/16 08:00 97.8 07/25/16 08:00 30 Intake and Output 07/24/16 07/24/16 07/25/16 15:00 23:00 07:00 Intake Total 200 ml 400 ml 500 ml Output Total 320 ml 405 ml 420 ml Balance -120 ml -5 ml 80 ml Exam Constitutional: alert, oriented, well developed Psych: nl mood/affect, no complaints Head: atraumatic, normocephalic Eyes: EOMI, PERRL, nl conjunctiva, nl lids, nl sclera ENMT: nl external ears & nose, nl lips & teeth, nl nasal mucosa & septum Neck: non-tender, supple Respiratory: clear to auscultation, normal air movement Cardiovascular: nl pulses, regular rate and rhythm Gastrointestinal: nl liver, spleen, non-tender, soft Musculoskeletal: nl extremities to inspection, nl gait and stance Extremities: normal pulses Neurological: DOOR OPERATOR II-XII intact, nl mental status, nl speech, nl strength Skin: nl turgor, No rash or lesions Lymph: nl lymph nodes Results Result Diagram: 07/25/16 0450 07/25/16 0430 Results 24 hrs Laboratory Tests Test 07/25/16 04:30 07/25/16 04:40 07/25/16 04:50 07/25/16 08:45 Anion Gap 14 Blood Urea Nitrogen 20 Calcium Level 8.4 Carbon Dioxide Level 24 Chloride Level 99 Creatinine 0.64 Glucose Level 105 Potassium Level 4.1 Sodium Level 133 L Magnesium Level 1.8 Phosphorus Level 3.4 Basophils # 0.0 Basophils % 0.4 Blood Morphology Comment Eosinophils # 1.0 H Eosinophils % 13.0 H Hematocrit 26.1 L Hemoglobin 8.8 L Lymphocytes # 1.4 Lymphocytes % 17.6 Mean Corpuscular Hemoglobin 29.8 Mean Corpuscular Hemoglobin Concent 33.6 Mean Corpuscular Volume 88.6 Mean Platelet Volume 7.2 L Monocytes # 0.9 Monocytes % 11.1 H Neutrophils # 4.6 Neutrophils % 57.9 Nucleated Red Blood Cells # 0.0 Nucleated Red Blood Cells % 0.0 Platelet Count 260 Red Blood Count 2.94 L Red Cell Distribution Width 19.2 H White Blood Count 7.9 Activated Partial Thromboplast Time 33.2 INR International Normalized Ratio 1.06 Prothrombin Time 13.8 # Prothrombin Time Ratio 1.1 Medications Medications Current Medications Ondansetron HCl (Zofran Inj) 4 mg Q6H PRN IV NAUSEA AND/OR VOMITING; Start at 13:30 Acetaminophen (Tylenol Liquid) 650 mg Q6H PRN PO PAIN LEVEL 1-3 OR FEVER Last administered on 07/15/16 15:49; Admin Dose 650 MG; Start 07/08/16 at 13:30 Pantoprazole (Protonix Iv) 40 mg DAILY@06 IV Last administered on 07/25/16 05 :29; Admin Dose 40 MG; Start 07/09/16 at 06:00 Heparin Sodium (Porcine) (Heparin (5000 Units/0.5 ml)) 5,000 unit Q12 SC Last administered on 07/24/16 20:49; Admin Dose 5,000 UNIT; Start 07/08/16 at 21: 00 Ipratropium [place] (Atrovent Hfa) 2 puff Q4 INH Last administered on 08:12; Admin Dose 2 PUFF; Start 07/08/16 at 21:00 Collagenase (Santyl) 1 applic DAILY TOP Last administered on 07/25/16 09:45; Admin Dose 1 APPLIC; Start 07/09/16 at 09:00 Mupirocin (Bactroban) 1 applic BID TOP Last administered on 07/25/16 09:43; Admin Dose 1 APPLIC; Start 07/10/16 at 12:30 Hydralazine HCl (Apresoline) 25 mg Q4 PRN GTB sbp>165; Start 07/17/16 at 16:30 Amlodipine Besylate (Norvasc) 5 mg BID NGT Last administered on 07/25/16 10: 54; Admin Dose 5 MG; Start 07/17/16 at 21:00 Morphine Sulfate (morphine) 4 mg Q2 PRN IV PAIN LEVEL 7-10 Last administered on 07/20/16 12:36; Admin Dose 4 MG; Start 07/18/16 at 13:30 Hydromorphone HCl (Dilaudid) 0.5 mg Q4H PRN IV PAIN Last administered on 11:14; Admin Dose 0.5 MG; Start 07/18/16 at 13:30 Baclofen (Lioresal) 10 mg TID NGT Last administered on 07/24/16 20:46; Admin Dose 10 MG; Start 07/18/16 at 21:00 Lorazepam 0.5 mg 0.5 mg Q2H PRN IV anxiety; Start 07/19/16 at 11:00 Dextrose/Sodium Chloride (D5-NS) 1,000 ml @ 50 mls/hr Q20H IV Last administered on 07/25/16 10:50; Admin Dose 50 MLS/HR; Start 07/25/16 at 10:30 FRANKY BROWNING MD Jul 25, 2016 12:43
[2016-07-25] MEDS ORDERED: LIDOCAINE 1%/EPI 30 ML INJ ONE (13:11)
[2016-07-25] MEDS ORDERED: ROCURONIUM 50 MG INJ ONE (14:35)
[2016-07-25] MEDS ORDERED: FENTAnyl 50 MCG/ML VIAL ONE (14:35)
--- NOTE | 2016-07-25 14:46 | CONS ---
Date/Time of Note Date/Time of Note DATE: 07/25/16 TIME: 14:44 Consult Date/Type/Reason Admit Date/Time Jul 08, 2016 at 09:32 Initial Consult Date 07/12/16 Type of Consultation: ID Subjective no events, s/p PEG yesterday, no fevers, nad Objective Vital Signs Date Time Temp Pulse Resp B/P Pulse Ox O2 Delivery O2 Flow Rate FiO2 07/25/16 14:00 88 19 115/60 100 Mechanical Ventilator 07/25/16 12:00 97.6 07/25/16 08:00 30 Intake and Output 07/24/16 07/24/16 07/25/16 15:00 23:00 07:00 Intake Total 200 ml 400 ml 500 ml Output Total 320 ml 405 ml 470 ml Balance -120 ml -5 ml 30 ml Results/Medications Result Diagram: 07/25/16 0450 07/25/16 0430 Results 24 hrs Laboratory Tests Test 07/25/16 04:30 07/25/16 04:40 07/25/16 04:50 07/25/16 08:45 Anion Gap 14 Blood Urea Nitrogen 20 Calcium Level 8.4 Carbon Dioxide Level 24 Chloride Level 99 Creatinine 0.64 Glucose Level 105 Potassium Level 4.1 Sodium Level 133 L Magnesium Level 1.8 Phosphorus Level 3.4 Basophils # 0.0 Basophils % 0.4 Blood Morphology Comment Eosinophils # 1.0 H Eosinophils % 13.0 H Hematocrit 26.1 L Hemoglobin 8.8 L Lymphocytes # 1.4 Lymphocytes % 17.6 Mean Corpuscular Hemoglobin 29.8 Mean Corpuscular Hemoglobin Concent 33.6 Mean Corpuscular Volume 88.6 Mean Platelet Volume 7.2 L Monocytes # 0.9 Monocytes % 11.1 H Neutrophils # 4.6 Neutrophils % 57.9 Nucleated Red Blood Cells # 0.0 Nucleated Red Blood Cells % 0.0 Platelet Count 260 Red Blood Count 2.94 L Red Cell Distribution Width 19.2 H White Blood Count 7.9 Activated Partial Thromboplast Time 33.2 INR International Normalized Ratio 1.06 Prothrombin Time 13.8 # Prothrombin Time Ratio 1.1 Medications Current Medications Ondansetron HCl (Zofran Inj) 4 mg Q6H PRN IV NAUSEA AND/OR VOMITING; Start at 13:30 Acetaminophen (Tylenol Liquid) 650 mg Q6H PRN PO PAIN LEVEL 1-3 OR FEVER Last administered on 07/15/16 15:49; Admin Dose 650 MG; Start 07/08/16 at 13:30 Pantoprazole (Protonix Iv) 40 mg DAILY@06 IV Last administered on 07/25/16 05 :29; Admin Dose 40 MG; Start 07/09/16 at 06:00 Heparin Sodium (Porcine) (Heparin (5000 Units/0.5 ml)) 5,000 unit Q12 SC Last administered on 07/24/16 20:49; Admin Dose 5,000 UNIT; Start 07/08/16 at 21: 00 Ipratropium [place] (Atrovent Hfa) 2 puff Q4 INH Last administered on 13:08; Admin Dose 2 PUFF; Start 07/08/16 at 21:00 Collagenase (Santyl) 1 applic DAILY TOP Last administered on 07/25/16 09:45; Admin Dose 1 APPLIC; Start 07/09/16 at 09:00 Mupirocin (Bactroban) 1 applic BID TOP Last administered on 07/25/16 09:43; Admin Dose 1 APPLIC; Start 07/10/16 at 12:30 Hydralazine HCl (Apresoline) 25 mg Q4 PRN GTB sbp>165; Start 07/17/16 at 16:30 Amlodipine Besylate (Norvasc) 5 mg BID NGT Last administered on 07/25/16 10: 54; Admin Dose 5 MG; Start 07/17/16 at 21:00 Morphine Sulfate (morphine) 4 mg Q2 PRN IV PAIN LEVEL 7-10 Last administered on 07/20/16 12:36; Admin Dose 4 MG; Start 07/18/16 at 13:30 Hydromorphone HCl (Dilaudid) 0.5 mg Q4H PRN IV PAIN Last administered on 11:14; Admin Dose 0.5 MG; Start 07/18/16 at 13:30 Baclofen (Lioresal) 10 mg TID NGT Last administered on 07/24/16 20:46; Admin Dose 10 MG; Start 07/18/16 at 21:00 Lorazepam 0.5 mg 0.5 mg Q2H PRN IV anxiety; Start 07/19/16 at 11:00 Dextrose/Sodium Chloride (D5-NS) 1,000 ml @ 50 mls/hr Q20H IV Last administered on 07/25/16at 10:50; Admin Dose 50 MLS/HR; Start 07/25/16 at 10:30 Assessment/Plan Chief Complaint/Hosp Course INDWELLINGS: Endotracheal tube, PEG, left subclavian triple lumen catheter, [place]. PHYSICAL EXAMINATION: GENERAL: Chronically ill-appearing, fragile, elderly man who is lying comfortably in bed. HEENT: Head atraumatic, normocephalic. Sclerae anicteric. Buccal mucosa dry. NECK: Supple, trachea midline. CHEST: Rise symmetrical. Breath sounds diminished to bases. HEART: S1, S2. ABDOMEN: Soft. Bowel sounds hypoactive. EXTREMITIES: Contractures, multiple decubitus. SKIN: No jaundice, no cyanosis. ASSESSMENT: 1. S/p sepsis with shock. 2. S/p polymicrobial septicemia on admission==>coagulase-negative staph vancomycin-resistant Enterococci==> repeat blood cultures negative. 3. Multifocal pneumonia==> treated. 4. Acute respiratory failure. 5. Multiple chronic wounds. 6. Methicillin-resistant Staphylococcus aureus nares colonization. 7. Encephalopathy. 8. ALLERGY TO PENICILLIN. PLAN: The patient remains stable, off abx. Pending trach. MAJOR staff Problems: NALINI SHARP NP Jul 25, 2016 14:46
[2016-07-25] MEDS ORDERED: EPHEDrine SULFATE 50 MG/5 ML SYG ONE (15:31)
--- NOTE | 2016-07-25 15:54 | OPR ---
DATE OF OPERATION: 07/25/2016 PREOPERATIVE DIAGNOSIS: Respiratory failure. POSTOPERATIVE DIAGNOSIS: Respiratory failure. OPERATION PERFORMED: Tracheostomy. SURGEON: Fuad Valencia MD ANESTHESIA: Local. CONSENT: Risks, benefits, complications, alternative therapies explained to the patient and the [facility] miri, consent obtained. OPERATIVE TECHNIQUE: The patient was placed in supine position, prepped and draped in usual sterile fashion, 1% lidocaine was used throughout the operation for local anesthesia. I made a 1 cm incis ion, 1 cm superior to the sternal notch. Incision was taken down to the subcutaneous tissue which w as then opened using Metzenbaum scissors. Access was gained into the trachea. Guidewire was advanc ed through without any difficulty. Subcutaneous tissues and the trachea were enlarged using progres sively larger dilators. Endotracheal tube was removed. An 8 cuffed tracheostomy tube advanced into the trachea, secured to the skin using 4-0 nylon sutures and a trach tie. Patient tolerated proced ure well. Dictated By: FUAD BIRMINGHAM/LEISA Conf#: [id number] DID#: [id number]
--- NOTE | 2016-07-25 17:38 | PN ---
DATE: 07/25/2016 The patient is status post trach and PEG. Trach was just placed. Upon saying his name or any words , he does open his eyes today. He was moving them to the side more. Difficult to know if he unders tands. Overall some improvement: VITAL SIGNS: Temperature 98.3, pulse 85, respirations 18, blood pressure 115/60, saturation 100% on 30% FIO2. GENERAL: Patient in no acute distress. HEENT: Normocephalic, atraumatic. CARDIOVASCULAR: S1, S2, regular rate and rhythm. LUNGS: Clear. ABDOMEN: Soft. EXTREMITIES: Left AKA, right. Severe contraction of the right lower extremity at the knee. Some c ontractures of his upper extremities. LABORATORY DATA: White count is 7.9, hemoglobin 8.8, hematocrit 26, platelet count is 260, neutroph ils 58, lymphocytes 17%. Chemistry: Sodium 133, potassium 4.1, chloride 99, bicarbonate 24, BUN is 20, creatinine 0.64, glucose of 105. MEDICATIONS: Include: 1. D5 normal saline at 50 mL an hour. 2. Ativan p.r.n. 3. Baclofen 10 t.i.d. 4. Morphine p.r.n. 5. Dilaudid p.r.n. 6. Norvasc 5 b.i.d. 7. Hydralazine 25 q.4h. p.r.n. 8. Bactroban ointment b.i.d. 9. Santyl daily. 10. Protonix 40 IV daily. 11. Heparin 5000 subcu q.12. 12. Albuterol and Atrovent inhaler every 4 h 13. Zofran p.r.n. 14. Zofran p.r.n. 15. Breathing treatments p.r.n. No radiographic imaging today. ASSESSMENT AND PLAN: This is an unfortunate 75-year-old male with history of: 1. Metastatic bladder cancer to the liver. 2. Left yaesj-ren-dblc amputation. 3. Malnutrition. 4. Chronic obstructive pulmonary disease who presented with bacteremia and cardiac arrest. PLAN: 1. Respiratory. Status post trach placement. Continue O2 support. 2. Cardiovascular. The patient is off pressors. Continue heparin for DVT prophylaxis. Blood pres sure is controlled. 3. Infectious disease. Status post treated for bacteremia and wound infection. Infectious disease is following. Currently off antibiotics. 4. Metastatic bladder cancer stage IV. Continue supportive care. Overall prognosis is poor. 5. Hyponatremia. Change IV fluids to D5 normal saline. 6. Encephalopathy, multifactorial, status post cardiopulmonary arrest, slightly improved. Case dis cussed as well with Dr. Hassan. The patient may be able to be transferred to the telemetry unit a nd then a subacute facility soon. 7. Dysphagia. Continue G-tube feedings to be restarted 2 hours after trach placement as instructed by the vascular surgeon. We will follow. Dictated By: JEREMIAS BELTRAN/LEISA Conf#: [id number] DID#: [id number]
[2016-07-26] VITALS (36 sets, daily range): BP systolic 99–123; BP diastolic 51–68; PULSE 84–110; RESP 13–27
[2016-07-26] MEDS: ALBUTEROL HFA 8 GM INHALER INH SCH ×6 (01:03→20:55)
[2016-07-26] MEDS: IPRATROPIUM (HFA) 12.9 GM INHALER INH SCH ×6 (01:03→20:55)
[2016-07-26 05:00] LABS: BASOPHIL # 0.1 10^3/ul (0.0-0.1); BASOPHILS % 0.6 % (0.0-2.0); EOSINOPHILS # 0.9 10^3/ul (0.0-0.5); HEMATOCRIT 23.1 % (42.0-52.0); HEMOGLOBIN 7.8 g/dl (14.0-18.0); LYMPHOCYTES # 1.4 10^3/ul (0.8-2.9); LYMPHOCYTES % 13.8 % (15.0-51.0); MEAN CORPUSCULAR HEMOGLOBIN 29.9 pg (29.0-33.0); MEAN CORPUSCULAR HGB CONC 33.7 g/dl (32.0-37.0); MEAN CORPUSCULAR VOLUME 88.8 fl (82.0-101.0); MEAN PLATELET VOLUME 7.4 fl (7.4-10.4); MONOCYTE # 1.2 10^3/ul (0.3-0.9); NEUTROPHIL # 6.5 10^3/ul (1.6-7.5); NEUTROPHILS % 64.6 % (39.0-77.0); PLATELET COUNT 282 10^3/UL (140-440); RED BLOOD COUNT 2.61 10^6/ul (4.70-6.10); RED CELL DISTRIBUTION WIDTH 18.8 % (11.5-14.5); UNCORRECTED WBC 10.1 10^3/ul (4.8-10.8); WHITE BLOOD COUNT 10.1 10^3/ul (4.8-10.8)
[2016-07-26 05:13] LABS: CONDITION 1; LH ANALYZER COMMENTS 1
[2016-07-26] MEDS: DEXTROSE 5%-0.9% NACL 1,000 ML IV SCH (05:36)
[2016-07-26] MEDS: PANTOPRAZOLE 40 MG INJ IV SCH (05:36)
[2016-07-26 05:48] LABS: POTASSIUM 3.5 mmol/L (3.5-5.1)
[2016-07-26 05:51] LABS: CREATININE 0.68 mg/dl (0.61-1.24)
[2016-07-26 05:52] LABS: CALCIUM 8.2 mg/dl (8.4-10.2)
[2016-07-26 07:08] LABS: MAGNESIUM 1.9 mg/dl (1.7-2.5); PHOSPHORUS 3.2 mg/dl (2.5-4.9)
[2016-07-26] MEDS: AMLODIPINE 5 MG TAB NGT SCH (09:00)
[2016-07-26] MEDS: BACLOFEN 10 MG TAB NGT SCH ×3 (09:23→21:04)
[2016-07-26] MEDS: COLLAGENASE 30 GM TUBE TOP SCH (09:24)
[2016-07-26] MEDS: MUPIROCIN 2% 22 GM OINT TOP SCH ×2 (09:25→21:00)
[2016-07-26] MEDS: HEPARIN 5,000 UNIT/0.5 ML SYG SC SCH ×2 (09:26→21:06)
--- NOTE | 2016-07-26 09:29 | CONS ---
Date/Time of Note Date/Time of Note DATE: 07/26/16 TIME: 09:28 Consult Date/Type/Reason Admit Date/Time Jul 08, 2016 at 09:32 Type of Consultation: pulmonary Subjective Status post tracheostomy Objective Vital Signs Date Time Temp Pulse Resp B/P Pulse Ox O2 Delivery O2 Flow Rate FiO2 07/26/16 09:00 100 19 104/60 99 Mechanical Ventilator 07/26/16 08:00 97.0 07/26/16 04:56 30 Intake and Output 07/25/16 07/25/16 07/26/16 15:00 23:00 07:00 Intake Total 397 ml 520 ml 490 ml Output Total 340 ml 370 ml 290 ml Balance 57 ml 150 ml 200 ml PHYSICAL EXAMINATION GENERAL: Elderly gentleman, continues mechanical ventilation VITAL SIGNS: see below. HEENT: Pupils equal, round, and reactive to light. CARDIAC: S1, S2, tachycardia. CHEST: Diminished air entry bilaterally. ABDOMEN: Mildly distended. Diminished bowel sounds EXTREMITIES: No cyanosis, clubbing edema +1 NEUROLOGIC: Unable to assess Results/Medications Result Diagram: 07/26/16 0400 07/26/16 0400 Results 24 hrs Laboratory Tests Test 07/26/16 04:00 07/26/16 04:10 Anion Gap 14 Basophils # 0.1 Basophils % 0.6 Blood Morphology Comment Blood Urea Nitrogen 16 Calcium Level 8.2 L Carbon Dioxide Level 24 Chloride Level 103 Creatinine 0.68 Eosinophils # 0.9 H Eosinophils % 9.0 H Glucose Level 123 Hematocrit 23.1 L Hemoglobin 7.8 L Lymphocytes # 1.4 Lymphocytes % 13.8 L Mean Corpuscular Hemoglobin 29.9 Mean Corpuscular Hemoglobin Concent 33.7 Mean Corpuscular Volume 88.8 Mean Platelet Volume 7.4 Monocytes # 1.2 H Monocytes % 12.0 H Neutrophils # 6.5 Neutrophils % 64.6 Nucleated Red Blood Cells # 0.0 Nucleated Red Blood Cells % 0.0 Platelet Count 282 Potassium Level 3.5 Red Blood Count 2.61 L Red Cell Distribution Width 18.8 H Sodium Level 137 White Blood Count 10.1 # Magnesium Level 1.9 Phosphorus Level 3.2 Medications Current Medications Ondansetron HCl (Zofran Inj) 4 mg Q6H PRN IV NAUSEA AND/OR VOMITING; Start at 13:30 Acetaminophen (Tylenol Liquid) 650 mg Q6H PRN PO PAIN LEVEL 1-3 OR FEVER Last administered on 07/15/16 15:49; Admin Dose 650 MG; Start 07/08/16 at 13:30 Pantoprazole (Protonix Iv) 40 mg DAILY@06 IV Last administered on 07/26/16 05 :36; Admin Dose 40 MG; Start 07/09/16 at 06:00 Heparin Sodium (Porcine) (Heparin (5000 Units/0.5 ml)) 5,000 unit Q12 SC Last administered on 07/26/16 09:26; Admin Dose 5,000 UNIT; Start 07/08/16 at 21: 00 Ipratropium [place] (Atrovent Hfa) 2 puff Q4 INH Last administered on 09:20; Admin Dose 2 PUFF; Start 07/08/16 at 21:00 Collagenase (Santyl) 1 applic DAILY TOP Last administered on 07/26/16 09:24; Admin Dose 1 APPLIC; Start 07/09/16 at 09:00 Mupirocin (Bactroban) 1 applic BID TOP Last administered on 07/26/16 09:25; Admin Dose 1 APPLIC; Start 07/10/16 at 12:30 Hydralazine HCl (Apresoline) 25 mg Q4 PRN GTB sbp>165; Start 07/17/16 at 16:30 Amlodipine Besylate (Norvasc) 5 mg BID NGT Last administered on 07/25/16 21: 27; Admin Dose 5 MG; Start 07/17/16 at 21:00 Morphine Sulfate (morphine) 4 mg Q2 PRN IV PAIN LEVEL 7-10 Last administered on 07/20/16 12:36; Admin Dose 4 MG; Start 07/18/16 at 13:30 Hydromorphone HCl (Dilaudid) 0.5 mg Q4H PRN IV PAIN Last administered on 11:14; Admin Dose 0.5 MG; Start 07/18/16 at 13:30 Baclofen (Lioresal) 10 mg TID NGT Last administered on 07/26/16 09:23; Admin Dose 10 MG; Start 07/18/16 at 21:00 Lorazepam 0.5 mg 0.5 mg Q2H PRN IV anxiety; Start 07/19/16 at 11:00 Dextrose/Sodium Chloride (D5-NS) 1,000 ml @ 50 mls/hr Q20H IV Last administered on 07/26/16at 05:36; Admin Dose 50 MLS/HR; Start 07/25/16 at 10:30 Assessment/Plan Chief Complaint/Hosp Course IMPRESSION AND PLAN: 1. s/p Septic shock. 2. Cardiopulmonary arrest. Likely anoxic encephalopathy 3. Metastatic bladder cancer. 4. Peripheral vascular disease with amputation. 5. Significant deconditioning and malnutrition. 6. Severe metabolic acidosis. Clinically improving 7. Hypoxemic respiratory failure unable to wean off mechanical ventilation secondary to above The patient will require: 1. Continued mechanical ventilation. Continue tracheostomy site care 2. Vasopressor support as needed 3. Broad-spectrum antibiotic coverage. Consider de-escalation 4. dvt/ gi prophylaxis 5. Sedation vacation 6. Continue G-tube feeding as tolerated Transfer to telemetry and then consider [place]ik Problems: YOGESH ADDISON MD, [facility] Jul 26, 2016 09:29
[2016-07-26] MEDS ORDERED: POTASSIUM CHLORIDE (SR) 20 MEQ TAB PO STA (10:32)
--- NOTE | 2016-07-26 12:42 | PN ---
DATE: 07/26/2016 SUBJECTIVE: The patient, again, is status post trach and PEG. Remains stable in the intensive care unit. Hemodynamically stable. The patient is arousable, but no meaningful response from him. The case discussed with the nursing staff in detail. PHYSICAL EXAMINATION: VITAL SIGNS: Temperature is 97, pulse 100, respirations 19, blood pressure 104/60, saturation is 99 %. The patient is afebrile. GENERAL: The patient is frail, pale, opening his eyes upon verbal stimuli. CARDIOVASCULAR: S1 and S2. LUNGS: Decreased bilaterally. Mild rhonchi. ABDOMEN: Soft, nontender. EXTREMITIES: Left AKA. Right leg severely contracted, with bandages on the right foot. The patient 's upper extremities are contracted as well. Slight redness and swelling on the left hand. LABORATORY: White count is 10.1, hemoglobin went down to 7.8, hematocrit 23, platelet count is 282, neutrophils 65%, lymphocytes 14%, monocytes 12%. Chemistry: Sodium is 137, potassium 3.5, chlorid e 103, bicarbonate 24, BUN is 16, creatinine 0.68 and a glucose of 123. Magnesium 1.9. No radiographic imaging. MEDICATIONS: Include the followin. D5 normal saline at 50 mL an hour, which we will discontinue. 2. Ativan 0.5 IV q.2 p.r.n. 3. Baclofen 10 t.i.d. 4. Morphine p.r.n. 5. Dilaudid p.r.n. 6. Norvasc 5 mg b.i.d. 7. Hydralazine p.r.n. 8. Bactroban b.i.d. to the nares. 9. Santyl daily as directed. 10. Protonix 40 IV daily, which can be switched to oral route. 11. Heparin 5000 subcutaneous q.12. 12. Ventolin and Atrovent every 4 hours. 13. Zofran p.r.n. 14. Albuterol and Atrovent p.r.n. 15. Tylenol p.r.n. ASSESSMENT AND PLAN: This is an unfortunate 75-year-old male with a history of metastatic bladder cancer to the liver, left above the knee amputation, malnutrition and COPD, who presented w ith bacteremia and cardiac arrest. 1. Respiratory. Status post trach. Continue O2 support. Try to transfer to [facility] for further care and weaning. 2. Cardiovascular. Currently off pressors. Observe. Continue heparin for DVT prophylaxis. Blood pressure is currently controlled. May decrease blood pressure medication, Norvasc, as his blood pre ssure is more on the lower side. 3. Infectious disease. Status post treatment for bacteremia and wound infection. ID is following. Afebrile. Monitor white count. 4. Metastatic bladder cancer stage IV to the liver. Continue supportive care. Prognosis is overal l poor. 5. Encephalopathy, multifactorial. The patient is status post cardiopulmonary arrest and overall ve ry debilitated. Will discuss further plans with family. 6. Dysphagia. Continue G-tube feedings, titrate it up, per dietitian. Hep-Lock and IV fluids othe rwise. 7. Continue wound care. Keep the patient comfortable as much as possible. 8. Continue Protonix for GI prophylaxis. 9. Continue Baclofen for muscle contractures and discomfort. Overall prognosis is poor. 10. Anemia. Consider transfusion. Continue to monitor. Hep-Lock IV fluids. If H and H continues to drop, will transfuse him packed red blood cells, as currently he remains hemodynamically stable. We will follow. There is no evidence of active bleeding. Dictated By: JEREMIAS BELTRNA/LEISA Conf#: [id number] DID#: [id number]
--- NOTE | 2016-07-26 12:53 | PN ---
Date/Time of Note Date/Time of Note DATE: 07/26/16 TIME: 12:52 Assessment/Plan Lines/Catheters IV Catheter Type (from Nrsg): Central Line Uriarte in Place (from Nrsg): Yes Assessment/Plan Chief Complaint/Hosp Course Resp failure SP tracheostomy will continue trach care vent support Problems: Subjective 24 Hr Interval Summary Constitutional: improved Pain Control: mild Exam/Review of Systems Vital Signs Vitals Vital Signs Date Time Temp Pulse Resp B/P Pulse Ox O2 Delivery O2 Flow Rate FiO2 07/26/16 12:00 102 07/26/16 11:20 22 100 30 07/26/16 09:00 104/60 Mechanical Ventilator 07/26/16 08:00 97.0 Intake and Output 07/25/16 07/25/16 07/26/16 15:00 23:00 07:00 Intake Total 397 ml 520 ml 510 ml Output Total 340 ml 370 ml 310 ml Balance 57 ml 150 ml 200 ml Exam ENMT: mucosa pink and moist, nl external ears & nose, nl lips & teeth, nl nasal mucosa & septum Neck: non-tender, supple Respiratory: clear to auscultation, normal air movement Cardiovascular: nl pulses, regular rate and rhythm Results Result Diagram: 07/26/1639907/26/16399 ELEANOR HAYDEN MD Jul 26, 2016 12:53
--- NOTE | 2016-07-26 14:08 | CONS ---
Date/Time of Note Date/Time of Note DATE: 07/26/16 TIME: 14:03 Assessment/Plan Assessment/Plan Chief Complaint/Hosp Course INFECTIOUS DISEASE PROGRESS NOTE 24H INTERVAL SUMMARY * Noncommunicative => s/p Trach placement , s/p PEG * OFF ABX w/mild rise in WBC post Trach = likely reactive PHYSICAL EXAMINATION: GENERAL: Cachectic, chronically ill-appearing, elderly man respiratory failure HEENT: Unremarkable NECK:(+)Trach -> Secure to Vent CHEST: Chest rise is symmetrical, course BS HEART: NSR on tele ABDOMEN: PEG binder EXTREMITIES: Without cyanosis. SKIN: See photos (+)decubs, wounds ID ASSESSMENT: 1. s/p Severe sepsis, status post septic shock. 2. Polymicrobial septicemia-> BCx on admission (+)VRE/(+)S-CoNS #1/(+)S-CoNS # 2 * Repeat BCx (-) 3. Acute hypoxic respiratory failure-> VDRF, s/p Trach 4. Acute COPD exacerbation: Emphysema dominant = CXR w/ Hyperinflated lungs with no focal infiltrate pleural effusion or pneumothorax. 5. Aspiration Pneumonitis * Dysphagia -> s/p peg 6. Multiple non-stageable wounds. * 07/09/16 R-Foot Wound Cx (+)S-CoNS 7. Metastatic bladder cancer. 8. Anemia. 9. Rash. Status post Elimite cream. (+)MRSA Nares -> Bactroban INVASIVES: L-SC TLC, PEG, Trach CURRENT ABX: OFF ABX s/p Zyvox + Primaxin ID PLAN: Continue to observe OFF ABX WBC rising today slightly = post Trach placement reactive No ABX unless recurrent fevers and/or clinical evidence of sepsis -> Repeat Micro PRN indicators . . Problems: Consultation Date/Type/Reason Admit Date/Time Jul 08, 2016 at 09:32 Type of Consultation: ID Exam/Review of Systems Vital Signs Vitals Vital Signs Date Time Temp Pulse Resp B/P Pulse Ox O2 Delivery O2 Flow Rate FiO2 07/26/16 12:00 102 07/26/16 11:20 22 100 30 07/26/16 09:00 104/60 Mechanical Ventilator 07/26/16 08:00 97.0 Intake and Output 07/25/16 07/25/16 07/26/16 15:00 23:00 07:00 Intake Total 397 ml 520 ml 510 ml Output Total 340 ml 370 ml 310 ml Balance 57 ml 150 ml 200 ml Results Result Diagram: 07/26/16 0400 07/26/16 0400 Results 24 hrs Laboratory Tests Test 07/26/16 04:00 07/26/16 04:10 Anion Gap 14 Basophils # 0.1 Basophils % 0.6 Blood Morphology Comment Blood Urea Nitrogen 16 Calcium Level 8.2 L Carbon Dioxide Level 24 Chloride Level 103 Creatinine 0.68 Eosinophils # 0.9 H Eosinophils % 9.0 H Glucose Level 123 Hematocrit 23.1 L Hemoglobin 7.8 L Lymphocytes # 1.4 Lymphocytes % 13.8 L Mean Corpuscular Hemoglobin 29.9 Mean Corpuscular Hemoglobin Concent 33.7 Mean Corpuscular Volume 88.8 Mean Platelet Volume 7.4 Monocytes # 1.2 H Monocytes % 12.0 H Neutrophils # 6.5 Neutrophils % 64.6 Nucleated Red Blood Cells # 0.0 Nucleated Red Blood Cells % 0.0 Platelet Count 282 Potassium Level 3.5 Red Blood Count 2.61 L Red Cell Distribution Width 18.8 H Sodium Level 137 White Blood Count 10.1 # Magnesium Level 1.9 Phosphorus Level 3.2 Medications Medications Current Medications Ondansetron HCl (Zofran Inj) 4 mg Q6H PRN IV NAUSEA AND/OR VOMITING; Start at 13:30 Acetaminophen (Tylenol Liquid) 650 mg Q6H PRN PO PAIN LEVEL 1-3 OR FEVER Last administered on 07/15/16at 15:49; Admin Dose 650 MG; Start 07/08/16 at 13:30 Heparin Sodium (Porcine) (Heparin (5000 Units/0.5 ml)) 5,000 unit Q12 SC Last administered on 07/26/16 09:26; Admin Dose 5,000 UNIT; Start 07/08/16 at 21: 00 Ipratropium [place] (Atrovent Hfa) 2 puff Q4 INH Last administered on 09:20; Admin Dose 2 PUFF; Start 07/08/16 at 21:00 Collagenase (Santyl) 1 applic DAILY TOP Last administered on 07/26/16 09:24; Admin Dose 1 APPLIC; Start 07/09/16 at 09:00 Mupirocin (Bactroban) 1 applic BID TOP Last administered on 12/31/16at 09:25; Admin Dose 1 APPLIC; Start 07/10/16 at 12:30 Hydralazine HCl (Apresoline) 25 mg Q4 PRN GTB sbp>165; Start 07/17/16 at 16:30 Morphine Sulfate (morphine) 4 mg Q2 PRN IV PAIN LEVEL 7-10 Last administered on 07/20/16at 12:36; Admin Dose 4 MG; Start 07/18/16 at 13:30 Hydromorphone HCl (Dilaudid) 0.5 mg Q4H PRN IV PAIN Last administered on at 11:14; Admin Dose 0.5 MG; Start 07/18/16 at 13:30 Baclofen (Lioresal) 10 mg TID NGT Last administered on 07/26/16at 12:39; Admin Dose 10 MG; Start 07/18/16 at 21:00 Lorazepam (Ativan) 0.5 mg Q2H PRN IV anxiety; Start 07/19/16 at 11:00 Amlodipine Besylate (Norvasc) 5 mg DAILY NGT ; Start 07/27/16 at 09:00 Lansoprazole (Prevacid) 30 mg DAILY@06 GTB ; Start 07/27/16 at 06:00 SUSHANT INTERIANO NP Jul 26, 2016 14:08
[2016-07-27] VITALS (25 sets, daily range): BP systolic 100–126; BP diastolic 53–65; PULSE 82–105; RESP 18–29
[2016-07-27] MEDS: MUPIROCIN 2% 22 GM OINT TOP SCH ×3 (01:07→22:28)
[2016-07-27] MEDS: IPRATROPIUM (HFA) 12.9 GM INHALER INH SCH ×6 (01:15→20:50)
[2016-07-27] MEDS: ALBUTEROL HFA 8 GM INHALER INH SCH ×6 (01:15→20:50)
[2016-07-27] MEDS: LANSOPRAZOLE 30 MG CAP GTB SCH (06:07)
[2016-07-27 06:50] LABS: BASOPHIL # 0.1 10^3/ul (0.0-0.1); BASOPHILS % 0.6 % (0.0-2.0); EOSINOPHILS # 1.2 10^3/ul (0.0-0.5); EOSINOPHILS % 13.4 % (0.0-7.0); HEMATOCRIT 21.8 % (42.0-52.0); HEMOGLOBIN 7.3 g/dl (14.0-18.0); LYMPHOCYTES # 1.2 10^3/ul (0.8-2.9); LYMPHOCYTES % 13.4 % (15.0-51.0); MEAN CORPUSCULAR HGB CONC 33.4 g/dl (32.0-37.0); MEAN CORPUSCULAR VOLUME 89.8 fl (82.0-101.0); MEAN PLATELET VOLUME 7.7 fl (7.4-10.4); NEUTROPHIL # 5.5 10^3/ul (1.6-7.5); NEUTROPHILS % 61.6 % (39.0-77.0); PLATELET COUNT 272 10^3/UL (140-440); RED BLOOD COUNT 2.43 10^6/ul (4.70-6.10); RED CELL DISTRIBUTION WIDTH 19.1 % (11.5-14.5)
[2016-07-27 07:08] LABS: CONDITION 1; LH ANALYZER COMMENTS 1
[2016-07-27 07:14] LABS: POTASSIUM 3.9 mmol/L (3.5-5.1)
[2016-07-27 07:17] LABS: CREATININE 0.7 mg/dl (0.61-1.24)
[2016-07-27 07:18] LABS: CALCIUM 8.4 mg/dl (8.4-10.2)
[2016-07-27] MEDS: COLLAGENASE 30 GM TUBE TOP SCH (08:39)
[2016-07-27] MEDS: BACLOFEN 10 MG TAB NGT SCH ×3 (08:39→22:28)
[2016-07-27] MEDS: HEPARIN 5,000 UNIT/0.5 ML SYG SC SCH ×2 (08:41→22:43)
[2016-07-27] MEDS ORDERED: AMLODIPINE 5 MG TAB NGT SCH (09:00)
--- NOTE | 2016-07-27 09:22 | CONS ---
Date/Time of Note Date/Time of Note DATE: 07/26/16 TIME: 22:21 Assessment/Plan Assessment/Plan Chief Complaint/Hosp Course IMPRESSION: 1. Anoxic encephalopathy. 2. Respiratory failure. 3. Dysphagia s/p PEG,tolerating feeding. 4. 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 5. Sepsis. 6. Renal insufficiency. 7. Anemia. 8. History of nicotine addiction. 9. Right foot wound and sacral wound. 10. Left above-knee amputation. Plan continue tube feeds continue other supportive care Problems: Consultation Date/Type/Reason Admit Date/Time Jul 08, 2016 at 09:32 Initial Consult Date 07/12/16 Type of Consultation: GI 24 HR Interval Summary Subjective hx not possible: pt non-verbal Constitutional: improved Exam/Review of Systems Vital Signs Vitals Vital Signs Date Time Temp Pulse Resp B/P Pulse Ox O2 Delivery O2 Flow Rate FiO2 07/27/16 08:44 82 07/27/16 08:30 22 100 30 07/27/16 07:59 98.5 106/53 07/26/16 14:00 Mechanical Ventilator Intake and Output 07/26/16 07/26/16 07/27/16 15:00 23:00 07:00 Intake Total 385 ml 230 ml 560 ml Output Total 185 ml 100 ml 380 ml Balance 200 ml 130 ml 180 ml Exam Constitutional: non-verbal Psych: confusion Head: atraumatic, normocephalic Eyes: nl lids ENMT: mucosa pink and moist, nl external ears & nose, nl lips & teeth, nl nasal mucosa & septum Neck: non-tender, supple Respiratory: clear to auscultation, normal air movement Cardiovascular: nl pulses, regular rate and rhythm Gastrointestinal: bowel sounds, non-tender, soft Results Result Diagram: 07/27/16 0600 07/27/16 0600 Results 24 hrs Laboratory Tests Test 07/27/16 06:00 Anion Gap 12 Basophils # 0.1 Basophils % 0.6 Blood Morphology Comment Blood Urea Nitrogen 18 Calcium Level 8.4 Carbon Dioxide Level 26 Chloride Level 107 Creatinine 0.70 Eosinophils # 1.2 H Eosinophils % 13.4 H Glucose Level 101 Hematocrit 21.8 L Hemoglobin 7.3 L Lymphocytes # 1.2 Lymphocytes % 13.4 L Mean Corpuscular Hemoglobin 30.0 Mean Corpuscular Hemoglobin Concent 33.4 Mean Corpuscular Volume 89.8 Mean Platelet Volume 7.7 Monocytes # 1.0 H Monocytes % 11.0 Neutrophils # 5.5 Neutrophils % 61.6 Nucleated Red Blood Cells # 0.0 Nucleated Red Blood Cells % 0.0 Platelet Count 272 Potassium Level 3.9 Red Blood Count 2.43 L Red Cell Distribution Width 19.1 H Sodium Level 141 White Blood Count 9.0 Medications Medications Current Medications Ondansetron HCl (Zofran Inj) 4 mg Q6H PRN IV NAUSEA AND/OR VOMITING; Start at 13:30 Acetaminophen (Tylenol Liquid) 650 mg Q6H PRN PO PAIN LEVEL 1-3 OR FEVER Last administered on 07/15/16at 15:49; Admin Dose 650 MG; Start 07/08/16 at 13:30 Heparin Sodium (Porcine) (Heparin (5000 Units/0.5 ml)) 5,000 unit Q12 SC Last administered on 07/27/16 08:41; Admin Dose 5,000 UNIT; Start 07/08/16 at 21:00 Ipratropium [place] (Atrovent Hfa) 2 puff Q4 INH Last administered on 07/27/16 08:29; Admin Dose 2 PUFF; Start 07/08/16 at 21:00 Collagenase (Santyl) 1 applic DAILY TOP Last administered on 07/27/16 08:39; Admin Dose 1 APPLIC; Start 07/09/16 at 09:00 Mupirocin (Bactroban) 1 applic BID TOP Last administered on 07/27/16 08:39; Admin Dose 1 APPLIC; Start 07/10/16 at 12:30 Hydralazine HCl (Apresoline) 25 mg Q4 PRN GTB sbp>165; Start 07/17/16 at 16:30 Morphine Sulfate (morphine) 4 mg Q2 PRN IV PAIN LEVEL 7-10 Last administered on 07/20/16at 12:36; Admin Dose 4 MG; Start 07/18/16 at 13:30 Hydromorphone HCl (Dilaudid) 0.5 mg Q4H PRN IV PAIN Last administered on at 11:14; Admin Dose 0.5 MG; Start 07/18/16 at 13:30 Baclofen (Lioresal) 10 mg TID NGT Last administered on 07/27/16 08:39; Admin Dose 10 MG; Start 07/18/16 at 21:00 Lorazepam (Ativan) 0.5 mg Q2H PRN IV anxiety; Start 07/19/16 at 11:00 Lansoprazole (Prevacid) 30 mg DAILY@06 GTB Last administered on 07/27/16t 06:07 ; Admin Dose 30 MG; Start 07/27/16 at 06:00 FAMILIA PETTIT MD Jul 27, 2016 09:21
--- NOTE | 2016-07-27 11:12 | CONS ---
Date/Time of Note Date/Time of Note DATE: 07/27/16 TIME: 11:10 Consult Date/Type/Reason Admit Date/Time Jul 08, 2016 at 09:32 Type of Consultation: pulmonary Subjective Patient stable no new events Objective Vital Signs Date Time Temp Pulse Resp B/P Pulse Ox O2 Delivery O2 Flow Rate FiO2 07/27/16 08:44 82 07/27/16 08:30 22 100 30 07/27/16 07:59 98.5 106/53 07/26/16 14:00 Mechanical Ventilator Intake and Output 07/26/16 07/26/16 07/27/16 15:00 23:00 07:00 Intake Total 385 ml 230 ml 560 ml Output Total 185 ml 100 ml 380 ml Balance 200 ml 130 ml 180 ml PHYSICAL EXAMINATION GENERAL: Elderly gentleman, continues mechanical ventilation VITAL SIGNS: see below. HEENT: Pupils equal, round, and reactive to light. CARDIAC: S1, S2, tachycardia. CHEST: Diminished air entry bilaterally. ABDOMEN: Mildly distended. Diminished bowel sounds EXTREMITIES: No cyanosis, clubbing edema +1 NEUROLOGIC: Unable to assess Results/Medications Result Diagram: 07/27/16 0600 07/27/16 0600 Results 24 hrs Laboratory Tests Test 07/27/16 06:00 Anion Gap 12 Basophils # 0.1 Basophils % 0.6 Blood Morphology Comment Blood Urea Nitrogen 18 Calcium Level 8.4 Carbon Dioxide Level 26 Chloride Level 107 Creatinine 0.70 Eosinophils # 1.2 H Eosinophils % 13.4 H Glucose Level 101 Hematocrit 21.8 L Hemoglobin 7.3 L Lymphocytes # 1.2 Lymphocytes % 13.4 L Mean Corpuscular Hemoglobin 30.0 Mean Corpuscular Hemoglobin Concent 33.4 Mean Corpuscular Volume 89.8 Mean Platelet Volume 7.7 Monocytes # 1.0 H Monocytes % 11.0 Neutrophils # 5.5 Neutrophils % 61.6 Nucleated Red Blood Cells # 0.0 Nucleated Red Blood Cells % 0.0 Platelet Count 272 Potassium Level 3.9 Red Blood Count 2.43 L Red Cell Distribution Width 19.1 H Sodium Level 141 White Blood Count 9.0 Medications Current Medications Ondansetron HCl (Zofran Inj) 4 mg Q6H PRN IV NAUSEA AND/OR VOMITING; Start at 13:30 Acetaminophen (Tylenol Liquid) 650 mg Q6H PRN PO PAIN LEVEL 1-3 OR FEVER Last administered on 07/15/16at 15:49; Admin Dose 650 MG; Start 07/08/16 at 13:30 Heparin Sodium (Porcine) (Heparin (5000 Units/0.5 ml)) 5,000 unit Q12 SC Last administered on 07/27/16 08:41; Admin Dose 5,000 UNIT; Start 07/08/16 at 21:00 Ipratropium [place] (Atrovent Hfa) 2 puff Q4 INH Last administered on 07/27/16 08:29; Admin Dose 2 PUFF; Start 07/08/16 at 21:00 Collagenase (Santyl) 1 applic DAILY TOP Last administered on 07/27/16 08:39; Admin Dose 1 APPLIC; Start 07/09/16 at 09:00 Mupirocin (Bactroban) 1 applic BID TOP Last administered on 07/27/16 08:39; Admin Dose 1 APPLIC; Start 07/10/16 at 12:30 Hydralazine HCl (Apresoline) 25 mg Q4 PRN GTB sbp>165; Start 07/17/16 at 16:30 Morphine Sulfate (morphine) 4 mg Q2 PRN IV PAIN LEVEL 7-10 Last administered on 07/20/16at 12:36; Admin Dose 4 MG; Start 07/18/16 at 13:30 Hydromorphone HCl (Dilaudid) 0.5 mg Q4H PRN IV PAIN Last administered on at 11:14; Admin Dose 0.5 MG; Start 07/18/16 at 13:30 Baclofen (Lioresal) 10 mg TID NGT Last administered on 07/27/16 08:39; Admin Dose 10 MG; Start 07/18/16 at 21:00 Lorazepam (Ativan) 0.5 mg Q2H PRN IV anxiety; Start 07/19/16 at 11:00 Lansoprazole (Prevacid) 30 mg DAILY@06 GTB Last administered on 07/27/16 06:07 ; Admin Dose 30 MG; Start 07/27/16 at 06:00 Assessment/Plan Chief Complaint/Hosp Course IMPRESSION AND PLAN: 1. s/p Septic shock. 2. Cardiopulmonary arrest. Likely anoxic encephalopathy 3. Metastatic bladder cancer. 4. Peripheral vascular disease with amputation. 5. Significant deconditioning and malnutrition. 6. Severe metabolic acidosis. Clinically improving 7. Hypoxemic respiratory failure unable to wean off mechanical ventilation secondary to above The patient will require: 1. Continued mechanical ventilation. Continue tracheostomy site care 2. Vasopressor support as needed 3. Broad-spectrum antibiotic coverage. Consider de-escalation 4. dvt/ gi prophylaxis 5. Sedation vacation 6. Continue G-tube feeding as tolerated Pending Malik evaluation Problems: YOGESH ADDISON MD, [facility] Jul 27, 2016 11:12
[2016-07-27 11:40] LABS: MAGNESIUM 1.9 mg/dl (1.7-2.5); PHOSPHORUS 2.8 mg/dl (2.5-4.9)
[2016-07-27] MEDS: ZINC SULFATE 220 MG CAP GTB SCH (12:30)
[2016-07-27] MEDS: ASCORBIC ACID 500 MG TAB GTB SCH ×2 (12:30→22:28)
[2016-07-27] MEDS: MULTIVITAMINS THERAPEUTIC TAB PO SCH (12:30)
--- NOTE | 2016-07-27 15:54 | CONS ---
Date/Time of Note Date/Time of Note DATE: 07/27/16 TIME: 15:53 Assessment/Plan Assessment/Plan Chief Complaint/Hosp Course INFECTIOUS DISEASE PROGRESS NOTE 24H INTERVAL SUMMARY * Clinically stable, no new issues == MURRAY TRANS EVAL in process * Noncommunicative => s/p Trach placement , s/p PEG * OFF ABX, no Fevers, WBC WNL PHYSICAL EXAMINATION: GENERAL: Cachectic, chronically ill-appearing, elderly man respiratory failure HEENT: Unremarkable NECK:(+)Trach -> Secure to Vent CHEST: Chest rise is symmetrical, course BS HEART: NSR on tele ABDOMEN: PEG binder EXTREMITIES: Without cyanosis. SKIN: See photos (+)decubs, wounds ID ASSESSMENT: 1. s/p Severe sepsis, status post septic shock. 2. Polymicrobial septicemia-> BCx on admission (+)VRE/(+)S-CoNS #1/(+)S-CoNS # 2 * Repeat BCx (-) 3. Acute hypoxic respiratory failure-> VDRF, s/p Trach 4. Acute COPD exacerbation: Emphysema dominant = CXR w/ Hyperinflated lungs with no focal infiltrate pleural effusion or pneumothorax. 5. Aspiration Pneumonitis * Dysphagia -> s/p peg 6. Multiple non-stageable wounds. * 07/09/16 R-Foot Wound Cx (+)S-CoNS 7. Metastatic bladder cancer. 8. Anemia. 9. Rash. Status post Elimite cream. (+)MRSA Nares -> Bactroban INVASIVES: L-SC TLC, PEG, Trach CURRENT ABX: OFF ABX s/p Zyvox + Primaxin ID PLAN: Continue to observe OFF ABX No ABX unless recurrent fevers and/or clinical evidence of sepsis -> Repeat Micro PRN indicators MURRAY EVAL in process . . Problems: Consultation Date/Type/Reason Admit Date/Time Jul 08, 2016 at 09:32 Type of Consultation: ID Exam/Review of Systems Vital Signs Vitals Vital Signs Date Time Temp Pulse Resp B/P Pulse Ox O2 Delivery O2 Flow Rate FiO2 07/27/16 13:01 93 07/27/16 12:14 98.2 18 126/65 97 07/27/16 11:10 30 07/26/16 14:00 Mechanical Ventilator Intake and Output 07/26/16 07/26/16 07/27/16 15:00 23:00 07:00 Intake Total 385 ml 230 ml 560 ml Output Total 185 ml 100 ml 380 ml Balance 200 ml 130 ml 180 ml Results Result Diagram: 07/27/16 0600 07/27/16 0600 Results 24 hrs Laboratory Tests Test 07/27/16 06:00 07/27/16 10:30 Anion Gap 12 Basophils # 0.1 Basophils % 0.6 Blood Morphology Comment Blood Urea Nitrogen 18 Calcium Level 8.4 Carbon Dioxide Level 26 Chloride Level 107 Creatinine 0.70 Eosinophils # 1.2 H Eosinophils % 13.4 H Glucose Level 101 Hematocrit 21.8 L Hemoglobin 7.3 L Lymphocytes # 1.2 Lymphocytes % 13.4 L Mean Corpuscular Hemoglobin 30.0 Mean Corpuscular Hemoglobin Concent 33.4 Mean Corpuscular Volume 89.8 Mean Platelet Volume 7.7 Monocytes # 1.0 H Monocytes % 11.0 Neutrophils # 5.5 Neutrophils % 61.6 Nucleated Red Blood Cells # 0.0 Nucleated Red Blood Cells % 0.0 Platelet Count 272 Potassium Level 3.9 Red Blood Count 2.43 L Red Cell Distribution Width 19.1 H Sodium Level 141 White Blood Count 9.0 Magnesium Level 1.9 Phosphorus Level 2.8 Medications Medications Current Medications Ondansetron HCl (Zofran Inj) 4 mg Q6H PRN IV NAUSEA AND/OR VOMITING; Start at 13:30 Acetaminophen (Tylenol Liquid) 650 mg Q6H PRN PO PAIN LEVEL 1-3 OR FEVER Last administered on 07/15/16at 15:49; Admin Dose 650 MG; Start 07/08/16 at 13:30 Heparin Sodium (Porcine) (Heparin (5000 Units/0.5 ml)) 5,000 unit Q12 SC Last administered on 07/27/16 08:41; Admin Dose 5,000 UNIT; Start 07/08/16 at 21:00 Ipratropium [place] (Atrovent Hfa) 2 puff Q4 INH Last administered on 07/27/16 14:33; Admin Dose 2 PUFF; Start 07/08/16 at 21:00 Collagenase (Santyl) 1 applic DAILY TOP Last administered on 07/27/16 08:39; Admin Dose 1 APPLIC; Start 07/09/16 at 09:00 Mupirocin (Bactroban) 1 applic BID TOP Last administered on 07/27/16 08:39; Admin Dose 1 APPLIC; Start 07/10/16 at 12:30 Hydralazine HCl (Apresoline) 25 mg Q4 PRN GTB sbp>165; Start 07/17/16 at 16:30 Morphine Sulfate (morphine) 4 mg Q2 PRN IV PAIN LEVEL 7-10 Last administered on 07/20/16at 12:36; Admin Dose 4 MG; Start 07/18/16 at 13:30 Hydromorphone HCl (Dilaudid) 0.5 mg Q4H PRN IV PAIN Last administered on at 11:14; Admin Dose 0.5 MG; Start 07/18/16 at 13:30 Baclofen (Lioresal) 10 mg TID NGT Last administered on 07/27/16 14:40; Admin Dose 10 MG; Start 07/18/16 at 21:00 Lorazepam (Ativan) 0.5 mg Q2H PRN IV anxiety; Start 07/19/16 at 11:00 Lansoprazole (Prevacid) 30 mg DAILY@06 GTB Last administered on 07/27/16 06:07 ; Admin Dose 30 MG; Start 07/27/16 at 06:00 Multivitamins Therapeutic (Theragran) 1 tab DAILY PO ; Start 07/27/16 at 12:30 Zinc Sulfate (Zinc Sulfate) 220 mg DAILY GTB ; Start 07/27/16 at 12:30 Ascorbic Acid (Vitamin C) 500 mg BID GTB ; Start 07/27/16 at 12:30 SUSHANT INTERIANO NP Jul 27, 2016 15:54
--- NOTE | 2016-07-27 18:11 | PN ---
DATE: 07/27/2016 SUBJECTIVE: The patient was transferred to telemetry unit since he has been stable. The patient re gaurav lethargic, opens his eyes upon verbal stimuli, but unable to make meaningful connection includ ing look at me and the eyes or respond to questioning. Appreciate GI, pulmonary, ID followup. PHYSICAL EXAMINATION: VITAL SIGNS: Temperature is 98.5, pulse 82, respirations 22, blood pressure 106/53, saturation 100% on 30% FIO2. GENERAL: The patient is frail, lying in bed, comfortable, opens his eyes upon verbal stimuli. HEENT: Temporal wasting, pale. CARDIOVASCULAR: S1 and S2. LUNGS: Decreased bilaterally with adequate airway movement. ABDOMEN: Soft. EXTREMITIES: Left AKA, right lower extremity severely contracted. Right foot is banded as he has m ultiple wounds. The patient overall contracted in his upper extremities but no significant edema. Overall, he is very malnourished. LABORATORY DATA: White count is 9, hemoglobin 7.3, further is coming down, and hematocrit 22, plate lets 272, neutrophils 62%, lymphocytes 13%. Chemistry: Sodium 141, potassium 3.9, chloride 107, bi carbonate 26, BUN is 18, creatinine is 0.7, glucose 101. Recent blood cultures dated 07/10/2016 and 07/11/2016, were all negative. Urine culture 07/09/2016 were negative. No recent chest x-ray. MEDICATIONS INCLUDE 1. Prevacid 30 mg via G-tube/ 2. Ativan 500 IV q.2h. p.r.n. 3. Baclofen 10 t.i.d. 4. Morphine 4 mg IV q.2h. p.r.n. 5. Dilaudid 0.5 IV q.4h. p.r.n. 6. Hydralazine 25 q.4h. p.r.n. 7. Bactroban ointment to the nares b.i.d. 8. Santyl daily and p.r.n. 9. Heparin 5000 subcu q.12. 10. Albuterol and Atrovent every 4 hours. 11. Zofran p.r.n. 12. Albuterol p.r.n. 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 1. Respiratory. Continue with full ventilatory support on AC mode. Not a candidate for weaning se condary to his encephalopathy and multiple medical issues. May transfer to [facility] for further care and possible weaning. 2. Cardiovascular. Remains off pressors, on heparin for DVT prophylaxis. I have decrease his bloo d pressure medications, as it is currently controlled. 3. Infectious disease status post treatment for bacteremia. Continue Bactroban to the nares as he has MRSA. The patient is afebrile with normal white count. 4. Gastrointestinal. The patient with staff. H and H trending down. May consider transfusion. I n the meantime, he looks clinically stable, so again if H and H drops further, we will transfuse him packed red blood cells. I appreciate GI followup. 5. Encephalopathy, multifactorial. The patient is overall with multiple medical problems and statu s post cardiopulmonary arrest. 6. Dysphagia, remainder of G-tube feeding, titrate up per dietitian. Otherwise, Hep-Lock IV fluids . 7. Continue wound care. Add vitamins to continue air mattress bed, nutrition support. 8. Muscle contractures. Continue Baclofen and p.r.n. pain medications, anxiolytics to keep comfort able. 9. Metastatic bladder cancer. Continue supportive care. Overall, prognosis is poor. We will disc uss with family further plan of care. Overall, the patient does have a terminal illness and now sta tus post cardiac arrest and overall he has been quite deconditioned and malnourished and so overall long-term prognosis is not good. We would recommend comfort measures. We will follow. Dictated By: JEREMIAS BELTRAN/LEISA Conf#: [id number] DID#: [id number]
--- NOTE | 2016-07-27 19:49 | PN ---
Date/Time of Note Date/Time of Note DATE: 07/27/16 TIME: 19:49 Assessment/Plan Lines/Catheters IV Catheter Type (from Nrsg): Central Line Uriarte in Place (from Nrsg): Yes Assessment/Plan Chief Complaint/Hosp Course Resp failure SP tracheostomy will continue trach care vent support Problems: Subjective 24 Hr Interval Summary Constitutional: improved Pain Control: mild Exam/Review of Systems Vital Signs Vitals Vital Signs Date Time Temp Pulse Resp B/P Pulse Ox O2 Delivery O2 Flow Rate FiO2 07/27/16 19:15 98.5 96 21 110/55 97 07/27/16 18:15 30 07/26/16 14:00 Mechanical Ventilator Intake and Output 07/26/16 07/26/16 07/27/16 15:00 23:00 07:00 Intake Total 385 ml 230 ml 560 ml Output Total 185 ml 100 ml 380 ml Balance 200 ml 130 ml 180 ml Exam ENMT: mucosa pink and moist, nl external ears & nose, nl lips & teeth, nl nasal mucosa & septum Neck: non-tender, supple Respiratory: clear to auscultation, normal air movement Cardiovascular: nl pulses, regular rate and rhythm Results Result Diagram: 07/27/16 0600 07/27/16 0600 ELEANOR HAYDEN MD Jul 27, 2016 19:49
[2016-07-28] VITALS (23 sets, daily range): BP systolic 118–132; BP diastolic 56–64; PULSE 80–95; RESP 18–22
[2016-07-28] MEDS: ALBUTEROL HFA 8 GM INHALER INH SCH ×6 (02:30→21:19)
[2016-07-28] MEDS: IPRATROPIUM (HFA) 12.9 GM INHALER INH SCH ×6 (02:30→21:19)
[2016-07-28] MEDS: LANSOPRAZOLE 30 MG CAP GTB SCH ×2 (05:38→21:33)
[2016-07-28 06:31] LABS: BASOPHILS % 0.4 % (0.0-2.0); EOSINOPHILS # 1.5 10^3/ul (0.0-0.5); EOSINOPHILS % 15.5 % (0.0-7.0); HEMATOCRIT 22.5 % (42.0-52.0); HEMOGLOBIN 7.5 g/dl (14.0-18.0); LYMPHOCYTES # 1.2 10^3/ul (0.8-2.9); LYMPHOCYTES % 12.6 % (15.0-51.0); MEAN CORPUSCULAR HEMOGLOBIN 30.2 pg (29.0-33.0); MEAN CORPUSCULAR HGB CONC 33.4 g/dl (32.0-37.0); MEAN CORPUSCULAR VOLUME 90.2 fl (82.0-101.0); MEAN PLATELET VOLUME 7.9 fl (7.4-10.4); MONOCYTES % 10.1 % (0.0-11.0); NEUTROPHIL # 5.9 10^3/ul (1.6-7.5); NEUTROPHILS % 61.4 % (39.0-77.0); PLATELET COUNT 337 10^3/UL (140-440); RED CELL DISTRIBUTION WIDTH 19.8 % (11.5-14.5); UNCORRECTED WBC 9.5 10^3/ul (4.8-10.8); WHITE BLOOD COUNT 9.5 10^3/ul (4.8-10.8)
[2016-07-28 06:37] LABS: CONDITION 1; LH ANALYZER COMMENTS 1
[2016-07-28 06:53] LABS: MAGNESIUM 2.1 mg/dl (1.7-2.5); PHOSPHORUS 3.2 mg/dl (2.5-4.9)
[2016-07-28 06:57] LABS: POTASSIUM 4.4 mmol/L (3.5-5.1)
[2016-07-28 06:57] LABS: IRON 20 ug/dl (35-150)
[2016-07-28 06:59] LABS: CREATININE 0.7 mg/dl (0.61-1.24)
[2016-07-28 07:00] LABS: CALCIUM 8.7 mg/dl (8.4-10.2)
[2016-07-28 07:06] LABS: TOTAL IRON BINDING CAPACITY 182 ug/dl (241-421)
[2016-07-28] MEDS: BACLOFEN 10 MG TAB NGT SCH ×3 (08:16→21:33)
[2016-07-28] MEDS: ZINC SULFATE 220 MG CAP GTB SCH (08:16)
[2016-07-28] MEDS: ASCORBIC ACID 500 MG TAB GTB SCH ×2 (08:16→21:33)
[2016-07-28] MEDS: MULTIVITAMINS THERAPEUTIC TAB PO SCH (08:16)
[2016-07-28] MEDS: MUPIROCIN 2% 22 GM OINT TOP SCH ×2 (08:17→21:34)
[2016-07-28] MEDS: COLLAGENASE 30 GM TUBE TOP SCH (08:18)
[2016-07-28] MEDS: HEPARIN 5,000 UNIT/0.5 ML SYG SC SCH ×2 (08:19→21:38)
--- NOTE | 2016-07-28 09:27 | CONS ---
Date/Time of Note Date/Time of Note DATE: 07/28/16 TIME: 09:24 Assessment/Plan Assessment/Plan Chief Complaint/Hosp Course IMPRESSION: 1. Anoxic encephalopathy. 2. Respiratory failure. 3. Dysphagia s/p PEG,tolerating feeding. 4. 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 5. Sepsis. 6. Renal insufficiency. 7. Anemia. h/h now stable. 8. History of nicotine addiction. 9. Right foot wound and sacral wound. 10. Left above-knee amputation. Plan continue tube feeds check occult blood increase prevacid from once daily to bid dosing continue other supportive care consider EGD and colonoscopy if h/h down and occult blood positive Dr. Dixon to resume care of this patient tomorrow. Problems: Consultation Date/Type/Reason Admit Date/Time Jul 08, 2016 at 09:32 Initial Consult Date 07/12/16 Type of Consultation: GI 24 HR Interval Summary Free Text/Dictation opens his eyes upon verbal stimuli, but unable to make meaningful connection Subjective hx not possible: pt non-verbal Exam/Review of Systems Vital Signs Vitals Vital Signs Date Time Temp Pulse Resp B/P Pulse Ox O2 Delivery O2 Flow Rate FiO2 07/28/16 08:41 87 07/28/16 08:09 18 99 30 07/28/16 07:49 98.0 132/64 07/26/16 14:00 Mechanical Ventilator Intake and Output 07/27/16 07/27/16 07/28/16 15:00 23:00 07:00 Intake Total 640 ml 420 ml Output Total 500 ml 450 ml Balance 140 ml -30 ml Exam Constitutional: non-verbal Psych: confusion Head: atraumatic, normocephalic Eyes: EOMI, nl conjunctiva, nl lids, nl sclera ENMT: mucosa pink and moist, nl external ears & nose, nl lips & teeth, nl nasal mucosa & septum Neck: non-tender, supple Respiratory: clear to auscultation, normal air movement Cardiovascular: nl pulses, regular rate and rhythm Gastrointestinal: bowel sounds, non-tender, soft Results Result Diagram: 07/28/16 0544 07/28/16 0544 Results 24 hrs Laboratory Tests Test 07/27/16 10:30 07/28/16 05:00 07/28/16 05:44 Magnesium Level 1.9 2.1 Phosphorus Level 2.8 3.2 Iron Level 20 L Percent Iron Saturation 11 L Total Iron Binding Capacity 182 L Anion Gap 14 Basophils # 0.0 Basophils % 0.4 Blood Morphology Comment Blood Urea Nitrogen 20 Calcium Level 8.7 Carbon Dioxide Level 25 Chloride Level 108 Creatinine 0.70 Eosinophils # 1.5 H Eosinophils % 15.5 H Glucose Level 113 Hematocrit 22.5 L Hemoglobin 7.5 L Lymphocytes # 1.2 Lymphocytes % 12.6 L Mean Corpuscular Hemoglobin 30.2 Mean Corpuscular Hemoglobin Concent 33.4 Mean Corpuscular Volume 90.2 Mean Platelet Volume 7.9 Monocytes # 1.0 H Monocytes % 10.1 Neutrophils # 5.9 Neutrophils % 61.4 Nucleated Red Blood Cells # 0.0 Nucleated Red Blood Cells % 0.0 Platelet Count 337 # Potassium Level 4.4 Red Blood Count 2.50 L Red Cell Distribution Width 19.8 H Sodium Level 143 White Blood Count 9.5 Medications Medications Current Medications Ondansetron HCl (Zofran Inj) 4 mg Q6H PRN IV NAUSEA AND/OR VOMITING; Start at 13:30 Acetaminophen (Tylenol Liquid) 650 mg Q6H PRN PO PAIN LEVEL 1-3 OR FEVER Last administered on 07/15/16at 15:49; Admin Dose 650 MG; Start 07/08/16 at 13:30 Heparin Sodium (Porcine) (Heparin (5000 Units/0.5 ml)) 5,000 unit Q12 SC Last administered on 07/28/16 08:19; Admin Dose 5,000 UNIT; Start 07/08/16 at 21:00 Ipratropium [place] (Atrovent Hfa) 2 puff Q4 INH Last administered on 07/28/16 05:40; Admin Dose 2 PUFF; Start 07/08/16 at 21:00 Collagenase (Santyl) 1 applic DAILY TOP Last administered on 07/28/16 08:18; Admin Dose 1 APPLIC; Start 07/09/16 at 09:00 Mupirocin (Bactroban) 1 applic BID TOP Last administered on 07/28/16 08:17; Admin Dose 1 APPLIC; Start 07/10/16 at 12:30 Hydralazine HCl (Apresoline) 25 mg Q4 PRN GTB sbp>165; Start 07/17/16 at 16:30 Morphine Sulfate (morphine) 4 mg Q2 PRN IV PAIN LEVEL 7-10 Last administered on 07/20/16at 12:36; Admin Dose 4 MG; Start 07/18/16 at 13:30 Hydromorphone HCl (Dilaudid) 0.5 mg Q4H PRN IV PAIN Last administered on at 11:14; Admin Dose 0.5 MG; Start 07/18/16 at 13:30 Baclofen (Lioresal) 10 mg TID NGT Last administered on 07/28/16 08:16; Admin Dose 10 MG; Start 07/18/16 at 21:00 Lorazepam (Ativan) 0.5 mg Q2H PRN IV anxiety; Start 07/19/16 at 11:00 Lansoprazole (Prevacid) 30 mg DAILY@06 GTB Last administered on 07/28/16 05:38 ; Admin Dose 30 MG; Start 07/27/16 at 06:00 Multivitamins Therapeutic (Theragran) 1 tab DAILY PO Last administered on 08:16; Admin Dose 1 TAB; Start 07/27/16 at 12:30 Zinc Sulfate (Zinc Sulfate) 220 mg DAILY GTB Last administered on 07/28/16 08: 16; Admin Dose 220 MG; Start 07/27/16 at 12:30 Ascorbic Acid 500 mg 500 mg BID GTB Last administered on 07/28/16 08:16; Admin Dose 500 MG; Start 07/27/16 at 12:30 Ferric Sodium Gluconate Complex/ Sodium Chloride (Ferrlecit/NS) 110 ml @ 100 mls/hr ONCE IVPB ; Start 07/28/16 at 11:00; Stop 07/28/16 at 12:05 FAMILIA PETTIT MD Jul 28, 2016 09:27
--- NOTE | 2016-07-28 09:42 | PN ---
DATE: 07/28/2016 Patient seen, opens his eyes for any verbal stimuli, but no apparent understanding or does not follo w commands. H and H remains low, but stable. Vitals are overall stable as well. PHYSICAL EXAMINATION: VITAL SIGNS: Temperature is 98.0, pulse 86, respirations 20, blood pressure 132/64, saturation is 1 00% on 30% FIO2. GENERAL: The patient is frail, pale. CARDIOVASCULAR: S1 and S2. LUNGS: Decreased bilaterally. ABDOMEN: Soft, nontender. EXTREMITIES: Left AKA. Right foot banded; otherwise, no significant edema of the upper extremities . Overall, appears to be comfortable. LABORATORY DATA: White count is 9.5, hemoglobin 7.5, hematocrit 23, platelet count 337, neutrophils 61%, lymphocytes 12%, monocytes 10%, eosinophils 15%. Chemistry: Sodium 143, potassium 4.4, chlor shadia 108, bicarbonate 25, BUN is 20, creatinine 0.7, glucose of 113. Iron levels were low at 20, TIB C low at 182, percent saturation was low at 11%, suggestive of both iron deficiency anemia, anemia o f chronic disease. CURRENT MEDICATIONS: Include: 1. Multivitamin 1 tab daily. 2. Zinc sulfate 220 daily. 3. Vitamin C 500 mg b.i.d. 4. Prevacid 30 daily. 5. Ativan 0.5 IV q.2 p.r.n. 6. Baclofen 10 t.i.d. 7. Morphine 4 mg q.2 p.r.n. 8. Dilaudid 0.5 q.4 p.r.n. 9. Hydralazine 25 q.4 p.r.n. 10. Bactroban ointment b.i.d. 11. Santyl daily and p.r.n. 12. Heparin 5000 subcutaneous q.12h. 13. Albuterol and Atrovent every 4 hours. 14. Zofran p.r.n. 15. Breathing treatments p.r.n. 16. Tylenol p.r.n. ASSESSMENT AND PLAN: This is an unfortunate 75-year-old male with a history of metastatic bladder cancer to the liver, left ptzwi-dxs-fomw amputation, malnutrition, moderate to severe chron ic obstructive pulmonary disease, who presented with bacteremia, multiple decubitus wounds in the ri ght leg, was found to have bacteremia, also status post cardiac arrest in the emergency department. 1. Respiratory. Remains on full ventilatory support on AC mode, status post tracheostomy placement and awaiting placement at a subacute or [facility]. Pending placement. 2. Cardiovascular: Stable off pressors, on heparin for deep venous thrombosis prophylaxis. Blood pressure is controlled. 3. Infectious disease, status post bacteremia, positive methicillin-resistant Staphylococcus aureus of the nares. White count has been normal. The patient is afebrile. Infectious Disease is follow ing. 4. Gastrointestinal. Hemoglobin and hematocrit is low. He does have both iron deficiency anemia, anemia of chronic disease. May consider intravenous iron. No clear need for transfusion at this po int, as the patient is hemodynamically stable. 5. Encephalopathy, multifactorial, status post cardiac arrest. 7. Dysphagia. Continue gastrostomy tube feeding, titrate diet per dietitian. 8. Right foot wound. Continue nutritional support, wound care, Santyl. 9. Muscle contractures. Continue Baclofen and p.r.n. anxiolytics and opioids. 10. Metastatic bladder cancer to the liver, aggressive type, diagnosed in March. Progn osis is poor. 11. Left above knee amputation, overall very debilitated. Recommend comfort measures, as the patie nt, again, likely has anoxic brain injury. Will continue to follow. Transfer to [facility] if bed is available. Continue to monitor. Dictated By: JEREMIAS BELTRAN/LEISA Conf#: [id number] DID#: [id number]
[2016-07-28] MEDS ORDERED: SOD FERRIC GLUC COMPLX 125 MG in SOD CHLORIDE 0.9% 100 ML IVPB SCH (11:00)
--- NOTE | 2016-07-28 12:33 | CONS ---
Date/Time of Note Date/Time of Note DATE: 07/28/16 TIME: 12:31 Assessment/Plan Assessment/Plan Chief Complaint/Hosp Course INFECTIOUS DISEASE PROGRESS NOTE 24H INTERVAL SUMMARY * Persistent encephalopathy = debilitated w/poor prognosis bladder cancer w/mets , s/p Left above knee amputation * Clinically stable, no new issues == MURRAY TRANS EVAL in process * Noncommunicative => s/p Trach placement , s/p PEG * OFF ABX, no Fevers, WBC WNL PHYSICAL EXAMINATION: GENERAL: Cachectic, chronically ill-appearing, elderly man respiratory failure HEENT: Unremarkable NECK:(+)Trach -> Secure to Vent CHEST: Chest rise is symmetrical, course BS HEART: NSR on tele ABDOMEN: PEG binder EXTREMITIES: Without cyanosis. SKIN: See photos (+)decubs, wounds ID ASSESSMENT: 1. s/p Severe sepsis, status post septic shock. 2. Polymicrobial septicemia-> BCx on admission (+)VRE/(+)S-CoNS #1/(+)S-CoNS # 2 * Repeat BCx (-) 3. Acute hypoxic respiratory failure-> VDRF, s/p Trach 4. Acute COPD exacerbation: Emphysema dominant = CXR w/ Hyperinflated lungs with no focal infiltrate pleural effusion or pneumothorax. 5. Aspiration Pneumonitis * Dysphagia -> s/p peg 6. Multiple non-stageable wounds. * 07/09/16 R-Foot Wound Cx (+)S-CoNS 7. Metastatic bladder cancer. 8. Anemia. 9. Rash. Status post Elimite cream. (+)MRSA Nares -> Bactroban INVASIVES: L-SC TLC, PEG, Trach CURRENT ABX: OFF ABX s/p Zyvox + Primaxin ID PLAN: Continue to observe OFF ABX No ABX unless recurrent fevers and/or clinical evidence of sepsis -> Repeat Micro PRN indicators MURRAY EVAL in process . . Problems: Consultation Date/Type/Reason Admit Date/Time Jul 08, 2016 at 09:32 Type of Consultation: ID Exam/Review of Systems Vital Signs Vitals Vital Signs Date Time Temp Pulse Resp B/P Pulse Ox O2 Delivery O2 Flow Rate FiO2 07/28/16 12:26 80 07/28/16 11:51 22 99 30 07/28/16 11:08 98.3 127/63 07/26/16 14:00 Mechanical Ventilator Intake and Output 07/27/16 07/27/16 07/28/16 15:00 23:00 07:00 Intake Total 640 ml 420 ml Output Total 500 ml 450 ml Balance 140 ml -30 ml Results Result Diagram: 07/28/16 0544 07/28/16 0544 Results 24 hrs Laboratory Tests Test 07/28/16 05:00 07/28/16 05:44 Iron Level 20 L Percent Iron Saturation 11 L Total Iron Binding Capacity 182 L Anion Gap 14 Basophils # 0.0 Basophils % 0.4 Blood Morphology Comment Blood Urea Nitrogen 20 Calcium Level 8.7 Carbon Dioxide Level 25 Chloride Level 108 Creatinine 0.70 Eosinophils # 1.5 H Eosinophils % 15.5 H Glucose Level 113 Hematocrit 22.5 L Hemoglobin 7.5 L Lymphocytes # 1.2 Lymphocytes % 12.6 L Magnesium Level 2.1 Mean Corpuscular Hemoglobin 30.2 Mean Corpuscular Hemoglobin Concent 33.4 Mean Corpuscular Volume 90.2 Mean Platelet Volume 7.9 Monocytes # 1.0 H Monocytes % 10.1 Neutrophils # 5.9 Neutrophils % 61.4 Nucleated Red Blood Cells # 0.0 Nucleated Red Blood Cells % 0.0 Phosphorus Level 3.2 Platelet Count 337 # Potassium Level 4.4 Red Blood Count 2.50 L Red Cell Distribution Width 19.8 H Sodium Level 143 White Blood Count 9.5 Medications Medications Current Medications Ondansetron HCl (Zofran Inj) 4 mg Q6H PRN IV NAUSEA AND/OR VOMITING; Start at 13:30 Acetaminophen (Tylenol Liquid) 650 mg Q6H PRN PO PAIN LEVEL 1-3 OR FEVER Last administered on 07/15/16at 15:49; Admin Dose 650 MG; Start 07/08/16 at 13:30 Heparin Sodium (Porcine) (Heparin (5000 Units/0.5 ml)) 5,000 unit Q12 SC Last administered on 07/28/16 08:19; Admin Dose 5,000 UNIT; Start 07/08/16 at 21:00 Ipratropium [place] (Atrovent Hfa) 2 puff Q4 INH Last administered on 07/28/16 09:45; Admin Dose 2 PUFF; Start 07/08/16 at 21:00 Collagenase (Santyl) 1 applic DAILY TOP Last administered on 07/28/16 08:18; Admin Dose 1 APPLIC; Start 07/09/16 at 09:00 Mupirocin (Bactroban) 1 applic BID TOP Last administered on 07/28/16 08:17; Admin Dose 1 APPLIC; Start 07/10/16 at 12:30 Hydralazine HCl (Apresoline) 25 mg Q4 PRN GTB sbp>165; Start 07/17/16 at 16:30 Morphine Sulfate (morphine) 4 mg Q2 PRN IV PAIN LEVEL 7-10 Last administered on 07/20/16at 12:36; Admin Dose 4 MG; Start 07/18/16 at 13:30 Hydromorphone HCl (Dilaudid) 0.5 mg Q4H PRN IV PAIN Last administered on at 11:14; Admin Dose 0.5 MG; Start 07/18/16 at 13:30 Baclofen (Lioresal) 10 mg TID NGT Last administered on 07/28/16 08:16; Admin Dose 10 MG; Start 07/18/16 at 21:00 Lorazepam (Ativan) 0.5 mg Q2H PRN IV anxiety; Start 07/19/16 at 11:00 Multivitamins Therapeutic (Theragran) 1 tab DAILY PO Last administered on 08:16; Admin Dose 1 TAB; Start 07/27/16 at 12:30 Zinc Sulfate (Zinc Sulfate) 220 mg DAILY GTB Last administered on 07/28/16 08: 16; Admin Dose 220 MG; Start 07/27/16 at 12:30 Ascorbic Acid (Vitamin C) 500 mg BID GTB Last administered on 07/28/16 08:16; Admin Dose 500 MG; Start 07/27/16 at 12:30 Lansoprazole (Prevacid) 30 mg BID GTB ; Start 07/28/16 at 21:00 SUSHANT INTERIANO NP Jul 28, 2016 12:32
--- NOTE | 2016-07-28 13:11 | CONS ---
Date/Time of Note Date/Time of Note DATE: 07/28/16 TIME: 13:10 Consult Date/Type/Reason Admit Date/Time Jul 08, 2016 at 09:32 Type of Consultation: ID Subjective Comfortable No events Objective Vital Signs Date Time Temp Pulse Resp B/P Pulse Ox O2 Delivery O2 Flow Rate FiO2 07/28/16 12:26 80 07/28/16 11:51 22 99 30 07/28/16 11:08 98.3 127/63 07/26/16 14:00 Mechanical Ventilator Intake and Output 07/27/16 07/27/16 07/28/16 15:00 23:00 07:00 Intake Total 640 ml 420 ml Output Total 500 ml 450 ml Balance 140 ml -30 ml PHYSICAL EXAMINATION GENERAL: Elderly gentleman, continues mechanical ventilation VITAL SIGNS: see below. HEENT: Pupils equal, round, and reactive to light. CARDIAC: S1, S2, tachycardia. CHEST: Diminished air entry bilaterally. ABDOMEN: Mildly distended. Diminished bowel sounds EXTREMITIES: No cyanosis, clubbing edema +1 NEUROLOGIC: Unable to assess Results/Medications Result Diagram: 07/28/16 0544 07/28/16 0544 Results 24 hrs Laboratory Tests Test 07/28/16 05:00 07/28/16 05:44 Iron Level 20 L Percent Iron Saturation 11 L Total Iron Binding Capacity 182 L Anion Gap 14 Basophils # 0.0 Basophils % 0.4 Blood Morphology Comment Blood Urea Nitrogen 20 Calcium Level 8.7 Carbon Dioxide Level 25 Chloride Level 108 Creatinine 0.70 Eosinophils # 1.5 H Eosinophils % 15.5 H Glucose Level 113 Hematocrit 22.5 L Hemoglobin 7.5 L Lymphocytes # 1.2 Lymphocytes % 12.6 L Magnesium Level 2.1 Mean Corpuscular Hemoglobin 30.2 Mean Corpuscular Hemoglobin Concent 33.4 Mean Corpuscular Volume 90.2 Mean Platelet Volume 7.9 Monocytes # 1.0 H Monocytes % 10.1 Neutrophils # 5.9 Neutrophils % 61.4 Nucleated Red Blood Cells # 0.0 Nucleated Red Blood Cells % 0.0 Phosphorus Level 3.2 Platelet Count 337 # Potassium Level 4.4 Red Blood Count 2.50 L Red Cell Distribution Width 19.8 H Sodium Level 143 White Blood Count 9.5 Medications Current Medications Ondansetron HCl (Zofran Inj) 4 mg Q6H PRN IV NAUSEA AND/OR VOMITING; Start at 13:30 Acetaminophen (Tylenol Liquid) 650 mg Q6H PRN PO PAIN LEVEL 1-3 OR FEVER Last administered on 07/15/16at 15:49; Admin Dose 650 MG; Start 07/08/16 at 13:30 Heparin Sodium (Porcine) (Heparin (5000 Units/0.5 ml)) 5,000 unit Q12 SC Last administered on 07/28/16 08:19; Admin Dose 5,000 UNIT; Start 07/08/16 at 21:00 Ipratropium [place] (Atrovent Hfa) 2 puff Q4 INH Last administered on 07/28/16 09:45; Admin Dose 2 PUFF; Start 07/08/16 at 21:00 Collagenase (Santyl) 1 applic DAILY TOP Last administered on 07/28/16 08:18; Admin Dose 1 APPLIC; Start 07/09/16 at 09:00 Mupirocin (Bactroban) 1 applic BID TOP Last administered on 07/28/16 08:17; Admin Dose 1 APPLIC; Start 07/10/16 at 12:30 Hydralazine HCl (Apresoline) 25 mg Q4 PRN GTB sbp>165; Start 07/17/16 at 16:30 Morphine Sulfate (morphine) 4 mg Q2 PRN IV PAIN LEVEL 7-10 Last administered on 07/20/16at 12:36; Admin Dose 4 MG; Start 07/18/16 at 13:30 Hydromorphone HCl (Dilaudid) 0.5 mg Q4H PRN IV PAIN Last administered on at 11:14; Admin Dose 0.5 MG; Start 07/18/16 at 13:30 Baclofen (Lioresal) 10 mg TID NGT Last administered on 07/28/16 08:16; Admin Dose 10 MG; Start 07/18/16 at 21:00 Lorazepam (Ativan) 0.5 mg Q2H PRN IV anxiety; Start 07/19/16 at 11:00 Multivitamins Therapeutic (Theragran) 1 tab DAILY PO Last administered on 08:16; Admin Dose 1 TAB; Start 07/27/16 at 12:30 Zinc Sulfate (Zinc Sulfate) 220 mg DAILY GTB Last administered on 07/28/16 08: 16; Admin Dose 220 MG; Start 07/27/16 at 12:30 Ascorbic Acid (Vitamin C) 500 mg BID GTB Last administered on 07/28/16t 08:16; Admin Dose 500 MG; Start 07/27/16 at 12:30 Lansoprazole (Prevacid) 30 mg BID GTB ; Start 07/28/16 at 21:00 Assessment/Plan Chief Complaint/Hosp Course IMPRESSION AND PLAN: 1. s/p Septic shock. 2. Cardiopulmonary arrest. Likely anoxic encephalopathy 3. Metastatic bladder cancer. 4. Peripheral vascular disease with amputation. 5. Significant deconditioning and malnutrition. 6. Severe metabolic acidosis. Clinically improved 7. Hypoxemic respiratory failure unable to wean off mechanical ventilation secondary to above The patient will require: 1. Continued mechanical ventilation. Continue tracheostomy site care 2. Vasopressor support as needed 3. Broad-spectrum antibiotic coverage. Consider de-escalation 4. dvt/ gi prophylaxis 5. Sedation vacation 6. Continue G-tube feeding as tolerated Pending Malik evaluation Problems: YOGESH ADDISON [facility], [facility] Jul 28, 2016 13:11
--- NOTE | 2016-07-28 17:58 | PN ---
Date/Time of Note Date/Time of Note DATE: 07/28/16 TIME: 17:58 Assessment/Plan Lines/Catheters IV Catheter Type (from Nrsg): Central Line Uriarte in Place (from Nrsg): Yes Assessment/Plan Chief Complaint/Hosp Course Resp failure SP tracheostomy will continue trach care vent support Problems: Subjective 24 Hr Interval Summary Constitutional: improved Pain Control: mild Exam/Review of Systems Vital Signs Vitals Vital Signs Date Time Temp Pulse Resp B/P Pulse Ox O2 Delivery O2 Flow Rate FiO2 07/28/16 17:16 98 20 99 30 07/28/16 15:43 98.0 122/60 07/26/16 14:00 Mechanical Ventilator Intake and Output 07/27/16 07/27/16 07/28/16 15:00 23:00 07:00 Intake Total 640 ml 420 ml Output Total 500 ml 450 ml Balance 140 ml -30 ml Exam ENMT: mucosa pink and moist, nl external ears & nose, nl lips & teeth, nl nasal mucosa & septum Neck: non-tender, supple Respiratory: clear to auscultation, normal air movement Cardiovascular: nl pulses, regular rate and rhythm Results Result Diagram: 07/28/16 0544 07/28/16 0544 ELEANOR HAYDEN MD Jul 28, 2016 17:58
[2016-07-29] VITALS (24 sets, daily range): BP systolic 110–141; BP diastolic 52–75; PULSE 82–106; RESP 18–29
[2016-07-29] MEDS: IPRATROPIUM (HFA) 12.9 GM INHALER INH SCH ×6 (01:20→21:01)
[2016-07-29] MEDS: ALBUTEROL HFA 8 GM INHALER INH SCH ×6 (01:20→21:01)
[2016-07-29 05:53] LABS: BASOPHILS % 0.4 % (0.0-2.0); EOSINOPHILS # 1.8 10^3/ul (0.0-0.5); EOSINOPHILS % 18.2 % (0.0-7.0); HEMATOCRIT 25.2 % (42.0-52.0); HEMOGLOBIN 8.4 g/dl (14.0-18.0); LYMPHOCYTES # 1.3 10^3/ul (0.8-2.9); LYMPHOCYTES % 12.9 % (15.0-51.0); MEAN CORPUSCULAR HEMOGLOBIN 30.1 pg (29.0-33.0); MEAN CORPUSCULAR HGB CONC 33.4 g/dl (32.0-37.0); MEAN CORPUSCULAR VOLUME 90.2 fl (82.0-101.0); MONOCYTE # 0.9 10^3/ul (0.3-0.9); MONOCYTES % 8.7 % (0.0-11.0); NEUTROPHIL # 6.1 10^3/ul (1.6-7.5); NEUTROPHILS % 59.8 % (39.0-77.0); PLATELET COUNT 347 10^3/UL (140-440); RED CELL DISTRIBUTION WIDTH 20.1 % (11.5-14.5); UNCORRECTED WBC 10.2 10^3/ul (4.8-10.8); WHITE BLOOD COUNT 10.2 10^3/ul (4.8-10.8)
[2016-07-29 05:57] LABS: CONDITION 1; LH ANALYZER COMMENTS 1
[2016-07-29 06:09] LABS: POTASSIUM 3.9 mmol/L (3.5-5.1)
[2016-07-29 06:12] LABS: CREATININE 0.74 mg/dl (0.61-1.24)
[2016-07-29 06:13] LABS: CALCIUM 8.9 mg/dl (8.4-10.2); MAGNESIUM 1.9 mg/dl (1.7-2.5); PHOSPHORUS 3.1 mg/dl (2.5-4.9)
[2016-07-29] MEDS: MULTIVITAMINS THERAPEUTIC TAB PO SCH (08:12)
[2016-07-29] MEDS: BACLOFEN 10 MG TAB NGT SCH ×2 (08:12→13:30)
[2016-07-29] MEDS: ASCORBIC ACID 500 MG TAB GTB SCH ×2 (08:12→21:39)
[2016-07-29] MEDS: ZINC SULFATE 220 MG CAP GTB SCH (08:12)
[2016-07-29] MEDS: LANSOPRAZOLE 30 MG CAP GTB SCH ×2 (08:12→21:39)
[2016-07-29] MEDS: COLLAGENASE 30 GM TUBE TOP SCH (08:13)
[2016-07-29] MEDS: MUPIROCIN 2% 22 GM OINT TOP SCH ×2 (08:13→21:40)
[2016-07-29] MEDS: HEPARIN 5,000 UNIT/0.5 ML SYG SC SCH ×2 (08:15→21:42)
--- NOTE | 2016-07-29 12:05 | CONS ---
Date/Time of Note Date/Time of Note DATE: 07/29/16 TIME: 12:04 Consult Date/Type/Reason Admit Date/Time Jul 08, 2016 at 09:32 Initial Consult Date 07/12/16 Type of Consultation: ID Subjective lying comfortably in bed, no fevers, nad Objective Vital Signs Date Time Temp Pulse Resp B/P Pulse Ox O2 Delivery O2 Flow Rate FiO2 07/29/16 11:20 98.5 89 20 124/59 100 07/29/16 11:12 30 07/26/16 14:00 Mechanical Ventilator Intake and Output 07/28/16 07/28/16 07/29/16 15:00 23:00 07:00 Intake Total 600 ml 600 ml Output Total 450 ml 650 ml Balance 150 ml -50 ml Results/Medications Result Diagram: 07/29/16 0457 07/29/16 0457 Results 24 hrs Laboratory Tests Test 07/29/16 04:57 Anion Gap 13 Basophils # 0.0 Basophils % 0.4 Blood Morphology Comment Blood Urea Nitrogen 21 H Calcium Level 8.9 Carbon Dioxide Level 26 Chloride Level 108 Creatinine 0.74 Eosinophils # 1.8 H Eosinophils % 18.2 H Glucose Level 107 Hematocrit 25.2 L Hemoglobin 8.4 L Lymphocytes # 1.3 Lymphocytes % 12.9 L Magnesium Level 1.9 Mean Corpuscular Hemoglobin 30.1 Mean Corpuscular Hemoglobin Concent 33.4 Mean Corpuscular Volume 90.2 Mean Platelet Volume 8.0 Monocytes # 0.9 Monocytes % 8.7 Neutrophils # 6.1 Neutrophils % 59.8 Nucleated Red Blood Cells # 0.0 Nucleated Red Blood Cells % 0.0 Phosphorus Level 3.1 Platelet Count 347 Potassium Level 3.9 Red Blood Count 2.80 L Red Cell Distribution Width 20.1 H Sodium Level 143 White Blood Count 10.2 Medications Current Medications Ondansetron HCl (Zofran Inj) 4 mg Q6H PRN IV NAUSEA AND/OR VOMITING; Start at 13:30 Acetaminophen (Tylenol Liquid) 650 mg Q6H PRN PO PAIN LEVEL 1-3 OR FEVER Last administered on 07/15/16at 15:49; Admin Dose 650 MG; Start 07/08/16 at 13:30 Heparin Sodium (Porcine) (Heparin (5000 Units/0.5 ml)) 5,000 unit Q12 SC Last administered on 07/29/16 08:15; Admin Dose 5,000 UNIT; Start 07/08/16 at 21:00 Ipratropium [place] (Atrovent Hfa) 2 puff Q4 INH Last administered on 07/29/16 09:41; Admin Dose 2 PUFF; Start 07/08/16 at 21:00 Collagenase (Santyl) 1 applic DAILY TOP Last administered on 07/29/16 08:13; Admin Dose 1 APPLIC; Start 07/09/16 at 09:00 Mupirocin (Bactroban) 1 applic BID TOP Last administered on 07/29/16 08:13; Admin Dose 1 APPLIC; Start 07/10/16 at 12:30 Hydralazine HCl (Apresoline) 25 mg Q4 PRN GTB sbp>165; Start 07/17/16 at 16:30 Morphine Sulfate (morphine) 4 mg Q2 PRN IV PAIN LEVEL 7-10 Last administered on 07/20/16at 12:36; Admin Dose 4 MG; Start 07/18/16 at 13:30 Hydromorphone HCl (Dilaudid) 0.5 mg Q4H PRN IV PAIN Last administered on at 11:14; Admin Dose 0.5 MG; Start 07/18/16 at 13:30 Baclofen (Lioresal) 10 mg TID NGT Last administered on 07/29/16 08:12; Admin Dose 10 MG; Start 07/18/16 at 21:00 Lorazepam (Ativan) 0.5 mg Q2H PRN IV anxiety; Start 07/19/16 at 11:00 Multivitamins Therapeutic (Theragran) 1 tab DAILY PO Last administered on 08:12; Admin Dose 1 TAB; Start 07/27/16 at 12:30 Zinc Sulfate (Zinc Sulfate) 220 mg DAILY GTB Last administered on 07/29/16 08: 12; Admin Dose 220 MG; Start 07/27/16 at 12:30 Ascorbic Acid (Vitamin C) 500 mg BID GTB Last administered on 07/29/16 08:12; Admin Dose 500 MG; Start 07/27/16 at 12:30 Lansoprazole (Prevacid) 30 mg BID GTB Last administered on 07/29/16 08:12; Admin Dose 30 MG; Start 07/28/16 at 21:00 Assessment/Plan Chief Complaint/Hosp Course INDWELLINGS: trach, PEG, left subclavian triple lumen catheter, Uriarte. PHYSICAL EXAMINATION: GENERAL: Chronically ill-appearing, fragile, elderly man who is lying comfortably in bed. HEENT: Head atraumatic, normocephalic. Sclerae anicteric. Buccal mucosa dry. NECK: Supple, trachea midline. CHEST: Rise symmetrical. Breath sounds diminished to bases. HEART: S1, S2. ABDOMEN: Soft. Bowel sounds hypoactive. EXTREMITIES: Contractures, multiple decubitus. SKIN: No jaundice, no cyanosis. ASSESSMENT: 1. S/p sepsis with shock. 2. S/p polymicrobial septicemia on admission==>coagulase-negative staph vancomycin-resistant Enterococci==> repeat blood cultures negative. 3. S/p multifocal pneumonia==> treated. 4. Acute respiratory failure==> trach. 5. Multiple chronic wounds. 6. Methicillin-resistant Staphylococcus aureus nares colonization. 7. Encephalopathy. 8. ALLERGY TO PENICILLIN. PLAN: The patient remains unchanged, [facility] cx prn DW staff Problems: NALINI SHARP NP Jul 29, 2016 12:05
--- NOTE | 2016-07-29 12:59 | CONS ---
Date/Time of Note Date/Time of Note DATE: 07/29/16 TIME: 12:59 Assessment/Plan Assessment/Plan Additional Assessment/Plan IMPRESSION: 1. Anoxic encephalopathy. 2. Respiratory failure. 3. Dysphagia s/p PEG,tolerating feeding. 4. 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 5. Sepsis. 6. Renal insufficiency. 7. Anemia. h/h now stable. 8. History of nicotine addiction. 9. Right foot wound and sacral wound. 10. Left above-knee amputation. Plan continue tube feeds check occult blood increase prevacid from once daily to bid dosing continue other supportive care Consultation Date/Type/Reason Admit Date/Time Jul 08, 2016 at 09:32 Initial Consult Date 07/12/16 Type of Consultation: ID [id number] HR Interval Summary Subjective hx not possible: pt non-verbal, pt critical Exam/Review of Systems Vital Signs Vitals Vital Signs Date Time Temp Pulse Resp B/P Pulse Ox O2 Delivery O2 Flow Rate FiO2 07/29/16 12:52 89 07/29/16 11:20 98.5 20 124/59 100 07/29/16 11:12 30 07/26/16 14:00 Mechanical Ventilator Intake and Output 07/28/16 07/28/16 07/29/16 15:00 23:00 07:00 Intake Total 600 ml 600 ml Output Total 450 ml 650 ml Balance 150 ml -50 ml Exam Constitutional: alert, oriented, well developed Psych: nl mood/affect, no complaints Head: atraumatic, normocephalic Eyes: EOMI, PERRL, nl conjunctiva, nl lids, nl sclera ENMT: nl external ears & nose, nl lips & teeth, nl nasal mucosa & septum Neck: non-tender, supple Respiratory: clear to auscultation, normal air movement Cardiovascular: nl pulses, regular rate and rhythm Gastrointestinal: nl liver, spleen, non-tender, soft Musculoskeletal: nl extremities to inspection, nl gait and stance Extremities: normal pulses Neurological: EAR NOSE THROAT PHYSICIAN II-XII intact, nl mental status, nl speech, nl strength Skin: nl turgor, No rash or lesions Lymph: nl lymph nodes Results Result Diagram: 07/29/16 0457 07/29/16 0457 Results 24 hrs Laboratory Tests Test 07/29/16 04:57 Anion Gap 13 Basophils # 0.0 Basophils % 0.4 Blood Morphology Comment Blood Urea Nitrogen 21 H Calcium Level 8.9 Carbon Dioxide Level 26 Chloride Level 108 Creatinine 0.74 Eosinophils # 1.8 H Eosinophils % 18.2 H Glucose Level 107 Hematocrit 25.2 L Hemoglobin 8.4 L Lymphocytes # 1.3 Lymphocytes % 12.9 L Magnesium Level 1.9 Mean Corpuscular Hemoglobin 30.1 Mean Corpuscular Hemoglobin Concent 33.4 Mean Corpuscular Volume 90.2 Mean Platelet Volume 8.0 Monocytes # 0.9 Monocytes % 8.7 Neutrophils # 6.1 Neutrophils % 59.8 Nucleated Red Blood Cells # 0.0 Nucleated Red Blood Cells % 0.0 Phosphorus Level 3.1 Platelet Count 347 Potassium Level 3.9 Red Blood Count 2.80 L Red Cell Distribution Width 20.1 H Sodium Level 143 White Blood Count 10.2 Medications Medications Current Medications Ondansetron HCl (Zofran Inj) 4 mg Q6H PRN IV NAUSEA AND/OR VOMITING; Start at 13:30 Acetaminophen (Tylenol Liquid) 650 mg Q6H PRN PO PAIN LEVEL 1-3 OR FEVER Last administered on 07/15/16at 15:49; Admin Dose 650 MG; Start 07/08/16 at 13:30 Heparin Sodium (Porcine) (Heparin (5000 Units/0.5 ml)) 5,000 unit Q12 SC Last administered on 07/29/16 08:15; Admin Dose 5,000 UNIT; Start 07/08/16 at 21:00 Ipratropium [place] (Atrovent Hfa) 2 puff Q4 INH Last administered on 07/29/16 09:41; Admin Dose 2 PUFF; Start 07/08/16 at 21:00 Collagenase (Santyl) 1 applic DAILY TOP Last administered on 07/29/16 08:13; Admin Dose 1 APPLIC; Start 07/09/16 at 09:00 Mupirocin (Bactroban) 1 applic BID TOP Last administered on 07/29/16 08:13; Admin Dose 1 APPLIC; Start 07/10/16 at 12:30 Hydralazine HCl (Apresoline) 25 mg Q4 PRN GTB sbp>165; Start 07/17/16 at 16:30 Morphine Sulfate (morphine) 4 mg Q2 PRN IV PAIN LEVEL 7-10 Last administered on 07/20/16at 12:36; Admin Dose 4 MG; Start 07/18/16 at 13:30 Hydromorphone HCl (Dilaudid) 0.5 mg Q4H PRN IV PAIN Last administered on at 11:14; Admin Dose 0.5 MG; Start 07/18/16 at 13:30 Baclofen (Lioresal) 10 mg TID NGT Last administered on 07/29/16 08:12; Admin Dose 10 MG; Start 07/18/16 at 21:00 Lorazepam (Ativan) 0.5 mg Q2H PRN IV anxiety; Start 07/19/16 at 11:00 Multivitamins Therapeutic (Theragran) 1 tab DAILY PO Last administered on 08:12; Admin Dose 1 TAB; Start 07/27/16 at 12:30 Zinc Sulfate (Zinc Sulfate) 220 mg DAILY GTB Last administered on 07/29/16 08: 12; Admin Dose 220 MG; Start 07/27/16 at 12:30 Ascorbic Acid (Vitamin C) 500 mg BID GTB Last administered on 07/29/16 08:12; Admin Dose 500 MG; Start 07/27/16 at 12:30 Lansoprazole (Prevacid) 30 mg BID GTB Last administered on 07/29/16 08:12; Admin Dose 30 MG; Start 07/28/16 at 21:00 FRANKY BROWNING MD Jul 29, 2016 12:59
--- NOTE | 2016-07-29 16:02 | PN ---
Date/Time of Note Date/Time of Note DATE: 07/29/16 TIME: 16:01 Assessment/Plan Lines/Catheters IV Catheter Type (from Nrsg): Central Line Uriarte in Place (from Nrsg): Yes Assessment/Plan Chief Complaint/Hosp Course Resp failure SP tracheostomy will continue trach care vent support Problems: Subjective 24 Hr Interval Summary Constitutional: improved Pain Control: mild Exam/Review of Systems Vital Signs Vitals Vital Signs Date Time Temp Pulse Resp B/P Pulse Ox O2 Delivery O2 Flow Rate FiO2 07/29/16 14:55 92 18 100 30 07/29/16 14:52 98.1 118/57 07/26/16 14:00 Mechanical Ventilator Intake and Output 07/28/16 07/28/16 07/29/16 15:00 23:00 07:00 Intake Total 600 ml 600 ml Output Total 450 ml 650 ml Balance 150 ml -50 ml Exam ENMT: mucosa pink and moist, nl external ears & nose, nl lips & teeth, nl nasal mucosa & septum Neck: non-tender, supple Respiratory: clear to auscultation, normal air movement Cardiovascular: nl pulses, regular rate and rhythm Results Result Diagram: 07/29/16 0457 07/29/16 0457 ELEANOR HAYDEN MD Jul 29, 2016 16:02
--- NOTE | 2016-07-29 16:10 | CONS ---
Date/Time of Note Date/Time of Note DATE: 07/29/16 TIME: 16:09 Consult Date/Type/Reason Admit Date/Time Jul 08, 2016 at 09:32 Type of Consultation: Pulm Subjective Comfortable. Objective Vital Signs Date Time Temp Pulse Resp B/P Pulse Ox O2 Delivery O2 Flow Rate FiO2 07/29/16 14:55 92 18 100 30 07/29/16 14:52 98.1 118/57 07/26/16 14:00 Mechanical Ventilator Intake and Output 07/28/16 07/28/16 07/29/16 15:00 23:00 07:00 Intake Total 600 ml 600 ml Output Total 450 ml 650 ml Balance 150 ml -50 ml Results/Medications Result Diagram: 07/29/16 0457 07/29/16 0457 Results 24 hrs Laboratory Tests Test 07/29/16 04:57 Anion Gap 13 Basophils # 0.0 Basophils % 0.4 Blood Morphology Comment Blood Urea Nitrogen 21 H Calcium Level 8.9 Carbon Dioxide Level 26 Chloride Level 108 Creatinine 0.74 Eosinophils # 1.8 H Eosinophils % 18.2 H Glucose Level 107 Hematocrit 25.2 L Hemoglobin 8.4 L Lymphocytes # 1.3 Lymphocytes % 12.9 L Magnesium Level 1.9 Mean Corpuscular Hemoglobin 30.1 Mean Corpuscular Hemoglobin Concent 33.4 Mean Corpuscular Volume 90.2 Mean Platelet Volume 8.0 Monocytes # 0.9 Monocytes % 8.7 Neutrophils # 6.1 Neutrophils % 59.8 Nucleated Red Blood Cells # 0.0 Nucleated Red Blood Cells % 0.0 Phosphorus Level 3.1 Platelet Count 347 Potassium Level 3.9 Red Blood Count 2.80 L Red Cell Distribution Width 20.1 H Sodium Level 143 White Blood Count 10.2 Medications Current Medications Ondansetron HCl (Zofran Inj) 4 mg Q6H PRN IV NAUSEA AND/OR VOMITING; Start at 13:30 Acetaminophen (Tylenol Liquid) 650 mg Q6H PRN PO PAIN LEVEL 1-3 OR FEVER Last administered on 07/15/16at 15:49; Admin Dose 650 MG; Start 07/08/16 at 13:30 Heparin Sodium (Porcine) (Heparin (5000 Units/0.5 ml)) 5,000 unit Q12 SC Last administered on 07/29/16t 08:15; Admin Dose 5,000 UNIT; Start 07/08/16 at 21:00 Ipratropium [place] (Atrovent Hfa) 2 puff Q4 INH Last administered on 07/29/16 13:18; Admin Dose 2 PUFF; Start 07/08/16 at 21:00 Collagenase (Santyl) 1 applic DAILY TOP Last administered on 07/29/16 08:13; Admin Dose 1 APPLIC; Start 07/09/16 at 09:00 Mupirocin (Bactroban) 1 applic BID TOP Last administered on 07/29/16 08:13; Admin Dose 1 APPLIC; Start 07/10/16 at 12:30 Hydralazine HCl (Apresoline) 25 mg Q4 PRN GTB sbp>165; Start 07/17/16 at 16:30 Morphine Sulfate (morphine) 4 mg Q2 PRN IV PAIN LEVEL 7-10 Last administered on 07/20/16at 12:36; Admin Dose 4 MG; Start 07/18/16 at 13:30 Hydromorphone HCl (Dilaudid) 0.5 mg Q4H PRN IV PAIN Last administered on at 11:14; Admin Dose 0.5 MG; Start 07/18/16 at 13:30 Baclofen (Lioresal) 10 mg TID NGT Last administered on 07/29/16 13:30; Admin Dose 10 MG; Start 07/18/16 at 21:00 Lorazepam (Ativan) 0.5 mg Q2H PRN IV anxiety; Start 07/19/16 at 11:00 Multivitamins Therapeutic (Theragran) 1 tab DAILY PO Last administered on 08:12; Admin Dose 1 TAB; Start 07/27/16 at 12:30 Zinc Sulfate (Zinc Sulfate) 220 mg DAILY GTB Last administered on 07/29/16 08: 12; Admin Dose 220 MG; Start 07/27/16 at 12:30 Ascorbic Acid (Vitamin C) 500 mg BID GTB Last administered on 07/29/16 08:12; Admin Dose 500 MG; Start 07/27/16 at 12:30 Lansoprazole (Prevacid) 30 mg BID GTB Last administered on 07/29/16 08:12; Admin Dose 30 MG; Start 07/28/16 at 21:00 Assessment/Plan Chief Complaint/Hosp Course IMPRESSION AND PLAN: 1. s/p Septic shock. 2. Cardiopulmonary arrest. Likely anoxic encephalopathy 3. Metastatic bladder cancer. 4. Peripheral vascular disease with amputation. 5. Significant deconditioning and malnutrition. 6. Severe metabolic acidosis. Clinically improved 7. Hypoxemic respiratory failure unable to wean off mechanical ventilation secondary to above The patient will require: 1. Continued mechanical ventilation. Continue tracheostomy site care 2. Vasopressor support as needed 3. Broad-spectrum antibiotic coverage. Consider de-escalation 4. dvt/ gi prophylaxis 5. Sedation vacation 6. Continue G-tube feeding as tolerated Pending Malik evaluation Problems: YOGESH ADDISON MD, [facility] Jul 29, 2016 16:10
[2016-07-29] MEDS ORDERED: BISACODYL 30 ML ENEMA PR PRN (17:00)
--- NOTE | 2016-07-29 17:12 | PN ---
DATE: 07/29/2016 SUBJECTIVE: Patient seen resting comfortably at bedside. Awaiting placement. H and H has improved . Hemoglobin is 8.4, hematocrit 25. I appreciate GI input. I did give him a dose of iron IV yeste rday. PHYSICAL EXAMINATION: VITAL SIGNS: Temperature was 98.1, pulse 92, respirations 18, blood pressure 118/57, saturation is 100% on 30% FIO2. GENERAL: The patient is in no acute distress. The patient is nonresponsive meaningfully, upon he d oes respond to verbal stimuli by opening his eyes. The patient is cachectic, pale. CARDIOVASCULAR: S1 and S2. LUNGS: Decreased bilaterally. ABDOMEN: Soft, nontender. EXTREMITIES: Left lower extremity AKA, right wounds in the right foot noted. The patient with band ages. LABORATORY DATA: White count is 10.2, hemoglobin 8.4, hematocrit 25, platelet count is ____, neutro phils 60%, lymphocytes 13% , 9% monocytes and eosinophils 18%. Chemistry: Sodium 143, potassium 3. 9, chloride 108, bicarbonate 26, BUN is 21, creatinine 0.74, glucose of 107. MEDICATIONS REVIEWED: Include the followin. Prevacid 30 b.i.d. 2. Multivitamin 1 tab daily. 3. Zinc sulfate 220 daily. 4. Vitamin C 500 mg b.i.d. 5. Ativan 0.5 IV q.2h. p.r.n. 6. Baclofen 10 t.i.d. 7. Morphine p.r.n. 8. Dilaudid 0.5 IV q.4h. p.r.n. 9. Hydralazine p.r.n. 10. Bactroban ointment to the nares b.i.d. 11. Santyl daily. 12. Heparin 5000 subcu q.12h. 13. Albuterol and Atrovent every 4 hours. 14. Zofran p.r.n. 15. Breathing treatments p.r.n. 16. Tylenol p.r.n. 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 1. Respiratory. Stable. Continue AC mode. Further weaning per pulmonology. The patient awaiting transfer to subacute or [facility]. 2. Cardiovascular. Remains on heparin for DVT prophylaxis. Blood pressure is stable. 3. Infectious disease. Status post treated for bacteremia. 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 Afebrile with normal white count. 4. Gastrointestinal. H and H improved status post iron IV. Stool for blood was ordered. PPI was increased to b.i.d. dosing to Prevacid 30 twice a day. 5. Encephalopathy, status post cardiac arrest, likely anoxia. 6. Dysphagia. Continue G-tube feeding, currently at 40 mL an hour. 7. Right foot wound. Continue nutritional support wound care, Santyl offloading. 8. Muscle contractures, severe of the right knee. Continue Baclofen, anxiolytics and opioids as ne eded. 9. Metastatic bladder cancer to the liver, aggressive type diagnosed in March. Overall prognos is is poor. The patient with multiple issues, malnutrition, etc. 10. Left above the knee amputation, overall debilitated. Recommend comfort measures. Plan to raymond sfer to outside [facility] hopefully soon, hopefully to [facility]. We will follow. Dictated By: JEREMIAS BELTRAN/LEISA Conf#: [id number] DID#: [id number]
[2016-07-29] MEDS ORDERED: DOCUSATE SODIUM 250 MG CAP PO SCH (21:00)
[2016-07-29] MEDS: BACLOFEN 10 MG TAB GTB SCH (21:39)
[2016-07-29] MEDS: LACTULOSE 30ML CUP GTB SCH (21:40)
[2016-07-29] MEDS: DOCUSATE SODIUM 10 MG/ML (10ML CUP) GTB SCH (21:41)
[2016-07-30] VITALS (22 sets, daily range): BP systolic 114–130; BP diastolic 58–64; PULSE 96–103; RESP 18–25
[2016-07-30] MEDS: ALBUTEROL HFA 8 GM INHALER INH SCH ×5 (01:27→17:09)
[2016-07-30] MEDS: IPRATROPIUM (HFA) 12.9 GM INHALER INH SCH ×5 (01:27→17:09)
[2016-07-30] MEDS: LACTULOSE 30ML CUP GTB SCH (08:06)
[2016-07-30] MEDS: MULTIVITAMINS THERAPEUTIC TAB PO SCH (08:07)
[2016-07-30] MEDS: DOCUSATE SODIUM 10 MG/ML (10ML CUP) GTB SCH (08:07)
[2016-07-30] MEDS: ASCORBIC ACID 500 MG TAB GTB SCH (08:07)
[2016-07-30] MEDS: ZINC SULFATE 220 MG CAP GTB SCH (08:07)
[2016-07-30] MEDS: BACLOFEN 10 MG TAB GTB SCH ×2 (08:07→12:50)
[2016-07-30] MEDS: MUPIROCIN 2% 22 GM OINT TOP SCH (08:08)
[2016-07-30] MEDS: HEPARIN 5,000 UNIT/0.5 ML SYG SC SCH (08:20)
[2016-07-30] MEDS: COLLAGENASE 30 GM TUBE TOP SCH (08:21)
[2016-07-30] MEDS: LANSOPRAZOLE 30 MG CAP GTB SCH (08:21)
--- NOTE | 2016-07-30 12:14 | PN ---
DATE: 07/30/2016 SUBJECTIVE: No acute events overnight. The patient is lying comfortably in bed. He is nonverbal, noncommunicative. VITAL SIGNS: T-max 99.7. LABORATORIES: No labs this morning. INDWELLINGS: Trach, PEG, Uriarte, left subclavian triple-lumen catheter. ALLERGIES: PENICILLIN. PHYSICAL EXAMINATION: GENERAL: Fragile chronically ill-appearing elderly man who is in no distress. HEENT: Head atraumatic, normocephalic. Sclerae anicteric. Buccal mucosa dry. NECK: Supple. Tracheostomy present. CHEST: Rise symmetrical. Breath sounds diminished. HEART: S1, S2. ABDOMEN: Soft. EXTREMITIES: Bilateral lower extremities contracture. ASSESSMENT: 1. Status post septic shock secondary to pneumonia and polymicrobial septicemia. 2. Multiple chronic wounds. 3. colonization. 4. Chronic respiratory failure. 5. Dysphagia, 6. Allergy to penicillin. 7. Chronic encephalopathy. PLAN: The patient remains stable off antibiotics. Continue present care, local wound care per nurs ing staff and panculture p.r.n. Dictated By: NALINI SHARP [employer] PARTNER for EARNESTINE DUKE MD NI/NTS Conf#: [id number] DID#: [id number]
--- NOTE | 2016-07-30 16:14 | CONS ---
Date/Time of Note Date/Time of Note DATE: 07/30/16 TIME: 16:14 Consult Date/Type/Reason Admit Date/Time Jul 08, 2016 at 09:32 Type of Consultation: Pulm Subjective Patient stable no new events Objective Vital Signs Date Time Temp Pulse Resp B/P Pulse Ox O2 Delivery O2 Flow Rate FiO2 07/30/16 15:28 98.9 94 18 118/61 100 07/30/16 15:19 30 07/26/16 14:00 Mechanical Ventilator Intake and Output 07/29/16 07/29/16 07/30/16 15:00 23:00 07:00 Intake Total 600 ml 600 ml Output Total 300 ml 500 ml Balance 300 ml 100 ml PHYSICAL EXAMINATION GENERAL: Elderly gentleman, continues mechanical ventilation lethargic minimally responsive VITAL SIGNS: see below. HEENT: Pupils equal, round, and reactive to light. CARDIAC: S1, S2, tachycardia. CHEST: Diminished air entry bilaterally. ABDOMEN: Mildly distended. Diminished bowel sounds EXTREMITIES: No cyanosis, clubbing edema +1 NEUROLOGIC: Unable to assess Results/Medications Result Diagram: 07/29/16 0457 07/29/16 0457 Medications Current Medications Ondansetron HCl (Zofran Inj) 4 mg Q6H PRN IV NAUSEA AND/OR VOMITING; Start at 13:30 Acetaminophen (Tylenol Liquid) 650 mg Q6H PRN PO PAIN LEVEL 1-3 OR FEVER Last administered on 07/15/16at 15:49; Admin Dose 650 MG; Start 07/08/16 at 13:30 Heparin Sodium (Porcine) (Heparin (5000 Units/0.5 ml)) 5,000 unit Q12 SC Last administered on 07/30/16 08:20; Admin Dose 5,000 UNIT; Start 07/08/16 at 21:00 Ipratropium [place] (Atrovent Hfa) 2 puff Q4 INH Last administered on 07/30/16 12:43; Admin Dose 2 PUFF; Start 07/08/16 at 21:00 Collagenase (Santyl) 1 applic DAILY TOP Last administered on 07/30/16 08:21; Admin Dose 1 APPLIC; Start 07/09/16 at 09:00 Mupirocin (Bactroban) 1 applic BID TOP Last administered on 07/30/16 08:08; Admin Dose 1 APPLIC; Start 07/10/16 at 12:30 Hydralazine HCl (Apresoline) 25 mg Q4 PRN GTB sbp>165; Start 07/17/16 at 16:30 Morphine Sulfate (morphine) 4 mg Q2 PRN IV PAIN LEVEL 7-10 Last administered on 07/20/16at 12:36; Admin Dose 4 MG; Start 07/18/16 at 13:30 Hydromorphone HCl (Dilaudid) 0.5 mg Q4H PRN IV PAIN Last administered on at 11:14; Admin Dose 0.5 MG; Start 07/18/16 at 13:30 Lorazepam (Ativan) 0.5 mg Q2H PRN IV anxiety; Start 07/19/16 at 11:00 Multivitamins Therapeutic (Theragran) 1 tab DAILY PO Last administered on 08:07; Admin Dose 1 TAB; Start 07/27/16 at 12:30 Zinc Sulfate (Zinc Sulfate) 220 mg DAILY GTB Last administered on 07/30/16 08: 07; Admin Dose 220 MG; Start 07/27/16 at 12:30 Ascorbic Acid (Vitamin C) 500 mg BID GTB Last administered on 07/30/16 08:07; Admin Dose 500 MG; Start 07/27/16 at 12:30 Lansoprazole (Prevacid) 30 mg BID GTB Last administered on 07/30/16 08:21; Admin Dose 30 MG; Start 07/28/16 at 21:00 Lactulose (Enulose) 20 gm Q12 GTB Last administered on 07/30/16 08:06; Admin Dose 20 GM; Start 07/29/16 at 21:00 Bisacodyl (Fleet Bisacodyl En[place]) 30 ml DAILY PRN [place] constipation; Start at 17:00 Baclofen (Lioresal) 10 mg TID GTB Last administered on 07/30/16 12:50; Admin Dose 10 MG; Start 07/29/16 at 21:00 Docusate Sodium (Colace Liquid Cup) 250 mg BID GTB Last administered on 08:07; Admin Dose 250 MG; Start 07/29/16 at 21:00 Assessment/Plan Chief Complaint/Hosp Course IMPRESSION AND PLAN: 1. s/p Septic shock. 2. Cardiopulmonary arrest. Likely anoxic encephalopathy 3. Metastatic bladder cancer. 4. Peripheral vascular disease with amputation. 5. Significant deconditioning and malnutrition. 6. Severe metabolic acidosis. Clinically improved 7. Hypoxemic respiratory failure unable to wean off mechanical ventilation secondary to above The patient will require: 1. Continued mechanical ventilation. Continue tracheostomy site care 2. Vasopressor support as needed 3. Broad-spectrum antibiotic coverage. Consider de-escalation 4. dvt/ gi prophylaxis 5. Sedation vacation 6. Continue G-tube feeding as tolerated Pending Malik transfer Problems: YOGESH ADDISON MD, [facility] Jul 30, 2016 16:14
--- NOTE | 2016-07-30 18:23 | PDOCDIS ---
Discharge Instructions CONDITION Patient Condition: Stable HOME CARE INSTRUCTIONS: Special Diet: gtube feeding ACTIVITY: Activity Restrictions: Slowly Increase Activity FOLLOW UP/APPOINTMENTS Appointments transfer to [facility], see reconciliation JEREMIAS NAIK MD Jul 30, 2016 18:23
--- NOTE | 2016-07-30 20:13 | PN ---
Date/Time of Note Date/Time of Note DATE: 07/30/16 TIME: 20:13 Assessment/Plan Lines/Catheters IV Catheter Type (from Nrsg): Central Line Uriarte in Place (from Nrsg): Yes Assessment/Plan Chief Complaint/Hosp Course Resp failure SP tracheostomy will continue trach care vent support Problems: Subjective 24 Hr Interval Summary Constitutional: improved Pain Control: mild Exam/Review of Systems Vital Signs Vitals Vital Signs Date Time Temp Pulse Resp B/P Pulse Ox O2 Delivery O2 Flow Rate FiO2 07/30/16 17:09 98 23 98 30 07/30/16 15:28 98.9 118/61 07/26/16 14:00 Mechanical Ventilator Intake and Output 07/29/16 07/29/16 07/30/16 15:00 23:00 07:00 Intake Total 600 ml 600 ml Output Total 300 ml 500 ml Balance 300 ml 100 ml Exam ENMT: mucosa pink and moist, nl external ears & nose, nl lips & teeth, nl nasal mucosa & septum Neck: non-tender, supple Respiratory: clear to auscultation, normal air movement Cardiovascular: nl pulses, regular rate and rhythm Gastrointestinal: nl liver, spleen, non-tender, soft Results Result Diagram: 07/29/16 0457 07/29/16 0457 ELEANOR HAYDEN MD Jul 30, 2016 20:13
--- NOTE | 2016-07-30 20:41 | CONS ---
Date/Time of Note Date/Time of Note DATE: 07/30/16 TIME: 20:40 Assessment/Plan Assessment/Plan Additional Assessment/Plan Additional Assessment/Plan IMPRESSION: 1. Anoxic encephalopathy. 2. Respiratory failure. 3. Dysphagia s/p PEG,tolerating feeding. 4. 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 5. Sepsis. 6. Renal insufficiency. 7. Anemia. h/h now stable. 8. History of nicotine addiction. 9. Right foot wound and sacral wound. 10. Left above-knee amputation. Plan continue tube feeds check occult blood increase prevacid from once daily to bid dosing continue other supportive care Consultation Date/Type/Reason Admit Date/Time Jul 08, 2016 at 09:32 Initial Consult Date 07/12/16 Type of Consultation: Pulm 24 HR Interval Summary Subjective hx not possible: pt non-verbal Exam/Review of Systems Vital Signs Vitals Vital Signs Date Time Temp Pulse Resp B/P Pulse Ox O2 Delivery O2 Flow Rate FiO2 07/30/16 20:25 99 07/30/16 20:23 98.6 18 119/61 100 07/30/16 17:09 30 07/26/16 14:00 Mechanical Ventilator Intake and Output 07/29/16 07/29/16 07/30/16 15:00 23:00 07:00 Intake Total 600 ml 600 ml Output Total 300 ml 500 ml Balance 300 ml 100 ml Exam Constitutional: alert, oriented, well developed Psych: nl mood/affect, no complaints Head: atraumatic, normocephalic Eyes: EOMI, PERRL, nl conjunctiva, nl lids, nl sclera ENMT: nl external ears & nose, nl lips & teeth, nl nasal mucosa & septum Neck: non-tender, supple Respiratory: clear to auscultation, normal air movement Cardiovascular: nl pulses, regular rate and rhythm Gastrointestinal: nl liver, spleen, non-tender, soft Musculoskeletal: nl extremities to inspection, nl gait and stance Extremities: normal pulses Neurological: SUBGRADE TESTER II-XII intact, nl mental status, nl speech, nl strength Skin: nl turgor, No rash or lesions Lymph: nl lymph nodes Results Result Diagram: 07/29/16 0457 07/29/16 0457 Medications Medications Current Medications Ondansetron HCl (Zofran Inj) 4 mg Q6H PRN IV NAUSEA AND/OR VOMITING; Start at 13:30 Acetaminophen (Tylenol Liquid) 650 mg Q6H PRN PO PAIN LEVEL 1-3 OR FEVER Last administered on 07/15/16at 15:49; Admin Dose 650 MG; Start 07/08/16 at 13:30 Heparin Sodium (Porcine) (Heparin (5000 Units/0.5 ml)) 5,000 unit Q12 SC Last administered on 07/30/16 08:20; Admin Dose 5,000 UNIT; Start 07/08/16 at 21:00 Ipratropium Prospect (Atrovent Hfa) 2 puff Q4 INH Last administered on 07/30/16 17:09; Admin Dose 2 PUFF; Start 07/08/16 at 21:00 Collagenase (Santyl) 1 applic DAILY TOP Last administered on 07/30/16 08:21; Admin Dose 1 APPLIC; Start 07/09/16 at 09:00 Mupirocin (Bactroban) 1 applic BID TOP Last administered on 07/30/16 08:08; Admin Dose 1 APPLIC; Start 07/10/16 at 12:30 Hydralazine HCl (Apresoline) 25 mg Q4 PRN GTB sbp>165; Start 07/17/16 at 16:30 Morphine Sulfate (morphine) 4 mg Q2 PRN IV PAIN LEVEL 7-10 Last administered on 07/20/16at 12:36; Admin Dose 4 MG; Start 07/18/16 at 13:30 Hydromorphone HCl (Dilaudid) 0.5 mg Q4H PRN IV PAIN Last administered on at 11:14; Admin Dose 0.5 MG; Start 07/18/16 at 13:30 Lorazepam (Ativan) 0.5 mg Q2H PRN IV anxiety; Start 07/19/16 at 11:00 Multivitamins Therapeutic (Theragran) 1 tab DAILY PO Last administered on 08:07; Admin Dose 1 TAB; Start 07/27/16 at 12:30 Zinc Sulfate (Zinc Sulfate) 220 mg DAILY GTB Last administered on 07/30/16 08: 07; Admin Dose 220 MG; Start 07/27/16 at 12:30 Ascorbic Acid (Vitamin C) 500 mg BID GTB Last administered on 07/30/16 08:07; Admin Dose 500 MG; Start 07/27/16 at 12:30 Lansoprazole (Prevacid) 30 mg BID GTB Last administered on 07/30/16 08:21; Admin Dose 30 MG; Start 07/28/16 at 21:00 Lactulose (Enulose) 20 gm Q12 GTB Last administered on 07/30/16 08:06; Admin Dose 20 GM; Start 07/29/16 at 21:00 Bisacodyl (Fleet Bisacodyl Enema) 30 ml DAILY PRN W[place] constipation Last administered on 07/30/16 16:26; Admin Dose 30 ML; Start 07/29/16 at 17:00 Baclofen (Lioresal) 10 mg TID GTB Last administered on 07/30/16 12:50; Admin Dose 10 MG; Start 07/29/16 at 21:00 Docusate Sodium (Colace Liquid Cup) 250 mg BID GTB Last administered on 08:07; Admin Dose 250 MG; Start 07/29/16 at 21:00 FRANKY BROWNING MD Jul 30, 2016 20:41
--- NOTE | 2016-07-31 00:15 | DS ---
DATE OF ADMISSION: 07/08/2016 DATE OF DISCHARGE: 07/30/2016 REASON FOR ADMISSION: Encephalopathy, rule out sepsis, now status post cardiac arrest. HOSPITAL COURSE: The patient is a very unfortunate 75-year-old, very sick, male, very wel l known to me. He has history of COPD secondary tobacco use, history of metastatic stage IV bladder cancer to the liver diagnosed in 03/2016, severe malnutrition, left AKA, multiple wounds to the rig ht foot secondary to severe contractures. The patient has been hospitalized multiple times in the ast few months. Also, has history of hypertension, dyslipidemia, depression, anemia, chronic back p ain, gastroesophageal reflux disease, peripheral vascular disease. He was seen previously by the ur ologist, Dr. Villarreal, and the radiation oncologist, Dr. Lan. He was not a candidate for any bl adder resection. Recently, his cancer has progressed on recent CT scan. His prognosis is poor and I recommended, on multiple occasions, comfort measures. Family was overall more optimistic, especia lly the patient's daughter. Unfortunately, he now presented to the emergency department as he was n oted to be more weak and lethargic. He was brought into the ER where he was found to have elevated white count 21,000. Unfortunately, in the ER, he coded and he was resuscitated and intubated. Candy isaac, blood cultures were positive for coagulase negative staph, VRE. I consulted Dr. Richardson, the infectious disease specialist, and patient was started on broad-spectrum antibiotics. He remains v entilated. Echocardiogram shows preserved ejection fraction. I also consulted Dr. Hassan, the [facility] physician. He was placed on multiple antibiotics with vancomycin and imipenem. He re ceived wound care, air mattress bed. NG tube was placed for feeding. Ultimately, the patient remai ns encephalopathic as he was off sedation and there was no meaningful response. The patient had a d ifficult time making decisions, such as comfort measures. Ultimately, patient underwent trach and P EG placement. He finished a course of antibiotics per Dr. Richardson. He underwent multiple diagnostic tests including a CT scan of the chest and showed possible aspiration pneumonia, bronchiolitis, bro nchopneumonia in the right middle lobe, severe COPD changes, nodule in the liver, likely metastases. The patient was stabilized. [place] [facility] [place], respiratory care, weaning, and to continue to monitor his neurological condition. The felice pastrana's T-max is 99.7 this morning, but overall hemodynamically stable, so we [place] [facility] [place]. Monitor for any worsening fevers or infection. Blood pressure is 118/61, pulse 98, respirations 23, temperature 98.9, saturation 98% on 30% FIO2. The felice pastrana will be [place] [facility] I have been informed the daughter of the plan of discharge and transfer. DISCHARGE MEDICATIONS: 1. Tylenol 650 q.6h. p.r.n. 2. Proventil every 2 hours p.r.n. 3. Albuterol every 4 hours. 4. Vitamin C 500 mg daily. 5. Baclofen 10 mg t.i.d., which I placed him on for muscle spasms and contractures. 6. Dulcolax p.r.n. 7. Santyl apply daily and p.r.n. 8. Colace 200 b.i.d. 9. Heparin 5000 units subcutaneous q.12h. 10. Hydralazine 25 q.4h. p.r.n. 11. Dilaudid 0.5 IV q.4h. p.r.n. for moderate pain. 12. Atrovent every 2 hours p.r.n. and q.4 around the clock. 13. Lactulose twice a day. 14. Prevacid 30 mg twice a day. 15. Ativan 0.5 G-tube q.2h. p.r.n. 16. Multivitamin 1 tablet daily. 17. Bactroban ointment b.i.d. to the affected area. 18. Zofran 4 mg IV q.4h. p.r.n. 19. Zinc sulfate 220 mg daily. 20. Continue G-tube feeding. FINAL DIAGNOSES: 1. Status post cardiopulmonary arrest. 2. Bacteremia. 3. Multiple wounds in the right foot, infected. 4. Rule out pneumonia, possible aspiration status post cardiac arrest. 5. Chronic obstructive pulmonary disease. 6. Metastatic bladder cancer to the liver, stage IV. 7. Malnutrition. 8. Contractures. 9. Left [id number] amputation. 10. Anemia. 11. Dysphagia. 12. G-tube feeding. 13. Septicemia. 14. Anoxic brain injury. 15. Encephalopathy. Overall, prognosis is poor. Recommend comfort measures. DISPOSITION: [place] [facility] [place] I was in touch with family jose bers, with Miesha and the daughter, Jodie, regularly. I appreciate all the involved physicians who were assisting me in the care. Dictated By: JEREMIAS BELTRAN/LEISA Conf#: [id number] DID#: [id number]
== END 2016-07-30 21:17 | DRG 4 ==
LOC: E/R 08:55 → ICU 09:32 → TEL 07-26 13:59
PROVIDERS: ADMIT Internal Medicine; ATTEND Internal Medicine
PROC: 0BH17EZ Insertion of Endotracheal Airway into Trachea, Via Natural or Artificial Opening (ICD-10-PCS; principal; 2016-07-08)
PROC: 5A1955Z Respiratory Ventilation, Greater than 96 Consecutive Hours (ICD-10-PCS; 2016-07-08)
PROC: 05H633Z Insertion of Infusion Device into Left Subclavian Vein, Percutaneous Approach (ICD-10-PCS; 2016-07-08)
PROC: 30233N1 Transfusion of Nonautologous Red Blood Cells into Peripheral Vein, Percutaneous Approach (ICD-10-PCS; 2016-07-08)
PROC: 0DH63UZ Insertion of Feeding Device into Stomach, Percutaneous Approach (ICD-10-PCS; 2016-07-24)
PROC: 0B110F4 Bypass Trachea to Cutaneous with Tracheostomy Device, Open Approach (ICD-10-PCS; 2016-07-25)
DX: A41.1 Sepsis due to other specified staphylococcus (principal); R65.21 Severe sepsis with septic shock; J69.0 Pneumonitis due to inhalation of food and vomit; I46.9 Cardiac arrest, cause unspecified; E43 Unspecified severe protein-calorie malnutrition; G93.1 Anoxic brain damage, not elsewhere classified; J18.9 Pneumonia, unspecified organism; N17.9 Acute kidney failure, unspecified; L89.154 Pressure ulcer of sacral region, stage 4; J96.00 Acute respiratory failure, unspecified whether with hypoxia or hypercapnia; N39.0 Urinary tract infection, site not specified; C78.7 Secondary malignant neoplasm of liver and intrahepatic bile duct; E87.2 Acidosis; C67.9 Malignant neoplasm of bladder, unspecified; D64.9 Anemia, unspecified; J44.9 Chronic obstructive pulmonary disease, unspecified; Z87.891 Personal history of nicotine dependence; Z68.20 Body mass index [BMI] 20.0-20.9, adult; F01.50 Vascular dementia, unspecified severity, without behavioral disturbance, psychotic disturbance, mood disturbance, and anxiety; I73.9 Peripheral vascular disease, unspecified; Z89.612 Acquired absence of left leg above knee; Z66 Do not resuscitate; Y95 Nosocomial condition; R21 Rash and other nonspecific skin eruption; L89.890 Pressure ulcer of other site, unstageable; Z22.322 Carrier or suspected carrier of Methicillin resistant Staphylococcus aureus; B95.8 Unspecified staphylococcus as the cause of diseases classified elsewhere; B95.2 Enterococcus as the cause of diseases classified elsewhere; Z16.21 Resistance to vancomycin; A41.81 Sepsis due to Enterococcus; R40.2412 Glasgow coma scale score 13-15, at arrival to emergency department; R13.10 Dysphagia, unspecified
CPT/HCPCS: 31500; 36415; 36430; 36600; 70450; 70490; 71010; 71250; 74000; 80048; 80053; 82803; 82962; 83540; 83605; 83735; 84100; 84134; 84484; 85025; 85610; 85730; 86850; 86900; 86901; 86920; 87040; 87070; 87081; 87086; 93005; 93306; 94002; 94003; 94640; 94770; 94799; 95819; 96365; 96366; 96367; 96375; J1940; C9113; J0171; J0690; J0743; J0744; J1170; J2250; J2270; J2405; J2916; J2997; J3010; J3370; J3475; J3480; J7030; J7040; J7042; J7050; P9016